=== PATIENT | male | born 1950 | race Caucasian/White ===

== ENCOUNTER 2017-08-30 19:49 | Inpatient (IN) ==
--- NOTE | 2017-08-30 20:09 | Emergency Department Note ---
Disposition Clinical Impression: CARLOS (acute kidney injury) Chest pain Qualifiers: Chest pain type: unspecified Qualified Code(s): R07.9 - Chest pain, unspecified Disposition: Admitted As Inpatient Condition: Undetermined Referrals: Maria Antonia Friend CNP [Primary Care Provider] - Forms: ED Satisfaction Letter Time of Disposition: 21:57 Chest Pain HPI - General Chief Complaint: ED Chest Pain Stated Complaint: Chest Pain Time Seen by Provider: 08/30/17 20:00 Source: patient Mode of arrival: ambulatory Limitations: no limitations Vital Signs Reviewed: Yes Nursing Notes Reviewed: Yes - History of Present Illness HPI Narrative: 67-year-old male with history of coronary artery disease, hypertension, hyperlipidemia, 14 cardiac stents, CVA 2, arrives to emergency department with 2 hours of retrosternal chest pain radiating to his left chest and left upper extremity and in the left jaw. Patient states this feels like previous to when he had his previous stents. Patient has associated dyspnea on exertion as well as some mild diaphoresis and nausea. Patient denies any hemoptysis, unilateral leg swelling, recent surgeries, history DVT or PE. The patient is resting comfortably in the room at this time. Severity scale (1-10): 5 All systems ED: reviewed and negative except as stated. Constitutional: Denies: fever, chills, weakness ENT ED: Denies: dysphagia Cardiovascular: Reports: chest pain, dyspnea on exertion. Denies: orthopnea, edema, syncope Respiratory: Reports: dyspnea. Denies: cough, sputum production Gastrointestinal: Reports: nausea. Denies: abdominal pain, vomiting Genitourinary: Denies: urgency, dysuria Musculoskeletal: Denies: back pain, neck pain, arthralgia, myalgia Integumentary: Denies: rash, lesions Neurological: Denies: headache, weakness Chest Pain PMH - Past Medical History Medical history: Reports: hyperlipidemia, hypertension, myocardial infarction Surgical history: Reports: carotid endarterectomy Prior Cardiac Testing/Procedures: Stenting - Social History Smoking Status: Former smoker Alcohol use: Reports: none Drug use: Reports: none Physical Exam - General Limitations: no limitations General appearance: alert, in no apparent distress - Head Head exam: atraumatic, normocephalic, normal inspection - Eye Eye exam: Present: normal appearance, PERRL, EOMI - ENT ENT exam: normal exam, normal oropharynx, mucous membranes moist - Neck Neck exam: Present: normal inspection, full ROM, trachea midline - Chest Chest inspection: Present: normal inspection, symmetric chest wall rise - Respiratory Respiratory exam: Present: normal lung sounds bilaterally - Cardiovascular Cardiovascular exam: Present: regular rate, normal rhythm, normal heart sounds - Abdominal Exam Abdominal exam: Present: soft, Non-Tender. Absent: tenderness, distention, guarding, rebound, rigidity - Extremities Exam Extremities exam: Present: normal inspection, full ROM. Absent: tenderness, pedal edema - Neurological Exam Neurological exam: Present: alert, oriented X3 - Skin Skin exam: Present: warm, dry, intact, normal color Course Vital Signs Temperature 97.6 F 08/30/17 19:55 Pulse Rate 60 08/30/17 19:55 Respiratory Rate 16 08/30/17 19:55 Blood Pressure 197/89 08/30/17 19:55 O2 Sat by Pulse Oximetry 97 08/30/17 19:55 Temperature 97.6 F 08/30/17 19:55 Pulse Rate 56 08/30/17 21:36 Respiratory Rate 16 08/30/17 21:36 Blood Pressure 121/64 08/30/17 21:36 O2 Sat by Pulse Oximetry 94 08/30/17 21:36 Oxygen Delivery Oxygen Delivery Room Air Chest Pain - MDM Narrative Medical decision making narrative: Patient's workup in the emergency Department is concerning for acute coronary syndrome given patient's symptoms and past history of VT. We will admit the patient to the hospital for further workup and care including trending of troponins. His troponin is negative here in the emergency department. Patient made aware and agrees to plan. He was administered aspirin here in the emergency department. No further questions or concerns noted. Accepted by Dr. Sandhu [facility]. - Lab Data Lab results reviewed: Yes I reviewed the patient's lab results. Result diagrams: 08/30/17 20:19 08/30/17 20:19 Lab Results 08/30/17 08/30/17 08/30/17 Range/Units 20:19 20:19 20:19 WBC 5.8 (4.3-11.1) K/mcL RBC 4.90 (4.19-5.50) M/mcL Hgb 13.0 (12.9-16.9) g/dL Hct 40.6 (37.5-50.1) % MCV 82.9 L (83.0-100.0) fL MCH 26.5 L (28.0-33.3) pg MCHC 32.0 (31.6-35.5) g/dL RDW 15.2 H (11.5-14.5) % Plt Count 186 (140-400) K/mcL MPV 10.0 (9.4-12.4) fL Immature Gran % 0.3 (0-4) % Seg Neutrophils % 61.0 % Lymphocytes % 23.5 % Monocytes % 10.1 % Eosinophils % 4.6 % Basophils % 0.5 % Neutrophils # 3.5 (1.6-8.9) K/mcL Lymphocytes # 1.4 (0.6-4.6) K/mcL Monocytes # 0.6 (0.0-1.3) K/mcL Eosinophils # 0.3 (0.0-0.6) K/mcL Basophils # 0.0 (0.0-0.2) K/mcL PT 11.4 (9.4-12.1) Seconds INR 1.0 APTT 31.3 (26.0-36.0) Seconds Sodium 135 L (136-145) mEq/L Potassium 4.6 (3.5-5.1) mEq/L Chloride 104 (98-107) mEq/L Carbon Dioxide 25 (23-29) mEq/L BUN 29 H (8-23) mg/dL Creatinine 1.60 H (0.70-1.30) mg/dL Est GFR ( Amer) 53 L (> 60) Est GFR (Non-Af Amer) 43 L (> 60) BUN/Creatinine Ratio 18 (6-26) Glucose 231 H (70-105) mg/dL Calculated Osmolality 293 (280-300) Calcium 9.7 (8.6-10.3) mg/dL Troponin I < 0.03 (< 0.04) ng/mL - Radiology Data Radiology results reviewed: Yes I reviewed the patient's radiology results. Chest X-Ray 08/30/17 20:00 IMPRESSION: Mild bibasilar atelectasis. D/ / Lydia Ram MD / Lydia Ram MD Interpreting Provider: Lydia Ram MD - EKG Data EKG attestation: Yes I reviewed and interpreted this EKG. EKG results narrative: Heart rate 54 beats for minute. Normal sinus bradycardia. No ST elevation noted but possible mild ST depression in V4, V5. Nonspecific ST changes noted from EKG from 03/13/2012.
[2017-08-30 20:44] LABS: Basophils % 0.5 %; Eosinophils # 0.3 K/mcL (0.0-0.6); Eosinophils % 4.6 %; Hematocrit 40.6 % (37.5-50.1); Immature Granulocytes % 0.3 % (0-4); Lymphocytes # 1.4 K/mcL (0.6-4.6); Lymphocytes % 23.5 %; Mean Corpuscular Hemoglobin 26.5 pg (28.0-33.3); Mean Corpuscular Volume 82.9 fL (83.0-100.0); Monocytes # 0.6 K/mcL (0.0-1.3); Monocytes % 10.1 %; Neutrophils # 3.5 K/mcL (1.6-8.9); Platelet Count 186 K/mcL (140-400); Red Cell Distribution Width 15.2 % (11.5-14.5)
[2017-08-30 20:50] LABS: Prothrombin Time 11.4 Seconds (9.4-12.1)
[2017-08-30 20:53] LABS: Activated Partial Thrombo Time 31.3 Seconds (26.0-36.0)
[2017-08-30 21:05] LABS: BUN/Creatinine Ratio 18 (6-26); Blood Urea Nitrogen 29 mg/dL (8-23); Calcium 9.7 mg/dL (8.6-10.3); Carbon Dioxide 25 mEq/L (23-29); Chloride 104 mEq/L (98-107); Glucose 231 mg/dL (70-105); Osmolality,Calculated 293 (280-300); Potassium 4.6 mEq/L (3.5-5.1); Sodium 135 mEq/L (136-145); eGFR For African Americans 53 (> 60); eGFR For Non-African Americans 43 (> 60)
[2017-08-30 21:06] LABS: Troponin I < 0.03 ng/mL (< 0.04)
--- NOTE | 2017-08-30 21:51 | Emergency Department Note ---
Disposition Clinical Impression: CARLOS (acute kidney injury) Chest pain Qualifiers: Chest pain type: unspecified Qualified Code(s): R07.9 - Chest pain, unspecified Disposition: Admitted As Inpatient Condition: Undetermined Referrals: Maria Antonia Friend CNP [Primary Care Provider] - Forms: ED Satisfaction Letter General Adult HPI - General Chief complaint: ED Chest Pain Stated complaint: Chest Pain Time Seen by Provider: 08/30/17 20:00 Source: patient Mode of arrival: ambulatory Limitations: no limitations Nursing Notes Reviewed: Yes Vital Signs Reviewed: Yes - History of Present Illness Pain Scale: 5 Constitutional: Denies: fever, chills, weakness ENT ED: Denies: dysphagia Cardiovascular: Reports: chest pain, dyspnea on exertion. Denies: orthopnea, edema, syncope Respiratory: Reports: dyspnea. Denies: cough, sputum production Gastrointestinal: Reports: nausea. Denies: abdominal pain, vomiting Genitourinary: Denies: urgency, dysuria Musculoskeletal: Denies: back pain, neck pain, arthralgia, myalgia Integumentary: Denies: rash, lesions Neurological: Denies: headache, weakness Past Medical History - Past Medical History Medical history: Reports: hyperlipidemia, hypertension, myocardial infarction Surgical history: Reports: carotid endarterectomy - Social History Smoking Status: Former smoker Alcohol use: Reports: none Drug use: Reports: none Physical Exam - General Limitations: no limitations General appearance: alert, in no apparent distress Course Vital Signs Temperature 97.6 F 08/30/17 19:55 Pulse Rate 60 08/30/17 19:55 Respiratory Rate 16 08/30/17 19:55 Blood Pressure 197/89 08/30/17 19:55 O2 Sat by Pulse Oximetry 97 08/30/17 19:55 Temperature 97.6 F 08/30/17 19:55 Pulse Rate 56 08/30/17 21:36 Respiratory Rate 16 08/30/17 21:36 Blood Pressure 121/64 08/30/17 21:36 O2 Sat by Pulse Oximetry 94 08/30/17 21:36 Oxygen Delivery Oxygen Delivery Room Air Medical Decision Making - Lab Data Result diagrams: 08/30/17 20:19 08/30/17 20:19 Lab Results 08/30/17 08/30/17 08/30/17 Range/Units 20:19 20:19 20:19 WBC 5.8 (4.3-11.1) K/mcL RBC 4.90 (4.19-5.50) M/mcL Hgb 13.0 (12.9-16.9) g/dL Hct 40.6 (37.5-50.1) % MCV 82.9 L (83.0-100.0) fL MCH 26.5 L (28.0-33.3) pg MCHC 32.0 (31.6-35.5) g/dL RDW 15.2 H (11.5-14.5) % Plt Count 186 (140-400) K/mcL MPV 10.0 (9.4-12.4) fL Immature Gran % 0.3 (0-4) % Seg Neutrophils % 61.0 % Lymphocytes % 23.5 % Monocytes % 10.1 % Eosinophils % 4.6 % Basophils % 0.5 % Neutrophils # 3.5 (1.6-8.9) K/mcL Lymphocytes # 1.4 (0.6-4.6) K/mcL Monocytes # 0.6 (0.0-1.3) K/mcL Eosinophils # 0.3 (0.0-0.6) K/mcL Basophils # 0.0 (0.0-0.2) K/mcL PT 11.4 (9.4-12.1) Seconds INR 1.0 APTT 31.3 (26.0-36.0) Seconds Sodium 135 L (136-145) mEq/L Potassium 4.6 (3.5-5.1) mEq/L Chloride 104 (98-107) mEq/L Carbon Dioxide 25 (23-29) mEq/L BUN 29 H (8-23) mg/dL Creatinine 1.60 H (0.70-1.30) mg/dL Est GFR ( Amer) 53 L (> 60) Est GFR (Non-Af Amer) 43 L (> 60) BUN/Creatinine Ratio 18 (6-26) Glucose 231 H (70-105) mg/dL Calculated Osmolality 293 (280-300) Calcium 9.7 (8.6-10.3) mg/dL Troponin I < 0.03 (< 0.04) ng/mL Attestation Statement - Attestation Attestation: I, Jayy Sun MD, personally evaluated this patient and discussed their management with the resident physician. I reviewed the resident's note and agree with the documented findings, medical decision making, and plan of care. 67-year-old male with history of coronary artery disease and 14 coronary artery stents presents to the emergency department with a complaint of an episode of chest pain for about 2 hours prior to arrival. He states the pain was in his left arm and radiated up into the left chest. Also to the left jaw. He had shortness of breath and nausea with the episode. It was not associated with exertion. He did take nitroglycerin which helped the pain but did not completely relieve it. At time of my exam he is pain-free. On examination patient is a well-developed well-nourished well-appearing elderly male in no acute distress. He is alert and oriented 3. There is no cyanosis or diaphoresis. Chest is nontender to palpation. Breath sounds are clear and equal bilaterally. Heart regular rate and rhythm. Abdomen soft and nontender with normal bowel sounds. Reviewed. Troponin normal. Chest x-ray shows bibasilar atelectasis. EKG shows a sinus bradycardia with ventricular rate of 54. No ST segment elevation or depressions. The hospitalist, Dr. Sandhu, was consulted and accepted admission of the patient.
[2017-08-30] MEDS ORDERED: Aspirin 325 MG TABLET PO ONE (21:52)
[2017-08-30] MEDS ORDERED: Naloxone 0.4 MG/ML INJ IVP PRN (23:53)
[2017-08-30] MEDS ORDERED: Acetaminophen 325 MG TABLET PO PRN (23:53)
[2017-08-30] MEDS ORDERED: Nitroglycerin 0.4 MG TAB.SUBL SL PRN (23:58)
[2017-08-31] MEDS ORDERED: D5% in Water 1,000 ML IVC PRN (00:08)
[2017-08-31] MEDS ORDERED: Dextrose Gel 15 GM/37.5 ML TUBE PO PRN ×2 (00:08)
[2017-08-31] MEDS ORDERED: *HR* Dextrose 50 % in Water (Syg) 50 ML SYRINGE IVP PRN (00:08)
--- NOTE | 2017-08-31 00:17 | Internal Med History&Physical ---
Date of Encounter: 08/30/17 Time of Encounter: 23:00 Internal Medicine - H&P: HPI Chief complaint: Chest pain Admitted From: Home Plans for Post Hospital Care: Home History of present illness: Mr. Newman is a 67 year old male presented to ER for chest pain. Past medical history is significant for CAD S/P 14 stents, diabetes, COPD, bilateral carotid stenosis S/P surgery, hypertension. Patient has sudden onset chest pain since this evening, the pain located on left chest, pressure-like, 8 out of 10, radiated to left arm and left jaw. Patient has mild shortness of breath. No nausea, no diaphoresis. Patient took sublingual nitroglycerin and the pain resolved after nitroglycerin. The pain lasted totally about one hour. Patient said he has similar chest pain before and resolved after nitroglycerin use, but it is 2 years ago. When I saw patient in emergency room, patient is totally pain-free, in no acute distress. Patient admitted for chest pain to rule out ACS. Past Med Surg Social Fam HX - Past Medical History Medical history: CVA, diabetes, hyperlipidemia, hypertension, myocardial infarction Psychiatric history: no psych history - Past Surgical History Surgical History: angioplasty/stent, carotid endarterectomy - Social History Smoking Status: Former smoker Alcohol use: none Drug use: none - Family History Mother History Unknown: Yes Internal Medicine - H&P: Meds Advair 250-50 Diskus 250 puff IH DAILY 08/30/17 [History] Aspirin [Lo-Dose Aspirin EC] 81 mg PO DAILY 08/30/17 [History] Clopidogrel [Plavix] 75 mg PO DAILY 08/30/17 [History] Glimepiride [Amaryl] 4 mg PO DAILY 08/30/17 [History] Iron 65 mg PO QTUTHSA 08/30/17 [History] Isosorbide MONOnitrate 30 mg PO DAILY 08/30/17 [History] Januvia 50 mg PO DAILY 08/30/17 [History] Jardiance 10 mg PO DAILY 08/30/17 [History] Metoprolol Tartrate 75 mg PO BID 08/30/17 [History] Nitroglycerin [Nitrostat] 0.4 mg SL PRN 08/30/17 [History] Ranitidine HCl 150 mg PO BID 08/30/17 [History] Rosuvastatin [Crestor] 20 mg PO HS 08/30/17 [History] metFORMIN [Glucophage] 500 mg PO BID 08/30/17 [History] 3 Allergy/AdvReac Type Severity Reaction Status Date / Time codeine Allergy Intermediate Agitated Verified 08/30/17 23:28 morphine Allergy Intermediate Agitated Verified 08/30/17 23:28 codeine Allergy Unknown Agitated Uncoded 08/30/17 23:28 All Systems PM: A 10-system review of systems was performed and is negative for pertinent findings except as documented above in the HPI. - Constitutional Vitals: Temp Pulse Resp BP Pulse Ox 97.4 F L 59 16 180/81 99 08/30/17 23:07 08/30/17 23:07 08/30/17 23:07 08/30/17 23:07 08/30/17 23:07 General appearance: Present: A&O X 3, no acute distress, answers questions appropriately - Head Head exam: Present: atraumatic, normocephalic - Eye Eye exam: Present: PERRL, conjuntiva pink, sclera anicteric Pupils: Present: PERRL - Neck Neck exam general surgery: Present: supple, trachea midline. Absent: lymphadenopathy - Respiratory Respiratory exam: Present: CTAB. Absent: accessory muscle use, rales, rhonchi, wheezes - Cardiovascular Cardiovascular exam: Present: RRR, +S1, +S2. Absent: diastolic murmur, gallop, rubs, systolic murmur - GI/Abdominal GI/Abdominal exam: Present: normal bowel sounds, soft, no peritoneal signs. Absent: distended, tenderness - Extremities Exam Extremities exam: Present: warm, radial pulses palpable and symmetrical. Absent : calf tenderness, cyanotic, pedal edema - Neurological Exam Neurological exam: Present: CN II-XII intact, oriented X3, no focal deficits. Absent: pronater drift, facial droop, speech deficit - Skin Skin exam: Present: dry, intact Internal Med - H&P Results - Labs CBC & Chem 7: 08/30/17 20:19 08/30/17 20:19 - Assessment and plan (1) CAD (coronary artery disease) Current Visit: Yes Status: Acute Assessment and plan: We will continue home medications aspirin, Plavix, Imdur, beta livan, and statin. Qualifiers: Coronary Disease-Associated Artery/Lesion type: eek artery [place] vs. transplanted heart: eek heart Associated angina: with stable angina Qualified Code(s): I25.118 - Atherosclerotic heart disease of eek coronary artery with other forms of angina pectoris (2) Diabetes Current Visit: Yes Status: Acute Assessment and plan: Place the patient on sliding scale insulin coverage Qualifiers: Diabetes mellitus type: type 2 Diabetes mellitus half-way insulin use: without bed bug exterminator use Diabetes mellitus complication status: with unspecified complications Qualified Code(s): E11.8 - Type 2 diabetes mellitus with unspecified complications (3) COPD (chronic obstructive pulmonary disease) Current Visit: Yes Status: Acute Assessment and plan: Stable, no wheezing, continue home medications Qualifiers: COPD type: emphysema Emphysema type: unspecified Qualified Code(s): J43.9 - Emphysema, unspecified (4) Hypertension Current Visit: Yes Status: Acute Assessment and plan: Continue home medications, closely monitor BP Qualifiers: Hypertension type: essential hypertension Qualified Code(s): I10 - Essential (primary) hypertension (5) Carotid stenosis Current Visit: Yes Status: Acute Assessment and plan: S/P surgery, continue follow-up as outpatient Qualifiers: Laterality: bilateral Qualified Code(s): I65.23 - Occlusion and stenosis of bilateral carotid arteries (6) CARLOS (acute kidney injury) Current Visit: Yes Status: Acute Assessment and plan: Creatinine 1.6. No previous result available to compare. Patient has diabetes , possibly it is his baseline. Will give low rate IV fluid and follow-up renal function in a.m.. Avoid nephrotoxic medications (7) Chest pain Current Visit: Yes Status: Acute Assessment and plan: Patient has chest pain. History of CAD S/P stent. Chest pain respond to neck glycerin. Need to rule out ACS. - Place patient on continuous cardiac monitoring - Check 3 sets of troponin - Regarding stress test, patient would like to see his front edger after discharge to determine the further testing. Will hold at this point. Qualifiers: Chest pain type: unspecified Qualified Code(s): R07.9 - Chest pain, unspecified - Time Spent With Patient Total time spent is greater than 50% in coordination of care (as documented) at patient's floor/unit and/or counseling patient: 40 minutes Greater than 35 minutes
[2017-08-31 01:12] LABS: Basophils % 0.5 %; Eosinophils # 0.3 K/mcL (0.0-0.6); Eosinophils % 4.7 %; Hematocrit 37.9 % (37.5-50.1); Hemoglobin 12.2 g/dL (12.9-16.9); Immature Granulocytes % 0.5 % (0-4); Lymphocytes # 1.9 K/mcL (0.6-4.6); Lymphocytes % 29.8 %; Mean Corpuscular HGB Conc 32.2 g/dL (31.6-35.5); Mean Corpuscular Volume 80.6 fL (83.0-100.0); Mean Platelet Volume 9.6 fL (9.4-12.4); Monocytes # 0.7 K/mcL (0.0-1.3); Monocytes % 10.5 %; Neutrophils # 3.4 K/mcL (1.6-8.9); Platelet Count 172 K/mcL (140-400); Red Cell Distribution Width 15.2 % (11.5-14.5)
[2017-08-31 01:32] LABS: Calcium 9.4 mg/dL (8.6-10.3); Potassium 3.9 mEq/L (3.5-5.1)
[2017-08-31] MEDS ORDERED: *HR* Heparin 5,000 UNIT/ML VIAL IVP ONE (01:44)
[2017-08-31] MEDS ORDERED: *HR* Heparin 5,000 UNIT/ML VIAL IVP PRN ×2 (01:44)
[2017-08-31] MEDS: 0.9 % Sodium Chloride 1,000 ML IVC SCH ×2 (02:17→18:23)
--- NOTE | 2017-08-31 03:13 | Event Note ---
Date of Encounter: 08/31/17 Time of Encounter: 02:30 Patient has a positive second set troponin. Patient denies chest pain now. Consider NSTEMI as patient has chest pain earlier and history of CAD. Heparin drip ordered. However, patient refused heparin drip and refused blood draw for APTT. I together with KAROLYN Johnson, talk to patient at bedside. Patient is awake alert oriented 3. He understand that refusing heparin drip may cause his CAD/ NSTEMI get worse, may cause worsen irreversible myocardio infarct or even life theatening outcome. However, pt still refuse heparin drip and blood draw. Will cont other treatment and monitoring, will consult cardio for further management.
[2017-08-31] MEDS: Budesonide/Formoterol 80/4.5 MDI IH SCH (08:30)
[2017-08-31] MEDS: Aspirin Enteric Coated 81 MG Tablet PO SCH (10:14)
[2017-08-31] MEDS: Insulin LISPRO 300 UNITS/3 ML VIAL SQ SCH ×3 (10:15→18:24)
[2017-08-31] MEDS: Isosorbide MONOnitrate (24 HR) 30 MG TAB.ER.24H PO SCH ×2 (10:16→11:55)
--- NOTE | 2017-08-31 11:48 | Cardiology Consult Note ---
<Markel Balderas R - Last Filed: 08/31/17 11:45> Date of Encounter: 08/31/17 Time of Encounter: 11:45 Assessment and Plan (1) NSTEMI (non-ST elevated myocardial infarction) Current Visit: Yes Status: Acute Peak troponin 0.99. Presented with chest pain with radiation to left arm and jaw , similar to prior anginal equivalent. Pt initially refused heparin gtt. Now agreeable, started. No ischemic EKG findings. Continue ASA, Plavix, Statin. BB on hold due to bradycardia. Hx CAD and multiple PCI--per pt most recent ~1 year ago at [place]. Follows with Dr. Becerra in [facility]. Chest pain free currently. TTE to evaluate structure and function. Recommend [facility]. R/B/A discussed. Agrees to proceed with [facility] tomorrow. (2) CARLOS (acute kidney injury) Current Visit: Yes Status: Acute Creatinine 1.60 on admission, 1.43 today. Unclear baseline. IV fluids ordered. (3) CAD (coronary artery disease) Current Visit: Yes Status: Acute Hx CAD and PCI. Continue ASA, Plavix, Statin. No BB currently due to bradycardia. Qualifiers: Coronary Disease-Associated Artery/Lesion type: [place] artery [place] vs. transplanted heart: [place] heart Associated angina: with stable angina Qualified Code(s): I25.118 - Atherosclerotic heart disease of [place] coronary artery with other forms of angina pectoris Discussion w patient/family: The assessment and plan as outlined above was discussed with the patient and/or family members who expressed understanding and agreement. All questions were answered. Thank you for involving us in the care of your patient. Please call with any questions. I will discuss all the above with Dr. De La Cruz and make changes as necessary. History of Present Illness Consult date: 08/31/17 Requesting physician: Aron Sandhu Consult reason: NSTEMI Chief complaint: Chest pain History of present illness: Mr. Newman is a 67 year old male with PMH of CAD S/P reportedly 14 stents, diabetes, COPD, carotid stenosis s/p surgery, HTN. Per pt, last stent ~1 year ago at [place]. Typically follows with Dr. Becerra in [facility]. Patient had sudden onset chest pain yesterday evening, left sided chest pressure that radiated to left arm and left jaw. Patient has mild shortness of breath. No nausea, no diaphoresis. Patient took sublingual nitroglycerin and the pain improved after nitroglycerin. CP lasted 1-2 hours. Pain similar to prior anginal equivalent. Initial troponin negative, then 0.27, 0.99. Cardiology consulted for further recs. Currently chest pain free. Past Med Surg Social Fam HX - Past Medical History Medical history: coronary artery disease, CVA, diabetes, hyperlipidemia, hypertension, myocardial infarction Psychiatric history: no psych history - Past Surgical History Surgical History: angioplasty/stent, carotid endarterectomy - Social History Smoking Status: Former smoker Alcohol use: none Drug use: none - Family History Brother Adopted: [place]: DEVORAH Age: 70 Family Member Ethnicity: Non- Living Status: Still Living Hx Family Cardiac Disorders: Yes (HEART DISEASE) Hx Family Respiratory Disorders: No Hx Family Cancer: No Hx Family GI Disorders: No Hx Family Genitourinary Disorders: No Hx Family Endocrine Disorder: No Hx Family Musculoskeletal Disorders: No Hx Family Neuromuscular Disorders: No Hx Family Neurologic Disorders: No Hx Family HEENT Disorders: No Hx Family Autoimmune Disorders: No Hx Family Reproductive Disorders: No Hx Family Psychosocial Disorders: No Hx Family Medical Disorders: No Mother History Unknown: Yes Medications and Allergies Aspirin [Lo-Dose Aspirin EC] 81 mg PO DAILY 08/30/17 [History] Clopidogrel [Plavix] 75 mg PO DAILY 08/30/17 [History] Empagliflozin [Jardiance] 10 mg PO DAILY 08/30/17 [History] Ferrous Sulfate 325 mg PO TUTHSA 08/30/17 [History] Glimepiride [Amaryl] 4 mg PO BID 08/30/17 [History] Isosorbide MONOnitrate (24 HR) [Imdur] 30 mg PO DAILY 08/30/17 [History] Metoprolol [Lopressor] 75 mg PO BID 08/30/17 [History] Nitroglycerin [Nitrostat] 0.4 mg SL Q5MIN PRN 08/30/17 [History] Ranitidine HCl [Heartburn Relief] 150 mg PO BID 08/30/17 [History] Rosuvastatin [Crestor] 20 mg PO HS 08/30/17 [History] Sitagliptin Phosphate [Januvia] 50 mg PO DAILY 08/30/17 [History] Fluticasone/Salmeterol [Advair 250-50 Diskus] 1 - 2 puff IH BID 08/31/17 [ History] Metformin HCl [Metformin HCl ER] 500 mg PO BID 08/31/17 [History] 3 Allergy/AdvReac Type Severity Reaction Status Date / Time codeine Allergy Intermediate Agitated Verified 08/30/17 23:28 morphine Allergy Intermediate Agitated Verified 08/30/17 23:28 codeine Allergy Unknown Agitated Uncoded 08/30/17 23:28 All Systems Review: The remainder of the systems were reviewed and are negative - Cardiovascular Cardiovascular: as per HPI, chest pain at rest, chest pain with exertion, radiating jaw, neck or arm pain Physical Examination Vital Signs, Last 4 Hours Temp Pulse Resp BP Pulse Ox 08/31/17 08:32 17 97 08/31/17 07:48 97.7 F 56 17 126/70 97 Vital Signs Temp Pulse Resp BP Pulse Ox 08/31/17 08:32 17 97 08/31/17 07:48 97.7 F 56 17 126/70 97 08/31/17 04:30 125/77 08/31/17 04:29 98.0 F 55 18 123/70 98 08/30/17 23:07 97.4 F L 59 16 180/81 99 08/30/17 21:36 56 16 121/64 94 08/30/17 20:57 96 08/30/17 19:55 97.6 F 60 16 197/89 97 Intake and Output 08/30/17 08/31/17 08/31/17 23:59 07:59 15:59 Output Total 1120 / 1120 Balance -1120 / -1120 Output: Urine 1120 / 1120 Other: Weight 96.186 kg Blood Glucose* 153 General: Conversant, No Apparent Distress HEENT: Atraumatic, Normocephaly, Mucus Membranes Moist Neck: No JVD, Normal carotid pulses Cardiac: Reg Rate and Rhythm, Normal S1 and S2, No Murmur Lungs: Normal Breath Sounds, No Wheeze, Rales, Rhonchi Neuro: Alert and responsive, No focal deficits noted Abdomen: Soft, Non-Tender Skin: No rashes noted on visualized skin Musculoskeletal: No Chest Wall Tenderness Extremities: No Clubbing, No Cyanosis, No Edema, Normal Pulses Results 08/31/17 00:55 08/31/17 00:55 Lab Results 08/31/17 08/31/17 08/31/17 00:55 00:55 00:55 WBC 6.2 Hgb 12.2 L Hct 37.9 Plt Count 172 Sodium 137 Potassium 3.9 Chloride 106 Carbon Dioxide 24 BUN 27 H Creatinine 1.43 H Glucose 230 H Calcium 9.4 Troponin I 0.27 H* 08/31/17 06:31 WBC Hgb Hct Plt Count Sodium Potassium Chloride Carbon Dioxide BUN Creatinine Glucose Calcium Troponin I 0.99 H* Short CBC 08/31/17 08/30/17 Range/Units 00:55 20:19 WBC 6.2 5.8 (4.3-11.1) K/mcL Hgb 12.2 L 13.0 (12.9-16.9) g/dL Hct 37.9 40.6 (37.5-50.1) % Plt Count 172 186 (140-400) K/mcL Neutrophils # 3.4 3.5 (1.6-8.9) K/mcL BMP 08/31/17 08/30/17 Range/Units 00:55 20:19 Sodium 137 135 L (136-145) mEq/L Potassium 3.9 4.6 (3.5-5.1) mEq/L Chloride 106 104 (98-107) mEq/L Carbon Dioxide 24 25 (23-29) mEq/L BUN 27 H 29 H (8-23) mg/dL Creatinine 1.43 H 1.60 H (0.70-1.30) mg/dL Glucose 230 H 231 H (70-105) mg/dL Calcium 9.4 9.7 (8.6-10.3) mg/dL Cardiac Enzymes 08/31/17 08/31/17 08/30/17 Range/Units 06:31 00:55 20:19 Troponin I 0.99 H* 0.27 H* < 0.03 (< 0.04) ng/mL Impressions Chest X-Ray 08/30/17 20:00 IMPRESSION: Mild bibasilar atelectasis. D/ / Lydia Ram MD / Lydia Ram MD Interpreting Provider: Lydia Ram MD Active Medications Acetaminophen (Tylenol) 650 mg PO Q6HR PRN PRN Reason: Mild Pain/Fever Stop: 03/01/18 23:54 Aspirin (Aspirin Ec) 81 mg PO DAILY [facility] Stop: 03/02/18 09:01 Last Admin: 08/31/17 10:14 Dose: 81 mg Budesonide/Formoterol Fumarate (Symbicort) 2 puff IH DAILYR [facility] Stop: 03/02/18 10:01 Last Admin: 08/31/17 08:30 Dose: 2 puff Clopidogrel Bisulfate (Plavix) 75 mg PO DAILY [facility] Stop: 03/02/18 09:01 Last Admin: 08/31/17 10:14 Dose: 75 mg Dextrose/Water (Dextrose 50% (Syg)) 25 ml IVP AD PRN PRN Reason: Hypoglycemia Stop: 03/02/18 00:09 Ferrous Sulfate (Ferrous Sulfate) 325 mg PO QTUTHSA [facility] Stop: 03/04/18 09:01 Glucagon (Glucagen) 1 mg IM ONCE PRN PRN Reason: Hypoglycemia Stop: 03/02/18 00:09 Glucose (Gluctose) 15 gm PO ONCE PRN PRN Reason: Hypoglycemia Stop: 03/02/18 00:09 Glucose (Gluctose) 30 gm PO ONCE PRN PRN Reason: Hypoglycemia Stop: 03/02/18 00:09 Heparin Sodium (Porcine) (Heparin) 4,000 unit IVP Q6HR PRN PRN Reason: SEE COMMENTS Stop: 03/02/18 01:45 Heparin Sodium (Porcine) (Heparin) 2,000 unit IVP Q6H PRN PRN Reason: SEE COMMENTS Stop: 03/02/18 01:45 Sodium Chloride (0.9 % Sodium Chloride) 1,000 mls @ 80 mls/hr IVC .[id number] [facility] Stop: 03/01/18 23:46 Last Admin: 08/31/17 02:17 Dose: 80 mls/hr Dextrose (Dextrose 5%) 1,000 mls @ 100 mls/hr IVC .Q10H PRN PRN Reason: HYPOGLYCEMIA Stop: 03/02/18 00:09 Heparin Sodium/Dextrose (Heparin 25,000 Unit/500 Ml D5w) 25,000 unit in 500 mls @ 23.085 mls/hr IVC .[id number] [facility]; 12 UNIT/KG/HR PRN Reason: Protocol Stop: 03/02/18 01:46 Insulin Human Lispro (Humalog) 0 units SQ HS [facility] PRN Reason: Protocol Stop: 03/02/18 21:01 Insulin Human Lispro (Humalog) 0 units SQ TIDAC [facility] PRN Reason: Protocol Stop: 03/02/18 07:31 Last Admin: 08/31/17 10:15 Dose: Not Given Isosorbide Mononitrate (Imdur) 30 mg PO DAILY [facility] Stop: 03/02/18 09:01 Last Admin: 08/31/17 10:16 Dose: Not Given Metoprolol Tartrate (Lopressor) 75 mg PO BID [facility] Stop: 03/02/18 09:01 Last Admin: 08/31/17 10:16 Dose: Not Given Naloxone HCl (Narcan) 0.4 mg IVP Q2MIN PRN PRN Reason: SEE COMMENTS Stop: 03/01/18 23:54 Nitroglycerin (Nitroglycerin) 0.4 mg SL Q5MIN PRN PRN Reason: Chest Pain Stop: 03/01/18 23:59 Rosuvastatin Calcium (Crestor) 20 mg PO HS [facility] Stop: 03/02/18 21:01 - EKG Interpretation EKG results cardiology: personally reviewed (sinus cherise, rate 54), other (12 hr tele AVG HR 57, SR) Consult Discharge Plan - Plan Referrals: Maria Antonia Friend, CORK INSULATOR [Primary Care Provider] - <Thomas De La Cruz - Last Filed: 08/31/17 20:28> Date of Encounter: 08/31/17 - Attending Attestation I have personally performed a face to face evaluation on this patient. I have reviewed and agree with the care plan. History and Exam by me shows: CC: Chest pain HPI: Pt reports was at rest last evening when he developed mid sternal chest pain, 8/10 at most severe, associated with nausea, diaphoresis and shortness of breath consistent with his previous anginal pain. He took one sl ntg with reduction in pain to 6/10, took second which reduced pain to 3/10. Chest pain persisted for over an hour before he came to the ER, with pain relief after additional sl ntg. He is now pain free, has not had reoccurrence of chest pain. He has an extensive cardiac history with fourteen stents placed over multiple procedures of last five years. ROS: reviewed PMH: reviewed PE: pt seen and examined, agree with findings as documented IMP/PlAN. 1. NSTEMI; troponin peak at .99, chest pain has resolved on optimal medical tx, discussed options, recommendations for LHC/poss in AM, pt agrees to proceed. 2. CAD: severe triple vessel CAD, last LHC/PCI at [facility], unknown vessed, hx fourteen coronary stent placements 3. Chronic renal disease, Stage 3, will rehdrate, consider nephrology consult for optimized renal status. Assessment and Plan Discussion w patient/family: The assessment and plan as outlined above was discussed with the patient and/or family members who expressed understanding and agreement. All questions were answered. Thank you for involving us in the care of your patient. Please call with any questions. History of Present Illness History of present illness: Mr. Newman is a 67 year old male All Systems Review: The remainder of the systems were reviewed and are negative Physical Examination Vital Signs, Last 4 Hours Temp Pulse Resp BP Pulse Ox 08/31/17 18:23 98.2 F 67 17 147/71 97 Results 08/31/17 00:55 08/31/17 00:55 Lab Results 08/31/17 08/31/17 08/31/17 00:55 00:55 00:55 WBC 6.2 Hgb 12.2 L Hct 37.9 Plt Count 172 Sodium 137 Potassium 3.9 Chloride 106 Carbon Dioxide 24 BUN 27 H Creatinine 1.43 H Glucose 230 H Calcium 9.4 Troponin I 0.27 H* 08/31/17 06:31 WBC Hgb Hct Plt Count Sodium Potassium Chloride Carbon Dioxide BUN Creatinine Glucose Calcium Troponin I 0.99 H*
[2017-08-31] MEDS: Heparin 25,000 UNIT/500 ML D5W 25,000 UNIT/500 ML BAG IVC SCH (11:56)
--- NOTE | 2017-08-31 18:42 | Internal Med Progress Note ---
Date of Encounter: 08/31/17 Time of Encounter: 09:50 - Assessment and plan (1) Chest pain Current Visit: Yes Status: Acute Assessment and plan: Chest pain free. History of CAD S/P stent. Chest pain resolved with NTG. - Place patient on continuous cardiac monitoring - Troponins elevated. - Stress and echo tomorrow. Qualifiers: Chest pain type: unspecified Qualified Code(s): R07.9 - Chest pain, unspecified (2) CARLOS (acute kidney injury) Current Visit: Yes Status: Acute Assessment and plan: Creatinine 1.43, slight improvement. Patient has diabetes, possibly it is his baseline. Will give low rate IV fluid and follow-up renal function in a.m., stop fluids at midnight. Avoid nephrotoxins (3) CAD (coronary artery disease) Current Visit: Yes Status: Acute Assessment and plan: Chronic. [place] with stents x 8. We will continue home medications aspirin, Plavix, Imdur, beta livan, and statin. Qualifiers: Coronary Disease-Associated Artery/Lesion type: [place] artery [place] vs. transplanted heart: [place] heart Associated angina: with stable angina Qualified Code(s): I25.118 - Atherosclerotic heart disease of [place] coronary artery with other forms of angina pectoris (4) Diabetes Current Visit: Yes Status: Acute Assessment and plan: SSI, accuchecks achs, diabetic diet. Qualifiers: Diabetes mellitus type: type 2 Diabetes mellitus ocean transportation intermediary insulin use: without ocean transportation intermediary use Diabetes mellitus complication status: with unspecified complications Qualified Code(s): E11.8 - Type 2 diabetes mellitus with unspecified complications (5) COPD (chronic obstructive pulmonary disease) Current Visit: Yes Status: Acute Assessment and plan: Stable, no wheezing, continue home medications No acute exacerbation. Patient is at baseline O2 use. Qualifiers: COPD type: emphysema Emphysema type: unspecified Qualified Code(s): J43.9 - Emphysema, unspecified (6) Hypertension Current Visit: Yes Status: Acute Assessment and plan: Neck. Continue home medications. Qualifiers: Hypertension type: essential hypertension Qualified Code(s): I10 - Essential (primary) hypertension (7) Carotid stenosis Current Visit: Yes Status: Acute Assessment and plan: S/P surgery, continue follow-up as outpatient Qualifiers: Laterality: bilateral Qualified Code(s): I65.23 - Occlusion and stenosis of bilateral carotid arteries - Time Spent With Patient Total time spent is greater than 50% in coordination of care (as documented) at patient's floor/unit and/or counseling patient: less than 15 minutes - Subjective Interval history: Patient was seen and assessed at 9:50 AM. Pt is alert and awake, he states that he wants to go to [place] for his cath and that Dr. Becerra is his diplomatic officer. We discussed that since his troponin is elevated, he should stay for an C and let us start the Heparin gtt. He was agreeable after everything was explained. He denied chest pain, shortness of breath, nausea, diaphoresis or peripheral edema. - Constitutional Vitals: Temp Pulse Resp BP Pulse Ox 98.2 F 67 17 147/71 97 08/31/17 18:23 08/31/17 18:23 08/31/17 18:23 08/31/17 18:23 08/31/17 18:23 General appearance: Present: cooperative, A&O X 3, pleasant, no acute distress, answers questions appropriately - Head Head exam: Present: atraumatic, normal inspection, normocephalic - Eye Eye exam: Present: normal appearance, conjuntiva pink, sclera anicteric - Neck Neck exam general surgery: Present: tenderness, supple, trachea midline. Absent : lymphadenopathy - Respiratory Respiratory exam: Present: CTAB. Absent: accessory muscle use, chest wall tenderness, decreased breath sounds, rales, respiratory distress, rhonchi, wheezes - Cardiovascular Cardiovascular exam: Present: RRR, +S1, +S2. Absent: diastolic murmur, gallop, rubs, systolic murmur - GI/Abdominal GI/Abdominal exam: Present: normal bowel sounds, soft. Absent: distended, hepatomegaly, tenderness - Extremities Exam Extremities exam: Present: normal capillary refill, normal inspection, warm, radial pulses palpable and symmetrical. Absent: calf tenderness, cyanotic, pedal edema, tenderness - Neurological Exam Neurological exam: Present: alert, oriented X3, no focal deficits. Absent: facial droop, speech deficit - Skin Skin exam: Present: dry, intact, normal color, warm. Absent: rash Internal Medicine: Result - Labs CBC & Chem 7: 08/31/17 00:55 08/31/17 00:55 Labs: Short CBC 08/31/17 Range/Units 00:55 WBC 6.2 (4.3-11.1) K/mcL Hgb 12.2 L (12.9-16.9) g/dL Hct 37.9 (37.5-50.1) % Plt Count 172 (140-400) K/mcL Neutrophils # 3.4 (1.6-8.9) K/mcL BMP 08/31/17 00:55 Sodium 137 Potassium 3.9 Chloride 106 Carbon Dioxide 24 BUN 27 H Creatinine 1.43 H Glucose 230 H Calcium 9.4 Cardiac Enzymes 08/31/17 08/31/17 Range/Units 00:55 06:31 Troponin I 0.27 H* 0.99 H* (< 0.04) ng/mL - ABG Interpretation ABG results: PT/INR, D-dimer PT 11.4 Seconds (9.4-12.1) 08/30/17 20:19 Consult Discharge Plan - Plan Referrals: Maria Antonia Friend, NUCLEAR TECHNICIAN [Primary Care Provider] -
[2017-08-31] MEDS ORDERED: Insulin LISPRO 300 UNITS/3 ML VIAL SQ SCH (21:00)
[2017-09-01 01:03] LABS: Basophils % 0.6 %; Eosinophils # 0.2 K/mcL (0.0-0.6); Eosinophils % 4.1 %; Hematocrit 36.8 % (37.5-50.1); Immature Granulocytes % 0.2 % (0-4); Lymphocytes # 1.7 K/mcL (0.6-4.6); Lymphocytes % 32.1 %; Mean Corpuscular HGB Conc 32.6 g/dL (31.6-35.5); Mean Corpuscular Hemoglobin 26.6 pg (28.0-33.3); Mean Corpuscular Volume 81.6 fL (83.0-100.0); Mean Platelet Volume 9.9 fL (9.4-12.4); Monocytes # 0.6 K/mcL (0.0-1.3); Monocytes % 11.7 %; Neutrophils # 2.8 K/mcL (1.6-8.9); Platelet Count 154 K/mcL (140-400); Red Blood Count 4.51 M/mcL (4.19-5.50); Red Cell Distribution Width 15.3 % (11.5-14.5); Segmented Neutrophils % 51.3 %
[2017-09-01 01:22] LABS: Calcium 8.6 mg/dL (8.6-10.3); Potassium 4.2 mEq/L (3.5-5.1)
[2017-09-01] MEDS: 0.9 % Sodium Chloride 1,000 ML IVC SCH (04:16)
[2017-09-01 07:12] LABS: Estimated Average Glucose 189 mg/dl; Hemoglobin A1C 8.2 %
[2017-09-01] MEDS: Heparin 25,000 UNIT/500 ML D5W 25,000 UNIT/500 ML BAG IVC SCH (09:46)
[2017-09-01] MEDS: Insulin LISPRO 300 UNITS/3 ML VIAL SQ SCH ×2 (09:50→11:51)
[2017-09-01] MEDS: Isosorbide MONOnitrate (24 HR) 30 MG TAB.ER.24H PO SCH (10:00)
[2017-09-01] MEDS: Aspirin Enteric Coated 81 MG Tablet PO SCH (10:00)
--- NOTE | 2017-09-01 10:05 | Event Note ---
Date of Encounter: 09/01/17 Time of Encounter: 09:59 - Cardiology Event Note Creatinine 1.56 today. Requested records for prior labs. Creatinine was 1.59 2017 at [facility], creatinine was 1.29 09/2016. Appears pt has CKD stage 3 at baseline, currently in his baseline range. Pt aware of risk of AYAD. Agrees to proceed with [facility] . Prior records reviewed. [facility] 09/2016 received rotoblator, PTCA/KATHERYN to prox, mid and distal RCA.
[2017-09-01] MEDS: Budesonide/Formoterol 80/4.5 MDI IH SCH (11:12)
[2017-09-01] MEDS ORDERED: Verapamil 5 MG/2 ML VIAL ONE (11:35)
[2017-09-01] MEDS ORDERED: 0.9 % Sodium Chloride 1,000 ML ONE ×2 (11:35→12:01)
[2017-09-01] MEDS ORDERED: Nitroglycerin 1,000 MCG/10 ML VIAL IV ONE (11:35)
[2017-09-01] MEDS ORDERED: ISOVUE-370 200 ML INFUS..BTL IV ONE (11:35)
[2017-09-01] MEDS ORDERED: *HR* Heparin 10,000 UNIT/10 ML VIAL ONE (11:35)
[2017-09-01] MEDS ORDERED: Heparin 1,000 UNITS/500 mL 500 ML ONE (11:35)
[2017-09-01] MEDS ORDERED: *HR* FentaNYL (PF) 100 MCG/2 ML VIAL ONE (12:00)
[2017-09-01] MEDS ORDERED: *HR* Midazolam HCl 5 MG/5 ML VIAL IVP ONE (12:00)
--- NOTE | 2017-09-01 12:20 | Pre-Sedation Evaluation ---
Pre-sedation evaluation - Pre-sedation checklist Date of procedure: 09/01/17 Procedure: heart cath Recent Vitals: Last Vital Signs Temp 97.9 F 09/01/17 07:18 Pulse 63 09/01/17 07:18 Resp 15 09/01/17 11:12 BP 116/72 09/01/17 07:18 Pulse Ox 97 09/01/17 11:12 H&P (including ROS) documented in medical record: Yes Previous reaction to sedatives/anesthetics: No Dietary Status: NPO after Midnight Dentition: dentures removed ASA Classification *see protocol: CLASS II-Mild systemic disease Plan of Care: Pt appropriate candidate for procedure/moderate/conscious sedation , Risks/benefits of procedure/sedation discussed w/ patient/family Cardiac Registry (Cardio Only) - Functional Capacity Functional Capacity: >=4 METS with symptoms - Clincal Frailty Scale Clinical Frailty Scale: Managing Well
[2017-09-01] MEDS ORDERED: Isosorbide MONOnitrate (24 HR) 30 MG TAB.ER.24H PO SCH (13:00)
--- NOTE | 2017-09-01 13:01 | Invasive Diagnostic Lab Proc ---
Name: Keon Newman Date of Study: 09/01/2017 Date: 1950 Ht: 68.9in Medical Record#: [id number] Age: 67 Wt: 213.85lb Gender: Male BSA: 2.12 Order #: [id number] BMI: 31.67 Physicians Procedure Physician: Giovani Alcantar MD, [facility] Referring MD: Referring MD: Staff Name Position Time In Sites, Brit RT (R) Monitor 12:02 PM Maribel White RT (R) Scrub 12:02 PM Silvana Jang RN Snagger 12:02 PM Maria Fernanda Oliveros RN Snagger 12:02 PM Indications Indication Non-Stemi Procedures Performed Procedure L HRT ARTERY/VENTRICLE ANGIO IV Doppler BLD Flow 1st Vessel Pre-Procedure Checklist Informed consent is complete signed and on chart. H&P is on chart. ID band is on and ID verified with patient. Patient NPO for procedure The procedure was described for the patient and questions were answered. ECG is on chart. Plan of Care Patient will tolerate the procedure without complications. Adequate level of comfort will be maintained. Hemodynamics will remain stable Patient will recover from procedure without complications. Respiratory function will be maintained. Cardiac rhythm will remain stable. Patient temperature will be maintained. Patient and/or family have verbalized understanding of the procedure. Patient Education Chief Complaint/Reason for Test: Cardiac Cath Developmental Category: Geriatric (65+ years) Developmentally Appropriate for Age: Yes Learning Barriers: None Education Needs: Procedure Education Method: Verbal Information Taught: Cardiac Cath Educational Evaluation: Able to repeat information Intravenous Access Time IV Size Location DC'd Fluid/Drip Rate Units RN 20g 1 02/13" Patent On Arrival Lt Hand 0.9NaCl 25 ml/hr Silvana Jang RN Allergies morphine codeine Vital Signs Time BP (mmHg) HR (bpm) O2 Sat. RR (bpm) LOC 12:03 PM / % 5 = Fully awake and oriented or at pre-proc level 12:09 PM 132 / 81 56 100 % 15 12:14 PM 107 / 62 57 99 % 18 12:19 PM 92 / 55 54 99 % 21 12:24 PM 95 / 53 57 97 % 20 12:26 PM 88 / 50 57 97 % 25 12:28 PM 98 / 61 60 97 % 18 12:33 PM 110 / 68 60 97 % 14 12:39 PM 118 / 68 55 98 % 19 12:44 PM 93 / 64 56 95 % 15 Procedural Medications Time Medication Dose Units Method Given By 12:02 PM Oxygen 2 L/min nasal cannula Silvana Jang RN 12:09 PM Versed 2 mg Intravenous Silvana Jang RN 12:09 PM Fentanyl 50 mcg Intravenous Silvana Jang RN 12:22 PM Lidocaine 2% 0.5 ml Subcutaneous Giovani Alcantar MD, FACC 12:23 PM Heparin 2000 units Nitroglycerin 200 mcg Verapamil 2.5 mg Intraarterial Giovani Alcantar MD, FACC 12:36 PM Nitroglycerin 150 mcg Intracoronary Giovani Alcantar MD 12:38 PM 90mg Adenosine in 90 ml 0.9 NS 814 ml/hr Intravenous Silvana Jang RN 12:39 PM Heparin 2000 units Intravenous Silvana Jang RN Mlivia Score Preprocedure Postprocedure Activity 2- Moves 4 extremities sustained head lift Activity Circulation 2- SBP +/= 20 points of pre-anesthetic level Circulation Consciousness 2- Awake and alert oriented x 3 Consciousness O2 Saturation 2- Able to maintain O2 satruation of 92% on room air O2 Saturation Respiratory 2- Able to deep breathe and cough well Respiratory Total Score 10 Total Score Contrast Agent: Isovue Diagnostic Contrast: 47 ml Total Contrast: 47 ml Fluoro Dose: 3456 mGy Activated Clotting Time Time Seconds to Clot 12:39 PM 217 Procedure Log Time Note Enter By 12:00 PM CathStat 12:02 PM Pt arrived to dentures lab technician 2 at 12:01 tsites 12:02 PM Brit Salmon RT (R) Position: Monitor Time in: 12:02 tsites 12:02 PM Maribel White RT (R) Position: Scrub Time in: 12:02 tsites 12:02 PM Silvana Jang RN Position: Snagger Time in: 12:02 tsites 12:02 PM Maria Fernanda Oliveros RN Position: Snagger Time in: 12:02 tsites 12:02 PM Patient charges- Angio tray pack, Navilyst 3mm J, Pulse Oximetry and ACIST tubing and transducer tsites 12:02 PM IV Supplies used: J loop Angio Cath. tsites 12:02 PM Case Delayed No tsites 12:02 PM Physician arrived 12:02 tsites 12:02 PM Meet and greet completed tsites 12:02 PM Sign in performed according to hospital policy. tsites 12:02 PM Procedure start 12:02 tsites 12:02 PM Time: 12:02 Oxygen on at 2 L/min per nasal cannula by Silvana Jang RN tsites 12:03 PM Time: 12:03 Patient comfortable and pain free: Yes tsites 12:03 PM Time: 12:03LOC: 5 = Fully awake and oriented or at pre-proc level tsites 12:03 PM Clinical Presentation: Non-STEMI tsites 12:08 PM Vitals capture started with the following parameters, Patient=Adult, Interval=5 min, Initial Ubsatfrw=834 mmHg, Deflation Rate=5 mmHg, Cuff placed on Right Arm 12:08 PM Hair removed from procedure site in holding area using clippers. Right wrist and right groin prepped with Chloraprep by Brit Salmon), then patient was draped. Skin intact. tsites 12:09 PM HR=56 bpm, NMKW=080/81 mmhg, XkZ8=586.0 %, Resp=15 B/min 12:09 PM Time: 12: Versed 2 mg Intravenous Given by Silvana Jang RN tsites 12:09 PM Time: 12: Fentanyl 50 mcg Intravenous Given by Silvana Jang RN tsites 12:10 PM Recorded ECG: HR=58 Condition=Condition 1 12:14 PM HR=57 bpm, EJDC=011/62 mmhg, SpO2=99.0 %, Resp=18 B/min, EtCO2=20 mmHg 12:16 PM Pressure channel 1 zeroed. 12:19 PM HR=54 bpm, NIBP=92/55 mmhg, SpO2=99.0 %, Resp=21 B/min, EtCO2=27 mmHg 12:22 PM Time out performed according to hospital policy tsites 12:22 PM Time: 12: 0.5 ml Lidocaine 2% to right radial Subcutaneous Given by Giovani Alcantar MD, FACC tsites 12:23 PM Access obtained by percutaneous puncture. 6Fr 10cm Terumo Glidesheath sheath placed in right Radial artery. [id number] tsites 12:23 PM Time: 12:23 Patient given 2,000 units Heparin, 200 mcg Nitroglycerin, and 2.5 mg Verapamil Intraarterial by Giovani Alcantar MD, FACC. This is given to reduce risk of vessel spasm and thrombosis. tsites 12:24 PM HR=57 bpm, NIBP=95/53 mmhg, SpO2=97.0 %, Resp=20 B/min 12:25 PM 5Fr TIG catheter inserted over the wire [facility] tsites 12:25 PM 0.035 260cm Navilyst 3mmJ wire [id number] tsites 12:25 PM RCA angiography performed in multiple views. tsites 12:25 PM Recorded Pressure: Ao, HR=61, Condition=Condition 1 (Aorta) Ao 151/25/67 12:26 PM NIBP STAT measurement started. 12:26 PM HR=57 bpm, NIBP=88/50 mmhg, SpO2=97.0 %, Resp=25 B/min 12:28 PM HR=60 bpm, NIBP=98/61 mmhg, SpO2=97 %, Resp=18 B/min 12:30 PM wire reinserted catheter removed tsites 12:30 PM 5Fr Pigtail catheter inserted over the wire [facility] tsites 12:30 PM Catheter selectively placed in left ventricle tsites 12:31 PM Pressure channel 1 zeroed. 12:31 PM Recorded Pressure: LV, HR=59, Condition=Condition 1 (Left Ventricle) LV 81/8/12 12:31 PM edp measured tsites 12:32 PM Recorded Pressure: LV, Ao, HR=58, Condition=Condition 1 (Left Ventricle) LV 124/13/21, (Aorta) Ao 115/68/89 12:33 PM wire reinserted catheter removed tsites 12:33 PM Coronary Dominance: right tsites 12:33 PM Inflation device was opened. tsites 12:33 PM HR=60 bpm, EJLW=771/68 mmhg, SpO2=97.0 %, Resp=14 B/min 12:34 PM 6Fr RBL 3.5 Convey guide catheter was used to cannulate the PCI vessel successfully. reused? No tsites 12:35 PM Lesion found in Mid RCA. Pre Stenosis: 100 Pre ABRAN Flow: tsites 12:35 PM Lesion found in Proximal LAD. Pre Stenosis: 50 Pre ABRAN Flow: tsites 12:35 PM Lesion found in Mid LAD. Pre Stenosis: 60 Pre ABRAN Flow: tsites 12:35 PM Lesion found in Distal Circumflex. Pre Stenosis: 100 Pre ABRAN Flow: tsites 12:36 PM Lesion found in 1st Marginal. Pre Stenosis: 60 Pre ABRAN Flow: tsites 12:36 PM Lesion found in 2nd Marginal. Pre Stenosis: 70 Pre ABRAN Flow: tsites 12:37 PM Time: 12:36 Nitroglycerin 150 mcg Intracoronary Given by Giovani Alcantar MD tsites 12:38 PM [employer] FFR Wire advanced to target lesion. tsites 12:38 PM Time: 12:38 90mg Adenosine in 90 ml 0.9 NS 814 ml/hr Intravenous Given by Silvana Jang RN Vazquez pump tsites 12:38 PM Pressure channel 3 equalized to channel 1. 12:39 PM HR=55 bpm, FLCZ=205/68 mmhg, SpO2=98 %, Resp=19 B/min 12:39 PM At 12:39 the ACT was 217 seconds. tsites 12:39 PM Time: 12:39 Heparin 2000 units Intravenous Given by Silvana Jang RN tsites 12:39 PM FFR in process. 12:39 PM Recorded Pressure: Ao, LV, FFR=0.78, HR=65, Condition=Condition 1 (Aorta) Ao 110/59/87, (Left Ventricle) LV 93/56/48 12:41 PM FFR Measurement: 0.84 prox lad tsites 12:41 PM FFR Measurement: 0.78 distal lad tsites 12:42 PM Flow Wire/Catheter removed intact tsites 12:43 PM Procedure completed at 12:43 09/01/2017 tsites 12:43 PM Did you address ABRAN flow and Dominance? Yes tsites 12:44 PM HR=56 bpm, NIBP=93/64 mmhg, SpO2=95 %, Resp=15 B/min 12:44 PM Isovue 370 - 200ml,1 Bottle(s) used. tsites 12:44 PM Arterial sheath pulled, Vasc Band closure device used and was Successful S/N. tsites 12:44 PM 12 ml air in Vasc Band. tsites 12:45 PM Estimated Blood Loss: minimal tsites 12:45 PM Cardiothoracic surgeon consulted by physician tsites 12:46 PM Post ECG NSR tsites 12:46 PM Post Blood Pressure 94/64 tsites 12:46 PM 12:46 Post Pulses Rt Radial 1+ tsites 12:46 PM Information taught Cardiac Cath and Vasc Band tsites 12:47 PM Education needs Procedure, Plan of Care, and Responsibilities of Patient in Care tsites 12:47 PM Learning barriers :None tsites 12:47 PM Education Methods Verbal tsites 12:47 PM Education evaluation Able to repeat information tsites 12:47 PM Site status No bleeding/hematoma - Rt Wrist as reported by Maribel White RT (R) at 12:47 tsites 12:47 PM Delay to floor No tsites 12:47 PM Patient out of room: 12:47 tsites 12:47 PM Family placed in consult room. tsites 12:49 PM Report given to celia PARR Pt taken to 3B Room #64. 12:47 tsites 12:50 PM Sign out completed: Radiation Dose 391 mGy, 3456 cGy/cm2 Fluoro Time: 2.7 Isovue 370 - 200ml contrast 47 ml given by Giovani Alcantar MD, FACC. Complications: NoneCardiac Rehab Consult needed: NoConfirmed administered medications: No tsites Complications Complication None None Hemodynamics Pressures Site Systolic/A Wave Diastolic/V Wave Mean AO 151 25 67 LV 81 8 12 LV 124 13 21 AO 115 68 89 AO 110 59 87 LV 93 56 48 Post Procedure Information Blood Pressure: 94/64 mmHg Rhythm: NSR Post procedural instructions were given Surgery consult for CABG Closure Device Time Device Success/Fail 09/01/2017 12:50:00 PM Mechanical Compression Successful Site Checks Time Location Status Staff Sheath In? Note 12:47 PM Rt Wrist No bleeding/hematoma Maribel White RT (R) Pulses Time Site Pre-Procedure Post-Procedure Note Bilateral DP & PT 2+ Bilateral radial 3+ 12:46:00 PM Rt Radial 1+ Updated by Brit Salmon RT (R) on 09/01/2017 12:56:30 PM Brit Salmon RT electronically signed on 09/01/2017 12:56:52 PM with status of Final
--- NOTE | 2017-09-01 14:43 | Event Note ---
Date of Encounter: 09/01/17 Time of Encounter: 14:39 - Cardiology Event Note S/P [facility] today - occluded full metal jacket RCA and LCx stents (14 total). Jailed OM 70%, prox and mid LAD 60% which was FFR+, decent PDA target. Dr. Alcantar and Dr. De aL Cruz both discussed options with him. Pt wants to go with medications for now and try to hold off on CABG. Increased Imdur to 60mg daily. Will coordinate with our office to have pt evaluated next week at [place] by CT surgeon, Dr. Corona Goff to further discuss CABG. Will send records and films. Cardiology signing off. Reconsult PRN. 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 Okay to d/c home later today per pt request as long as he is chest pain free.
--- NOTE | 2017-09-01 16:17 | Cardiothoracic Consult Note ---
Date of Encounter: 09/01/17 Time of Encounter: 16:14 Assessment and Plan (1) CAD (coronary artery disease) Current Visit: Yes Status: Acute The assessment and plan as outlined above was discussed with the patient and/or family members who expressed understanding and agreement. All questions were answered. The patient has triple-vessel disease and is status post multiple stents. He is a candidate for coronary artery bypass grafting. This would include a left internal mammary artery graft to the LAD and grafts to his obtuse marginal branch #2 of the circumflex and posterior descending branch of the right coronary artery. Prior to surgery, I would check a transthoracic echocardiogram. I would also check a carotid duplex as it is been several years since this is been checked. He would need to be off Plavix for 1 week prior to surgery. The procedure, its risks, benefits alternatives were explained. He has been seen at [place] before by cardiology and cardiothoracic surgery and plans to go up there next week for their opinion. I gave them my office number and if he were to decide to have surgery at [facility], I would be happy to schedule it. He will call if he decides to have surgery here. Qualifiers: Coronary Disease-Associated Artery/Lesion type: [place] artery [place] vs. transplanted heart: [place] heart Associated angina: with stable angina Qualified Code(s): I25.118 - Atherosclerotic heart disease of [place] coronary artery with other forms of angina pectoris - History of Present Illness History of present illness: Mr. Newman is a 67 year old male The patient is a 67-year-old gentleman who developed chest pain 2 days ago. Troponin pineda to 0.99. He has a history of coronary artery disease and is status post multiple stent placement. Cardiac catheterization done today revealed a 60% LAD lesion. 100% distal circumflex lesion with a 70% obtuse marginal branch #2 lesion and 100% right coronary artery lesion. He has been on daily Plavix for the stents. Past medical history is notable for diabetes on oral agents, hypertension, hyperlipidemia and COPD. He is status post bilateral carotid endarterectomies. He has had 2 strokes with very little residual. He states that he does have some speech problems occasionally. Social history. He lives in [facility]. He is retired, but used to work multiple jobs. He used to smoke, but quit 2-3 years ago. He does chew tobacco. Does not drink alcohol. Review of systems is notable for no saphenous vein varicosities or strippings. The patient does have chronic kidney disease with a creatinine of 1.56. Past Med Surg Social Fam HX - Past Medical History Medical history: coronary artery disease, CVA, diabetes, hyperlipidemia, hypertension, myocardial infarction Psychiatric history: no psych history - Past Surgical History Surgical History: angioplasty/stent, carotid endarterectomy - Social History Smoking Status: Former smoker Alcohol use: none Drug use: none - Family History Brother Adopted: Export: DEVORAH Age: 70 Family Member Ethnicity: Non- Living Status: Still Living Hx Family Cardiac Disorders: Yes (HEART DISEASE) Hx Family Respiratory Disorders: No Hx Family Cancer: No Hx Family GI Disorders: No Hx Family Genitourinary Disorders: No Hx Family Endocrine Disorder: No Hx Family Musculoskeletal Disorders: No Hx Family Neuromuscular Disorders: No Hx Family Neurologic Disorders: No Hx Family HEENT Disorders: No Hx Family Autoimmune Disorders: No Hx Family Reproductive Disorders: No Hx Family Psychosocial Disorders: No Hx Family Medical Disorders: No Mother History Unknown: Yes Medications and Allergies Aspirin [Lo-Dose Aspirin EC] 81 mg PO DAILY 08/30/17 [History] Clopidogrel [Plavix] 75 mg PO DAILY 08/30/17 [History] Empagliflozin [Jardiance] 10 mg PO DAILY 08/30/17 [History] Ferrous Sulfate 325 mg PO TUTHSA 08/30/17 [History] Glimepiride [Amaryl] 4 mg PO BID 08/30/17 [History] Isosorbide MONOnitrate (24 HR) [Imdur] 30 mg PO DAILY 08/30/17 [History] Metoprolol [Lopressor] 75 mg PO BID 08/30/17 [History] Nitroglycerin [Nitrostat] 0.4 mg SL Q5MIN PRN 08/30/17 [History] Ranitidine HCl [Heartburn Relief] 150 mg PO BID 08/30/17 [History] Rosuvastatin [Crestor] 20 mg PO HS 08/30/17 [History] Sitagliptin Phosphate [Januvia] 50 mg PO DAILY 08/30/17 [History] Fluticasone/Salmeterol [Advair 250-50 Diskus] 1 - 2 puff IH BID 08/31/17 [ History] Metformin HCl [Metformin HCl ER] 500 mg PO BID 08/31/17 [History] 3 Allergy/AdvReac Type Severity Reaction Status Date / Time codeine Allergy Intermediate Agitated Verified 08/30/17 23:28 morphine Allergy Intermediate Agitated Verified 08/30/17 23:28 codeine Allergy Unknown Agitated Uncoded 08/30/17 23:28 All Systems Review: The remainder of the systems were reviewed and are negative Physical Examination Vital Signs, Last 4 Hours Temp Pulse Resp BP Pulse Ox 09/01/17 14:30 98 F 56 18 130/70 96 09/01/17 14:15 98 F 58 18 123/72 96 09/01/17 14:00 98 F 58 18 120/70 96 09/01/17 13:45 98 F 56 18 117/68 95 09/01/17 13:30 98.1 F 57 18 108/62 09/01/17 13:15 98.1 F 56 18 136/60 95 09/01/17 13:00 98.1 F 56 18 116/60 95 Pupils are equal, round and reactive to light and accommodation. No oral lesions. Neck is supple. Trachea in the midline. No thyromegaly or carotid bruits. He is status post bilateral carotid endarterectomies. Lungs are clear to percussion and auscultation. Heart is in a normal sinus rhythm. No murmurs , gallops or rubs. Abdomen is benign. No tenderness, rebound or guarding. Extremities without edema. Without saphenous vein varicosities or strippings. Motor and sensory intact. Results 09/01/17 00:28 09/01/17 00:28 Consult Discharge Plan - Plan Referrals: Maria Antonia Friend CNP [Primary Care Provider] -
--- NOTE | 2017-09-01 16:25 | Discharge Summary ---
Date of Encounter: 09/01/17 Time of Encounter: 11:25 - Discharge Diagnosis (1) Chest pain Priority: Primary Status: Acute Assessment and Plan: Chest pain free. Per cardiology note: History of CAD S/P stent. S/P C today - occluded full metal jacket RCA and LCx stents (14 total). Jailed OM 70%, prox and mid LAD 60% which was FFR+, decent PDA target. Dr. Alcantar and Dr. De La Cruz both discussed options with him. Pt wants to go with medications for now and try to hold off on CABG. Increased Imdur to 60mg daily. 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 Becerra. Qualifiers: Qualified Code(s): R07.9 - Chest pain, unspecified (2) CARLOS (acute kidney injury) Priority: Secondary Status: Acute Assessment and Plan: Creatinine 1.56, slight improvement, GFR 45. Patient has diabetes, possibly it is his baseline. Avoid nephrotoxins (3) CAD (coronary artery disease) Priority: Secondary Status: Acute Assessment and Plan: Chronic. FL with stents x 8. We will continue home medications aspirin, Plavix, Imdur, beta livan, and statin. Norvasc increased, beta livan increased, Ranexa also was not on home medication list. Qualifiers: Qualified Code(s): I25.118 - Atherosclerotic heart disease of [place] coronary artery with other forms of angina pectoris (4) Diabetes Priority: Secondary Status: Acute Assessment and Plan: Continue home medications, Accu-Cheks per home regimen, diabetic diet. Qualifiers: Qualified Code(s): E11.8 - Type 2 diabetes mellitus with unspecified complications (5) COPD (chronic obstructive pulmonary disease) Priority: Secondary Status: Acute Assessment and Plan: Stable, no wheezing, continue home medications No acute exacerbation. Patient is at baseline O2 use. Qualifiers: Qualified Code(s): J43.9 - Emphysema, unspecified (6) Hypertension Priority: Secondary Status: Acute Assessment and Plan: Chronic. Stable. Continue home medications. Qualifiers: Qualified Code(s): I10 - Essential (primary) hypertension (7) Carotid stenosis Priority: Secondary Status: Acute Assessment and Plan: S/P surgery, continue follow-up as outpatient Qualifiers: Qualified Code(s): I65.23 - Occlusion and stenosis of bilateral carotid arteries Hospital course: Mr. Newman is a 67 year old male with past medical history coronary artery disease, CAD, diabetes, COPD, carotid stenosis, prior non-STEMI with 8 stents. Patient was brought in for chest pain. Troponins were positive, initially refused most heparin drip stating he wanted to go home. Patient then consented to heparin drip an [facility]. See assessment and plan for [facility] results. Patient has opted for medical management, though he is to travel to [place] to see cardiothoracic surgeon for consultation for CABG. Patient is pain-free. He was evaluated by cardiology here. Patient is stable and appropriate for discharge. Discharge discussed with: patient - Time Spent with Patient Total time spent providing and/or coordinating discharge services: Less than 30 minutes - Discharge Medications Home Medications: Aspirin [Lo-Dose Aspirin EC] 81 mg PO DAILY 08/30/17 [History] Clopidogrel [Plavix] 75 mg PO DAILY 08/30/17 [History] Empagliflozin [Jardiance] 10 mg PO DAILY 08/30/17 [History] Ferrous Sulfate 325 mg PO TUTHSA 08/30/17 [History] Glimepiride [Amaryl] 4 mg PO BID 08/30/17 [History] Isosorbide MONOnitrate (24 HR) [Imdur] 30 mg PO DAILY 08/30/17 [History] Metoprolol [Lopressor] 75 mg PO BID 08/30/17 [History] Nitroglycerin [Nitrostat] 0.4 mg SL Q5MIN PRN 08/30/17 [History] Ranitidine HCl [Heartburn Relief] 150 mg PO BID 08/30/17 [History] Rosuvastatin [Crestor] 20 mg PO HS 08/30/17 [History] Sitagliptin Phosphate [Januvia] 50 mg PO DAILY 08/30/17 [History] Fluticasone/Salmeterol [Advair 250-50 Diskus] 1 - 2 puff IH BID 08/31/17 [ History] Metformin HCl [Metformin HCl ER] 500 mg PO BID 08/31/17 [History] Glucagon, Human Recombinant [Glucagen] 1 mg IM ONCE PRN vial 09/01/17 [Rx] Allergies/Adverse Reactions: 3 Allergy/AdvReac Type Severity Reaction Status Date / Time codeine Allergy Intermediate Agitated Verified 08/30/17 23:28 morphine Allergy Intermediate Agitated Verified 08/30/17 23:28 codeine Allergy Unknown Agitated Uncoded 08/30/17 23:28 Date of admission: 09/01/17 08:51 Primary care physician: Maria Antonia Friend CNP Consults: 09/01/17 14:57 Consult to Cardiac Rehabilitation-Phase1 [CONS] Routine Comment: Reason for Consult: NSTEMI Call Completed: No Discharging clinician: Sera Naranjo Anticipated date of discharge: 09/01/17 - Constitutional Vitals: Temp Pulse Resp BP Pulse Ox 98 F 56 18 130/70 96 09/01/17 14:30 09/01/17 14:30 09/01/17 14:30 09/01/17 14:30 09/01/17 14:30 General appearance: Present: cooperative, A&O X 3, pleasant, no acute distress, severe distress, answers questions appropriately - Head Head exam: Present: atraumatic, normal inspection, normocephalic - Eye Eye exam: Present: normal appearance, conjuntiva pink, sclera anicteric - Neck Neck exam general surgery: Present: supple, trachea midline. Absent: lymphadenopathy, tenderness - Respiratory Respiratory exam: Present: decreased breath sounds, CTAB. Absent: accessory muscle use, chest wall tenderness, rales, respiratory distress, rhonchi, wheezes - Cardiovascular Cardiovascular exam: Present: RRR, +S1, +S2. Absent: diastolic murmur, gallop, rubs, systolic murmur - GI/Abdominal GI/Abdominal exam: Present: normal bowel sounds, soft, no peritoneal signs. Absent: distended, hepatomegaly, tenderness - Extremities Exam Extremities exam: Present: normal capillary refill, normal inspection, warm, radial pulses palpable and symmetrical. Absent: calf tenderness, cyanotic, pedal edema, tenderness - Neurological Exam Neurological exam: Present: alert, oriented X3, no focal deficits. Absent: altered, facial droop, speech deficit - Skin Skin exam: Present: dry, intact, normal color, warm. Absent: rash - Patient Status Disposition: Home, Self-Care Condition: Good Functional capacity at discharge: independent ambulation Overall status at discharge: patient is not back to baseline - Discharge Instructions Follow Up With: Maria Antonia Friend CNP [Primary Care Provider] - Additional Instructions: Follow up with your PCP, cardiothoracic surgeon, and cardiogist as scheduled. Return to your normal diet and activities as tolerated. Take your medications as directed. Return to the ER as needed for any other problems or concerns or if your symptoms return or worsen. - Diet and Activity Activity: increase activity as tolerated Diet: low fat, low cholesterol, low salt diet
[2017-09-01 16:36] VITALS: BP 122/78
[2017-09-01] MEDS ORDERED: Adenosine 90 MG/30 ML MLS IV ONE (17:27)
--- NOTE | 2017-09-01 19:38 | Electrocardiograph Report ---
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
== END 2017-09-01 17:28 | disposition home or self-care (01) | DRG 281 ==
LOC: EMEROO 19:49 → 3BNU 19:49
PROVIDERS: ADMIT Internal Medicine; ATTEND Internal Medicine

== ENCOUNTER 2017-12-27 10:52 | Inpatient (IN) ==
--- NOTE | 2017-12-27 11:09 | Emergency Department Note ---
Disposition Clinical Impression: Chest pain, HCAP (healthcare-associated pneumonia) Disposition: Admitted As Inpatient Condition: Good General Adult HPI - General Chief complaint: ED Shortness of Breath/Dyspnea Stated complaint: ROSI Time Seen by Provider: 12/27/17 10:56 - History of Present Illness Pain Scale: 0 - Related Data Home Medications Medication Instructions Recorded Confirmed RX: Aspirin [Lo-Dose Aspirin EC] 81 mg PO DAILY 08/30/17 12/27/17 RX: Ferrous Sulfate 325 mg PO TUTHSA 08/30/17 12/27/17 RX: Nitroglycerin [Nitrostat] 0.4 mg SL Q5MIN PRN 08/30/17 12/27/17 RX: Ranitidine HCl [Heartburn 150 mg PO BID 08/30/17 12/27/17 Relief] RX: Rosuvastatin [Crestor] 20 mg PO HS 08/30/17 12/27/17 RX: Fluticasone/Salmeterol [Advair 2 puff IH BID 08/31/17 12/27/17 250-50 Diskus] RX: Metformin HCl [Metformin HCl 500 mg PO BID 08/31/17 12/27/17 ER] Albuterol Sulfate [Ventolin Hfa] 18 gm IH PRN PRN 12/27/17 12/27/17 Insulin Glargine,Hum.rec.anlog 40 unit SQ HS 12/27/17 12/27/17 [Basaglar Kwikpen U-100] Metoprolol [Lopressor] 25 mg PO BID 12/27/17 12/27/17 Potassium Chloride [Klor-Con 10] 10 meq PO DAILY 12/27/17 12/27/17 RX: Furosemide [Lasix] 40 mg PO DAILY 12/27/17 12/27/17 RX: Glucosamine HCl 1,000 mg PO QAM 12/27/17 12/27/17 Allergies Allergy/AdvReac Type Severity Reaction Status Date / Time codeine Allergy Intermediate Agitated Verified 12/27/17 11:07 morphine Allergy Intermediate Agitated Verified 12/27/17 11:07 Past Medical History - Past Medical History Medical history: Reports: coronary artery disease, CVA, diabetes, hyperlipidem ia, hypertension, myocardial infarction Surgical history: Reports: angioplasty/stent, carotid endarterectomy Psychiatric history: Reports: no psych history - Social History Smoking Status: Former smoker Alcohol use: Reports: none Drug use: Reports: none Course Vital Signs Temperature 97.4 F L 12/27/17 10:57 Pulse Rate 71 12/27/17 10:57 Respiratory Rate 18 12/27/17 10:57 Blood Pressure 112/81 12/27/17 10:57 O2 Sat by Pulse Oximetry 99 12/27/17 10:57 Temperature 97.4 F L 12/27/17 11:12 Pulse Rate 75 12/27/17 12:48 Respiratory Rate 20 12/27/17 13:27 Blood Pressure 103/68 12/27/17 13:27 O2 Sat by Pulse Oximetry 96 12/27/17 12:48 Oxygen Delivery Oxygen Delivery Room Air Medical Decision Making - Lab Data Result diagrams: 12/27/17 11:18 12/27/17 11:18 Lab Results 12/27/17 12/27/17 12/27/17 Range/Units 11:18 11:18 11:18 WBC 9.8 (4.3-11.1) K/mcL RBC 4.35 (4.19-5.50) M/mcL Hgb 10.7 L (12.9-16.9) g/dL Hct 34.1 L (37.5-50.1) % MCV 78.4 L (83.0-100.0) fL MCH 24.6 L (28.0-33.3) pg MCHC 31.4 L (31.6-35.5) g/dL RDW 16.7 H (11.5-14.5) % Plt Count 223 (140-400) K/mcL MPV 10.7 (9.4-12.4) fL Immature Gran % 0.8 (0-4) % Seg Neutrophils % 80.7 % Lymphocytes % 12.1 % Monocytes % 5.3 % Eosinophils % 1.0 % Basophils % 0.1 % Neutrophils # 7.9 (1.6-8.9) K/mcL Lymphocytes # 1.2 (0.6-4.6) K/mcL Monocytes # 0.5 (0.0-1.3) K/mcL Eosinophils # 0.1 (0.0-0.6) K/mcL Basophils # 0.0 (0.0-0.2) K/mcL Sodium 131 L (136-145) mEq/L Potassium 4.9 (3.5-5.1) mEq/L Chloride 97 L (98-107) mEq/L Carbon Dioxide 24 (23-29) mEq/L BUN 36 H (8-23) mg/dL Creatinine 1.78 H (0.70-1.30) mg/dL Est GFR ( Amer) 47 L (> 60) Est GFR (Non-Af Amer) 38 L (> 60) BUN/Creatinine Ratio 20 (6-26) Glucose 384 H (70-105) mg/dL Calculated Osmolality 296 (280-300) Calcium 8.7 (8.6-10.3) mg/dL Troponin I < 0.03 (< 0.04) ng/mL B-Natriuretic Peptide 740 H (Less than 100) pg/mL Attestation Statement - Attestation Attestation: I examined this patient and my medical decision-making was reviewed with the Resident Physician. I agree with the documented findings, disposition and treatment plan as described except to the extent set forth below. [id number] time provided Patient arrives with medical records from [facility] stating "I am do ne fooling around with them people." I did review the transcribed report of his CTA chest that indicates he has a resolving loculated pleural effusion but an evolving pneumonia. The patient appears in no acute respiratory distress upon arrival
--- NOTE | 2017-12-27 11:15 | Emergency Department Note ---
Disposition Clinical Impression: HCAP (healthcare-associated pneumonia) Chest pain Qualifiers: Chest pain type: unspecified Qualified Code(s): R07.9 - Chest pain, unspecified Disposition: Admitted As Inpatient Condition: Good Forms: ED Satisfaction Letter Time of Disposition: 12:41 SOB HPI - General Chief Complaint: ED Shortness of Breath/Dyspnea Stated Complaint: ROSI Time Seen by Provider: 12/27/17 10:56 Source: patient, family () Mode of arrival: ambulatory Limitations: no limitations Nursing Notes Reviewed: Yes Vital Signs Reviewed: Yes - History of Present Illness 67-year-old male history of CAD with a total of 14 stents, COPD, and former smoker presents to emergency department with difficulty in breathing. States persistent difficulty in breathing over the past 9 days. It was discovered that he had pneumonia and was admitted with IV antibiotics for 3 day stay which she then was discharge home with completion of his antibiotic treatment, 3 days ago. He was taken levafloxacin. He states since finishing his antibiotic treatment he continues to be short of breath especially with exertion and laying flat. Denies any significant leg swelling. He has been using inhalers at home and does reports some improvement. No fevers reported at home. Patient admits to taking 81 mg aspirin today. He denies history of blood clots. He does report recent Doppler ultrasound to evaluate for blood clots that was negative. He has also been also experiencing intermittent chest pain that is dull and achy. Approximately 2 months ago he had bypass [place] which they also discovered he had a pleural effusion and was discontinued on his anticoagulant Eliquis she was taken for atrial fibrillation. He reports drainage of the fluid in the pericardial sac. Yesterday he was attending his cardiac rehab when they ozzy blood work showed elevated BNP 3106 troponin less than 0.3 chest x-ray with opacity in the right lung in a EKG that appear similar to today. CT scan performed 12/18/2017 at outside facility showed decrease in size of right pleural effusion and loculated pleural fluid collection in left. There is development of pneumonia at this time. Small pericardial effusion. Pt Subjective Complaint: shortness of breath, cough - Related Data Home Medications Medication Instructions Recorded Confirmed Aspirin [Lo-Dose Aspirin EC] 81 mg PO DAILY 08/30/17 12/27/17 Ferrous Sulfate 325 mg PO TUTHSA 08/30/17 12/27/17 Nitroglycerin [Nitrostat] 0.4 mg SL Q5MIN PRN 08/30/17 12/27/17 Ranitidine HCl [Heartburn Relief] 150 mg PO BID 08/30/17 12/27/17 Rosuvastatin [Crestor] 20 mg PO HS 08/30/17 12/27/17 Fluticasone/Salmeterol [Advair 2 puff IH BID 08/31/17 12/27/17 250-50 Diskus] Metformin HCl [Metformin HCl ER] 500 mg PO BID 08/31/17 12/27/17 Furosemide [Lasix] 40 mg PO DAILY 12/27/17 12/27/17 Insulin Glargine,Hum.rec.anlog 40 unit SQ HS 12/27/17 12/27/17 [Basaglar Kwikpen U-100] Metoprolol [Lopressor] 25 mg PO BID 12/27/17 12/27/17 Potassium Chloride [Klor-Con 10] 10 meq PO DAILY 12/27/17 12/27/17 Allergies Allergy/AdvReac Type Severity Reaction Status Date / Time codeine Allergy Intermediate Agitated Verified 12/27/17 11:07 morphine Allergy Intermediate Agitated Verified 12/27/17 11:07 All systems ED: reviewed and negative except as stated. Review of Systems: As Per HPI Constitutional: Denies: fever, chills ENT ED: Reports: congestion Cardiovascular: Reports: chest pain Respiratory: Reports: cough, dyspnea. Denies: hemoptysis Gastrointestinal: Denies: abdominal pain, nausea, vomiting Genitourinary: Denies: urgency, dysuria Musculoskeletal: Denies: back pain Integumentary: Denies: rash, abrasion Neurological: Denies: headache Endocrine: Reports: fatigue Past Medical History - Past Medical History Attestation: Yes The following information was validated with the patient. Source: patient Medical history: Reports: coronary artery disease, CVA, diabetes, hyperlipidemia, hypertension, myocardial infarction Surgical history: Reports: angioplasty/stent, carotid endarterectomy Psychiatric history: Reports: no psych history - Social History Smoking Status: Former smoker Alcohol use: Reports: none Drug use: Reports: none Physical Exam - General Limitations: no limitations General appearance: alert, in no apparent distress (Appears in no respiratory distress), obese - Head Head exam: atraumatic, normocephalic, normal inspection - Eye Eye exam: Present: normal appearance, PERRL, EOMI - ENT ENT exam: normal exam, normal oropharynx, mucous membranes moist - Neck Neck exam: Present: normal inspection, full ROM, trachea midline - Chest Chest inspection: Present: normal inspection, symmetric chest wall rise, other (Midsternal scar). Absent: tenderness - Respiratory Respiratory exam: Present: normal lung sounds bilaterally, wheezes (Right middle, expiratory). Absent: respiratory distress - Expanded Respiratory Exam Location: wheezes: Right, rales: Right - Cardiovascular Cardiovascular exam: Present: regular rate, normal rhythm, normal heart sounds - Expanded Cardiovascular Exam Peripheral pulses: 2+: radial (R), radial (L) - Abdominal Exam Abdominal exam: Present: soft, Non-Tender, normal bowel sounds. Absent: tenderness, distention, guarding, rebound, rigidity - Extremities Exam Extremities exam: Present: normal inspection, full ROM, normal capillary refill. Absent: tenderness, pedal edema, calf tenderness - Neurological Exam Neurological exam: Present: alert, oriented X3 - Psychiatric Psychiatric exam: Present: normal affect, normal mood - Skin Skin exam: Present: warm, dry, intact, normal color. Absent: rash, cyanosis, diaphoresis Course Course Narrative: Patient presents with ongoing difficulty in breathing for past 9 days recently treated for pneumonia with persistent symptoms. He is afebrile here. He has we wheezes and isolated crackles in the right lung field. No significant leg swelling. He also reports some chest pain. No significant leg swelling. A point of care bedside ultrasound was attempted to evaluate for reaccumulation of pericardial effusion but unable to obtain sufficient cardiac window views. Will give him a breathing treatment here. He does not meet SIRS criteria at this time and does not appear septic. Patient will likely require admission for failed outpatient therapy for pneumonia. Given his recent hospitalization will cover with vancomycin and Zosyn. - Reevaluation(s) Reevaluation #1: X-ray reveals the right basilar infiltrate with possible pleural effusion. His BNP is elevated over 700. It appears he has chronic underlying renal insufficiency that appears at his baseline. Will treat for healthcare associated pneumonia due to his recent hospitalization and failed outpatient treatment. Patient will be admitted. He otherwise remains hemodynamically stable in no respiratory distress at this time. Time: 12:42 - Consultations Consultation #1: Spoke with on-call hospitalist yenni López to admit for HCAP failed outpatient therapy and chest pain. No further orders at this time Time: 12:42 Vital Signs Temperature 97.4 F L 12/27/17 10:57 Pulse Rate 71 12/27/17 10:57 Respiratory Rate 18 12/27/17 10:57 Blood Pressure 112/81 12/27/17 10:57 O2 Sat by Pulse Oximetry 99 12/27/17 10:57 Temperature 97.4 F L 12/27/17 11:12 Pulse Rate 71 12/27/17 11:12 Respiratory Rate 16 12/27/17 12:16 Blood Pressure 109/73 12/27/17 11:12 O2 Sat by Pulse Oximetry 99 12/27/17 12:16 Oxygen Delivery Oxygen Delivery Room Air Shortness of Breath/Dyspnea - MDM Narrative Medical decision making narrative: Patient was discussed with my attending physician who agrees with ED management and final disposition. They independently evaluated the patient. Please refer to their attestation to this encounter for additional information. This note was generated by [employer] voice recognition software and as a result grammatical or spelling errors may occur using this program. - Medical Records Medical records reviewed: Yes I reviewed the patient's medical records. - Lab Data Lab results reviewed: Yes I reviewed the patient's lab results. Result diagrams: 12/27/17 11:18 12/27/17 11:18 Lab Results 12/27/17 12/27/17 12/27/17 Range/Units 11:18 11:18 11:18 WBC 9.8 (4.3-11.1) K/mcL RBC 4.35 (4.19-5.50) M/mcL Hgb 10.7 L (12.9-16.9) g/dL Hct 34.1 L (37.5-50.1) % MCV 78.4 L (83.0-100.0) fL MCH 24.6 L (28.0-33.3) pg MCHC 31.4 L (31.6-35.5) g/dL RDW 16.7 H (11.5-14.5) % Plt Count 223 (140-400) K/mcL MPV 10.7 (9.4-12.4) fL Immature Gran % 0.8 (0-4) % Seg Neutrophils % 80.7 % Lymphocytes % 12.1 % Monocytes % 5.3 % Eosinophils % 1.0 % Basophils % 0.1 % Neutrophils # 7.9 (1.6-8.9) K/mcL Lymphocytes # 1.2 (0.6-4.6) K/mcL Monocytes # 0.5 (0.0-1.3) K/mcL Eosinophils # 0.1 (0.0-0.6) K/mcL Basophils # 0.0 (0.0-0.2) K/mcL Sodium 131 L (136-145) mEq/L Potassium 4.9 (3.5-5.1) mEq/L Chloride 97 L (98-107) mEq/L Carbon Dioxide 24 (23-29) mEq/L BUN 36 H (8-23) mg/dL Creatinine 1.78 H (0.70-1.30) mg/dL Est GFR ( Amer) 47 L (> 60) Est GFR (Non-Af Amer) 38 L (> 60) BUN/Creatinine Ratio 20 (6-26) Glucose 384 H (70-105) mg/dL Calculated Osmolality 296 (280-300) Calcium 8.7 (8.6-10.3) mg/dL Troponin I < 0.03 (< 0.04) ng/mL B-Natriuretic Peptide 740 H (Less than 100) pg/mL - Radiology Data Radiology results reviewed: Yes I reviewed the patient's radiology results. Chest X-Ray 12/27/17 11:02 IMPRESSION: Right basilar infiltrate with small right pleural effusion. D/ / 12/27/2017 12:06:42 Alex Verduzco MD / [facility] Interpreting Provider: Alex Verduzco MD - EKG Data EKG attestation: Yes I reviewed and interpreted this EKG. EKG results narrative: EKG performed 1112 normal sinus rhythm 71 beats per minute, good R wave progression, there is inverted T-wave is diffuse T-wave inversions that appeared new from his prior EKG 08/30/2017. However a recent EKG performed by his [facility] providers office which is available here was performed 12/26/2017 which also shows the diffuse T waves there similar and wave morphology. There is no ST elevation scene. No acute ischemic changes.
[2017-12-27] MEDS ORDERED: Ipratropium/Albuterol Neb 3 ML IH ONE (11:16)
[2017-12-27] MEDS ORDERED: Aspirin 325 MG TABLET PO ONE (11:19)
[2017-12-27 11:31] LABS: Basophils % 0.1 %; Eosinophils # 0.1 K/mcL (0.0-0.6); Hematocrit 34.1 % (37.5-50.1); Hemoglobin 10.7 g/dL (12.9-16.9); Immature Granulocytes % 0.8 % (0-4); Lymphocytes # 1.2 K/mcL (0.6-4.6); Lymphocytes % 12.1 %; Mean Corpuscular HGB Conc 31.4 g/dL (31.6-35.5); Mean Corpuscular Hemoglobin 24.6 pg (28.0-33.3); Mean Corpuscular Volume 78.4 fL (83.0-100.0); Mean Platelet Volume 10.7 fL (9.4-12.4); Monocytes # 0.5 K/mcL (0.0-1.3); Monocytes % 5.3 %; Neutrophils # 7.9 K/mcL (1.6-8.9); Platelet Count 223 K/mcL (140-400); Red Blood Count 4.35 M/mcL (4.19-5.50); Red Cell Distribution Width 16.7 % (11.5-14.5); Segmented Neutrophils % 80.7 %
[2017-12-27] MEDS ORDERED: Piperacillin/Tazobactam 3.375 GM in Water for inj. (sterile) 20 ML IVP ONE (11:42)
[2017-12-27 11:53] LABS: BUN/Creatinine Ratio 20 (6-26); Blood Urea Nitrogen 36 mg/dL (8-23); Calcium 8.7 mg/dL (8.6-10.3); Carbon Dioxide 24 mEq/L (23-29); Chloride 97 mEq/L (98-107); Glucose 384 mg/dL (70-105); Osmolality,Calculated 296 (280-300); Potassium 4.9 mEq/L (3.5-5.1); Sodium 131 mEq/L (136-145); Troponin I < 0.03 ng/mL (< 0.04); eGFR For Non-African Americans 38 (> 60)
[2017-12-27] MEDS ORDERED: Nitroglycerin 0.4 MG TAB.SUBL SL PRN (12:47)
[2017-12-27] MEDS ORDERED: D5% in Water 1,000 ML IVC PRN (12:48)
[2017-12-27] MEDS ORDERED: Dextrose Gel 15 GM/37.5 ML TUBE PO PRN ×2 (12:48)
[2017-12-27] MEDS ORDERED: *HR* Dextrose 50 % in Water (Syg) 50 ML SYRINGE IVP PRN (12:48)
[2017-12-27] MEDS ORDERED: Naloxone 0.4 MG/ML INJ IVP PRN (12:49)
[2017-12-27] MEDS ORDERED: Acetaminophen 325 MG TABLET PO PRN (12:49)
--- NOTE | 2017-12-27 13:54 | Internal Med History&Physical ---
Date of Encounter: 12/27/17 Time of Encounter: 13:53 Internal Medicine - H&P: HPI Chief complaint: Shortnes of breath Admitted From: Home Plans for Post Hospital Care: Home History of present illness: Mr. Newman is a 67 year old male with PMH of CKD III, CAD, COPD, Recent CABG, former smoker who presented to the ER because of SOB According to patient and family, he has been having persistent difficulty in breathing over the past 9 days. He was at [facility] in-patient where he was diagnosed with PNA and pleural effusion and discharged after 3 days stay. He reports he felt better at time of discharge, but symptoms recurred the next day. He was at his PCP's yesterday and reportedly complained of SOB, his PCP had recommended going to [place] (where he has naa CABG), but patient opted for [place]. SOB is worse with laying flat, he denies orthopnea. Denies any significant leg swelling. He has been using inhalers at home and does reports some improvement. No fevers reported at home. Patient admits to taking 81 mg aspirin today. He denies history of blood clots. He does report recent Doppler ultrasound to evaluate for blood clots that was negative. He has also been also experiencing intermittent chest pain that is dull and achy. Yesterday he was attending his cardiac rehab when they ozzy blood work showed elevated BNP 3106 troponin less than 0.3 chest x-ray with opacity in the right lung in a EKG that appear similar to today. (CT scan performed 12/18/2017 at outside facility showed decrease in size of right pleural effusion and loculated pleural fluid collection in left. There is development of pneumonia at this time. Small pericardial effusion) His BNP today is 740. Hb is at baseline, Cr is slighlty elevated above baseline, CXR showed R basilar infiltrate with small pleural effusion He will be placed on observation for Pneumonia he is full code and currently not in distress and not hypoxic Past Med Surg Social Fam HX - Past Medical History Medical history: coronary artery disease, CVA, diabetes, hyperlipidemia, hypertension, myocardial infarction Psychiatric history: no psych history - Past Surgical History Surgical History: angioplasty/stent, carotid endarterectomy Additional surgical history: CABG x4v. cardiac stents x 14. left index finger - Social History Smoking Status: Former smoker Smokeless Tobacco Status: No Alcohol use: none Drug use: none - Family History Brother Adopted: No Family Member Ethnicity: Non- Living Status: Still Living Hx Family Cardiac Disorders: Yes (HEART DISEASE) Hx Family Respiratory Disorders: No Hx Family Cancer: No Hx Family GI Disorders: No Hx Family Endocrine Disorder: No Hx Family Neuromuscular Disorders: No Hx Family Neurologic Disorders: No Hx Family HEENT Disorders: No Hx Family Autoimmune Disorders: No Internal Medicine - H&P: Meds Aspirin [Lo-Dose Aspirin EC] 81 mg PO DAILY 08/30/17 [History] Ferrous Sulfate 325 mg PO TUTHSA 08/30/17 [History] Nitroglycerin [Nitrostat] 0.4 mg SL Q5MIN PRN 08/30/17 [History] Ranitidine HCl [Heartburn Relief] 150 mg PO BID 08/30/17 [History] Rosuvastatin [Crestor] 20 mg PO HS 08/30/17 [History] Fluticasone/Salmeterol [Advair 250-50 Diskus] 2 puff IH BID 08/31/17 [History] Metformin HCl [Metformin HCl ER] 500 mg PO BID 08/31/17 [History] Albuterol Sulfate [Ventolin Hfa] 2 puff IH Q6H PRN 12/27/17 [History] Furosemide [Lasix] 40 mg PO DAILY 12/27/17 [History] Glucosamine HCl 1,000 mg PO QAM 12/27/17 [History] Insulin Glargine,Hum.rec.anlog [Basaglar Kwikpen U-100] 40 unit SQ HS 12/27/17 [History] Metoprolol [Lopressor] 25 mg PO BID 12/27/17 [History] Potassium Chloride [Klor-Con 10] 10 meq PO DAILY 12/27/17 [History] Allergy/AdvReac Type Severity Reaction Status Date / Time codeine Allergy Intermediate Agitated Verified 12/27/17 11:07 morphine Allergy Intermediate Agitated Verified 12/27/17 11:07 All Systems PM: A 10-system review of systems was performed and is negative for pertinent findings except as documented above in the HPI. - Constitutional Constitutional: as per HPI - EENT Eyes: as per HPI Ears: as per HPI Nose, mouth and throat: as per HPI - Cardiovascular Cardiovascular ROS IM: as per HPI - Respiratory Respiratory: as per HPI - Gastrointestinal Gastrointestinal: as per HPI - Musculoskeletal Musculoskeletal ROS IM: as per HPI - Integumentary Integumentary IM: as per HPI - Neurological Neurological ROS: as per HPI - Constitutional Vitals: Temp Pulse Resp BP Pulse Ox 97.4 F L 75 20 103/68 96 12/27/17 11:12 12/27/17 12:48 12/27/17 13:27 12/27/17 13:27 12/27/17 12:48 General appearance: Present: A&O X 3, no acute distress, answers questions appropriately Exam: see below - Head Head exam: Present: atraumatic, normocephalic - Eye Eye exam: Present: PERRL, conjuntiva pink, sclera anicteric Pupils: Present: PERRL - Neck Neck exam general surgery: Present: supple, trachea midline. Absent: lymphadenopathy - Respiratory Respiratory exam: Present: rhonchi (RML and RLL rhonchi. Fes scattered crackles at the left lung base). Absent: accessory muscle use, rales, wheezes - Cardiovascular Cardiovascular exam: Present: RRR, +S1, +S2. Absent: diastolic murmur, gallop, rubs, systolic murmur - GI/Abdominal GI/Abdominal exam: Present: normal bowel sounds, soft, no peritoneal signs. Absent: distended, tenderness - Extremities Exam Extremities exam: Present: warm, radial pulses palpable and symmetrical. Absent: calf tenderness, cyanotic, pedal edema - Neurological Exam Neurological exam: Present: CN II-XII intact, oriented X3, no focal deficits. Absent: pronater drift, facial droop, speech deficit - Skin Skin exam: Present: dry, intact Internal Med - H&P Results - Labs CBC & Chem 7: 12/27/17 11:18 12/27/17 11:18 Labs: Short CBC 12/27/17 Range/Units 11:18 WBC 9.8 (4.3-11.1) K/mcL Hgb 10.7 L (12.9-16.9) g/dL Hct 34.1 L (37.5-50.1) % Plt Count 223 (140-400) K/mcL Neutrophils # 7.9 (1.6-8.9) K/mcL BMP 12/27/17 11:18 Sodium 131 L Potassium 4.9 Chloride 97 L Carbon Dioxide 24 BUN 36 H Creatinine 1.78 H Glucose 384 H Calcium 8.7 Cardiac Enzymes 12/27/17 Range/Units 11:18 Troponin I < 0.03 (< 0.04) ng/mL - Impressions ITS Impressions Chest X-Ray 12/27/17 11:02 IMPRESSION: Right basilar infiltrate with small right pleural effusion. D/ / 12/27/2017 12:06:42 Alex Verduzco MD / [email or web address] Interpreting Provider: Alex Verduzco MD - Assessment and plan (1) CKD (chronic kidney disease) Current Visit: Yes Status: Chronic Assessment and plan: cr slightly elevated above baseline Continue to monitor Qualifiers: Chronic kidney disease stage: stage 3 (moderate) Qualified Code(s): N18.3 - Chronic kidney disease, stage 3 (moderate) (2) HCAP (healthcare-associated pneumonia) Current Visit: Yes Status: Acute Assessment and plan: Continue vanco and Zosyn Send sputum for culture and rsp panel Follow blood culture Not hypoxic, monitor closely (3) CAD (coronary artery disease) Current Visit: Yes Status: Chronic Assessment and plan: s/p CABG 10/2017 resume home meds, including lasix, no chest pain Qualifiers: Coronary Disease-Associated Artery/Lesion type: [place] artery [place] vs. transplanted heart: [place] heart Associated angina: without angina Qualified Code(s): I25.10 - Atherosclerotic heart disease of [place] coronary artery without angina pectoris (4) COPD (chronic obstructive pulmonary disease) Current Visit: Yes Status: Chronic Assessment and plan: Not in exacerbation, no wheezing Continue home meds Duoneb prn Qualifiers: COPD type: emphysema Emphysema type: unspecified Qualified Code(s): J43.9 - Emphysema, unspecified (5) Diabetes Current Visit: Yes Status: Chronic Assessment and plan: Continue basal, prandial , sliding scale FS ACHS ADA diet Qualifiers: Diabetes mellitus type: type 2 Diabetes mellitus half-way insulin use: without half-way use Diabetes mellitus complication status: with unspecified complications Qualified Code(s): E11.8 - Type 2 diabetes mellitus with unspecified complications (6) Hypertension Current Visit: Yes Status: Chronic Assessment and plan: continue home meds Qualifiers: Hypertension type: essential hypertension Qualified Code(s): I10 - Essential (primary) hypertension - Time Spent With Patient Total time spent is greater than 50% in coordination of care (as documented) at patient's floor/unit and/or counseling patient:
[2017-12-27] MEDS: Insulin LISPRO 300 UNITS/3 ML VIAL SQ SCH ×2 (17:33→17:34)
[2017-12-27] MEDS: Famotidine 20 MG TABLET PO SCH (20:30)
[2017-12-27] MEDS: Insulin DETEMIR 100 UNIT/ML X5UNITS SQ SCH (20:31)
[2017-12-27] MEDS ORDERED: Insulin LISPRO 300 UNITS/3 ML VIAL SQ SCH (21:00)
[2017-12-27 21:53] LABS: Adenovirus Not Detected (Not Detect); Bordetella Pertussis Not Detected (Not Detect); Chlamydophila pneumoniae Not Detected (Not Detect); Coronavirus 229E Not Detected (Not Detect); Coronavirus HKU1 Not Detected (Not Detect); Coronavirus NL63 Not Detected (Not Detect); Coronavirus OC43 Not Detected (Not Detect); Human Metapneumovirus Not Detected (Not Detect); Human Rhinovirus/Enterovirus Not Detected (Not Detect); Influenza A Subtype 2009 H1 Not Detected (Not Detect); Influenza A Untypeable Not Detected (Not Detect); Influenza B Not Detected (Not Detect); Mycoplasma pneumoniae Not Detected (Not Detect); Parainfluenza Virus 1 Not Detected (Not Detect); Parainfluenza Virus 2 Not Detected (Not Detect); Parainfluenza Virus 3 Not Detected (Not Detect); Parainfluenza Virus 4 Not Detected (Not Detect); Respiratory Syncytial Virus Not Detected (Not Detect)
[2017-12-27] MEDS: Budesonide/Formoterol 80/4.5 MDI IH SCH (23:00)
[2017-12-27] MEDS: Piperacillin/Tazobactam 3.375 GM in 0.9 % Sodium Chloride Mini Bag 100 ML IVPB SCH (23:12)
[2017-12-28 03:44] LABS: Basophils % 0.1 %; Eosinophils # 0.1 K/mcL (0.0-0.6); Eosinophils % 1.5 %; Hematocrit 31.9 % (37.5-50.1); Immature Granulocytes % 0.7 % (0-4); Lymphocytes # 1.6 K/mcL (0.6-4.6); Lymphocytes % 19.8 %; Mean Corpuscular HGB Conc 31.3 g/dL (31.6-35.5); Mean Corpuscular Hemoglobin 24.3 pg (28.0-33.3); Mean Corpuscular Volume 77.4 fL (83.0-100.0); Mean Platelet Volume 10.4 fL (9.4-12.4); Monocytes # 0.6 K/mcL (0.0-1.3); Monocytes % 7.6 %; Neutrophils # 5.8 K/mcL (1.6-8.9); Platelet Count 193 K/mcL (140-400); Red Blood Count 4.12 M/mcL (4.19-5.50); Red Cell Distribution Width 16.6 % (11.5-14.5); Segmented Neutrophils % 70.3 %
[2017-12-28 04:08] LABS: Calcium 8.5 mg/dL (8.6-10.3); Potassium 4.2 mEq/L (3.5-5.1)
[2017-12-28] MEDS: Insulin LISPRO 300 UNITS/3 ML VIAL SQ SCH ×6 (08:18→17:29)
[2017-12-28] MEDS: GLUCOSAMINE HCL 1000 MG PO SCH (08:53)
[2017-12-28] MEDS: Piperacillin/Tazobactam 3.375 GM in 0.9 % Sodium Chloride Mini Bag 100 ML IVPB SCH ×2 (08:54→17:26)
[2017-12-28] MEDS: Aspirin Enteric Coated 81 MG Tablet PO SCH (08:56)
[2017-12-28] MEDS: Furosemide 40 MG TABLET PO SCH (08:56)
[2017-12-28] MEDS: Famotidine 20 MG TABLET PO SCH ×2 (08:56→21:45)
[2017-12-28] MEDS: Budesonide/Formoterol 80/4.5 MDI IH SCH ×2 (10:30→22:14)
--- NOTE | 2017-12-28 12:50 | Internal Med Progress Note ---
Hospitalist Progress Note - Encounter Date of Encounter: 12/28/17 Time of Encounter: 12:47 - Subjective Interval History: Patient presented yesterday with shortness of breath 9 days. He was recently treated inpatient at [facility] diagnosis of pneumonia. He was discharged home 3 days later developed progressive shortness of breath. Chest x-ray showing right basilar infiltrate with small right pleural effusion. He reports that he recently spent time at [facility] following a CABG surgery in October 2017. From there he has been in the hospital at [facility] and now [place]. We are treating him for healthcare acquired pneumonia. Seen and examined at bedside today continuing to report shortness of breath, worse with exertion. However per my assessment is resting comfortably in a chair on room air. He reports that at times he has a productive cough but that he feels that it is improving overnight. - Exam Vitals: Temp Pulse Resp BP Pulse Ox 98.1 F 73 14 102/68 97 12/28/17 12:09 12/28/17 12:09 12/28/17 12:09 12/28/17 12:09 12/28/17 12:09 Exam: PHYSICAL EXAMINATION: GENERAL: The patient is an elderly male in no apparent distress, a and O 3 HEENT: Head is normocephalic and atraumatic. Extraocular muscles are intact. Pupils are equal, round, and reactive to light and accommodation. NECK: Supple. No carotid bruits. No lymphadenopathy or thyromegaly. LUNGS: Clear/diminished throughout with scattered rhonchi HEART: Regular rate and rhythm, S1, S2 without murmur. ABDOMEN: Soft, nontender, and nondistended. Positive bowel sounds. No hepatosplenomegaly was noted. EXTREMITIES: Without any cyanosis, clubbing, rash, lesions or edema. NEUROLOGIC: Cranial nerves II through XII are grossly intact. SKIN: No ulceration or induration present. - Assessment and Plan (1) HCAP (healthcare-associated pneumonia) Current Visit: Yes Status: Acute Assessment and Plan: 12/28/17--clinically, patient remains stable and does not hypoxic. He is resting comfortably on room air at this time. He continues to endorse some dys pnea with ambulation and activity. Sputum cultures pending, respiratory panel negative for viral cause. Blood cultures pending. Given recent history of multiple hospital stays and persistent pneumonia on imaging we will continue to treat for HCAP with vancomycin and Zosyn. (2) CAD (coronary artery disease) Current Visit: Yes Status: Chronic Assessment and Plan: S/P CABG 10/2017 Chest pain-free at this time No events on telemetry overnight Continue to monitor Continue cardiac medications (3) Diabetes Current Visit: Yes Status: Chronic Assessment and Plan: Continue basal, & prandial Increase sliding scale to medium coverage FSBG ACHS ADA diet (4) COPD (chronic obstructive pulmonary disease) Current Visit: Yes Status: Chronic Assessment and Plan: Not in exacerbation, no wheezing Continue home meds Continue aerosols when necessary (5) Hypertension Current Visit: Yes Status: Chronic Assessment and Plan: Per history, stable continue home meds (6) CKD (chronic kidney disease) Current Visit: Yes Status: Chronic Assessment and Plan: cr remains slightly elevated above baseline I will start gentle IV fluid 0.9% normal saline at 75 mL per hour 1 L Avoid nephrotoxins Continue to monitor DVT Prophylaxis: EPCD's when in bed - Time Spent with Patient Total time spent is greater than 50% in coordination of care (as documented) at patient's floor/unit and/or counseling patient: less than 15 minutes Plan of Care Discussed with: patient Internal Medicine: Result - Labs CBC & Chem 7: 12/28/17 03:29 12/28/17 03:29 Labs: Short CBC 12/28/17 Range/Units 03:29 WBC 8.2 (4.3-11.1) K/mcL Hgb 10.0 L (12.9-16.9) g/dL Hct 31.9 L (37.5-50.1) % Plt Count 193 (140-400) K/mcL Neutrophils # 5.8 (1.6-8.9) K/mcL BMP 12/28/17 03:29 Sodium 135 L Potassium 4.2 Chloride 101 Carbon Dioxide 23 BUN 34 H Creatinine 1.92 H Glucose 134 H Calcium 8.5 L - Impressions Impressions Chest X-Ray 12/27/17 11:02 IMPRESSION: Right basilar infiltrate with small right pleural effusion. D/ / 12/27/2017 12:06:42 Alex Verduzco MD / ashley Interpreting Provider: Alex Verduzco MD Consult Discharge Plan - Plan Referrals: Maria Antonia Friend, [facility] [Primary Care Provider] - (2) CAD (coronary artery disease) Qualifiers: Coronary Disease-Associated Artery/Lesion type: [place] artery [place] vs. transplanted heart: [place] heart Associated angina: without angina Qualified Code(s): I25.10 - Atherosclerotic heart disease of [place] coronary artery without angina pectoris (3) Diabetes Qualifiers: Diabetes mellitus type: type 2 Diabetes mellitus terminal make up operator insulin use: without terminal make up operator use Diabetes mellitus complication status: with unspecified complications Qualified Code(s): E11.8 - Type 2 diabetes mellitus with unspecified complications (4) COPD (chronic obstructive pulmonary disease) Qualifiers: COPD type: emphysema Emphysema type: unspecified Qualified Code(s): 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
[2017-12-28] MEDS ORDERED: 0.9 % Sodium Chloride 1,000 ML IVC SCH (13:00)
[2017-12-28] MEDS: Insulin DETEMIR 100 UNIT/ML X5UNITS SQ SCH (21:46)
[2017-12-29] MEDS: Piperacillin/Tazobactam 3.375 GM in 0.9 % Sodium Chloride Mini Bag 100 ML IVPB SCH ×2 (00:28→08:36)
[2017-12-29] MEDS: Insulin LISPRO 300 UNITS/3 ML VIAL SQ SCH ×8 (01:52→20:21)
[2017-12-29 05:05] LABS: Basophils % 0.2 %; Eosinophils # 0.1 K/mcL (0.0-0.6); Eosinophils % 1.2 %; Hematocrit 32.5 % (37.5-50.1); Hemoglobin 10.4 g/dL (12.9-16.9); Immature Granulocytes % 0.5 % (0-4); Lymphocytes # 1.5 K/mcL (0.6-4.6); Lymphocytes % 18.5 %; Mean Corpuscular Hemoglobin 24.6 pg (28.0-33.3); Mean Platelet Volume 10.5 fL (9.4-12.4); Monocytes # 0.6 K/mcL (0.0-1.3); Monocytes % 6.6 %; Neutrophils # 6.1 K/mcL (1.6-8.9); Platelet Count 205 K/mcL (140-400); Red Blood Count 4.22 M/mcL (4.19-5.50); Red Cell Distribution Width 16.9 % (11.5-14.5)
[2017-12-29 05:19] LABS: Calcium 8.4 mg/dL (8.6-10.3); Potassium 3.7 mEq/L (3.5-5.1)
[2017-12-29] MEDS ORDERED: Aminoglycoside Consult 1 EACH MC ONE (08:03)
[2017-12-29] MEDS: Budesonide/Formoterol 80/4.5 MDI IH SCH ×2 (08:04→22:51)
[2017-12-29] MEDS: Famotidine 20 MG TABLET PO SCH ×2 (08:35→20:22)
[2017-12-29] MEDS: Furosemide 40 MG TABLET PO SCH (08:35)
[2017-12-29] MEDS: Aspirin Enteric Coated 81 MG Tablet PO SCH (08:35)
[2017-12-29] MEDS: GLUCOSAMINE HCL 1000 MG PO SCH (11:05)
[2017-12-29] MEDS ORDERED: levoFLOXacin 750 MG TABLET PO SCH (11:13)
--- NOTE | 2017-12-29 11:25 | Internal Med Progress Note ---
Hospitalist Progress Note - Encounter Date of Encounter: 12/29/17 Time of Encounter: 11:21 - Subjective Interval History: Presented with shortness of breath. Chest x-ray reveals suspected pneumonia. Was being treated with broad-spectrum coverage. Has continued to improve since admission is currently denying any respiratory distress and resting comfortably on room air. He is mildly dyspneic with exertion however otherwise reports that he feels like he is improving. He has been afebrile greater than 24 hours and is nontoxic appearing. - Exam Vitals: Temp Pulse Resp BP Pulse Ox 97.8 F 79 16 110/74 97 12/29/17 07:50 12/29/17 07:50 12/29/17 07:50 12/29/17 07:50 12/29/17 07:50 Exam: PHYSICAL EXAMINATION: GENERAL: The patient is an elderly male in no apparent distress, a and O 3 HEENT: Head is normocephalic and atraumatic. Extraocular muscles are intact. Pupils are equal, round, and reactive to light and accommodation. NECK: Supple. No carotid bruits. No lymphadenopathy or thyromegaly. LUNGS: diminished with fine expiratory wheezing and scattered rhonchi HEART: Regular rate and rhythm, S1, S2 without murmur. ABDOMEN: Soft, nontender, and nondistended. Positive bowel sounds. No hepatosplenomegaly was noted. EXTREMITIES: Without any cyanosis, clubbing, rash, lesions or edema. NEUROLOGIC: Cranial nerves II through XII are grossly intact. SKIN: No ulceration or induration present. - Assessment and Plan (1) HCAP (healthcare-associated pneumonia) Current Visit: Yes Status: Acute Assessment and Plan: 12/29/17--clinically, patient remains stable and is continuing to improve. He is not hypoxic and does not appear toxic. He has been afebrile greater than 24 hours. At this time I will discontinue broad-spectrum coverage and start the patient on daily oral Levaquin for a total of 7 doses. He is continued to report some mild dyspnea with exertion and productive cough. Per auscultation today he is noted to have some fine expiratory wheezes throughout as well as some scattered rhonchi. As such I will start him on oral steroids 40 mg daily. He may benefit from short-term oral steroid at [place]. Final sputum cultures with no significant growth. Blood cultures pending (2) CAD (coronary artery disease) Current Visit: Yes Status: Chronic Assessment and Plan: S/P CABG 10/2017 Remains chest pain-free No events on tele Continue to monitor Continue cardiac medications (3) Diabetes Current Visit: Yes Status: Chronic Assessment and Plan: Hyperglycemia improved overnight. Continue closely monitor. Continue basal, & prandial & SSIC FSBG ACHS ADA diet (4) COPD (chronic obstructive pulmonary disease) Current Visit: Yes Status: Chronic Assessment and Plan: Exacerbated in the setting of pneumonia Expiratory wheezing throughout per auscultation today Adding oral steroids Continue home meds Continue aerosols when necessary (5) Hypertension Current Visit: Yes Status: Chronic Assessment and Plan: Per history Mildly hypotensive with SBP in the high 90s to low 100 Monitor closely continue home meds (6) CKD (chronic kidney disease) Current Visit: Yes Status: Chronic Assessment and Plan: cr remains slightly elevated above baseline; likely due to vancomycin use Vancomycin has been discontinued at this time and starting patient on Levaquin [place] to avoid nephrotoxins and monitor renal function DVT Prophylaxis: EPCD's when in bed - Time Spent with Patient Total time spent is greater than 50% in coordination of care (as documented) at patient's floor/unit and/or counseling patient: less than 15 minutes Plan of Care Discussed with: patient Internal Medicine: Result - Labs CBC & Chem 7: 12/29/17 04:21 12/29/17 04:21 Labs: Short CBC 12/29/17 Range/Units 04:21 WBC 8.3 (4.3-11.1) K/mcL Hgb 10.4 L (12.9-16.9) g/dL Hct 32.5 L (37.5-50.1) % Plt Count 205 (140-400) K/mcL Neutrophils # 6.1 (1.6-8.9) K/mcL BMP 12/29/17 04:21 Sodium 135 L Potassium 3.7 Chloride 101 Carbon Dioxide 24 BUN 34 H Creatinine 2.08 H Glucose 107 H Calcium 8.4 L Consult Discharge Plan - Plan Referrals: Maria Antonia Friend, [employer] [Primary Care Provider] - (2) CAD (coronary artery disease) Qualifiers: Coronary Disease-Associated Artery/Lesion type: [place] artery [place] vs. transplanted heart: [place] heart Associated angina: without angina Qualified Code(s): I25.10 - Atherosclerotic heart disease of [place] coronary artery without angina pectoris (3) Diabetes Qualifiers: Diabetes mellitus type: type 2 Diabetes mellitus intermediate insulin use: without superintendent marine oil terminal use Diabetes mellitus complication status: with unspecified complications Qualified Code(s): E11.8 - Type 2 diabetes mellitus with unspecified complications (4) COPD (chronic obstructive pulmonary disease) Qualifiers: COPD type: emphysema Emphysema type: unspecified Qualified Code(s): 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
[2017-12-29] MEDS: predniSONE 20 MG TABLET PO SCH (11:59)
[2017-12-29] MEDS: Insulin DETEMIR 100 UNIT/ML X5UNITS SQ SCH (20:20)
[2017-12-30 04:23] LABS: Hematocrit 34.4 % (37.5-50.1); Hemoglobin 10.5 g/dL (12.9-16.9); Immature Granulocytes % 0.4 % (0-4); Lymphocytes % 10.3 %; Mean Corpuscular HGB Conc 30.5 g/dL (31.6-35.5); Mean Corpuscular Volume 78.5 fL (83.0-100.0); Mean Platelet Volume 10.9 fL (9.4-12.4); Monocytes # 0.5 K/mcL (0.0-1.3); Monocytes % 5.7 %; Neutrophils # 7.9 K/mcL (1.6-8.9); Platelet Count 199 K/mcL (140-400); Red Blood Count 4.38 M/mcL (4.19-5.50); Red Cell Distribution Width 16.9 % (11.5-14.5); Segmented Neutrophils % 83.6 %
[2017-12-30 04:36] LABS: Calcium 8.5 mg/dL (8.6-10.3); Potassium 4.2 mEq/L (3.5-5.1)
--- NOTE | 2017-12-30 07:35 | Electrocardiograph Report ---
[address] [place], [place] [address] Test Date: 2017-12-27 Pat Name: Keon Newman Department: EXAM16 Room: 3B Gender: M Social Psychologist: : 1950 Requested By: Trey Lara Order Number: [id number] Reading MD: Jimmy Ardon Measurements Intervals [place] Rate: 71 P: 58 VT: 164 QRS: 11 QRSD: 88 T: 197 QT: 404 QTc: 439 Interpretive Statements Sinus rhythm Anterolateral ST-T changes suggest ischemia Possible inferior myocardial infarction, age undetermined Electronically Signed On 12-30-2017 7:34:43 EST by Jimmy Ardon
[2017-12-30] MEDS: Budesonide/Formoterol 80/4.5 MDI IH SCH (07:50)
[2017-12-30] MEDS: predniSONE 20 MG TABLET PO SCH (07:59)
[2017-12-30] MEDS: Furosemide 40 MG TABLET PO SCH (07:59)
[2017-12-30] MEDS: Aspirin Enteric Coated 81 MG Tablet PO SCH (07:59)
[2017-12-30] MEDS: Famotidine 20 MG TABLET PO SCH (07:59)
[2017-12-30] MEDS: Insulin LISPRO 300 UNITS/3 ML VIAL SQ SCH ×4 (08:05→12:40)
[2017-12-30] MEDS: GLUCOSAMINE HCL 1000 MG PO SCH (08:10)
--- NOTE | 2017-12-30 13:19 | Discharge Summary ---
- NOTES TO OUTPATIENT PROVIDER Notes to Outpatient Provider: Had elevated creatinine secondary to vancomycin we will continue to monitor chemistry as outpatient.we will hold Lasix for 1 day decrase we will hold metformin and place on glyburide continue with Levaquin for 10 day dose and 5 day steroid burst Patient will follow-up with nephrology as well as PCP Orders not resulted at time of discharge: Pending orders 12/27/17 11:49 Culture,Blood [BC] Stat 12/31/17 04:00 Basic Metabolic Panel AM 0400 Complete Blood Count [HEME] AM 0400 Date of Encounter: 12/30/17 Time of Encounter: 13:17 - Discharge Diagnosis (1) CAD (coronary artery disease) Priority: Secondary Status: Chronic Qualifiers: Coronary Disease-Associated Artery/Lesion type: [place] artery [place] vs. transplanted heart: [place] heart Associated angina: without angina Qualified Code(s): I25.10 - Atherosclerotic heart disease of [place] coronary artery without angina pectoris (2) Diabetes Priority: Secondary Status: Chronic Qualifiers: Diabetes mellitus type: type 2 Diabetes mellitus mcc insulin use: without mcc use Diabetes mellitus complication status: with unspecified complications Qualified Code(s): E11.8 - Type 2 diabetes mellitus with unspecified complications (3) COPD (chronic obstructive pulmonary disease) Priority: Secondary Status: Chronic Qualifiers: COPD type: emphysema Emphysema type: unspecified Qualified Code(s): J43.9 - Emphysema, unspecified (4) Hypertension Priority: Secondary Status: Chronic Qualifiers: Hypertension type: essential hypertension Qualified Code(s): I10 - Essential (primary) hypertension (5) HCAP (healthcare-associated pneumonia) Priority: Primary Status: Acute (6) CKD (chronic kidney disease) Priority: Secondary Status: Chronic Qualifiers: Chronic kidney disease stage: stage 3 (moderate) Qualified Code(s): N18.3 - Chronic kidney disease, stage 3 (moderate) Hospital course: Mr. Newman is a 67 year old male past medical history of COPD 3 CAD COPD recent CABG former smoker presented to [facility] ER due to shortness of breathx9 days. He was recently treated inpatient at [facility] with diagnosis of pneumonia he was discharged home 3 days later developed progressive shortness of breath chest x-ray showed right basilar infiltrate with a small right pleural effusion. He was admitted and treated for healthcare acquired pneumonia initiated on vancomycin and Zosyn he did have elevation in his creatinine secondary to the vancomycin which was stopped patient was placed on Levaquin renally dosed. He was also given a steroid burst. His respiratory state has improved oxygen saturations are stable on room air no wheezing noted we will continue with Levaquin for 10 day dose as well as a steroid burst as an outpatient. Creatinine is 2 at this time-have patient hold his Lasix tomorrow and then resume next day we will also hold metformin for now and place patient on glyburide. We have patient follow up with primary care provider next week and we will check his chemistry on Friday. Also will have patient follow up with nephrology as outpatient. Currently patient is hemodynamically stable at this time - Time Spent with Patient Total time spent providing and/or coordinating discharge services: - Discharge Medications Prescriptions: glyBURIDE [GlyBURIDE] 5 mg PO BIDWM #28 tablet levoFLOXacin [Levaquin] 750 mg PO Q48H #4 tablet predniSONE [PredniSONE] 40 mg PO DAILY 3 Days tablet Home Medications: Aspirin [Lo-Dose Aspirin EC] 81 mg PO DAILY 08/30/17 [History] Ferrous Sulfate 325 mg PO TUTHSA 08/30/17 [History] Nitroglycerin [Nitrostat] 0.4 mg SL Q5MIN PRN 08/30/17 [History] Ranitidine HCl [Heartburn Relief] 150 mg PO BID 08/30/17 [History] Rosuvastatin [Crestor] 20 mg PO HS 08/30/17 [History] Fluticasone/Salmeterol [Advair 250-50 Diskus] 2 puff IH BID 08/31/17 [History] Albuterol Sulfate [Ventolin Hfa] 2 puff IH Q6H PRN 12/27/17 [History] Furosemide [Lasix] 40 mg PO DAILY 12/27/17 [History] Glucosamine HCl 1,000 mg PO QAM 12/27/17 [History] Insulin Glargine,Hum.rec.anlog [Basaglar Kwikpen U-100] 40 unit SQ HS 12/27/17 [History] Potassium Chloride [Klor-Con 10] 10 meq PO DAILY 12/27/17 [History] Metoprolol [Lopressor] 25 mg PO BID #0 tablet 12/30/17 [Rx] glyBURIDE [GlyBURIDE] 5 mg PO BIDWM #28 tablet 12/30/17 [Rx] levoFLOXacin [Levaquin] 750 mg PO Q48H #4 tablet 12/30/17 [Rx] predniSONE [PredniSONE] 40 mg PO DAILY 3 Days tablet 12/30/17 [Rx] Allergies/Adverse Reactions: Allergy/AdvReac Type Severity Reaction Status Date / Time codeine Allergy Intermediate Agitated Verified 12/27/17 11:07 morphine Allergy Intermediate Agitated Verified 12/27/17 11:07 Date of admission: 12/29/17 12:17 Primary care physician: Maria Antonia Friend CNP Consults: 12/29/17 09:37 Consult to Nurse Navigator [CONS] Routine Comment: PNEUMONIA Discharging clinician: Iesha Reynolds Anticipated date of discharge: 12/30/17 - Constitutional Vitals: Temp Pulse Resp BP Pulse Ox 97.7 F 82 18 103/74 94 12/30/17 11:21 12/30/17 11:21 12/30/17 11:21 12/30/17 11:21 12/30/17 11:21 General appearance: Present: A&O X 3, no acute distress, answers questions appropriately Exam: PHYSICAL EXAMINATION: GENERAL: The patient is an elderly male in no apparent distress, a and O 3 HEENT: Head is normocephalic and atraumatic. Extraocular muscles are intact. Pupils are equal, round, and reactive to light and accommodation. NECK: Supple. No carotid bruits. No lymphadenopathy or thyromegaly. LUNGS: diminished with fine expiratory wheezing and scattered rhonchi HEART: Regular rate and rhythm, S1, S2 without murmur. ABDOMEN: Soft, nontender, and nondistended. Positive bowel sounds. No hepatosplenomegaly was noted. EXTREMITIES: Without any cyanosis, clubbing, rash, lesions or edema. NEUROLOGIC: Cranial nerves II through XII are grossly intact. SKIN: No ulceration or induration present. - Respiratory Respiratory exam: Present: CTAB. Absent: accessory muscle use, rales, rhonchi, wheezes - Patient Status Disposition: Home, Self-Care Condition: Good Functional capacity at discharge: independent ambulation Overall status at discharge: patient is back to baseline - Ambulatory Orders Ambulatory Orders: Basic Metabolic Panel [CHEM] Time Frame: 01/05/18, Facility: [facility], Location: Lab - Discharge Instructions Instructions: Chest Pain (DC), Pneumonia (DC) Follow Up With: Huy Vazquez MD [Partnered Physician] - (Your appointment has been requested. Our offices will call with a time and date.) Maria Antonia Friend CNP [Primary Care Provider] - 01/06/18 1:40 pm - Diet and Activity Activity: ambulate only with your walker Diet: advance to your usual diet
[2017-12-30 15:40] VITALS: BP 108/82
== END 2017-12-30 16:23 | disposition home or self-care (01) | DRG 195 ==
LOC: EMEROOARM 10:52 → 3BNU 10:52
PROVIDERS: ADMIT Internal Medicine; ATTEND Internal Medicine

== ENCOUNTER 2018-01-04 11:48 | Inpatient (IN) ==
[2018-01-04] MEDS ORDERED: Furosemide 40 MG/4 ML VIAL IVP ONE (12:55)
[2018-01-04] MEDS ORDERED: Ipratropium/Albuterol Neb 3 ML IH ONE (12:58)
--- NOTE | 2018-01-04 12:58 | Emergency Department Note ---
Disposition Clinical Impression: Right middle lobe pneumonia Qualifiers: Pneumonia type: due to unspecified organism Qualified Code(s): J18.1 - Lobar pneumonia, unspecified organism Disposition: Admitted As Inpatient Condition: Good Referrals: Maria Antonia Friend CNP [Primary Care Provider] - Forms: ED Satisfaction Letter Time of Disposition: 16:40 General Adult HPI - General Chief complaint: ED Shortness of Breath/Dyspnea Stated complaint: ROSI Time Seen by Provider: 01/04/18 12:41 Source: patient Mode of arrival: ambulatory Limitations: no limitations - History of Present Illness HPI Narrative: This is a 67-year-old male who comes to emergency department reporting shortness of breath that has developed in worsened significantly over the 24 hours prior to arrival. She reports a cough productive of clear sputum. He has not very conversant with his past medical history, and does not really understand his pathology. Pain Scale: 10 - Related Data Home Medications Medication Instructions Recorded Confirmed Aspirin [Lo-Dose Aspirin EC] 81 mg PO DAILY 08/30/17 12/27/17 Ferrous Sulfate 325 mg PO TUTHSA 08/30/17 12/27/17 Nitroglycerin [Nitrostat] 0.4 mg SL Q5MIN PRN 08/30/17 12/27/17 Ranitidine HCl [Heartburn Relief] 150 mg PO BID 08/30/17 12/27/17 Rosuvastatin [Crestor] 20 mg PO HS 08/30/17 12/27/17 Fluticasone/Salmeterol [Advair 2 puff IH BID 08/31/17 12/27/17 250-50 Diskus] Albuterol Sulfate [Ventolin Hfa] 2 puff IH Q6H PRN 12/27/17 12/27/17 Furosemide [Lasix] 40 mg PO DAILY 12/27/17 12/27/17 Glucosamine HCl 1,000 mg PO QAM 12/27/17 12/27/17 Insulin Glargine,Hum.rec.anlog 40 unit SQ HS 12/27/17 12/27/17 [Basaglar Kwikpen U-100] Potassium Chloride [Klor-Con 10] 10 meq PO DAILY 12/27/17 12/27/17 Previous Rx's Medication Instructions Recorded Metoprolol [Lopressor] 25 mg PO BID #0 tablet 12/30/17 glyBURIDE [GlyBURIDE] 5 mg PO BIDWM #28 tablet 12/30/17 levoFLOXacin [Levaquin] 750 mg PO Q48H #4 tablet 12/30/17 Allergies Allergy/AdvReac Type Severity Reaction Status Date / Time codeine Allergy Intermediate Agitated Verified 01/04/18 12:20 morphine Allergy Intermediate Agitated Verified 01/04/18 12:20 All systems ED: reviewed and negative except as stated. Cardiovascular: Reports: dyspnea on exertion Respiratory: Reports: cough, dyspnea Past Medical History - Past Medical History Medical history: Reports: COPD, coronary artery disease, CVA, diabetes, hyperlipidemia, hypertension, myocardial infarction, renal disease Surgical history: Reports: angioplasty/stent, carotid endarterectomy Psychiatric history: Reports: no psych history - Social History Smoking Status: Former smoker Smokeless Tobacco Status: No Alcohol use: Reports: none Drug use: Reports: none Physical Exam - General Limitations: no limitations General appearance: alert, in distress (In mild respirator distress), obese - Head Head exam: atraumatic, normocephalic, normal inspection - Eye Eye exam: Present: normal appearance, PERRL, EOMI - Chest Chest inspection: Present: normal inspection, symmetric chest wall rise - Respiratory Respiratory exam: Present: wheezes (There are bibasilar wheezes), other (There are course crackles in the apices bilaterally; long ultrasound shows B-lines diffusely throughout the chest) - Cardiovascular Cardiovascular exam: Present: regular rate, normal rhythm, normal heart sounds - Abdominal Exam Abdominal exam: Present: soft, Non-Tender. Absent: tenderness, distention, guarding, rebound, rigidity - Extremities Exam Extremities exam: Present: normal inspection, pedal edema (There is 2+ pedal edema more than jail up the left calf, and 2+ pedal edema almost jail up the right calf) - Neurological Exam Neurological exam: Present: alert, oriented X3 - Psychiatric Psychiatric exam: Present: normal affect, normal mood - Skin Skin exam: Present: warm, dry, intact, normal color Course Course Narrative: This is a 67-year-old male with what appears to be a CHF exacerbation. Vital Signs Temperature 97.4 F L 01/04/18 12:17 Pulse Rate 79 01/04/18 12:17 Respiratory Rate 24 01/04/18 12:17 Blood Pressure 92/60 01/04/18 12:17 O2 Sat by Pulse Oximetry 97 01/04/18 12:17 Temperature 97.4 F L 01/04/18 12:43 Pulse Rate 87 01/04/18 15:55 Respiratory Rate 17 01/04/18 15:55 Blood Pressure 100/76 01/04/18 15:55 O2 Sat by Pulse Oximetry 96 01/04/18 15:55 Oxygen Delivery Oxygen Delivery Room Air Medical Decision Making - MDM Narrative Medical decision making narrative: This is a 67-year-old male with cough and what appears to be a right middle lobe pneumonia. Because he is already taken levofloxacin for more than an days, I ordered meropenem for better antimicrobial coverage. I discussed his case with the on-call hospitalist, who accepted him for admission - Lab Data Lab results reviewed: Yes I reviewed the patient's lab results. Lab results narrative: CBC shows anemia at 11.0 and 35.4 BMP showed slight hyponatremia at 133, BUN elevated at 35 and creatinine elevated at 1.8 Troponin was low Result diagrams: 01/04/18 12:55 01/04/18 12:55 Lab Results 01/04/18 01/04/18 01/04/18 Range/Units 12:55 12:55 13:07 WBC 8.1 (4.3-11.1) K/mcL RBC 4.49 (4.19-5.50) M/mcL Hgb 11.0 L (12.9-16.9) g/dL Hct 35.4 L (37.5-50.1) % MCV 78.8 L (83.0-100.0) fL MCH 24.5 L (28.0-33.3) pg MCHC 31.1 L (31.6-35.5) g/dL RDW 18.2 H (11.5-14.5) % Plt Count 207 (140-400) K/mcL MPV 11.7 (9.4-12.4) fL Immature Gran % 0.4 (0-4) % Seg Neutrophils % 78.9 % Lymphocytes % 12.6 % Monocytes % 7.3 % Eosinophils % 0.6 % Basophils % 0.2 % Neutrophils # 6.4 (1.6-8.9) K/mcL Lymphocytes # 1.0 (0.6-4.6) K/mcL Monocytes # 0.6 (0.0-1.3) K/mcL Eosinophils # 0.1 (0.0-0.6) K/mcL Basophils # 0.0 (0.0-0.2) K/mcL Sodium 133 L (136-145) mEq/L Potassium 4.1 (3.5-5.1) mEq/L Chloride 100 (98-107) mEq/L Carbon Dioxide 23 (23-29) mEq/L BUN 35 H (8-23) mg/dL Creatinine 1.82 H (0.70-1.30) mg/dL Est GFR ( Amer) 45 L (> 60) Est GFR (Non-Af Amer) 37 L (> 60) BUN/Creatinine Ratio 19 (6-26) Glucose 226 H (70-105) mg/dL Calculated Osmolality 291 (280-300) Lactic Acid 2.0 (0.5-2.2) mmol/L Calcium 8.5 L (8.6-10.3) mg/dL Troponin I 0.03 (< 0.04) ng/mL 01/04/18 Range/Units 14:50 WBC (4.3-11.1) K/mcL RBC (4.19-5.50) M/mcL Hgb (12.9-16.9) g/dL Hct (37.5-50.1) % MCV (83.0-100.0) fL MCH (28.0-33.3) pg MCHC (31.6-35.5) g/dL RDW (11.5-14.5) % Plt Count (140-400) K/mcL MPV (9.4-12.4) fL Immature Gran % (0-4) % Seg Neutrophils % % Lymphocytes % % Monocytes % % Eosinophils % % Basophils % % Neutrophils # (1.6-8.9) K/mcL Lymphocytes # (0.6-4.6) K/mcL Monocytes # (0.0-1.3) K/mcL Eosinophils # (0.0-0.6) K/mcL Basophils # (0.0-0.2) K/mcL Sodium (136-145) mEq/L Potassium (3.5-5.1) mEq/L Chloride (98-107) mEq/L Carbon Dioxide (23-29) mEq/L BUN (8-23) mg/dL Creatinine (0.70-1.30) mg/dL Est GFR ( Amer) (> 60) Est GFR (Non-Af Amer) (> 60) BUN/Creatinine Ratio (6-26) Glucose (70-105) mg/dL Calculated Osmolality (280-300) Lactic Acid 2.0 (0.5-2.2) mmol/L Calcium (8.6-10.3) mg/dL Troponin I (< 0.04) ng/mL - Radiology Data Radiology results reviewed: Yes I reviewed the patient's radiology results. Chest x-ray that was read by radiology as being unremarkable CT chest showed a right middle lobe consolidation Critical Care Time Critical Care Time: No
[2018-01-04 13:28] LABS: Basophils % 0.2 %; Eosinophils # 0.1 K/mcL (0.0-0.6); Eosinophils % 0.6 %; Hematocrit 35.4 % (37.5-50.1); Immature Granulocytes % 0.4 % (0-4); Lymphocytes % 12.6 %; Mean Corpuscular HGB Conc 31.1 g/dL (31.6-35.5); Mean Corpuscular Hemoglobin 24.5 pg (28.0-33.3); Mean Corpuscular Volume 78.8 fL (83.0-100.0); Mean Platelet Volume 11.7 fL (9.4-12.4); Monocytes # 0.6 K/mcL (0.0-1.3); Monocytes % 7.3 %; Neutrophils # 6.4 K/mcL (1.6-8.9); Platelet Count 207 K/mcL (140-400); Red Blood Count 4.49 M/mcL (4.19-5.50); Red Cell Distribution Width 18.2 % (11.5-14.5); Segmented Neutrophils % 78.9 %
[2018-01-04 13:38] LABS: Calcium 8.5 mg/dL (8.6-10.3); Potassium 4.1 mEq/L (3.5-5.1)
[2018-01-04 13:40] LABS: Troponin I 0.03 ng/mL (< 0.04)
[2018-01-04] MEDS ORDERED: cefTRIAXone 1,000 MG in Water for inj. (sterile) 20 ML 10 ML IVP ONE (16:15)
[2018-01-04] MEDS ORDERED: Azithromycin 250 MG TABLET PO ONE (16:16)
[2018-01-04] MEDS ORDERED: Meropenem 1,000 MG in Water for inj. (sterile) 20 ML 10 ML IVP ONE (16:38)
[2018-01-04] MEDS ORDERED: Naloxone 0.4 MG/ML INJ IVP PRN (17:14)
[2018-01-04] MEDS ORDERED: Acetaminophen 325 MG TABLET PO PRN (17:14)
[2018-01-04] MEDS ORDERED: Nitroglycerin 0.4 MG TAB.SUBL SL PRN (17:23)
[2018-01-04] MEDS ORDERED: *HR* Dextrose 50 % in Water (Syg) 50 ML SYRINGE IVP PRN (17:24)
[2018-01-04] MEDS ORDERED: D5% in Water 1,000 ML IVC PRN (17:24)
[2018-01-04] MEDS ORDERED: Dextrose Gel 15 GM/37.5 ML TUBE PO PRN ×2 (17:24)
--- NOTE | 2018-01-04 17:34 | Internal Med History&Physical ---
Date of Encounter: 01/04/18 Time of Encounter: 16:50 Internal Medicine - H&P: HPI Chief complaint: Shortness of breath and cough Admitted From: Home Plans for Post Hospital Care: Home History of present illness: Mr. Newman is a 67 year old male presented to ER for shortness of breath and cough. Past medical history is significant for diabetes, CAD S/P stent and CABG, CKD, COPD. Patient was recently hospitalized from 12/27 to 12/30 for healthcare associated pneumonia. Patient was treated with vancomycin initially and switched to Levaquin as his renal function slightly getting worse. Patient was discharged on by mouth Levaquin. Patient said during Thanksgiving, he stay with his family and may be too tired. His shortness of breath is getting worse with worsening cough, with grayish sputum. Patient denies fever. Patient has mild nausea but no vomiting. Patient denies chest pain. Patient has no diarrhea. In the emergency room, CT chest shows right-sided middle lobe consolidation with airway thickness, consider bronchopneumonia. Patient has no fever, no leukocytosis, his SPO2 96% in room air. Patient was admitted for possible recurrent pneumonia. Past Med Surg Social Fam HX - Past Medical History Medical history: COPD, coronary artery disease, CVA, diabetes, hyperlipidemia, hypertension, myocardial infarction, renal disease Psychiatric history: no psych history - Past Surgical History Surgical History: angioplasty/stent, carotid endarterectomy Additional surgical history: CABG x4v. cardiac stents x 14. left index finger - Social History Smoking Status: Former smoker Smokeless Tobacco Status: No Alcohol use: none Drug use: none - Family History Brother Adopted: No Family Member Ethnicity: Non- Living Status: Still Living Hx Family Cardiac Disorders: Yes (HEART DISEASE) Hx Family Respiratory Disorders: No Hx Family Cancer: No Hx Family GI Disorders: No Hx Family Endocrine Disorder: No Hx Family Neuromuscular Disorders: No Hx Family Neurologic Disorders: No Hx Family HEENT Disorders: No Hx Family Autoimmune Disorders: No Internal Medicine - H&P: Meds Aspirin [Lo-Dose Aspirin EC] 81 mg PO DAILY 08/30/17 [History] Ferrous Sulfate 325 mg PO Q48H 08/30/17 [History] Nitroglycerin [Nitrostat] 0.4 mg SL Q5MIN PRN 08/30/17 [History] Ranitidine HCl [Heartburn Relief] 150 mg PO BID 08/30/17 [History] Rosuvastatin [Crestor] 20 mg PO HS 08/30/17 [History] Fluticasone/Salmeterol [Advair 250-50 Diskus] 2 puff IH BID 08/31/17 [History] Albuterol Sulfate [Ventolin Hfa] 2 puff IH Q6H PRN 12/27/17 [History] Furosemide [Lasix] 40 mg PO DAILY 12/27/17 [History] Glucosamine HCl 1,000 mg PO QAM 12/27/17 [History] Insulin Glargine,Hum.rec.anlog [Basaglar Kwikpen U-100] 40 unit SQ HS 12/27/17 [History] Potassium Chloride [Klor-Con 10] 10 meq PO DAILY 12/27/17 [History] Metoprolol [Lopressor] 25 mg PO BID #0 tablet 12/30/17 [Rx] glyBURIDE [GlyBURIDE] 5 mg PO BIDWM #28 tablet 12/30/17 [Rx] levoFLOXacin [Levaquin] 750 mg PO Q48H #4 tablet 12/30/17 [Rx] EPINEPHrine [Epipen] 0.3 mg IM ONCE PRN 01/04/18 [History] Allergy/AdvReac Type Severity Reaction Status Date / Time codeine Allergy Intermediate Agitated Verified 01/04/18 12:20 morphine Allergy Intermediate Agitated Verified 01/04/18 12:20 All Systems PM: A 10-system review of systems was performed and is negative for pertinent findings except as documented above in the HPI. - Constitutional Vitals: Temp Pulse Resp BP Pulse Ox 97.4 F L 87 17 100/76 96 01/04/18 12:43 01/04/18 15:55 01/04/18 15:55 01/04/18 15:55 01/04/18 15:55 General appearance: Present: A&O X 3, pleasant, no acute distress, answers questions appropriately Exam: Pt is AAO x 3, in NAD HEENT: NC/AT, PERRL Neck: Supple, no JVD, no LAD Lungs: Coarse breath sound with scattered rhonchi on right lung. Heart: S1S2, RRR Abd: Soft, nontender, BS present Ext: ROM wnl, mild b/l pedal edema Neuro: No focal deficit Internal Med - H&P Results - Labs CBC & Chem 7: 01/04/18 12:55 01/04/18 12:55 Labs: Short CBC 01/04/18 Range/Units 12:55 WBC 8.1 (4.3-11.1) K/mcL Hgb 11.0 L (12.9-16.9) g/dL Hct 35.4 L (37.5-50.1) % Plt Count 207 (140-400) K/mcL Neutrophils # 6.4 (1.6-8.9) K/mcL BMP 01/04/18 12:55 Sodium 133 L Potassium 4.1 Chloride 100 Carbon Dioxide 23 BUN 35 H Creatinine 1.82 H Glucose 226 H Calcium 8.5 L Cardiac Enzymes 01/04/18 Range/Units 12:55 Troponin I 0.03 (< 0.04) ng/mL - Impressions ITS Impressions Chest X-Ray 01/04/18 12:55 IMPRESSION: Mild bibasilar atelectasis versus pneumonia. D/ / Topher Max MD / Topher Max MD Interpreting Provider: Topher Max MD Chest CT 01/04/18 14:49 IMPRESSION: 1. Status post CABG procedure. 2. There is no pulmonary edema; however, bilateral pleural effusions are evident postprocedure. 3. Borderline nondiagnostic evaluation of the lung parenchyma in the lower lobe secondary to respiratory motion. There is consolidation involving the middle lobe, and suspected peripheral area but nodularity as well as small airway thickening, which could represent a superimposed bronchopneumonia. RECOMMENDATIONS: Need for repeat evaluation should be determined clinically. D/ / Bradley Sanches / Bradley Sanches Interpreting Provider: Bradley Sanches - Assessment and plan (1) DVT prophylaxis Current Visit: Yes Status: Acute Assessment and plan: Heparin subcutaneously (2) CAD (coronary artery disease) Current Visit: No Status: Chronic Assessment and plan: Patient denies chest pain. Troponin negative. Has recent CABG in Oct 2017. - Continue home medication aspirin, beta livan, statin, and NTG sublingual as needed Qualifiers: Coronary Disease-Associated Artery/Lesion type: [place] artery [place] vs. transplanted heart: [place] heart Associated angina: without angina Qualified Code(s): I25.10 - Atherosclerotic heart disease of [place] coronary artery without angina pectoris (3) Diabetes Current Visit: No Status: Chronic Assessment and plan: We will cover patient with basal and sliding scale insulin. 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 Will place patient on nebulizer as needed and scheduled. Qualifiers: COPD type: emphysema Emphysema type: unspecified Qualified Code(s): J43.9 - Emphysema, unspecified (5) HCAP (healthcare-associated pneumonia) Current Visit: No Status: Acute Assessment and plan: CT chest shows right middle lobe consolidation. Not sure it is new infection or residual infiltrate from recent HCAP. Patient has no fever, no leukocytosis, SPO2 will 96% in RA, less likely SA infection. - Check Legionella, strep Pneum antigen, respiratory viral panel, MRSA screen. - Cover patient with cefepime at this point, no Vanco because patient has recent suspect Vanco induced kidney injury. - Symptomatic treatment with cough syrup. (6) CKD (chronic kidney disease) Current Visit: No Status: Chronic Assessment and plan: Most likely due to diabetes. Creatinine is slightly elevated upon last discharge (12/30) but is at baseline now. Avoid the nephrotoxic medications and closely monitor renal function. Qualifiers: Chronic kidney disease stage: stage 3 (moderate) Qualified Code(s): N18.3 - Chronic kidney disease, stage 3 (moderate) - Time Spent With Patient Total time spent is greater than 50% in coordination of care (as documented) at patient's floor/unit and/or counseling patient: 40 min Greater than 35 minutes
[2018-01-04] MEDS ORDERED: Ipratropium/Albuterol Neb 3 ML IH PRN (17:44)
[2018-01-04] MEDS: GuaiFENesin Liq 200 MG/10 ML UDC PO SCH ×2 (18:11→23:28)
[2018-01-04] MEDS: Cefepime HCl 2,000 MG in Water for inj. (sterile) 20 ML 20 ML IVP SCH (18:11)
[2018-01-04] MEDS: *HR* Heparin 5,000 UNIT/ML VIAL SQ SCH (18:12)
[2018-01-04 19:30] LABS: Adenovirus Not Detected (Not Detect); Bordetella Pertussis Not Detected (Not Detect); Chlamydophila pneumoniae Not Detected (Not Detect); Coronavirus 229E Not Detected (Not Detect); Coronavirus HKU1 Not Detected (Not Detect); Coronavirus NL63 Not Detected (Not Detect); Coronavirus OC43 Not Detected (Not Detect); Human Metapneumovirus Not Detected (Not Detect); Human Rhinovirus/Enterovirus Not Detected (Not Detect); Influenza A Subtype 2009 H1 Not Detected (Not Detect); Influenza A Untypeable Not Detected (Not Detect); Influenza B Not Detected (Not Detect); Mycoplasma pneumoniae Not Detected (Not Detect); Parainfluenza Virus 1 Not Detected (Not Detect); Parainfluenza Virus 2 Not Detected (Not Detect); Parainfluenza Virus 3 DETECTED (Not Detect); Parainfluenza Virus 4 Not Detected (Not Detect); Respiratory Syncytial Virus Not Detected (Not Detect)
[2018-01-04] MEDS: Lactobacillus 1 EACH CAP.SPRINK PO SCH (20:31)
[2018-01-04] MEDS: Insulin LISPRO 300 UNITS/3 ML VIAL SQ SCH (20:31)
[2018-01-04] MEDS: Famotidine 20 MG TABLET PO SCH (20:31)
[2018-01-04] MEDS: Menthol 9.1 MG LOZENGE PO PRN ×2 (20:41→23:32)
[2018-01-04] MEDS ORDERED: Insulin DETEMIR 100 UNIT/ML X5UNITS SQ SCH (21:00)
[2018-01-04] MEDS ORDERED: 0.9 % Sodium Chloride 1,000 ML IVC SCH (21:45)
[2018-01-04] MEDS ORDERED: 0.9 % Sodium Chloride 1,000 ML ONE (21:48)
[2018-01-04] MEDS: 0.9 % Sodium Chloride 1,000 ML IVC SCH (21:50)
[2018-01-04] MEDS: Ipratropium/Albuterol Neb 3 ML IH SCH (22:24)
[2018-01-04] MEDS: Budesonide/Formoterol 80/4.5 MDI IH SCH (22:31)
[2018-01-05] MEDS: Ipratropium/Albuterol Neb 3 ML IH SCH ×4 (03:49→21:38)
[2018-01-05 04:44] LABS: Basophils % 0.2 %; Eosinophils % 0.6 %; Hematocrit 32.9 % (37.5-50.1); Hemoglobin 10.3 g/dL (12.9-16.9); Immature Granulocytes % 0.5 % (0-4); Lymphocytes # 0.9 K/mcL (0.6-4.6); Lymphocytes % 14.9 %; Mean Corpuscular HGB Conc 31.3 g/dL (31.6-35.5); Mean Corpuscular Hemoglobin 24.3 pg (28.0-33.3); Mean Corpuscular Volume 77.6 fL (83.0-100.0); Mean Platelet Volume 11.3 fL (9.4-12.4); Monocytes # 0.5 K/mcL (0.0-1.3); Monocytes % 8.7 %; Neutrophils # 4.6 K/mcL (1.6-8.9); Platelet Count 187 K/mcL (140-400); Red Blood Count 4.24 M/mcL (4.19-5.50); Red Cell Distribution Width 18.1 % (11.5-14.5); Segmented Neutrophils % 75.1 %
[2018-01-05 04:55] LABS: Albumin/Globulin Ratio 1.1 (1.1-2.2); Bilirubin,Total 0.4 mg/dL (0.3-1.0); Calcium 8.3 mg/dL (8.6-10.3); Globulin 2.7 g/dL (2.4-3.5); Potassium 3.6 mEq/L (3.5-5.1); Total Protein 5.7 g/dL (6.4-8.9)
[2018-01-05] MEDS: *HR* Heparin 5,000 UNIT/ML VIAL SQ SCH ×2 (06:12→17:50)
[2018-01-05] MEDS: Cefepime HCl 2,000 MG in Water for inj. (sterile) 20 ML 20 ML IVP SCH ×2 (06:12→17:49)
[2018-01-05] MEDS: GuaiFENesin Liq 200 MG/10 ML UDC PO SCH ×3 (06:13→17:51)
[2018-01-05] MEDS: Insulin LISPRO 300 UNITS/3 ML VIAL SQ SCH ×4 (07:57→21:45)
[2018-01-05] MEDS ORDERED: Albuterol 2.5 MG/3 ML NEBULIZER IH PRN (08:32)
[2018-01-05] MEDS: Furosemide 40 MG TABLET PO SCH (08:33)
[2018-01-05] MEDS: Aspirin Enteric Coated 81 MG Tablet PO SCH (08:38)
[2018-01-05] MEDS: Famotidine 20 MG TABLET PO SCH ×2 (08:38→19:58)
[2018-01-05] MEDS: Lactobacillus 1 EACH CAP.SPRINK PO SCH ×2 (08:38→19:58)
[2018-01-05] MEDS: Budesonide/Formoterol 80/4.5 MDI IH SCH ×2 (10:27→21:38)
[2018-01-05] MEDS: Menthol 9.1 MG LOZENGE PO PRN ×3 (11:36→21:52)
[2018-01-05] MEDS: 0.9 % Sodium Chloride 1,000 ML IVC SCH (11:54)
--- NOTE | 2018-01-05 13:01 | Internal Med Progress Note ---
Hospitalist Progress Note - Encounter Date of Encounter: 01/05/18 Time of Encounter: 09:00 - Subjective Interval History: Patient has less cough today. Short of breath has improved. Vitals are stable. - Exam Vitals: Temp Pulse Resp BP Pulse Ox 98.0 F 90 16 93/66 98 01/05/18 11:11 01/05/18 11:11 01/05/18 11:11 01/05/18 11:11 01/05/18 11:11 Exam: Pt is AAO x 3, in NAD HEENT: NC/AT, PERRL Neck: Supple, no JVD, no LAD Lungs: Coarse breath sound with scattered rhonchi on right lung. Heart: S1S2, RRR Abd: Soft, nontender, BS present Ext: ROM wnl, mild b/l pedal edema Neuro: No focal deficit - Assessment and Plan (1) DVT prophylaxis Current Visit: Yes Status: Acute Assessment and Plan: Heparin subcutaneously (2) CAD (coronary artery disease) Current Visit: No Status: Chronic Assessment and Plan: Patient denies chest pain. Troponin negative. Has recent CABG in Oct 2017. - Continue home medication aspirin, beta livan, statin, and NTG sublingual as needed (3) Diabetes Current Visit: No Status: Chronic Assessment and Plan: We will cover patient with basal and sliding scale insulin. Adjust insulin dose per glucose level. (4) COPD (chronic obstructive pulmonary disease) Current Visit: No Status: Chronic Assessment and Plan: Patient has no wheezing but some rhonchi at this point. Will place patient on nebulizer as needed and scheduled. (5) HCAP (healthcare-associated pneumonia) Current Visit: No Status: Acute Assessment and Plan: CT chest shows right middle lobe consolidation. Not sure it is new infection or residual infiltrate from recent HCAP as pt was just discharged from hospital for HCAP 5 days ago and still on po Levaquin. Patient has no fever, no leukocytosis, SPO2 will 96% in RA, less likely SA infection. - Check Legionella, strep Pneum antigen - respiratory viral panel shows positive for parainfluenza 3, - MRSA screen negative. - Cover patient with cefepime at this point, no Vanco as MRSA screen negative. May switch to by mouth antibiotic if symptoms improved. - Symptomatic treatment with cough syrup. - Probiotics for C. difficile prevention (6) CKD (chronic kidney disease) Current Visit: No Status: Chronic Assessment and Plan: Most likely due to diabetes. Creatinine is slightly elevated upon last discharge (12/30) but is at baseline now. Avoid the nephrotoxic medications and closely monitor renal function. DVT Prophylaxis: Heparin subcutaneously - Time Spent with Patient Total time spent is greater than 50% in coordination of care (as documented) at patient's floor/unit and/or counseling patient: 30 minutes 25 - 35 minutes Plan of Care Discussed with: patient Internal Medicine: Result - Labs CBC & Chem 7: 01/05/18 03:56 01/05/18 03:56 Labs: Short CBC 01/04/18 01/05/18 Range/Units 12:55 03:56 WBC 8.1 6.2 (4.3-11.1) K/mcL Hgb 11.0 L 10.3 L (12.9-16.9) g/dL Hct 35.4 L 32.9 L (37.5-50.1) % Plt Count 207 187 (140-400) K/mcL Neutrophils # 6.4 4.6 (1.6-8.9) K/mcL BMP 01/04/18 01/05/18 12:55 03:56 Sodium 133 L 136 Potassium 4.1 3.6 Chloride 100 105 Carbon Dioxide 23 23 BUN 35 H 34 H Creatinine 1.82 H 1.82 H Glucose 226 H 59 L Calcium 8.5 L 8.3 L Cardiac Enzymes 01/04/18 Range/Units 12:55 Troponin I 0.03 (< 0.04) ng/mL Liver Function 01/05/18 Range/Units 03:56 Total Bilirubin 0.4 (0.3-1.0) mg/dL AST 20 (13-39) Units/L ALT 19 (7-52) Units/L Alkaline Phosphatase 80 (34-104) Units/L Albumin 3.0 L (3.5-5.7) g/dL - Impressions Impressions Chest X-Ray 01/04/18 12:55 IMPRESSION: Mild bibasilar atelectasis versus pneumonia. D/ / Topher Max MD / Topher Max MD Interpreting Provider: Topher Max MD Chest CT 01/04/18 14:49 IMPRESSION: 1. Status post CABG procedure. 2. There is no pulmonary edema; however, bilateral pleural effusions are evident postprocedure. 3. Borderline nondiagnostic evaluation of the lung parenchyma in the lower lobe secondary to respiratory motion. There is consolidation involving the middle lobe, and suspected peripheral area but nodularity as well as small airway thickening, which could represent a superimposed bronchopneumonia. RECOMMENDATIONS: Need for repeat evaluation should be determined clinically. D/ / Bradley Sanches / Bradley Sanches Interpreting Provider: Bradley Sanches Consult Discharge Plan - Plan Referrals: Maria Antonia Friend CNP [Primary Care Provider] - (2) CAD (coronary artery disease) Qualifiers: Coronary Disease-Associated Artery/Lesion type: [place] artery [place] vs. transplanted heart: [place] heart Associated angina: without angina Qualified Code(s): I25.10 - Atherosclerotic heart disease of [place] coronary artery without angina pectoris (3) Diabetes Qualifiers: Diabetes mellitus type: type 2 Diabetes mellitus half-way insulin use: without half-way use Diabetes mellitus complication status: with unspecified complications Qualified Code(s): E11.8 - Type 2 diabetes mellitus with unspecified complications (4) COPD (chronic obstructive pulmonary disease) Qualifiers: COPD type: emphysema Emphysema type: unspecified Qualified Code(s): J43.9 - Emphysema, unspecified (6) CKD (chronic kidney disease) Qualifiers: Chronic kidney disease stage: stage 3 (moderate) Qualified Code(s): N18.3 - Chronic kidney disease, stage 3 (moderate)
[2018-01-05] MEDS ORDERED: *HR* Heparin 5,000 UNIT/ML VIAL IVP PRN ×2 (19:08)
[2018-01-05] MEDS ORDERED: *HR* Heparin 5,000 UNIT/ML VIAL IVP ONE (19:08)
[2018-01-05] MEDS ORDERED: Heparin 25,000 UNIT/500 ML D5W 25,000 UNIT/500 ML BAG IVC SCH (19:15)
--- NOTE | 2018-01-05 19:24 | Event Note ---
Date of Encounter: 01/05/18 Time of Encounter: 19:00 Pt has developed A Fib RVR with HR 160s. No sure if he has hx of A Fib but pt said he may had when he just finished CABG in [place]. Saw pt at bedside, pt denies CP, SOB or palpitation. BP 100/60. Denies hx of GI or intracranial bleeding. Called Cardio consult Dr Mcnulty, d/w cardio regarding management as pt's BP is at lower side. will consider: 1. Metoprolol 5mg iv q5min x 3 and see if can slow down or switch HR. 2. If not work, will try cardizem 10mg ivp once, if BP not drop significantly after cardizem ivp, will start cardizem drip. 3. If pt cannot tolerate cardizem push, will consider Digoxin 0.25mg iv q6h x 3 4. Start heparin drip. 5. Cardio team will see pt tomorrow.
[2018-01-05 19:42] LABS: Hematocrit 34.9 % (37.5-50.1); Hemoglobin 10.7 g/dL (12.9-16.9); Mean Corpuscular HGB Conc 30.7 g/dL (31.6-35.5); Mean Corpuscular Hemoglobin 24.2 pg (28.0-33.3); Mean Platelet Volume 11.1 fL (9.4-12.4); Platelet Count 171 K/mcL (140-400); Red Blood Count 4.42 M/mcL (4.19-5.50); Red Cell Distribution Width 18.5 % (11.5-14.5)
[2018-01-05] MEDS: *HR* Metoprolol 5 MG/5 ML VIAL IVP SCH ×2 (19:47→19:51)
[2018-01-05 19:51] LABS: Heparin anti-factor XA UFH 0.06 IU/mL (0.30-0.70)
[2018-01-05 19:52] LABS: INR 1.2; Prothrombin Time 13.6 Seconds (9.4-12.1)
[2018-01-05 20:02] LABS: Magnesium 2.3 mg/dL (1.6-2.6)
[2018-01-05 20:15] LABS: Thyroid Stimulating Hormone 2.048 mcIU/mL (0.340-5.600)
[2018-01-05] MEDS: Insulin DETEMIR 100 UNIT/ML X5UNITS SQ SCH (21:46)
[2018-01-06] MEDS: GuaiFENesin Liq 200 MG/10 ML UDC PO SCH ×4 (00:51→17:43)
[2018-01-06] MEDS: Menthol 9.1 MG LOZENGE PO PRN ×3 (03:38→12:09)
[2018-01-06] MEDS: Ipratropium/Albuterol Neb 3 ML IH SCH ×4 (03:53→22:24)
[2018-01-06] MEDS: Cefepime HCl 2,000 MG in Water for inj. (sterile) 20 ML 20 ML IVP SCH ×2 (05:57→17:43)
[2018-01-06 05:58] LABS: Eosinophils # 0.1 K/mcL (0.0-0.6); Eosinophils % 1.2 %; Hematocrit 33.6 % (37.5-50.1); Hemoglobin 10.2 g/dL (12.9-16.9); Immature Granulocytes % 0.7 % (0-4); Lymphocytes % 17.7 %; Mean Corpuscular HGB Conc 30.4 g/dL (31.6-35.5); Mean Corpuscular Volume 79.1 fL (83.0-100.0); Mean Platelet Volume 11.8 fL (9.4-12.4); Monocytes # 0.6 K/mcL (0.0-1.3); Monocytes % 9.7 %; Neutrophils # 4.1 K/mcL (1.6-8.9); Platelet Count 181 K/mcL (140-400); Red Blood Count 4.25 M/mcL (4.19-5.50); Red Cell Distribution Width 18.5 % (11.5-14.5); Segmented Neutrophils % 70.7 %
[2018-01-06] MEDS ORDERED: *HR* Heparin 5,000 UNIT/ML VIAL SQ SCH (06:00)
[2018-01-06 06:20] LABS: Calcium 8.5 mg/dL (8.6-10.3); Potassium 3.8 mEq/L (3.5-5.1)
--- NOTE | 2018-01-06 09:23 | Cardiology Consult Note ---
Date of Encounter: 01/06/18 Time of Encounter: 09:22 Assessment and Plan (1) PAF (paroxysmal atrial fibrillation) Current Visit: Yes Status: Acute PAF noted last night ~2 hours. Per pt, had episode s/p CABG in October. Was SR on exam. Paged by RN at 1030 that pt is back in A-Fib RVR. PAF episodes in setting of PNA and parainfluenza 3. On Lopressor 25mg BID. BP marginal. Will give dose of IV lopressor 5mg once. K, Mag, TSH WNL. Limited TTE 11/2017 EF preserved. [id number] 6 (Age, HTN, DM, CAD, CVA). High CVA risk. Recommend AC. Discussed Coumadin vs NOAC. [place] check on Eliquis 5mg BID is $0. Pt agreeable. Will start Eliquis. Follows with Dr. Becerra outpt. Will discuss and review with Dr. Alcantar. (2) CAD (coronary artery disease) Current Visit: No Status: Chronic S/P multiple PCIs and s/p 4V CABG at [place] 10/2017. Continue ASA, Statin, BB. Qualifiers: Coronary Disease-Associated Artery/Lesion type: [place] artery [place] vs. transplanted heart: [place] heart Associated angina: without angina Qualified Code(s): I25.10 - Atherosclerotic heart disease of [place] coronary artery without angina pectoris Discussion w patient/family: The assessment and plan as outlined above was discussed with the patient and/or family members who expressed understanding and agreement. All questions were answered. Thank you for involving us in the care of your patient. Please call with any questions. I will discuss all the above with Dr. Alcantar and make changes as necessary. History of Present Illness Consult date: 01/06/18 Requesting physician: Aron Sandhu Consult reason: PAF Chief complaint: dyspnea History of present illness: Mr. Newman is a 67 year old male with PMH of CAD S/P multiple PCIs and s/p CABG 10/2017 at [place], CVA, diabetes, COPD, carotid stenosis s/p surgery, HTN. Typically follows with Dr. Becerra in [facility]. He presented to ED for worsening dyspnea, productive cough. Pt was recently hospitalized from 12/27 to 12/30 for healthcare associated pneumonia. Patient denies chest pain. CT chest shows right-sided middle lobe consolidation with airway thickness, consider bronchopneumonia. Positive for parainfluenza 3. Last night pt developed A-Fib RVR for approximately 2 hours. Pt was asymptomatic. He has since converted back to SR. Pt states he also had A-Fib post op after CABG in October. Cardiology consulted for further recs. Prior CV testing: Limited TTE 11/11/17: Limited echo. LVEF 65%. Normal LV chamber size and systolic function. Mild concentric left ventricular hypertrophy. Normal right ventricular structure and function. No pericardial effusion. [facility] 08/31/17: Impressions: There is severe three vessel coronary artery disease with RCA and LCX 100% instent restenosis FFR Measurement: 0.84 prox LAD. Mid LAD 0.78. Recommendations: Optimal medical therapy of patient's disease. Aggressive risk factor modification. Suggest patient have Elective coronary artery bypass surgery. Past Med Surg Social Fam HX - Past Medical History Medical history: COPD, coronary artery disease, CVA, diabetes, hyperlipidemia, hypertension, myocardial infarction, renal disease Psychiatric history: no psych history - Past Surgical History Surgical History: angioplasty/stent, carotid endarterectomy Additional surgical history: CABG x4v. cardiac stents x 14. left index finger - Social History Smoking Status: Former smoker Smokeless Tobacco Status: Yes (chewing tobacco) Alcohol use: none Drug use: none - Family History Brother Adopted: No Family Member Ethnicity: Non- Living Status: Still Living Hx Family Cardiac Disorders: Yes (HEART DISEASE) Hx Family Respiratory Disorders: No Hx Family Cancer: No Hx Family GI Disorders: No Hx Family Endocrine Disorder: No Hx Family Neuromuscular Disorders: No Hx Family Neurologic Disorders: No Hx Family HEENT Disorders: No Hx Family Autoimmune Disorders: No Medications and Allergies Aspirin [Lo-Dose Aspirin EC] 81 mg PO DAILY 08/30/17 [History] Ferrous Sulfate 325 mg PO Q48H 08/30/17 [History] Nitroglycerin [Nitrostat] 0.4 mg SL Q5MIN PRN 08/30/17 [History] Ranitidine HCl [Heartburn Relief] 150 mg PO BID 08/30/17 [History] Rosuvastatin [Crestor] 20 mg PO HS 08/30/17 [History] Fluticasone/Salmeterol [Advair 250-50 Diskus] 2 puff IH BID 08/31/17 [History] Albuterol Sulfate [Ventolin Hfa] 2 puff IH Q6H PRN 12/27/17 [History] Furosemide [Lasix] 40 mg PO DAILY 12/27/17 [History] Glucosamine HCl 1,000 mg PO QAM 12/27/17 [History] Insulin Glargine,Hum.rec.anlog [Basaglar Kwikpen U-100] 40 unit SQ HS 12/27/17 [History] Potassium Chloride [Klor-Con 10] 10 meq PO DAILY 12/27/17 [History] Metoprolol [Lopressor] 25 mg PO BID #0 tablet 12/30/17 [Rx] glyBURIDE [GlyBURIDE] 5 mg PO BIDWM #28 tablet 12/30/17 [Rx] levoFLOXacin [Levaquin] 750 mg PO Q48H #4 tablet 12/30/17 [Rx] EPINEPHrine [Epipen] 0.3 mg IM ONCE PRN 01/04/18 [History] Allergy/AdvReac Type Severity Reaction Status Date / Time codeine Allergy Intermediate Agitated Verified 01/04/18 12:20 morphine Allergy Intermediate Agitated Verified 01/04/18 12:20 All Systems Review: The remainder of the systems were reviewed and are negative - Cardiovascular Cardiovascular: as per HPI, dyspnea at rest, dyspnea on exertion - Respiratory Respiratory: cough, dyspnea Physical Examination Vital Signs, Last 4 Hours Temp Pulse Resp BP Pulse Ox 01/06/18 07:11 97.5 F L 84 18 101/77 94 01/06/18 06:21 18 95 Vital Signs Temp Pulse Resp BP Pulse Ox 01/06/18 07:11 97.5 F L 84 18 101/77 94 01/06/18 06:21 18 95 01/06/18 04:31 97.4 F L 82 18 104/73 94 01/06/18 00:23 97 F L 88 19 98/66 94 01/05/18 21:41 18 98 01/05/18 19:46 111/74 01/05/18 19:26 98.5 F 98 16 107/75 96 01/05/18 15:59 97.3 F L 91 18 112/71 92 01/05/18 15:25 18 95 01/05/18 11:11 98.0 F 90 16 93/66 98 01/05/18 10:33 18 93 Intake and Output 01/05/18 01/06/18 01/06/18 23:59 07:59 15:59 Intake Total Balance Intake: IV Fluids Maxipime 2,000 MG In Water for inj. (sterile) 20 ML @ 300 mls/ hr IVP Q12HR JOVI Rx#:[id number] Oral 0 / 0 Other: # Voids 1 Weight 101.8 kg Blood Glucose* 327 78 Patient Weight 01/06/18 23:59 Weight 101.8 kg General: Conversant, No Apparent Distress HEENT: Atraumatic, Normocephaly, Mucus Membranes Moist Neck: No JVD, Normal carotid pulses Cardiac: Reg Rate and Rhythm, Normal S1 and S2, No Murmur Lungs: Other (rhonchi) Neuro: Alert and responsive, No focal deficits noted Abdomen: Soft, Non-Tender Skin: No rashes noted on visualized skin Musculoskeletal: No Chest Wall Tenderness Extremities: Other (mild BLE edema) Results 01/06/18 05:23 01/06/18 05:23 Lab Results 01/05/18 01/05/18 01/05/18 19:30 19:30 19:30 WBC 6.5 Hgb 10.7 L Hct 34.9 L Plt Count 171 INR 1.2 Sodium Potassium Chloride Carbon Dioxide BUN Creatinine Glucose Calcium Magnesium 2.3 TSH 2.048 01/06/18 01/06/18 05:23 05:23 WBC 5.8 Hgb 10.2 L Hct 33.6 L Plt Count 181 INR Sodium 134 L Potassium 3.8 Chloride 103 Carbon Dioxide 21 L BUN 35 H Creatinine 1.82 H Glucose 76 Calcium 8.5 L Magnesium TSH Short CBC 01/06/18 01/05/18 Range/Units 05:23 19:30 WBC 5.8 6.5 (4.3-11.1) K/mcL Hgb 10.2 L 10.7 L (12.9-16.9) g/dL Hct 33.6 L 34.9 L (37.5-50.1) % Plt Count 181 171 (140-400) K/mcL Neutrophils # 4.1 (1.6-8.9) K/mcL BMP 01/06/18 Range/Units 05:23 Sodium 134 L (136-145) mEq/L Potassium 3.8 (3.5-5.1) mEq/L Chloride 103 (98-107) mEq/L Carbon Dioxide 21 L (23-29) mEq/L BUN 35 H (8-23) mg/dL Creatinine 1.82 H (0.70-1.30) mg/dL Glucose 76 (70-105) mg/dL Calcium 8.5 L (8.6-10.3) mg/dL Active Medications Acetaminophen (Tylenol) 650 mg PO Q6HR PRN PRN Reason: Mild Pain/Fever Stop: 07/06/18 17:15 Albuterol Sulfate (Proventil Neb) 2.5 mg IH Q2H PRN; Protocol PRN Reason: Shortness Of Breath/Wheezing Stop: 07/07/18 08:33 Last Admin: 01/06/18 06:21 Dose: 2.5 mg Albuterol/Ipratropium (Duoneb) 3 ml IH [id number] JOVI Stop: 07/06/18 22:01 Last Admin: 01/06/18 03:53 Dose: Not Given Aspirin (Aspirin Ec) 81 mg PO DAILY JOVI Stop: 07/07/18 09:01 Last Admin: 01/05/18 08:38 Dose: 81 mg Budesonide/Formoterol Fumarate (Symbicort) 2 puff IH BIDRESP JOVI Stop: 07/06/18 22:01 Last Admin: 01/05/18 21:38 Dose: 2 puff Dextrose/Water (Dextrose 50% (Syg)) 25 ml IVP AD PRN PRN Reason: Hypoglycemia Stop: 07/06/18 17:25 Famotidine (Pepcid) 20 mg PO HS JOVI Stop: 07/08/18 21:01 Ferrous Sulfate (Ferrous Sulfate) 325 mg PO Q48H JOVI Stop: 07/06/18 17:31 Last Admin: 01/04/18 18:11 Dose: 325 mg Furosemide (Lasix) 40 mg PO DAILY JOVI Stop: 07/07/18 09:01 Last Admin: 01/05/18 08:33 Dose: Not Given Glucagon (Glucagen) 1 mg IM ONCE PRN PRN Reason: Hypoglycemia Stop: 07/06/18 17:25 Glucose (Gluctose) 15 gm PO ONCE PRN PRN Reason: Hypoglycemia Stop: 07/06/18 17:25 Glucose (Gluctose) 30 gm PO ONCE PRN PRN Reason: Hypoglycemia Stop: 07/06/18 17:25 Guaifenesin (Robitussin Liq) 200 mg PO Q6HR [facility] Stop: 07/06/18 18:01 Last Admin: 01/06/18 05:57 Dose: 200 mg Heparin Sodium (Porcine) (Heparin) 5,000 unit SQ Q12HCO [facility] Stop: 07/08/18 06:01 Last Admin: 01/06/18 05:58 Dose: 5,000 unit Dextrose (Dextrose 5%) 1,000 mls @ 100 mls/hr IVC .Q10H PRN PRN Reason: HYPOGLYCEMIA Stop: 07/06/18 17:25 Cefepime HCl 2,000 mg/ Sterile (Water) 20 mls @ 300 mls/hr IVP Q12HR [facility] Stop: 01/09/18 07:00 Last Admin: 01/06/18 05:57 Dose: 300 mls/hr Insulin Detemir (Levemir) 20 unit SQ HS [facility] Stop: 07/07/18 21:01 Last Admin: 01/05/18 21:46 Dose: 20 unit Insulin Human Lispro (Humalog) 0 units SQ HS [facility]; Protocol Stop: 07/06/18 21:01 Last Admin: 01/05/18 21:45 Dose: 5 unit Insulin Human Lispro (Humalog) 0 units SQ TIDAC [facility]; Protocol Stop: 07/07/18 07:31 Last Admin: 01/05/18 17:50 Dose: 2 units Lactobacillus Acidophilus/Rhamnosus (Culturelle) 1 each PO BID [facility] Stop: 07/06/18 21:01 Last Admin: 01/05/18 19:58 Dose: 1 each Menthol (Cough Drops) 9.1 mg PO Q2H PRN PRN Reason: Cough Stop: 07/06/18 20:19 Last Admin: 01/06/18 06:07 Dose: 9.1 mg Metoprolol Tartrate (Lopressor) 25 mg PO BID [facility] Stop: 07/06/18 21:01 Last Admin: 01/05/18 19:58 Dose: 25 mg Naloxone HCl (Narcan) 0.4 mg IVP Q2MIN PRN PRN Reason: SEE COMMENTS Stop: 07/06/18 17:15 Nitroglycerin (Nitroglycerin) 0.4 mg SL Q5MIN PRN PRN Reason: Chest Pain Stop: 07/06/18 17:24 Potassium Chloride (Potassium Chloride) 10 meq PO DAILY JOVI Stop: 07/07/18 09:01 Last Admin: 01/05/18 08:38 Dose: 10 meq Rosuvastatin Calcium (Crestor) 20 mg PO HS JOVI Stop: 07/06/18 21:01 Last Admin: 01/05/18 19:58 Dose: 20 mg - Imaging and Cardiology Echo: report reviewed Cardiac cath: report reviewed - EKG Interpretation EKG results cardiology: personally reviewed (A-Fib RVR), other (12 hr tele AVG HR 83, ~2 hours PAF RVR last night, now SR) Consult Discharge Plan - Plan Referrals: Maria Antonia Friend, DERIVATIVES TRADER [Primary Care Provider] -
[2018-01-06] MEDS: Lactobacillus 1 EACH CAP.SPRINK PO SCH ×2 (09:30→19:55)
[2018-01-06] MEDS: Furosemide 40 MG TABLET PO SCH (09:31)
[2018-01-06] MEDS: Insulin LISPRO 300 UNITS/3 ML VIAL SQ SCH ×4 (09:31→20:03)
[2018-01-06] MEDS: Aspirin Enteric Coated 81 MG Tablet PO SCH (09:31)
[2018-01-06] MEDS ORDERED: *HR* Metoprolol 5 MG/5 ML VIAL IVP ONE (10:43)
[2018-01-06] MEDS: Budesonide/Formoterol 80/4.5 MDI IH SCH ×2 (10:47→22:25)
--- NOTE | 2018-01-06 11:54 | Electrocardiograph Report ---
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
[2018-01-06] MEDS: Apixaban 5 MG TABLET PO SCH ×2 (12:07→19:55)
--- NOTE | 2018-01-06 12:22 | Internal Med Progress Note ---
Hospitalist Progress Note - Encounter Date of Encounter: 01/06/18 Time of Encounter: 12:19 - Subjective Interval History: I have seen and evaluated this patient at bedside. Patient continues to have productive cough, reports feeling short of breath but with some improvement when compared to when he presented to the emergency room. As per the nurse the patient had another run of A. fib with HR around 150. Patient denied chest pain, lightheadedness, nausea or vomiting. - Exam Vitals: Temp Pulse Resp BP Pulse Ox 98.7 F 86 16 107/61 96 01/06/18 11:23 01/06/18 11:23 01/06/18 11:23 01/06/18 11:23 01/06/18 11:23 Exam: Vitals: Reviewed General: Alert and oriented x4. In mild distress due to shortness of breath and cough Skin: Normal color, no rash, no lesions. HEENT: EOM, pupils equal, round and reactive. Cardiovascular: RRR, Normal S1 & S2, no rubs, murmurs or gallops. Lungs: Bilateral scattered expiratory wheezing, no crackles. Abdomen: Obese, Soft, non-tender, no rigidity. Extremities: 2+ pitting edema in the lower extremity bilaterally., no joint s welling or clubbing. Neurological: Normal cognition and motor skills. Rest of the physical exam is non contributory - Assessment and Plan (1) COPD (chronic obstructive pulmonary disease) Current Visit: No Status: Acute Assessment and Plan: COPD exacerbation. multifactorial: Pneumonia and paraninfluenza Scatter bilateral expiratory wheezing. Plan Incentive spirometry Continue albuterol nebs every 2 hours when necessary Duo-Nebs Q4RT scheduled On Symbicort Started on Acestylcistene Nebs Solu-Mdrol 40mg/IV BID (2) CAD (coronary artery disease) Current Visit: No Status: Chronic Assessment and Plan: S/P multiple PCIs and s/p 4V CABG at [place] 10/2017. Continue ASA, Statin, BB. (3) Diabetes Current Visit: No Status: Chronic Assessment and Plan: Blood sugar running in the low 70s. We will continue Levemir 20 units subcutaneous at bedtime, on the lispro low- dose sliding scale before meals. (4) HCAP (healthcare-associated pneumonia) Current Visit: No Status: Acute Assessment and Plan: Pneumonia multifactorial. Viral vs bacterial. Parainfulenza 3 positive. Sputum culture negative Continue cefepime 2gm/IV Q12HRs (5) CKD (chronic kidney disease) Current Visit: No Status: Chronic Assessment and Plan: Kidney function at baseline. Avoid nephrotoxic medication. On furosemide 40 mg by mouth daily. (6) PAF (paroxysmal atrial fibrillation) Current Visit: Yes Status: Acute Assessment and Plan: Patient has had 2 rounds of asymptomatic paroxysmal A. fib Plan Cardiology consulted Recommended: AC with Apixaban due to HIGH CHADSVASC score Continue metoprolol 25 mg by mouth twice a day. DVT Prophylaxis: Patient on an Oral anticoagulant due to A.Fib - Summary of Assessment and Plan Summary of Assessment and Plan: Patient to remain in the hospital due to persistent shortness of breath. b/l scattered expiratory wheezing started on IV steroids. - Time Spent with Patient Total time spent is greater than 50% in coordination of care (as documented) at patient's floor/unit and/or counseling patient: Greater than 35 minutes (42) Plan of Care Discussed with: patient (and the nurse.) Internal Medicine: Result - Labs CBC & Chem 7: 01/06/18 05:23 01/06/18 05:23 Labs: Short CBC 01/05/18 01/06/18 Range/Units 19:30 05:23 WBC 6.5 5.8 (4.3-11.1) K/mcL Hgb 10.7 L 10.2 L (12.9-16.9) g/dL Hct 34.9 L 33.6 L (37.5-50.1) % Plt Count 171 181 (140-400) K/mcL Neutrophils # 4.1 (1.6-8.9) K/mcL BMP 01/06/18 05:23 Sodium 134 L Potassium 3.8 Chloride 103 Carbon Dioxide 21 L BUN 35 H Creatinine 1.82 H Glucose 76 Calcium 8.5 L - ABG Interpretation ABG results: PT/INR, D-dimer PT 13.6 Seconds (9.4-12.1) H 01/05/18 19:30 Consult Discharge Plan - Plan Referrals: Maria Antonia Friend, ESTHETICS INSTRUCTOR [Primary Care Provider] - (1) COPD (chronic obstructive pulmonary disease) Qualifiers: COPD type: emphysema Emphysema type: unspecified Qualified Code(s): J43.9 - Emphysema, unspecified (2) CAD (coronary artery disease) Qualifiers: Coronary Disease-Associated Artery/Lesion type: [place] artery [place] vs. transplanted heart: [place] heart Associated angina: without angina Qualified Code(s): I25.10 - Atherosclerotic heart disease of [place] coronary artery witho ut angina pectoris (3) Diabetes Qualifiers: Diabetes mellitus type: type 2 Diabetes mellitus manager intermediate insulin use: without care home use Diabetes mellitus complication status: with unspecified complications Qualified Code(s): E11.8 - Type 2 diabetes mellitus with unspecified complications (5) CKD (chronic kidney disease) Qualifiers: Chronic kidney disease stage: stage 3 (moderate) Qualified Code(s): N18.3 - Chronic kidney disease, stage 3 (moderate)
[2018-01-06] MEDS: Acetylcysteine 10% 2 ML INHSOL IH SCH ×3 (14:56→22:25)
[2018-01-06] MEDS: MethylPREDNISolone 40 MG/ML VIAL IVP SCH (17:43)
[2018-01-06] MEDS: Famotidine 20 MG TABLET PO SCH (19:55)
[2018-01-06] MEDS: Insulin DETEMIR 100 UNIT/ML X5UNITS SQ SCH (20:02)
[2018-01-07] MEDS: GuaiFENesin Liq 200 MG/10 ML UDC PO SCH ×4 (00:56→16:55)
[2018-01-07] MEDS: Ipratropium/Albuterol Neb 3 ML IH SCH ×4 (03:54→22:48)
[2018-01-07] MEDS: Acetylcysteine 10% 2 ML INHSOL IH SCH ×4 (03:55→22:48)
[2018-01-07] MEDS: MethylPREDNISolone 40 MG/ML VIAL IVP SCH ×2 (05:04→16:55)
[2018-01-07] MEDS: Cefepime HCl 2,000 MG in Water for inj. (sterile) 20 ML 20 ML IVP SCH ×2 (05:05→16:56)
[2018-01-07 06:31] LABS: Hematocrit 34.1 % (37.5-50.1); Hemoglobin 10.5 g/dL (12.9-16.9); Immature Granulocytes % 0.4 % (0-4); Lymphocytes # 0.6 K/mcL (0.6-4.6); Lymphocytes % 12.3 %; Mean Corpuscular HGB Conc 30.8 g/dL (31.6-35.5); Mean Corpuscular Hemoglobin 24.4 pg (28.0-33.3); Mean Corpuscular Volume 79.1 fL (83.0-100.0); Mean Platelet Volume 11.8 fL (9.4-12.4); Monocytes # 0.3 K/mcL (0.0-1.3); Monocytes % 6.1 %; Neutrophils # 3.7 K/mcL (1.6-8.9); Platelet Count 170 K/mcL (140-400); Red Blood Count 4.31 M/mcL (4.19-5.50); Red Cell Distribution Width 18.4 % (11.5-14.5); Segmented Neutrophils % 81.2 %
[2018-01-07 06:47] LABS: Calcium 8.6 mg/dL (8.6-10.3); Magnesium 2.5 mg/dL (1.6-2.6); Phosphorous 4.4 mg/dL (2.7-4.5); Potassium 4.7 mEq/L (3.5-5.1)
[2018-01-07] MEDS: Aspirin Enteric Coated 81 MG Tablet PO SCH (08:12)
[2018-01-07] MEDS: Furosemide 40 MG TABLET PO SCH (08:12)
[2018-01-07] MEDS: Apixaban 5 MG TABLET PO SCH ×2 (08:12→21:18)
[2018-01-07] MEDS: Lactobacillus 1 EACH CAP.SPRINK PO SCH ×2 (08:12→21:18)
[2018-01-07] MEDS: Insulin LISPRO 300 UNITS/3 ML VIAL SQ SCH ×4 (08:13→21:21)
[2018-01-07] MEDS: Menthol 9.1 MG LOZENGE PO PRN (08:16)
--- NOTE | 2018-01-07 08:52 | Internal Med Progress Note ---
Hospitalist Progress Note - Encounter Date of Encounter: 01/07/18 Time of Encounter: 08:49 - Subjective Interval History: I have seen and evaluated this patient at bedside. Reported that he is feeling better today and has seen improvement but still reports that he is short of breath, and feels lightheaded. Denies chest pain, nausea or vomiting. - Exam Vitals: Temp Pulse Resp BP Pulse Ox 96.4 F L 114 18 124/89 96 01/07/18 04:36 01/07/18 07:41 01/07/18 07:41 01/07/18 07:41 01/07/18 07:41 Exam: Vitals: Reviewed General: Alert and oriented x4. In mild distress due to shortness of breathand lightheadedness HEENT: EOM, pupils equal, round and reactive. Cardiovascular: irregularly, irregular, Normal S1 & S2, no rubs, murmurs or gallops. Lungs: Bilateral mild scattered expiratory wheezing mor significant at the left lower base, no crackles. Abdomen: Obese, Soft, non-tender, no rigidity. Extremities: 2+ pitting edema in the lower extremity bilaterally. Neurological: Normal cognition. CN II-XII intact. Rest of the physical exam is non contributory - Assessment and Plan (1) PAF (paroxysmal atrial fibrillation) Current Visit: Yes Status: Acute Assessment and Plan: Patient continues to have paroxismal asymptomatic A. fib episodes Plan On Apixaban due to high chadsvasc score on Metoprolol 25mg/PO BID cardiology recommendations appreciated. (2) COPD (chronic obstructive pulmonary disease) Current Visit: No Status: Acute Assessment and Plan: exacerbation improving. still having expiratory wheezing. Plan Acetylcystene Nebs Q6RT scheduled On Duo-Nebs Q4RT Scheduled Albuterol Nebs PRN Solu-medrol 40mg/iv BID Incentive spirometry On IV antibiotics. symbicort (3) CAD (coronary artery disease) Current Visit: No Status: Chronic Assessment and Plan: Continue rosuvastatin and along 25 mg by mouth twice a day. (4) Diabetes Current Visit: No Status: Chronic Assessment and Plan: Blood Bennett suboptimally controlled. Change Levemir to 15 units twice a day. Carb controlled diet Lispro 5 units before meals, and lispro low-dose sliding scale. (5) HCAP (healthcare-associated pneumonia) Current Visit: No Status: Acute Assessment and Plan: Continue cefepime 2 g IV every 12 hours. On Iv antibiotics for the 4 days. (6) CKD (chronic kidney disease) Current Visit: No Status: Chronic Assessment and Plan: Kidney function at baseline. avoid nephrotoxic medications On furosemide 40mg/IV daily DVT Prophylaxis: Patient on an Oral anticoagulant due to A.fib - Summary of Assessment and Plan Summary of Assessment and Plan: Patient to remain in the hospital to continue IV steroids, Nebs and IV antibiotics. Potential discharge tomorrow. - Time Spent with Patient Total time spent is greater than 50% in coordination of care (as documented) at patient's floor/unit and/or counseling patient: Greater than 35 minutes (40) Plan of Care Discussed with: patient (and the nurse.) Internal Medicine: Result - Labs CBC & Chem 7: 01/07/18 05:41 01/07/18 05:41 Labs: Short CBC 01/07/18 Range/Units 05:41 WBC 4.6 (4.3-11.1) K/mcL Hgb 10.5 L (12.9-16.9) g/dL Hct 34.1 L (37.5-50.1) % Plt Count 170 (140-400) K/mcL Neutrophils # 3.7 (1.6-8.9) K/mcL BMP 01/07/18 05:41 Sodium 131 L Potassium 4.7 Chloride 102 Carbon Dioxide 22 L BUN 40 H Creatinine 2.01 H Glucose 315 H Calcium 8.6 - ABG Interpretation ABG results: PT/INR, D-dimer PT 13.6 Seconds (9.4-12.1) H 01/05/18 19:30 Consult Discharge Plan - Plan Referrals: Maria Antonia Friend, DECK WORKER [Primary Care Provider] - (2) COPD (chronic obstructive pulmonary disease) Qualifiers: COPD type: emphysema Emphysema type: unspecified Qualified Code(s): J43.9 - Emphysema, unspecified (3) CAD (coronary artery disease) Qualifiers: Coronary Disease-Associated Artery/Lesion type: [place] artery [place] vs. transplanted heart: [place] heart Associated angina: without angina Qualified Code(s): I25.10 - Atherosclerotic heart disease of [place] coronary artery without angina pectoris (4) Diabetes Qualifiers: Diabetes mellitus type: type 2 Diabetes mellitus halfway insulin use: without halfway use Diabetes mellitus complication status: with unspecified complications Qualified Code(s): E11.8 - Type 2 diabetes mellitus with unspecified complications (6) CKD (chronic kidney disease) Qualifiers: Chronic kidney disease stage: stage 3 (moderate) Qualified Code(s): N18.3 - Chronic kidney disease, stage 3 (moderate)
--- NOTE | 2018-01-07 09:49 | Cardiology Progress Note ---
Date of Encounter: 01/07/18 Time of Encounter: 09:47 Assessment and Plan (1) PAF (paroxysmal atrial fibrillation) Current Visit: Yes Status: Acute Multiple PAF episodes noted since admission in setting of PNA and parainfluenza 3. Per pt, had episode s/p CABG in October. Pt is asymptomatic during PAF episodes. On Lopressor 25mg BID. BP marginal, unab le to increase. K, Mag, TSH WNL. Limited TTE 11/2017 EF preserved. [id number] (Age, HTN, DM, CAD, CVA). High CVA risk. Recommend AC. Discussed Coumadin vs NOAC. [place] check on Eliquis 5mg BID is $0. Pt agreeable. Started Eliquis 5mg BID. Follows with Dr. Becerra outpt. Cardiology signing off. Reconsult PRN. Follow-up outpt with Dr. Becerra in 1-2 weeks. (2) CAD (coronary artery disease) Current Visit: No Status: Chronic S/P multiple PCIs and s/p 4V CABG at [place] 10/2017. Continue ASA, Statin, BB. Qualifiers: Coronary Disease-Associated Artery/Lesion type: [place] artery [place] vs. transplanted heart: [place] heart Associated angina: without angina Qualified Code(s): I25.10 - Atherosclerotic heart disease of [place] coronary artery without angina pectoris Discussion w patient/family: The assessment and plan as outlined above was discussed with the patient and/or family members who expressed understanding and agreement. All questions were answered. Thank you for involving us in the care of your patient. Please call with any questions. I will discuss all the above with Dr. Alcantar and make changes as necessary. Subjective Principal diagnosis: PAF, CAD Interval history: Pt denies acute complaints. Reports dyspnea has improved. Reports one episode of chest pain yesterday after an episode of coughing. No recurrence. Denies palpitations. Continues to have PAF, currently SR. Objective Vital Signs, Last 4 Hours Pulse Resp BP Pulse Ox 01/07/18 07:41 114 18 124/89 96 Vital Signs Temp Pulse Resp BP Pulse Ox 01/07/18 07:41 114 18 124/89 96 01/07/18 04:36 96.4 F L 75 18 97/63 94 01/07/18 03:55 20 98 01/06/18 22:25 16 97 01/06/18 19:56 98 11/27/18 19:44 97.8 F 83 15 115/78 98 01/06/18 15:35 97.9 F 83 15 117/73 96 01/06/18 15:32 18 98 01/06/18 14:08 97.6 F 81 18 94/69 95 01/06/18 11:23 98.7 F 86 16 107/61 96 01/06/18 10:48 18 95 Intake and Output 01/06/18 01/07/18 01/07/18 23:59 07:59 15:59 Intake Total 20 / 20 Balance 20 / 20 Intake: IV Fluids 20 / 20 Maxipime 2,000 MG In Water for 20 / 20 inj. (sterile) 20 ML @ 300 mls/ hr IVP Q12HR [facility] Rx#:[id number] Other: Weight 100.9 kg Blood Glucose* 335 266 Patient Weight 01/07/18 23:59 Weight 100.9 kg General: Conversant, No Apparent Distress HEENT: Atraumatic, Normocephaly, Mucus Membranes Moist Neck: No JVD, Normal carotid pulses Cardiac: Reg Rate and Rhythm, Normal S1 and S2, No Murmur Lungs: Other (rhonchi) Neuro: Alert and responsive, No focal deficits noted Abdomen: Soft, Non-Tender Skin: No rashes noted on visualized skin Musculoskeletal: No Chest Wall Tenderness Extremities: Other (1+ BLE edema) Results 01/07/18 05:41 01/07/18 05:41 Lab Results 01/07/18 01/07/18 05:41 05:41 WBC 4.6 Hgb 10.5 L Hct 34.1 L Plt Count 170 Sodium 131 L Potassium 4.7 Chloride 102 Carbon Dioxide 22 L BUN 40 H Creatinine 2.01 H Glucose 315 H Calcium 8.6 Magnesium 2.5 Short CBC 01/07/18 Range/Units 05:41 WBC 4.6 (4.3-11.1) K/mcL Hgb 10.5 L (12.9-16.9) g/dL Hct 34.1 L (37.5-50.1) % Plt Count 170 (140-400) K/mcL Neutrophils # 3.7 (1.6-8.9) K/mcL BMP 01/07/18 Range/Units 05:41 Sodium 131 L (136-145) mEq/L Potassium 4.7 (3.5-5.1) mEq/L Chloride 102 (98-107) mEq/L Carbon Dioxide 22 L (23-29) mEq/L BUN 40 H (8-23) mg/dL Creatinine 2.01 H (0.70-1.30) mg/dL Glucose 315 H (70-105) mg/dL Calcium 8.6 (8.6-10.3) mg/dL Active Medications Acetaminophen (Tylenol) 650 mg PO Q6HR PRN PRN Reason: Mild Pain/Fever Stop: 07/06/18 17:15 Last Admin: 01/06/18 19:55 Dose: 650 mg Acetylcysteine (Acetylcysteine 10%) 2 ml IH [id number] JOVI Stop: 07/08/18 12:31 Last Admin: 01/07/18 03:55 Dose: Not Given Albuterol Sulfate (Proventil Neb) 2.5 mg IH Q2H PRN; Protocol PRN Reason: Shortness Of Breath/Wheezing Stop: 07/07/18 08:33 Last Admin: 01/06/18 06:21 Dose: 2.5 mg Albuterol/Ipratropium (Duoneb) 3 ml IH [id number] JOVI Stop: 07/06/18 22:01 Last Admin: 01/07/18 03:54 Dose: 3 ml Apixaban (Eliquis) 5 mg PO BID JOVI Stop: 07/08/18 10:46 Last Admin: 01/07/18 08:12 Dose: 5 mg Aspirin (Aspirin Ec) 81 mg PO DAILY JOVI Stop: 07/07/18 09:01 Last Admin: 01/07/18 08:12 Dose: 81 mg Budesonide/Formoterol Fumarate (Symbicort) 2 puff IH BIDRESP JOVI Stop: 07/06/18 22:01 Last Admin: 01/06/18 22:25 Dose: 2 puff Dextrose/Water (Dextrose 50% (Syg)) 25 ml IVP AD PRN PRN Reason: Hypoglycemia Stop: 07/06/18 17:25 Famotidine (Pepcid) 20 mg PO HS JOVI Stop: 07/08/18 21:01 Last Admin: 01/06/18 19:55 Dose: 20 mg Ferrous Sulfate (Ferrous Sulfate) 325 mg PO Q48H JOVI Stop: 07/06/18 17:31 Last Admin: 01/06/18 17:43 Dose: 325 mg Furosemide (Lasix) 40 mg PO DAILY [facility] Stop: 07/07/18 09:01 Last Admin: 01/07/18 08:12 Dose: 40 mg Glucagon (Glucagen) 1 mg IM ONCE PRN PRN Reason: Hypoglycemia Stop: 07/06/18 17:25 Glucose (Gluctose) 15 gm PO ONCE PRN PRN Reason: Hypoglycemia Stop: 07/06/18 17:25 Glucose (Gluctose) 30 gm PO ONCE PRN PRN Reason: Hypoglycemia Stop: 07/06/18 17:25 Guaifenesin (Robitussin Liq) 200 mg PO Q6HR [facility] Stop: 07/06/18 18:01 Last Admin: 01/07/18 05:05 Dose: 200 mg Dextrose (Dextrose 5%) 1,000 mls @ 100 mls/hr IVC .Q10H PRN PRN Reason: HYPOGLYCEMIA Stop: 07/06/18 17:25 Cefepime HCl 2,000 mg/ Sterile (Water) 20 mls @ 300 mls/hr IVP Q12HR [facility] Stop: 01/09/18 07:00 Last Infusion: 01/07/18 05:22 Dose: Infused Insulin Detemir (Levemir) 15 unit SQ BID [facility] Stop: 07/09/18 09:01 Insulin Human Lispro (Humalog) 0 units SQ HS [facility]; Protocol Stop: 07/06/18 21:01 Last Admin: 01/06/18 20:03 Dose: 5 unit Insulin Human Lispro (Humalog) 0 units SQ TIDAC [facility]; Protocol Stop: 07/07/18 07:31 Last Admin: 01/07/18 08:13 Dose: 8 units Lactobacillus Acidophilus/Rhamnosus (Culturelle) 1 each PO BID [facility] Stop: 07/06/18 21:01 Last Admin: 01/07/18 08:12 Dose: 1 each Menthol (Cough Drops) 9.1 mg PO Q2H PRN PRN Reason: Cough Stop: 07/06/18 20:19 Last Admin: 01/07/18 08:16 Dose: 9.1 mg Methylprednisolone (Solu-Medrol) 40 mg IVP Q12HR [facility] Stop: 07/08/18 18:01 Last Admin: 01/07/18 05:04 Dose: 40 mg Metoprolol Tartrate (Lopressor) 25 mg PO BID [facility] Stop: 07/06/18 21:01 Last Admin: 01/07/18 08:12 Dose: 25 mg Naloxone HCl (Narcan) 0.4 mg IVP Q2MIN PRN PRN Reason: SEE COMMENTS Stop: 07/06/18 17:15 Nitroglycerin (Nitroglycerin) 0.4 mg SL Q5MIN PRN PRN Reason: Chest Pain Stop: 07/06/18 17:24 Potassium Chloride (Potassium Chloride) 10 meq PO DAILY JOVI Stop: 07/07/18 09:01 Last Admin: 01/07/18 08:12 Dose: 10 meq Rosuvastatin Calcium (Crestor) 20 mg PO HS [facility] Stop: 07/06/18 21:01 Last Admin: 01/06/18 19:55 Dose: 20 mg - EKG Interpretation EKG results cardiology: other (12 hr tele AVG HR 80, PAF noted, currently SR.) Consult Discharge Plan - Plan Referrals: Maria Antonia Friend, [employer] [Primary Care Provider] -
[2018-01-07] MEDS: Budesonide/Formoterol 80/4.5 MDI IH SCH ×2 (10:29→22:47)
[2018-01-07] MEDS: Insulin DETEMIR 100 UNIT/ML X5UNITS SQ SCH ×2 (12:22→21:19)
--- NOTE | 2018-01-07 15:08 | Electrocardiograph Report ---
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
[2018-01-07] MEDS: Famotidine 20 MG TABLET PO SCH (21:18)
[2018-01-08] MEDS: Ipratropium/Albuterol Neb 3 ML IH SCH ×2 (03:36→10:30)
[2018-01-08] MEDS: Acetylcysteine 10% 2 ML INHSOL IH SCH ×2 (03:36→10:30)
[2018-01-08] MEDS: GuaiFENesin Liq 200 MG/10 ML UDC PO SCH ×2 (04:48→05:31)
[2018-01-08] MEDS: Cefepime HCl 2,000 MG in Water for inj. (sterile) 20 ML 20 ML IVP SCH (05:30)
[2018-01-08] MEDS: MethylPREDNISolone 40 MG/ML VIAL IVP SCH (05:31)
[2018-01-08 06:42] VITALS: BP 107/70
[2018-01-08 08:38] LABS: Calcium 9.1 mg/dL (8.6-10.3); Magnesium 2.6 mg/dL (1.6-2.6); Potassium 4.2 mEq/L (3.5-5.1)
[2018-01-08] MEDS: Lactobacillus 1 EACH CAP.SPRINK PO SCH (08:44)
[2018-01-08] MEDS: Furosemide 40 MG TABLET PO SCH (08:44)
[2018-01-08] MEDS: Aspirin Enteric Coated 81 MG Tablet PO SCH (08:44)
[2018-01-08] MEDS: Apixaban 5 MG TABLET PO SCH (08:44)
[2018-01-08] MEDS: Insulin DETEMIR 100 UNIT/ML X5UNITS SQ SCH (08:45)
[2018-01-08] MEDS: Insulin LISPRO 300 UNITS/3 ML VIAL SQ SCH (08:45)
--- NOTE | 2018-01-08 09:05 | Electrocardiograph Report ---
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
--- NOTE | 2018-01-08 09:46 | Discharge Summary ---
- NOTES TO OUTPATIENT PROVIDER Notes to Outpatient Provider: Follow-up with your primary care physician within a week of hospital discharge. Make an appointment to follow-up with cardiology Dr. Becerra in 1-2 weeks. Orders not resulted at time of discharge: Pending orders 01/04/18 17:18 Legionella Antigen [RM] Stat S. Pneumoniae Antigen [RM] Stat Date of Encounter: 01/08/18 Time of Encounter: 09:42 - Discharge Diagnosis (1) PAF (paroxysmal atrial fibrillation) Priority: Primary Status: Acute (2) COPD (chronic obstructive pulmonary disease) Priority: Primary Status: Resolved Qualifiers: COPD type: emphysema Emphysema type: unspecified Qualified Code(s): J43.9 - Emphysema, unspecified (3) CAD (coronary artery disease) Priority: Primary Status: Chronic Qualifiers: Coronary Disease-Associated Artery/Lesion type: [place] artery [place] vs. 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 Newman is a 67 year old male past medical history diabetes, CAD S/P stent and CABG, CKD, COPD. Hospitalized from 12/27 to 12/30 for healthcare associated pneumonia. Patient presented to the emergency room on 01/04. Admitted to the hospital due to Pneumonia, and COPD exacerbation. Treated with broad spectrum antibiotics. Patient found to be Parainfluenza positive. During this admission patient developed paroxysmal A.fib for which cardiology was consulted, and started the patient on Apixaban due to High CHADSVASC score, and recommended to continue bb and follow with them as outpatient. Patient is hemodynamically stable to be discharged home. Being discharged on by mouth antibiotic for 5 more days and a Medrol Dosepak. Recommended to follow-up with his primary care physician within a week of hospital discharge. - Time Spent with Patient Total time spent providing and/or coordinating discharge services: Greater than 30 minutes (35) - Discharge Medications Prescriptions: Apixaban [Eliquis] 5 mg PO BID 30 Days #60 tablet levoFLOXacin [Levaquin] 750 mg PO Q48H 5 Days #5 tablet Home Medications: Aspirin [Lo-Dose Aspirin EC] 81 mg PO DAILY 08/30/17 [History] Ferrous Sulfate 325 mg PO Q48H 08/30/17 [History] Nitroglycerin [Nitrostat] 0.4 mg SL Q5MIN PRN 08/30/17 [History] Ranitidine HCl [Heartburn Relief] 150 mg PO BID 08/30/17 [History] Rosuvastatin [Crestor] 20 mg PO HS 08/30/17 [History] Fluticasone/Salmeterol [Advair 250-50 Diskus] 2 puff IH BID 08/31/17 [History] Albuterol Sulfate [Ventolin Hfa] 2 puff IH Q6H PRN 12/27/17 [History] Furosemide [Lasix] 40 mg PO DAILY 12/27/17 [History] Glucosamine HCl 1,000 mg PO QAM 12/27/17 [History] Insulin Glargine,Hum.rec.anlog [Basaglar Kwikpen U-100] 40 unit SQ HS 12/27/17 [History] Potassium Chloride [Klor-Con 10] 10 meq PO DAILY 12/27/17 [History] Metoprolol [Lopressor] 25 mg PO BID #0 tablet 12/30/17 [Rx] glyBURIDE [GlyBURIDE] 5 mg PO BIDWM #28 tablet 12/30/17 [Rx] EPINEPHrine [Epipen] 0.3 mg IM ONCE PRN 01/04/18 [History] Apixaban [Eliquis] 5 mg PO BID 30 Days #60 tablet 01/08/18 [Rx] levoFLOXacin [Levaquin] 750 mg PO Q48H 5 Days #5 tablet 01/08/18 [Rx] Allergies/Adverse Reactions: Allergy/AdvReac Type Severity Reaction Status Date / Time codeine Allergy Intermediate Agitated Verified 01/04/18 12:20 morphine Allergy Intermediate Agitated Verified 01/04/18 12:20 Date of admission: 01/06/18 14:09 Primary care physician: Maria Antonia Friend CNP Consults: 01/04/18 17:17 Consult to Physical Therapy [CONS] Routine Comment: Evaluate, develop and implement POC Reason for Consult: Weakness Does patient have active BEDREST order?: Yes Is patient medically & hemodynamically stable?: No 01/05/18 19:07 Consult to Cardiology [CONS] Routine Comment: Consulting Provider: Cardiology Colette Reason for Consult: A Fib RVR Call Completed: Yes - Constitutional Vitals: Temp Pulse Resp BP Pulse Ox 97.3 F L 80 16 107/70 93 01/08/18 06:41 01/08/18 06:41 01/08/18 06:41 01/08/18 06:41 01/08/18 06:41 General appearance: Present: A&O X 3, pleasant, no acute distress, answers questions appropriately Exam: Vitals: Reviewed General: Alert and oriented x4. In no acute distress. HEENT: EOM, pupils equal, round and reactive. Cardiovascular: irregularly, irregular, Normal S1 & S2, no rubs, murmurs or gallops. Lungs: Rales at the left lower base. No wheezing no crackles Bilaterally Abdomen: Obese, Soft, non-tender, no rigidity. Extremities: 2+ pitting edema in the lower extremity bilaterally. Neurological: Normal cognition. CN II-XII intact. Rest of the physical exam is non contributory - Patient Status Disposition: Home, Self-Care Condition: Good Functional capacity at discharge: independent ambulation Overall status at discharge: patient is progressing back to baseline - Discharge Instructions Follow Up With: Maria Antonia Friend CNP [Primary Care Provider] - - Diet and Activity Activity: resume usual activities as tolerated Diet: diabetic diet, low salt diet
[2018-01-08] MEDS: Budesonide/Formoterol 80/4.5 MDI IH SCH (10:31)
== END 2018-01-08 12:12 | disposition home or self-care (01) | DRG 190 ==
LOC: 2ANU 11:48 → EMEROOARM 11:48 → SUATTDRO 17:08 → 2ANU 17:53
PROVIDERS: ADMIT Hospitalist; ATTEND Internal Medicine

== ENCOUNTER 2018-01-27 12:04 | Inpatient (IN) ==
[2018-01-27 13:05] LABS: Hematocrit 41.8 % (37.5-50.1); Hemoglobin 12.9 g/dL (12.9-16.9); Mean Corpuscular HGB Conc 30.9 g/dL (31.6-35.5); Mean Corpuscular Hemoglobin 24.3 pg (28.0-33.3); Mean Corpuscular Volume 78.7 fL (83.0-100.0); Mean Platelet Volume 11.4 fL (9.4-12.4); Platelet Count 212 K/mcL (140-400); Red Blood Count 5.31 M/mcL (4.19-5.50); Red Cell Distribution Width 20.8 % (11.5-14.5)
[2018-01-27 13:33] LABS: Troponin I 0.04 ng/mL (< 0.04)
[2018-01-27 13:39] LABS: Calcium 8.8 mg/dL (8.6-10.3); Potassium 5.3 mEq/L (3.5-5.1)
[2018-01-27] MEDS ORDERED: Aspirin 81 MG TAB.CHEW PO STA (13:57)
--- NOTE | 2018-01-27 14:00 | Emergency Department Note ---
Disposition Clinical Impression: Pleural effusion Heart failure Qualifiers: Heart failure type: unspecified Heart failure chronicity: unspecified Qualified Code(s): I50.9 - Heart failure, unspecified Kidney failure Qualifiers: Renal failure chronicity: acute on chronic Acute renal failure type: unspecified Chronic kidney disease stage: unspecified stage Qualified Code(s): N17.9 - Acute kidney failure, unspecified; N18.9 - Chronic kidney disease, unspecified Coronary artery disease Qualifiers: Coronary Disease-Associated Artery/Lesion type: unspecified vessel or lesion type [place] vs. transplanted heart: [place] heart Associated angina: without angina Qualified Code(s): I25.10 - Atherosclerotic heart disease of [place] coronary artery without angina pectoris Disposition: Admitted As Inpatient Condition: Fair Referrals: Maria Antonia Friend CNP [Primary Care Provider] - General Adult HPI - General Chief complaint: ED General Medical Stated complaint: Bi-Lateral leg swelling,ROSI Time Seen by Provider: 01/27/18 12:29 Source: patient Limitations: no limitations - History of Present Illness HPI Narrative: Patient presents from his doctor's office to be admitted for multi-specialist evaluation and treatment of volume overload, pleural effusion. He had bypass surgery in October, since then has had a compensated course that included a pericardiocentesis, episode of pneumonia in November, and most recently an admission to [facility] with a pleural effusion that was drained 5 days ago. Presents today with dyspnea at rest, on exertion and when lying flat. No chest pain. Continued pain in his lower extremities worries holding a lot of fluid. Denies abdominal pain or vomiting. No fever. Does not want to go back to [facility], would prefer to be admitted here. Pain Scale: 10 - Related Data Home Medications Medication Instructions Recorded Confirmed Aspirin [Lo-Dose Aspirin EC] 81 mg PO DAILY 08/30/17 01/04/18 Ferrous Sulfate 325 mg PO Q48H 08/30/17 01/04/18 Nitroglycerin [Nitrostat] 0.4 mg SL Q5MIN PRN 08/30/17 01/04/18 Ranitidine HCl [Heartburn Relief] 150 mg PO BID 08/30/17 01/04/18 Rosuvastatin [Crestor] 20 mg PO HS 08/30/17 01/04/18 Fluticasone/Salmeterol [Advair 2 puff IH BID 08/31/17 01/04/18 250-50 Diskus] Albuterol Sulfate [Ventolin Hfa] 2 puff IH Q6H PRN 12/27/17 01/04/18 Furosemide [Lasix] 40 mg PO DAILY 12/27/17 01/04/18 Glucosamine HCl 1,000 mg PO QAM 12/27/17 01/04/18 Insulin Glargine,Hum.rec.anlog 40 unit SQ HS 12/27/17 01/04/18 [Basaglar Kwikpen U-100] Potassium Chloride [Klor-Con 10] 10 meq PO DAILY 12/27/17 01/04/18 EPINEPHrine [Epipen] 0.3 mg IM ONCE PRN 01/04/18 01/04/18 Previous Rx's Medication Instructions Recorded Metoprolol [Lopressor] 25 mg PO BID #0 tablet 12/30/17 glyBURIDE [GlyBURIDE] 5 mg PO BIDWM #28 tablet 12/30/17 Apixaban [Eliquis] 5 mg PO BID 30 Days #60 tablet 01/08/18 Allergies Allergy/AdvReac Type Severity Reaction Status Date / Time codeine Allergy Intermediate Agitated Verified 01/27/18 12:16 morphine Allergy Intermediate Agitated Verified 01/27/18 12:16 All systems ED: reviewed and negative except as stated. Past Medical History - Past Medical History Medical history: Reports: COPD, coronary artery disease, CVA, diabetes, hyperlipidemia, hypertension, myocardial infarction, renal disease Surgical history: Reports: angioplasty/stent, carotid endarterectomy Psychiatric history: Reports: no psych history - Social History Smoking Status: Former smoker Smokeless Tobacco Status: Yes (chewing tobacco) Alcohol use: Reports: none Drug use: Reports: none Physical Exam Vital signs noted please see nurse's notes. Gen.: Well-developed, well-nourished patient lying in bed who appears nontoxic. Head: Atraumatic, normocephalic. Eyes: Sclerae anicteric. ENT: Mucous membranes moist. Neck: Mild JVD is present. CEA scar noted. Heart: Heart sounds distant, regular rhythm with no appreciable S3 or S4. Lungs: Normal respiratory pattern without respiratory distress, mild rales at the left base, absent breath sounds at the right base with diminished breath sounds at the right apex. Abdomen: Soft, nontender, nondistended, no guarding or peritoneal signs. Skin: Warm and dry without rash. Neurologic: Awake, alert with normal speech and mental status. Cranial nerves grossly intact. No focal deficits or lateralizing signs. Psychiatric: Normal mood and affect. Muscular skeletal: 4+ peripheral edema with weeping of fluid through the skin. No cellulitis is evident. He does have bronzing consistent with chronic venous insufficiency, as well as a shiny character of the skin that may indicate some arterial disease. No signs of trauma or DVT. - General Limitations: no limitations General appearance: alert Course Vital Signs Pulse Rate 84 01/27/18 12:15 Respiratory Rate 18 01/27/18 12:15 O2 Sat by Pulse Oximetry 100 01/27/18 12:15 Temperature 97.5 F L 01/27/18 12:31 Pulse Rate 83 01/27/18 12:31 Respiratory Rate 15 01/27/18 12:31 Blood Pressure 100/86 01/27/18 12:31 O2 Sat by Pulse Oximetry 100 01/27/18 12:31 Oxygen Delivery Oxygen Delivery Room Air Medical Decision Making - Lab Data Result diagrams: 01/27/18 12:48 01/27/18 12:48 Lab Results 01/27/18 01/27/18 01/27/18 Range/Units 12:48 12:48 12:48 WBC 8.2 (4.3-11.1) K/mcL RBC 5.31 (4.19-5.50) M/mcL Hgb 12.9 (12.9-16.9) g/dL Hct 41.8 (37.5-50.1) % MCV 78.7 L (83.0-100.0) fL MCH 24.3 L (28.0-33.3) pg MCHC 30.9 L (31.6-35.5) g/dL RDW 20.8 H (11.5-14.5) % Plt Count 212 (140-400) K/mcL MPV 11.4 (9.4-12.4) fL Sodium 129 L (136-145) mEq/L Potassium 5.3 H (3.5-5.1) mEq/L Chloride 95 L (98-107) mEq/L Carbon Dioxide 22 L (23-29) mEq/L BUN 57 H (8-23) mg/dL Creatinine 2.92 H (0.70-1.30) mg/dL Est GFR ( Amer) 26 L (> 60) Est GFR (Non-Af Amer) 22 L (> 60) BUN/Creatinine Ratio 20 (6-26) Glucose 194 H (70-105) mg/dL Calculated Osmolality 289 (280-300) Calcium 8.8 (8.6-10.3) mg/dL Troponin I 0.04 H* (< 0.04) ng/mL B-Natriuretic Peptide 800 H (Less than 100) pg/mL
[2018-01-27] MEDS ORDERED: Nitroglycerin 0.4 MG TAB.SUBL SL PRN (14:56)
[2018-01-27] MEDS ORDERED: Naloxone 0.4 MG/ML INJ IVP PRN (14:57)
[2018-01-27] MEDS ORDERED: D5% in Water 1,000 ML IVC PRN (15:05)
[2018-01-27] MEDS ORDERED: *HR* Dextrose 50 % in Water (Syg) 50 ML SYRINGE IVP PRN (15:05)
[2018-01-27] MEDS ORDERED: Dextrose Gel 15 GM/37.5 ML TUBE PO PRN ×2 (15:05)
[2018-01-27] MEDS ORDERED: *HR* Heparin 5,000 UNIT/ML VIAL IVP ONE (15:07)
[2018-01-27] MEDS ORDERED: *HR* Heparin 5,000 UNIT/ML VIAL IVP PRN ×2 (15:07)
[2018-01-27] MEDS ORDERED: Heparin 25,000 UNIT/500 ML D5W 25,000 UNIT/500 ML BAG IVC SCH ×2 (15:15→17:08)
--- NOTE | 2018-01-27 15:32 | Internal Med History&Physical ---
Date of Encounter: 01/27/18 Time of Encounter: 15:29 Internal Medicine - H&P: HPI Chief complaint: SOB Admitted From: Home Plans for Post Hospital Care: Home History of present illness: Mr. Newman is a 67 year old male CAD S/P multiple PCIs and s/p CABG 10/2017 at [place], CVA, diabetes, COPD, carotid stenosis s/p surgery, HTN. Typically follows with Dr. Becerra in [facility]. He presented to ED for worsening dyspn ea, productive cough. As per patient his shortness of breath started on (5 days ago) after he was discharged from [facility]. His shortness of breath first was at rest and was relieved with oxygen as at home however progressively became worse to the point that he was unable to lay flat and his shortness of breath was with him up at night. His shortness of breath is also associated with a productive cough with white eat him denies blood. It also associated with bilateral lower extremity edema which have been worsening for the past 1 week. Shortness of breath is so bad that he is unable to ambulate because he cannot catch his breath. He denies fever, chills, nausea, vomiting, diarrhea, chest pain, palpitations, recent upper tooth respiratory tract infections, chest trauma, falls. As per patient he was recently admitted to [facility] with similar symptoms and thoracocentesis was performed and he was told that he has pneumonia however he was not discharged with oral diuretics or oral antibiotics. He is not taking any of his medications this morning. While in then emergency department he was found to have a large right-sided pleural effusion, elevated troponin of 0.04, elevated BNP, hyponatremia and acute renal failure and was endorsed for admission for further management of above problems. As per chart review he was also admitted to [facility] on 12/27 for HCAP and was found to have atrial fibrillation and was started on Eliquis. Past Med Surg Social Fam HX - Past Medical History Medical history: COPD, coronary artery disease, CVA, diabetes, hyperlipidemia, hypertension, myocardial infarction, renal disease Psychiatric history: no psych history - Past Surgical History Surgical History: angioplasty/stent, carotid endarterectomy Additional surgical history: CABG x4v. cardiac stents x 14. left index finger - Social History Smoking Status: Former smoker Smokeless Tobacco Status: Yes (chewing tobacco) Alcohol use: none Drug use: none - Family History Brother Adopted: No Family Member Ethnicity: Non- Living Status: Still Living Hx Family Cardiac Disorders: Yes (HEART DISEASE) Hx Family Respiratory Disorders: No Hx Family Cancer: No Hx Family GI Disorders: No Hx Family Endocrine Disorder: No Hx Family Neuromuscular Disorders: No Hx Family Neurologic Disorders: No Hx Family HEENT Disorders: No Hx Family Autoimmune Disorders: No Internal Medicine - H&P: Meds Aspirin [Lo-Dose Aspirin EC] 81 mg PO DAILY 08/30/17 [History] Ferrous Sulfate 325 mg PO Q48H 08/30/17 [History] Nitroglycerin [Nitrostat] 0.4 mg SL Q5MIN PRN 08/30/17 [History] Ranitidine HCl [Heartburn Relief] 150 mg PO BID 08/30/17 [History] Rosuvastatin [Crestor] 20 mg PO HS 08/30/17 [History] Albuterol Sulfate [Ventolin Hfa] 2 puff IH Q6H PRN 12/27/17 [History] Insulin Glargine,Hum.rec.anlog [Basaglar Kwikpen U-100] 40 unit SQ HS 12/27/17 [History] Metoprolol [Lopressor] 25 mg PO BID #0 tablet 12/30/17 [Rx] glyBURIDE [GlyBURIDE] 5 mg PO BIDWM #28 tablet 12/30/17 [Rx] EPINEPHrine [Epipen] 0.3 mg IM ONCE PRN 01/04/18 [History] Apixaban [Eliquis] 5 mg PO BID 30 Days #60 tablet 01/08/18 [Rx] Diltiazem HCl [Cardizem] 60 mg PO Q6H 01/27/18 [History] Fluticasone/Salmeterol [Advair 500-50 Diskus] 1 puff IH BID 01/27/18 [History] Allergy/AdvReac Type Severity Reaction Status Date / Time codeine Allergy Intermediate Agitated Verified 01/27/18 12:16 morphine Allergy Intermediate Agitated Verified 01/27/18 12:16 All Systems PM: A 10-system review of systems was performed and is negative for pertinent findings except as documented above in the HPI. - Constitutional Vitals: Temp Pulse Resp BP Pulse Ox 97.5 F L 83 15 105/83 97 01/27/18 12:31 01/27/18 14:59 01/27/18 14:59 01/27/18 14:59 01/27/18 14:59 Exam: General: Patient is alert, oriented, in mild distress, speaks in full sentences, obese Head: atraumatic, normocephalic, Eye: normal appearance, PERRL, no scleral icterus, no conjunctival injection, ENT: mucous membranes moist, normal external ear exam, edentulous Neck: normal inspection, trachea midline, full ROM, JVD Chest: normal inspection, symmetric chest rise Respiratory: Good respiratory effort. Decreased breath sounds in the left posterior lung [place] with occasional crackles, no wheezing, absent breath sounds in the right posterior lung [place] up to mid scapular line, previous thoracocentesis site with out evidence of bleeding Cardiovascular: Distant heart sounds secondary to body habitus Irregular s1 and s2 No clicks, rubs, gallops, or murmors. Abdomen: Bowel sounds present normoactive x-4 quadrants. Abdomen is soft, nondistended. no Epigastric tenderness. No guarding or rebound. No organomegaly noted, obese musculoskeletal: Spontaneously moving all extremities. +3 edema up to mid thighs,, bilateral DP pulses are unable to be palpated secondary to edema, bilateral feet are cold Skin: warm, dry, intact. bilateral lower extremities are warm, erythematous, skin breakdowns in bilateral anterior shins with petechiae and serous drainage Neuro: Alert and oriented x4. No focal deficit Psych: Patient's affect is normal Internal Med - H&P Results - Labs CBC & Chem 7: 01/27/18 12:48 01/27/18 12:48 Labs: Short CBC 01/27/18 Range/Units 12:48 WBC 8.2 (4.3-11.1) K/mcL Hgb 12.9 (12.9-16.9) g/dL Hct 41.8 (37.5-50.1) % Plt Count 212 (140-400) K/mcL BMP 01/27/18 12:48 Sodium 129 L Potassium 5.3 H Chloride 95 L Carbon Dioxide 22 L BUN 57 H Creatinine 2.92 H Glucose 194 H Calcium 8.8 Cardiac Enzymes 01/27/18 Range/Units 12:48 Troponin I 0.04 H* (< 0.04) ng/mL - EKG Data -: EKG Interpreted by Myself (Normal sinus rhythm , diffuse T wave inversions, [id number]) - EKG Data Prior EKG available for review: yes When compared to previous EKG: there is no significant change - Impressions ITS Impressions Chest X-Ray 01/27/18 12:30 IMPRESSION: Large right pleural effusion with compressive atelectasis D/ / Warren Early MD / Warren Early MD Interpreting Provider: Warren Early MD - Assessment and plan (1) Acute on chronic diastolic heart failure Current Visit: Yes Status: Acute Assessment and plan: Patient with shortness of breath, PND, orthopnea and bilateral lower extremity swelling Troponin 0.04 BNP 800 Started on Lasix 40 mg IV twice a day- watch electrolytes and renal function We will continue metoprolol Echocardiogram- rule out pericardial effusion and evaluate EF Strict intake and output Daily weights Fluid restrictions less than 1 L Gomez catheter Limited TTE 11/11/17: Limited echo. LVEF 65%. Normal LV chamber size and systolic function. Mild concentric left ventricular hypertrophy. Normal right ventricular structure and function. No pericardial effusion. [facility] 08/31/17: Impressions: There is severe three vessel coronary artery disease with RCA and LCX 100% instent restenosis FFR Measurement: 0.84 prox LAD. Mid LAD 0.78. (2) Acute renal failure superimposed on stage 3 chronic kidney disease Current Visit: Yes Status: Acute Assessment and plan: Baseline creatinine ranges anywhere from 1.8 to 1.9 Currently creatinine of 2.92 Retroperitoneal ultrasound stat Gomez Strict intake and output Will avoid nephrotoxic medications UA stat Qualifiers: Acute renal failure type: unspecified Qualified Code(s): N17.9 - Acute kidney failure, unspecified; N18.3 - Chronic kidney disease, stage 3 (moderate) (3) HAP (hospital-acquired pneumonia) Current Visit: Yes Status: Acute Assessment and plan: Patient with multiple hospital admissions currently with shortness of breath, right-sided pleural effusion, and chills On vancomycin, Zosyn, doxycycline- de-escalate as per cultures Sputum cultures Urine antigens Influenza MRSA swab blood cultures Procalcitonin (4) Pleural effusion Current Visit: Yes Status: Acute Assessment and plan: Patient with right-sided pleural effusion Recently had thoracocentesis performed at [facility] IR consulted for thoracocentesis/ diagnostic and therapeutic On vancomycin, Zosyn, doxycycline- de-escalate as per cultures rest the management as per above (5) Hyponatremia with excess extracellular fluid volume Current Visit: Yes Status: Acute Assessment and plan: Hypervolemic hyponatremia secondary to acute on chronic diastolic heart failure. Was started on Lasix 40 mg IV twice a day We will follow BMP Urine sodium, osmolality and lites Fluid restriction (6) Bilateral lower extremity edema Current Visit: Yes Status: Acute Assessment and plan: Bilateral lower extremity edema, erythema and tenderness most likely secondary to CHF exacerbation and venous stasis will rule out DVT DVT study of the lower extremities ABIs CPK Currently on heparin drip Wound care consult Elevate extremities (7) CAD (coronary artery disease) Current Visit: Yes Status: Chronic Assessment and plan: Continue aspirin Beta livan Calcium channel livan On heparin drip Follow troponin and EKG every 6 hours Echocardiogram Limited TTE 11/11/17: Limited echo. LVEF 65%. Normal LV chamber size and systolic function. Mild concentric left ventricular hypertrophy. Normal right ventricular structure and function. No pericardial effusion. [facility] 08/31/17: Impressions: There is severe three vessel coronary artery disease with RCA and LCX 100% instent restenosis FFR Measurement: 0.84 prox LAD. Mid LAD 0.78. Recommendations: Optimal medical therapy of patient's disease. Aggressive risk factor modification. Suggest patient have Elective coronary artery bypass surgery. Qualifiers: Coronary Disease-Associated Artery/Lesion type: unspecified vessel or lesion type [place] vs. transplanted heart: [place] heart Associated angina: without angina Qualified Code(s): I25.10 - Atherosclerotic heart disease of [place] coronary artery without angina pectoris (8) PAF (paroxysmal atrial fibrillation) Current Visit: No Status: Acute Assessment and plan: Currently rate controlled Eliquis on hold for procedure Chads vasc 6 - started on heparin drip (9) Diabetes Current Visit: No Status: Chronic Assessment and plan: Continue with home dose long-acting insulin Sliding scale and adjust as per fingersticks A1c in a.m. Qualifiers: Diabetes mellitus type: type 2 Diabetes mellitus exterminator termite insulin use: without exterminator termite use Diabetes mellitus complication status: with unspecified complications Qualified Code(s): E11.8 - Type 2 diabetes mellitus with unspecified complications (10) Hypertension Current Visit: No Status: Chronic Assessment and plan: Lasix 40 mg IV twice a day We will continue home medications if not contraindicated Qualifiers: Hypertension type: essential hypertension Qualified Code(s): I10 - Essential (primary) hypertension (11) COPD (chronic obstructive pulmonary disease) Current Visit: No Status: Resolved Assessment and plan: Currently not an exacerbation Antibiotics as above Continue home inhalers Oxygen via nasal cannula to keep sats above 92 Qualifiers: COPD type: emphysema Emphysema type: unspecified Qualified Code(s): J43.9 - Emphysema, unspecified (12) Hyperkalemia Current Visit: Yes Status: Acute Assessment and plan: Most likely secondary to acute renal failure Will give one dose of Kayexalate follow BMP in the morning (13) DVT prophylaxis Current Visit: No Status: Acute Assessment and plan: On heparin drip - Time Spent With Patient Total time spent is greater than 50% in coordination of care (as documented) at patient's floor/unit and/or counseling patient:
[2018-01-27] MEDS ORDERED: *HR* LORazepam 2 MG/ML VIAL IVP ONE (15:45)
[2018-01-27 16:12] LABS: Hematocrit 38.9 % (37.5-50.1); Hemoglobin 12.4 g/dL (12.9-16.9); Mean Corpuscular HGB Conc 31.9 g/dL (31.6-35.5); Mean Corpuscular Hemoglobin 24.7 pg (28.0-33.3); Mean Corpuscular Volume 77.5 fL (83.0-100.0); Mean Platelet Volume 10.9 fL (9.4-12.4); Platelet Count 201 K/mcL (140-400); Red Blood Count 5.02 M/mcL (4.19-5.50); Red Cell Distribution Width 20.8 % (11.5-14.5)
[2018-01-27 16:19] LABS: INR 1.9; Prothrombin Time 21.3 Seconds (9.4-12.1)
[2018-01-27] MEDS: Doxycycline 100 MG in 0.9 % Sodium Chloride Mini Bag 100 ML IVPB SCH (16:22)
[2018-01-27] MEDS: Piperacillin/Tazobactam 3.375 GM in 0.9 % Sodium Chloride Mini Bag 100 ML IVPB SCH (16:23)
[2018-01-27] MEDS: Insulin LISPRO 300 UNITS/3 ML VIAL SQ SCH ×2 (16:23→21:58)
[2018-01-27] MEDS: dilTIAZem HCl 60 MG TABLET PO SCH (16:24)
[2018-01-27 16:30] LABS: Heparin anti-factor XA UFH > 2.00 IU/mL (0.30-0.70)
[2018-01-27] MEDS ORDERED: Perflutren Lipid Microsphere 1.3 ML in 0.9 % Sodium Chloride 8.7 ML IVP ONE (18:20)
[2018-01-27 18:49] LABS: Potassium,Urine 69.7 mEq/L; Sodium, Urine < 10.0 mEq/L
[2018-01-27 18:58] LABS: Clarity,Urine Clear (Clear); Color,Urine Yellow (Yellow)
[2018-01-27 18:59] LABS: Bilirubin,Urine Negative (Negative); Blood,Urine Trace (Negative); Glucose,Urine (UA) Normal (Normal); Ketones,Urine Negative (Negative); Leukocyte Esterase,Urine Negative (Negative); Nitrite,Urine Negative (Negative); Protein,Urine 100 mg/dL (Neg-Trace); Specific Gravity,Urine 1.018 (1.010-1.025); Urobilinogen,Urine Normal (Normal)
[2018-01-27 19:09] LABS: Bacteria,Urine Few per hpf (None-Few); RBC,Urine 0-3 per hpf (0-3); Squamous Epithelial Cell,Urine Few per lpf (None-Few); WBC,Urine 0-3 per hpf (0-3)
[2018-01-27] MEDS: Famotidine 20 MG TABLET PO SCH (21:58)
[2018-01-27] MEDS: Furosemide 40 MG/4 ML VIAL IVP SCH (21:59)
[2018-01-27] MEDS: Insulin DETEMIR 100 UNIT/ML X5UNITS SQ SCH (21:59)
[2018-01-27] MEDS: Budesonide/Formoterol 160/4.5 1 PUFF INH IH SCH (22:41)
[2018-01-27] MEDS ORDERED: Levalbuterol Neb 1.25 MG/3 ML IH SCH (23:30)
[2018-01-28 01:21] LABS: Activated Partial Thrombo Time > 360.0 Seconds (26.0-36.0)
[2018-01-28] MEDS: Piperacillin/Tazobactam 3.375 GM in 0.9 % Sodium Chloride Mini Bag 100 ML IVPB SCH ×3 (01:44→16:19)
[2018-01-28] MEDS: dilTIAZem HCl 60 MG TABLET PO SCH ×3 (01:44→19:33)
[2018-01-28 01:49] LABS: Heparin anti-factor XA UFH > 2.00 IU/mL (0.30-0.70)
[2018-01-28 04:49] LABS: Basophils % 0.1 %; Eosinophils % 0.4 %; Hematocrit 37.9 % (37.5-50.1); Hemoglobin 11.8 g/dL (12.9-16.9); Immature Granulocytes % 0.4 % (0-4); Lymphocytes # 1.1 K/mcL (0.6-4.6); Lymphocytes % 13.8 %; Mean Corpuscular HGB Conc 31.1 g/dL (31.6-35.5); Mean Corpuscular Hemoglobin 24.2 pg (28.0-33.3); Mean Corpuscular Volume 77.8 fL (83.0-100.0); Mean Platelet Volume 11.6 fL (9.4-12.4); Monocytes # 0.9 K/mcL (0.0-1.3); Neutrophils # 6.1 K/mcL (1.6-8.9); Platelet Count 200 K/mcL (140-400); Red Blood Count 4.87 M/mcL (4.19-5.50); Red Cell Distribution Width 20.8 % (11.5-14.5); Segmented Neutrophils % 74.3 %
[2018-01-28 04:50] LABS: INR 1.7; Prothrombin Time 19.7 Seconds (9.4-12.1)
[2018-01-28 05:05] LABS: Albumin/Globulin Ratio 1.1 (1.1-2.2); Bilirubin,Direct 0.2 mg/dL (0.0-0.2); Bilirubin,Indirect 0.3 mg/dL (0.0-1.2); Bilirubin,Total 0.5 mg/dL (0.3-1.0); Calcium 8.4 mg/dL (8.6-10.3); Chol/HDL Ratio 2.3 (0-4.9); Globulin 2.7 g/dL (2.4-3.5); Magnesium 2.9 mg/dL (1.6-2.6); Potassium 4.2 mEq/L (3.5-5.1); Total Protein 5.7 g/dL (6.4-8.9)
[2018-01-28 05:09] LABS: Activated Partial Thrombo Time 248.4 Seconds (26.0-36.0)
[2018-01-28 05:10] LABS: Heparin anti-factor XA UFH > 2.00 IU/mL (0.30-0.70)
[2018-01-28] MEDS: Doxycycline 100 MG in 0.9 % Sodium Chloride Mini Bag 100 ML IVPB SCH (06:11)
--- NOTE | 2018-01-28 06:30 | Event Note ---
Date of Encounter: 01/27/18 Time of Encounter: 22:59 Alerted by pts. nurse KAROLYN Abdi that he was concerned about pt. and requested I come see him. Went to see pt. who was resting in bed. Pt. has serosanguineous drainage on blanket above his genitals. Slight hematuria in catheter bag. Pt. has pleural effusions and is d/t have thoracentesis in the a.m. Pt. is normally on Eliquis d/t new onset of atrial fibrillation in December and was placed on heparin gtt today. PTT and heparin Xa have both been supratherapeutic. Nurse was instructed to monitor BP every 15 minute 6 due to hypotension, order Xopenex breathing treatments every 6 hour due to atrial fibrillation, 1.0 L fluid restriction daily, strict I&O, double check to make sure wound care consult placed due to patient's venous stasis of bilateral lower extremities which were now weeping. Nurse also instructed to hold BP and opioid pain medications due to hypotension. Patient's Gomez was currently leaking so nurse instructed to reinsert new Gomez. Pt. also had several transient episodes of Afib w/HR in the 140s -150s which would then convert. Repeat PTT and Xa ordered for 03:30 which were still supratherapeutic. Discussed pt. w/Dr. Olivo who felt heparin gtt should be held until new PTT and Xa were drawn at 06:00. After Gomez change, hematuria returned. Pt. continued to be hypotensive w/Q15MIN BPs showing 110/92, 77/63, 84/72, 84/56, 74/43. Patient had received IV Lasix 40 mg 25 mg by mouth Lopressor at 2200. Tomer held. Went to see patient again at 06 100 who was resting in bed and denies any complaints at the time. We will continue to hold heparin gtt. until latest PTT and A factor are resulted. Questionable whether pts. thoracentesis will be appropriate today if PTT and Xa factor continue to be extremely elevated. Morning team to follow pt. closely.
[2018-01-28 07:09] LABS: Heparin anti-factor XA UFH > 2.00 IU/mL (0.30-0.70)
[2018-01-28] MEDS ORDERED: Levalbuterol Neb 1.25 MG/3 ML IH PRN (08:52)
[2018-01-28] MEDS ORDERED: Aminoglycoside Consult 1 EACH MC ONE (09:18)
[2018-01-28] MEDS: Aspirin Enteric Coated 81 MG Tablet PO SCH (09:33)
[2018-01-28] MEDS: Furosemide 40 MG/4 ML VIAL IVP SCH ×2 (09:33→18:06)
[2018-01-28] MEDS: Famotidine 20 MG TABLET PO SCH ×2 (09:34→20:52)
[2018-01-28] MEDS: Insulin LISPRO 300 UNITS/3 ML VIAL SQ SCH ×4 (09:36→20:51)
[2018-01-28] MEDS: Ipratropium/Albuterol Neb 3 ML IH SCH ×5 (10:24→23:31)
[2018-01-28] MEDS: Budesonide/Formoterol 160/4.5 1 PUFF INH IH SCH ×2 (10:28→20:08)
[2018-01-28 10:31] LABS: Estimated Average Glucose 246 mg/dl; Hemoglobin A1C 10.2 %
--- NOTE | 2018-01-28 11:19 | IR Procedure Note ---
Date of procedure: 01/28/18 Consent Obtained: Verbal consent Timeout: Correct patient and procedure verified, Time out performed, Skin prep completed Local anesthetic: Lidocaine 1% Indications: Right pleural effusion Procedure Performed: Right thoracentesis Was there an administrative services assistant present: No Estimated blood loss (cc): 0 Complications: None; Tolerated procedure well Post Procedure Treatment Plan: Monitor on floor Specimen: To path
--- NOTE | 2018-01-28 11:33 | Internal Med Progress Note ---
Hospitalist Progress Note - Encounter Date of Encounter: 01/28/18 Time of Encounter: 08:30 - Subjective Interval History: Patient was seen and examined at bedside. Reports that his breathing has mildly improved, reports that his lower extremity swelling has mildly improved however he still feels that his legs are more tense. Denies chest pain, shortness of breath, nausea, vomiting, diarrhea. Continues to repeat that his blood pressure usually runs low. Tolerating by mouth diet. Denies pain. - Exam Vitals: Temp Pulse Resp BP Pulse Ox 97.3 F L 76 17 81/62 98 01/28/18 07:46 01/28/18 07:46 01/28/18 10:29 01/28/18 07:46 01/28/18 10:29 Exam: General: Patient is alert, oriented, in mild distress, speaks in full sentences, obese Head: atraumatic, normocephalic, Eye: normal appearance, PERRL, no scleral icterus, no conjunctival injection, ENT: mucous membranes moist, normal external ear exam, edentulous Neck: normal inspection, trachea midline, full ROM, JVD Chest: normal inspection, symmetric chest rise Respiratory: Good respiratory effort. Decreased breath sounds in the left posterior lung [place] with occasional crackles, no wheezing, absent breath jose nds in the right posterior lung [place] up to mid scapular line, Cardiovascular: Distant heart sounds secondary to body habitus Irregular s1 and s2 No clicks, rubs, gallops, or murmors. Abdomen: Bowel sounds present normoactive x-4 quadrants. Abdomen is soft, nondistended. no Epigastric tenderness. No guarding or rebound. No organomegaly noted, obese musculoskeletal: Spontaneously moving all extremities. +3 edema up to mid thighs,, bilateral DP pulses are unable to be palpated secondary to edema, bilateral feet are cold Skin: warm, dry, intact. bilateral lower extremities are warm, erythematous, skin breakdowns in bilateral anterior shins with petechiae and serous drainage Neuro: Alert and oriented x4. No focal deficit Psych: Patient's affect is normal - Assessment and Plan (1) Acute on chronic diastolic heart failure Current Visit: Yes Status: Acute Assessment and Plan: Patient with shortness of breath, PND, orthopnea and bilateral lower extremity swelling Troponin 0.04 trended to 0.05 x 2 BNP 800 Started on Lasix 40 mg IV twice a day- watch electrolytes and renal function ( hold for SBP <90) We will continue metoprolol ( hold for SBP <90 adn HR <60) Echocardiogram- on LVEF 70-75%, hperdynamic LV. Mild concentric left ventricular hypertrophy.There is a trivial to small pericardial effusion lateral to posterolateral LV wall. Strict intake and output Daily weights Fluid restrictions less than 1 L Gomez catheter Limited TTE 11/11/17: Limited echo. LVEF 65%. Normal LV chamber size and systolic function. Mild concentric left ventricular hypertrophy. Normal right ventricular structure and function. No pericardial effusion. [facility] 08/31/17: Impressions: There is severe three vessel coronary artery disease with RCA and LCX 100% instent restenosis FFR Measurement: 0.84 prox LAD. Mid LAD 0.78. (2) Acute renal failure superimposed on stage 3 chronic kidney disease Current Visit: Yes Status: Acute Assessment and Plan: Baseline creatinine ranges anywhere from 1.8 to 1.9 creatinine 2.92 on admission trended down to 2.85 Retroperitoneal ultrasound- IMPRESSION:Right kidney is unremarkable in appearance. The left kidney is not visualized. Gomez Strict intake and output Will avoid nephrotoxic medications (3) HAP (hospital-acquired pneumonia) Current Visit: Yes Status: Acute Assessment and Plan: Patient with multiple hospital admissions currently with shortness of breath, right-sided pleural effusion, and chills On vancomycin, Zosyn, - de-escalate as per cultures Sputum cultures- pending Urine antigens- negative Influenza- negative MRSA swab- positive - started decolonization blood cultures - NGTD Procalcitonin- in process (4) Pleural effusion Current Visit: Yes Status: Acute Assessment and Plan: Patient with right-sided pleural effusion Recently had thoracocentesis performed at [facility] IR consulted for thoracocentesis/ diagnostic and therapeutic 01/28 On vancomycin, Zosyn de-escalate as per cultures rest the management as per above resume eliquis post procedure ( if no signs of bleeding) (5) Hyponatremia with excess extracellular fluid volume Current Visit: Yes Status: Acute Assessment and Plan: Hypervolemic hyponatremia secondary to acute on chronic diastolic heart failure. Was started on Lasix 40 mg IV twice a day with improvement of his sodium We will follow BMP Fluid restriction (6) Bilateral lower extremity edema Current Visit: Yes Status: Acute Assessment and Plan: Bilateral lower extremity edema, erythema and tenderness most likely secondary to CHF exacerbation and venous stasis will rule out DVT DVT study of the lower extremities- Patient appears to be negative for DVT and SVT. MIAH measurements appear to be within normal limits CPK 44 Wound care consult Elevate extremities (7) CAD (coronary artery disease) Current Visit: Yes Status: Chronic Assessment and Plan: Continue aspirin Beta livan Calcium channel livan Echocardiogram on LVEF 70-75%, hperdynamic LV. Mild concentric left ventricular hypertrophy.There is a trivial to small pericardial effusion lateral to posterolateral LV wall. troponin trended flat Limited TTE 11/11/17: Limited echo. LVEF 65%. Normal LV chamber size and systolic function. Mild concentric left ventricular hypertrophy. Normal right ventricular structure and function. No pericardial effusion. [facility] 08/31/17: Impressions: There is severe three vessel coronary artery disease with RCA and LCX 100% instent restenosis FFR Measurement: 0.84 prox LAD. Mid LAD 0.78. Recommendations: Optimal medical therapy of patient's disease. Aggressive risk factor modification. Suggest patient have Elective coronary artery bypass surgery. (8) PAF (paroxysmal atrial fibrillation) Current Visit: No Status: Acute Assessment and Plan: Currently rate controlled Eliquis on hold for procedure- resume post procedure Chads vasc 6 (9) Diabetes Current Visit: No Status: Chronic Assessment and Plan: Continue with home dose long-acting insulin Sliding scale and adjust as per fingersticks A1c in a.m. (10) Hypertension Current Visit: No Status: Chronic Assessment and Plan: Lasix 40 mg IV twice a day currently running on the lower side- will monitor (11) COPD (chronic obstructive pulmonary disease) Current Visit: No Status: Resolved Assessment and Plan: Currently not an exacerbation Antibiotics as above Continue home inhalers Oxygen via nasal cannula to keep sats above 92 (12) Hyperkalemia Current Visit: Yes Status: Resolved (13) DVT prophylaxis Current Visit: No Status: Acute Assessment and Plan: on eliquis - Time Spent with Patient Total time spent is greater than 50% in coordination of care (as documented) at patient's floor/unit and/or counseling patient: Internal Medicine: Result - Labs CBC & Chem 7: 01/28/18 03:37 01/28/18 03:37 Labs: Short CBC 01/27/18 01/27/18 01/28/18 Range/Units 12:48 15:54 03:37 WBC 8.2 7.2 8.2 (4.3-11.1) K/mcL Hgb 12.9 12.4 L 11.8 L (12.9-16.9) g/dL Hct 41.8 38.9 37.9 (37.5-50.1) % Plt Count 212 201 200 (140-400) K/mcL Neutrophils # 6.1 (1.6-8.9) K/mcL BMP 01/27/18 01/28/18 12:48 03:37 Sodium 129 L 134 L Potassium 5.3 H 4.2 Chloride 95 L 97 L Carbon Dioxide 22 L 22 L BUN 57 H 61 H Creatinine 2.92 H 2.85 H Glucose 194 H 172 H Calcium 8.8 8.4 L Cardiac Enzymes 18 18 01/28/18 Range/Units 12:48 18:07 00:19 Troponin I 0.04 H* 0.05 H* 0.05 H* (< 0.04) ng/mL Liver Function 01/28/18 Range/Units 03:37 Total Bilirubin 0.5 (0.3-1.0) mg/dL Direct Bilirubin 0.2 (0.0-0.2) mg/dL AST 48 H (13-39) Units/L ALT 48 (7-52) Units/L Alkaline Phosphatase 408 H (34-104) Units/L Albumin 3.0 L (3.5-5.7) g/dL Urine 01/27/18 Range/Units Unknown Urine Color Yellow (Yellow) Urine Clarity Clear (Clear) Urine pH 6.0 (5.0-8.0) pH Units Ur Specific Purd[place] 1.018 (1.010-1.025) Urine Protein 100 H (Neg-Trace) mg/dL Urine Glucose (UA) Normal (Normal) mg/dL - ABG Interpretation ABG results: PT/INR, D-dimer PT 19.7 Seconds (9.4-12.1) H 01/28/18 03:37 - Impressions Impressions Chest X-Ray 01/27/18 12:30 IMPRESSION: Large right pleural effusion with compressive atelectasis D/ / Warren Early MD / Warren Early MD Interpreting Provider: Warren Early MD Echocardiogram Limited Views 01/27/18 15:29 Impressions: Limited Echo. LVEF 70-75%, hperdynamic LV. Mild concentric left ventricular hypertrophy. There is a trivial to small pericardial effusion lateral to posterolateral LV wall. Left Ventricular Wall Motion: Rest Echo Findings The apex, apical inferior, mid inferior, basal inferior, apical anterior, mid anterior, basal anterior, apical septal, mid inferior septal, basal inferior septal, apical lateral, mid anterior lateral, basal anterior lateral, mid anterior septal, mid inferior lateral, basal anterior septal and basal inferior lateral ayala were hyperkinetic. Findings: Study Quality * Technically sub-optimal due to poor echocardiographic windows. ECG Findings * Normal sinus rhythm. Left Ventricle * LVEF 70-75%, hperdynamic LV. * Mild concentric left ventricular hypertrophy. * Definity echo contrast was used. Pericardium * There is a trivial to small pericardial effusion lateral to posterolateral LV wall. Retroperitoneum Ultrasound 01/27/18 19:30 IMPRESSION: Right kidney is unremarkable in appearance. The left kidney is not visualized. D/ / Memo Clifton MD / Memo Clifton MD Interpreting Provider: Memo Clifton MD Thoracentesis 01/28/18 06:54 IMPRESSION: 1. Successful ultrasound guided right thoracentesis. D/ / Kush Mittal MD / Kush Mitatl MD Interpreting Provider: Kush Mittal MD Consult Discharge Plan - Plan Referrals: Maria Antonia Friend, GROUND WATER CONTRACTOR [Primary Care Provider] - (2) Acute renal failure superimposed on stage 3 chronic kidney disease Qualifiers: Acute renal failure type: unspecified Qualified Code(s): N17.9 - Acute kidney failure, unspecified; N18.3 - Chronic kidney disease, stage 3 (moderate) (7) CAD (coronary artery disease) Qualifiers: Coronary Disease-Associated Artery/Lesion type: unspecified vessel or lesion type [place] vs. transplanted heart: [place] heart Associated angina: without angina Qualified Code(s): I25.10 - Atherosclerotic heart disease of [place] coronary artery without angina pectoris (9) Diabetes Qualifiers: Diabetes mellitus type: type 2 Diabetes mellitus terminal block assembler insulin use: without retirement use Diabetes mellitus complication status: with unspecified complications Qualified Code(s): E11.8 - Type 2 diabetes mellitus with unspecified complications (10) Hypertension Qualifiers: Hypertension type: essential hypertension Qualified Code(s): I10 - Essential (primary) hypertension (11) COPD (chronic obstructive pulmonary disease) Qualifiers: COPD type: emphysema Emphysema type: unspecified Qualified Code(s): J43.9 - Emphysema, unspecified
[2018-01-28 11:50] LABS: Appearance of Pleural Fl Clear (Clear)
[2018-01-28 11:51] LABS: RBC,Pleural Fluid < 0.002 M/mcL
[2018-01-28 12:17] LABS: Glucose,Pleural Fluid 193 mg/dL (No Ref Range); LDH,Pleural Fluid 65 Units/L (No Ref Range); Total Protein,Pleural Fluid < 3.0 g/dL (No Ref Range)
[2018-01-28 16:31] LABS: Hematocrit 38.3 % (37.5-50.1); Mean Corpuscular HGB Conc 31.3 g/dL (31.6-35.5); Mean Corpuscular Hemoglobin 24.5 pg (28.0-33.3); Mean Corpuscular Volume 78.2 fL (83.0-100.0); Mean Platelet Volume 11.6 fL (9.4-12.4); Platelet Count 210 K/mcL (140-400); Red Cell Distribution Width 21.1 % (11.5-14.5)
[2018-01-28] MEDS: Insulin DETEMIR 100 UNIT/ML X5UNITS SQ SCH (20:51)
[2018-01-28] MEDS: Apixaban 5 MG TABLET PO SCH (20:52)
[2018-01-29] MEDS: Piperacillin/Tazobactam 3.375 GM in 0.9 % Sodium Chloride Mini Bag 100 ML IVPB SCH ×3 (00:37→16:11)
[2018-01-29] MEDS: dilTIAZem HCl 60 MG TABLET PO SCH ×4 (00:38→17:44)
[2018-01-29 03:53] LABS: Hemoglobin 12.2 g/dL (12.9-16.9); Mean Corpuscular HGB Conc 31.3 g/dL (31.6-35.5); Mean Corpuscular Hemoglobin 24.2 pg (28.0-33.3); Mean Corpuscular Volume 77.4 fL (83.0-100.0); Mean Platelet Volume 10.6 fL (9.4-12.4); Platelet Count 196 K/mcL (140-400); Red Blood Count 5.04 M/mcL (4.19-5.50); Red Cell Distribution Width 21.2 % (11.5-14.5)
[2018-01-29] MEDS: Ipratropium/Albuterol Neb 3 ML IH SCH ×6 (03:58→23:28)
[2018-01-29 04:12] LABS: Calcium 8.4 mg/dL (8.6-10.3); Potassium 4.3 mEq/L (3.5-5.1)
[2018-01-29] MEDS: Budesonide/Formoterol 160/4.5 1 PUFF INH IH SCH ×2 (07:39→19:43)
[2018-01-29] MEDS: Insulin LISPRO 300 UNITS/3 ML VIAL SQ SCH ×4 (09:07→20:57)
[2018-01-29] MEDS: Aspirin Enteric Coated 81 MG Tablet PO SCH (09:09)
[2018-01-29] MEDS: Famotidine 20 MG TABLET PO SCH ×2 (09:10→20:57)
[2018-01-29] MEDS: Apixaban 5 MG TABLET PO SCH ×2 (09:10→20:56)
[2018-01-29] MEDS: Furosemide 40 MG/4 ML VIAL IVP SCH (09:23)
--- NOTE | 2018-01-29 09:49 | Nephrology Progress Note ---
Date of Encounter: 01/29/18 Time of Encounter: 09:49 Objective - Vital Signs Vital signs: Vital Signs Temp Pulse Resp BP Pulse Ox 01/29/18 09:25 98 01/29/18 07:47 97.7 F 81 17 91/65 98 01/29/18 07:41 18 98 01/29/18 04:00 97.6 F 88 14 94/76 94 01/29/18 03:58 16 98 01/29/18 00:00 90/78 95 01/28/18 23:31 18 98 01/28/18 21:01 98 01/28/18 20:08 18 97 01/28/18 20:00 97.4 F L 89 16 111/81 97 01/28/18 19:15 84 16 100/64 01/28/18 15:36 16 100 01/28/18 15:22 97.6 F 86 15 100/67 100 01/28/18 11:50 97.7 F 84 15 90/57 93 01/28/18 10:29 17 98 Intake and Output 01/28/18 01/29/18 01/29/18 23:59 07:59 15:59 Intake Total 100 / 100 580 / 580 240 / 240 Output Total 700 / 700 160 / 160 Balance 100 / 100 -120 / -120 80 / 80 Intake: IV Fluids 100 / 100 100 / 100 Zosyn 3.375 GM In 0.9 % Sodium 100 / 100 100 / 100 Chloride (Mini-Bag +) 100 ML @ 25 mls/hr IVPB Q8HR [facility] Rx#: [id number] Oral 480 / 480 240 / 240 Output: Urine 10 / 10 Catheter 700 / 700 150 / 150 Other: Meal Breakfast Percent of Meal Consumed 50% Weight 110.2 kg Blood Glucose* 178 Patient Weight 01/29/18 23:59 Weight 110.2 kg - Lab 01/29/18 03:17 01/29/18 03:17 Most recent lab results Calcium 8.4 mg/dL (8.6-10.3) L 01/29/18 03:17 Phosphorus 5.0 mg/dL (2.7-4.5) H 01/28/18 03:37 Magnesium 2.9 mg/dL (1.6-2.6) H 01/28/18 03:37 Urine Sodium < 10.0 mEq/L 01/27/18 15:46 Consult Discharge Plan - Plan Referrals: Maria Antonia Friend, ROLL OPERATOR [Primary Care Provider] -
--- NOTE | 2018-01-29 12:26 | Internal Med Progress Note ---
Hospitalist Progress Note - Encounter Date of Encounter: 01/29/18 Time of Encounter: 08:00 - Subjective Interval History: Patient was seen and examined at bedside. He is feeling better than yesterday. Reports that his lower extremity edema has gone better. Breathing has improved dramatically. Has no complaints at this time. Pain is controlled. Tolerating by mouth diet. Denies fever, chills, nausea, vomiting, diarrhea, chest pain, shortness of br eath or palpitations. - Exam Vitals: Temp Pulse Resp BP Pulse Ox 97.5 F L 109 18 85/49 96 01/29/18 11:41 01/29/18 11:41 01/29/18 11:41 01/29/18 11:41 01/29/18 11:41 Exam: General: Patient is alert, oriented, in mild distress, speaks in full sentences, obese Head: atraumatic, normocephalic, Eye: normal appearance, PERRL, no scleral icterus, no conjunctival injection, ENT: mucous membranes moist, normal external ear exam, edentulous Neck: normal inspection, trachea midline, full ROM, JVD Chest: normal inspection, symmetric chest rise Respiratory: Good respiratory effort. Decreased breath sounds in the left posterior lung [place] with occasional crackles, no wheezing, decreased breath sounds in the right posterior lung field. Thoracocentesis site is clean Cardiovascular: Distant heart sounds secondary to body habitus Irregular s1 and s2 No clicks, rubs, gallops, or murmors. Abdomen: Bowel sounds present normoactive x-4 quadrants. Abdomen is soft, nondistended. no Epigastric tenderness. No guarding or rebound. No organomegaly noted, obese musculoskeletal: Spontaneously moving all extremities. +3 edema up to mid thighs,, bilateral DP pulses are unable to be palpated secondary to edema, bilateral feet are cold Skin: warm, dry, intact. bilateral lower extremities are warm, erythematous, skin breakdowns in bilateral anterior shins with petechiae and serous drainage Neuro: Alert and oriented x4. No focal deficit Psych: Patient's affect is normal - Assessment and Plan (1) Acute on chronic diastolic heart failure Current Visit: Yes Status: Acute Assessment and Plan: Patient with shortness of breath, PND, orthopnea and bilateral lower extremity swelling Troponin 0.04 trended to 0.05 x 2 BNP 800 Started on Lasix 40 mg IV twice a day- watch electrolytes and renal function ( hold for SBP <90) - will transition him to by mouth Lasix from tomorrow Has had -10 fluid balance was counseled again on fluid restrictions. We will continue metoprolol ( hold for SBP <90 and HR <60) Echocardiogram- on LVEF 70-75%, hperdynamic LV. Mild concentric left ventricular hypertrophy.There is a trivial to small pericardial effusion lateral to posterolateral LV wall. Strict intake and output Daily weights Fluid restrictions less than 1 L Gomez catheter Limited TTE 11/11/17: Limited echo. LVEF 65%. Normal LV chamber size and systolic function. Mild concentric left ventricular hypertrophy. Normal right ventricular structure and function. No pericardial effusion. [facility] 08/31/17: Impressions: There is severe three vessel coronary artery disease with RCA and LCX 100% instent restenosis FFR Measurement: 0.84 prox LAD. Mid LAD 0.78. (2) Acute renal failure superimposed on stage 3 chronic kidney disease Current Visit: Yes Status: Acute Assessment and Plan: Baseline creatinine ranges anywhere from 1.8 to 1.9 creatinine 2.92 on admission trended down to 2.85 however trended up to 3.08 again Lasix changed to 40 mg by mouth daily Nephrology was consulted will follow recommendations Retroperitoneal ultrasound- IMPRESSION:Right kidney is unremarkable in appearance. The left kidney is not visualized. Continue with Gomez Strict intake and output Will avoid nephrotoxic medications (3) HAP (hospital-acquired pneumonia) Current Visit: Yes Status: Acute Assessment and Plan: Patient with multiple hospital admissions currently with shortness of breath, right-sided pleural effusion, and chills On vancomycin, Zosyn, - de-escalate as per cultures- will consider stopping antibiotics if he continues to remain afebrile in the a.m. Sputum cultures- pending Urine antigens- negative Influenza- negative MRSA swab- positive Started MRSA decolonization on 01/29 blood cultures - NGTD Procalcitonin- in process (4) Pleural effusion Current Visit: Yes Status: Acute Assessment and Plan: Patient with right-sided pleural effusion Recently had thoracocentesis performed at [facility] Status post IR guided thoracocentesis with 1 L of fluid removal, appears to be exudative however he was on Lasix will follow pleural fluid cultures. On vancomycin, Zosyn de-escalate as per cultures rest the management as per above (5) Hyponatremia with excess extracellular fluid volume Current Visit: Yes Status: Acute Assessment and Plan: Hypervolemic hyponatremia secondary to acute on chronic diastolic heart failure. Was started on Lasix 40 mg IV twice a day with improvement of his sodium Lasix changed to 40 mg daily We will follow BMP Fluid restriction (6) Bilateral lower extremity edema Current Visit: Yes Status: Acute Assessment and Plan: Bilateral lower extremity edema, erythema and tenderness most likely secondary to CHF exacerbation and venous stasis will rule out DVT DVT study of the lower extremities- Patient appears to be negative for DVT and SVT. MIAH measurements appear to be within normal limits CPK 44 Wound care consulted Elevate extremities (7) CAD (coronary artery disease) Current Visit: Yes Status: Chronic Assessment and Plan: Continue aspirin Beta livan Calcium channel livan Echocardiogram on LVEF 70-75%, hperdynamic LV. Mild concentric left ventricular hypertrophy.There is a trivial to small pericardial effusion lateral to posterolateral LV wall. troponin trended flat Limited TTE 11/11/17: Limited echo. LVEF 65%. Normal LV chamber size and systolic function. Mild concentric left ventricular hypertrophy. Normal right ventricular structure and function. No pericardial effusion. [facility] 08/31/17: Impressions: There is severe three vessel coronary artery disease with RCA and LCX 100% instent restenosis FFR Measurement: 0.84 prox LAD. Mid LAD 0.78. Recommendations: Optimal medical therapy of patient's disease. Aggressive risk factor modification. Suggest patient have Elective coronary artery bypass surgery. (8) PAF (paroxysmal atrial fibrillation) Current Visit: No Status: Acute Assessment and Plan: Currently rate controlled On Eliquis Chads vasc 6 (9) Diabetes Current Visit: No Status: Chronic Assessment and Plan: Continue with home dose long-acting insulin Sliding scale and adjust as per fingersticks A1c 10.2 Was counseled extensively (10) Hypertension Current Visit: No Status: Chronic Assessment and Plan: currently running on the lower side- will monitor (11) COPD (chronic obstructive pulmonary disease) Current Visit: No Status: Resolved Assessment and Plan: Currently not an exacerbation Antibiotics as above Continue home inhalers Oxygen via nasal cannula to keep sats above 92 (12) Hyperkalemia Current Visit: Yes Status: Resolved (13) DVT prophylaxis Current Visit: No Status: Acute Assessment and Plan: on eliquis - Time Spent with Patient Total time spent is greater than 50% in coordination of care (as documented) at patient's floor/unit and/or counseling patient: Internal Medicine: Result - Labs CBC & Chem 7: 01/29/18 03:17 01/29/18 03:17 Labs: Short CBC 01/28/18 01/29/18 Range/Units 16:05 03:17 WBC 8.8 8.1 (4.3-11.1) K/mcL Hgb 12.0 L 12.2 L (12.9-16.9) g/dL Hct 38.3 39.0 (37.5-50.1) % Plt Count 210 196 (140-400) K/mcL BMP 01/29/18 03:17 Sodium 133 L Potassium 4.3 Chloride 101 Carbon Dioxide 20 L BUN 61 H Creatinine 3.08 H Glucose 98 Calcium 8.4 L - ABG Interpretation ABG results: PT/INR, D-dimer PT 19.7 Seconds (9.4-12.1) H 01/28/18 03:37 Consult Discharge Plan - Plan Referrals: Maria Antonia Friend, SAMPLER TESTER [Primary Care Provider] - (2) Acute renal failure superimposed on stage 3 chronic kidney disease Qualifiers: Acute renal failure type: unspecified Qualified Code(s): N17.9 - Acute kidney failure, unspecified; N18.3 - Chronic kidney disease, stage 3 (moderate) (7) CAD (coronary artery disease) Qualifiers: Coronary Disease-Associated Artery/Lesion type: unspecified vessel or lesion type [place] vs. transplanted heart: [place] heart Associated angina: without angina Qualified Code(s): I25.10 - Atherosclerotic heart disease of [place] coronary artery without angina pectoris (9) Diabetes Qualifiers: Diabetes mellitus type: type 2 Diabetes mellitus penitentiary insulin use: without penitentiary use Diabetes mellitus complication status: with unspecified complications Qualified Code(s): E11.8 - Type 2 diabetes mellitus with unspecified complications (10) Hypertension Qualifiers: Hypertension type: essential hypertension Qualified Code(s): I10 - Essential (primary) hypertension (11) COPD (chronic obstructive pulmonary disease) Qualifiers: COPD type: emphysema Emphysema type: unspecified Qualified Code(s): J43.9 - Emphysema, unspecified
--- NOTE | 2018-01-29 17:13 | Nephrology Consult Note ---
Date of Encounter: 01/29/18 Time of Encounter: 17:11 Assessment and Plan (1) Acute renal failure superimposed on stage 3 chronic kidney disease Current Visit: Yes Status: Acute Patient with multifactorial acute kidney injury on chronic kidney disease. While the patient has lower from edema. His low blood pressure and low urine sodium suggests intravascular depletion. I would recommend holding furosemide and considering intravenous saline at least until his renal function returned to baseline. Based on the patient's low urine sodium he seems to have a prerenal state. Renal ultrasound is unremarkable. Qualifiers: Acute renal failure type: unspecified Qualified Code(s): N17.9 - Acute kidney failure, unspecified; N18.3 - Chronic kidney disease, stage 3 (moderate) (2) Hyponatremia Current Visit: Yes Status: Acute Mild hyponatremia seems to be improving. (3) Anemia Current Visit: Yes Status: Acute Hemoglobin stable. Qualifiers: Qualified Code(s): D64.9 - Anemia, unspecified (4) Metabolic acidosis Current Visit: Yes Status: Acute Monitor for now. He may need supplemental sodium bicarbonate. History of Present Illness - Reason for Consult Consult date: 01/29/18 Acute Kidney Injury, Chronic Kidney Disease - Chief Complaint CARLOS on CKD - History of Present Illness Mr. Newman is a 67-year-old man with a history of chronic kidney disease who presents secondary to leg swelling. [facility] was consult secondary to acute on chronic kidney failure. Patient had dyspnea and was found to have a pleural effusion. He states his breathing improved after thoracentesis. At the time my evaluation he denied chest pain and stated his breathing was better. Past Med Surg Social Fam HX - Past Medical History Medical history: COPD, coronary artery disease, CVA, diabetes, hyperlipidemia, hypertension, myocardial infarction, renal disease Psychiatric history: no psych history - Past Surgical History Surgical History: angioplasty/stent, carotid endarterectomy Additional surgical history: CABG x4v. cardiac stents x 14. left index finger - Social History Smoking Status: Former smoker Smokeless Tobacco Status: Yes (chewing tobacco) Alcohol use: none Drug use: none - Family History Brother Adopted: No Family Member Ethnicity: Non- Living Status: Still Living Hx Family Cardiac Disorders: Yes (HEART DISEASE) Hx Family Respiratory Disorders: No Hx Family Cancer: No Hx Family GI Disorders: No Hx Family Endocrine Disorder: No Hx Family Neuromuscular Disorders: No Hx Family Neurologic Disorders: No Hx Family HEENT Disorders: No Hx Family Autoimmune Disorders: No Medications and Allergies Aspirin [Lo-Dose Aspirin EC] 81 mg PO DAILY 08/30/17 [History] Ferrous Sulfate 325 mg PO Q48H 08/30/17 [History] Nitroglycerin [Nitrostat] 0.4 mg SL Q5MIN PRN 08/30/17 [History] Ranitidine HCl [Heartburn Relief] 150 mg PO BID 08/30/17 [History] Rosuvastatin [Crestor] 20 mg PO HS 08/30/17 [History] Albuterol Sulfate [Ventolin Hfa] 2 puff IH Q6H PRN 12/27/17 [History] Insulin Glargine,Hum.rec.anlog [Basaglar Kwikpen U-100] 40 unit SQ HS 12/27/17 [History] Metoprolol [Lopressor] 25 mg PO BID #0 tablet 12/30/17 [Rx] glyBURIDE [GlyBURIDE] 5 mg PO BIDWM #28 tablet 12/30/17 [Rx] EPINEPHrine [Epipen] 0.3 mg IM ONCE PRN 01/04/18 [History] Apixaban [Eliquis] 5 mg PO BID 30 Days #60 tablet 01/08/18 [Rx] Diltiazem HCl [Cardizem] 60 mg PO Q6H 01/27/18 [History] Fluticasone/Salmeterol [Advair 500-50 Diskus] 1 puff IH BID 01/27/18 [History] Allergy/AdvReac Type Severity Reaction Status Date / Time codeine Allergy Intermediate Agitated Verified 01/27/18 12:16 morphine Allergy Intermediate Agitated Verified 01/27/18 12:16 Review of Systems All Systems: reviewed and no additional remarkable complaints except as stated (As documented in history of present illness) Exam - Vital Signs Vital signs: Initial Vital Signs Pulse Resp Pulse Ox 84 18 100 01/27/18 12:15 01/27/18 12:15 01/27/18 12:15 Vital Signs - Last 8 Hours Temp Pulse Resp BP Pulse Ox 01/29/18 15:45 18 95 01/29/18 11:41 97.5 F L 109 18 85/49 96 01/29/18 11:14 18 98 01/29/18 09:25 98 Intake and Output 01/29/18 01/29/18 01/29/18 07:59 15:59 23:59 Intake Total 580 / 580 460 / 460 Output Total 700 / 700 230 / 230 30 / 30 Balance -120 / -120 230 / 230 -30 / -30 Intake: IV Fluids 100 / 100 100 / 100 Zosyn 3.375 GM In 0.9 % Sodium 100 / 100 100 / 100 Chloride (Mini-Bag +) 100 ML @ 25 mls/hr IVPB Q8HR [facility] Rx#: [id number] Oral 480 / 480 360 / 360 Output: Urine 30 / 30 30 / 30 Catheter 700 / 700 200 / 200 Other: Meal Lunch Percent of Meal Consumed 40% Weight 110.2 kg Blood Glucose* 190 Patient Weight 01/29/18 23:59 Weight 110.2 kg - General Appearance General appearance: well-developed, well-nourished EENT: ATNC Neck: supple Respiratory: course breath sounds Cardiology: edema, regular rate Gastrointestinal: no tenderness Integumentary: warm and dry Neurologic: alert and oriented x3 Musculoskeletal: no cyanosis Psychiatric: mood/affect appropriate Results - Lab Results 01/29/18 03:17 01/29/18 03:17 Most recent lab results Calcium 8.4 mg/dL (8.6-10.3) L 01/29/18 03:17 Phosphorus 5.0 mg/dL (2.7-4.5) H 01/28/18 03:37 Magnesium 2.9 mg/dL (1.6-2.6) H 01/28/18 03:37 Urine Sodium < 10.0 mEq/L 01/27/18 15:46 Consult Discharge Plan - Plan Referrals: Maria Antonia Friend, RN PROVIDER RELATIONS [Primary Care Provider] -
[2018-01-29] MEDS: Doxycycline 100 MG in 0.9 % Sodium Chloride Mini Bag 100 ML IVPB SCH (17:55)
--- NOTE | 2018-01-29 18:38 | Electrocardiograph Report ---
[employer] Test Date: 2018-01-27 Pat Name: Keon Newman Department: [id number] Room: 2NE26 Gender: M [place] Physical Therapist: : 1950 Requested By: Juve Bloom Order Number: [id number] Reading MD: Asya Antonio Measurements Intervals [place] Rate: 82 P: 95 MD: 160 QRS: 41 QRSD: 98 T: 241 QT: 397 QTc: 464 Interpretive Statements Sinus rhythm Nonspecific T abnormalities, diffuse leads Electronically Signed On 01-29-2018 18:36:51 EST by Asya Antonio
[2018-01-29] MEDS ORDERED: traMADol 50 MG TABLET PO PRN (19:56)
[2018-01-29] MEDS: Insulin DETEMIR 100 UNIT/ML X5UNITS SQ SCH (20:57)
[2018-01-29] MEDS ORDERED: 0.9 % Sodium Chloride 1,000 ML IVC SCH (21:15)
[2018-01-30] MEDS: dilTIAZem HCl 60 MG TABLET PO SCH ×4 (00:53→14:14)
[2018-01-30] MEDS: Piperacillin/Tazobactam 3.375 GM in 0.9 % Sodium Chloride Mini Bag 100 ML IVPB SCH ×3 (00:53→17:29)
[2018-01-30 01:37] LABS: Fluid Source for Albumin PLEURAL
[2018-01-30 04:00] LABS: Hemoglobin 12.2 g/dL (12.9-16.9); Mean Corpuscular HGB Conc 31.3 g/dL (31.6-35.5); Mean Corpuscular Hemoglobin 24.3 pg (28.0-33.3); Mean Corpuscular Volume 77.5 fL (83.0-100.0); Mean Platelet Volume 10.6 fL (9.4-12.4); Platelet Count 202 K/mcL (140-400); Red Blood Count 5.03 M/mcL (4.19-5.50); Red Cell Distribution Width 20.7 % (11.5-14.5)
[2018-01-30] MEDS: Ipratropium/Albuterol Neb 3 ML IH SCH ×6 (04:01→23:35)
[2018-01-30 04:09] LABS: Calcium 8.5 mg/dL (8.6-10.3); Potassium 3.8 mEq/L (3.5-5.1)
[2018-01-30] MEDS: Doxycycline 100 MG in 0.9 % Sodium Chloride Mini Bag 100 ML IVPB SCH (06:37)
[2018-01-30] MEDS ORDERED: Furosemide 40 MG TABLET PO SCH (09:00)
[2018-01-30] MEDS: Apixaban 5 MG TABLET PO SCH ×2 (09:01→22:48)
[2018-01-30] MEDS: Insulin LISPRO 300 UNITS/3 ML VIAL SQ SCH ×4 (09:01→22:49)
[2018-01-30] MEDS: Aspirin Enteric Coated 81 MG Tablet PO SCH (09:01)
[2018-01-30] MEDS: Famotidine 20 MG TABLET PO SCH ×2 (09:02→22:48)
[2018-01-30] MEDS: Budesonide/Formoterol 160/4.5 1 PUFF INH IH SCH ×2 (11:32→20:08)
--- NOTE | 2018-01-30 14:10 | Internal Med Progress Note ---
Hospitalist Progress Note - Encounter Date of Encounter: 01/30/18 Time of Encounter: 08:00 - Subjective Interval History: Patient was seen and examined at bedside. reports that his lower extremity edema has improved. was evaluated by the Pt/OT rteam however it was too early for him adn he would like to have therapy performed in the afternoon. he denies SOB, N/V/D, has no cough fever or chills. denies chest pain or SOB - Exam Vitals: Temp Pulse Resp BP Pulse Ox 97.4 F L 92 16 100/85 95 01/30/18 11:30 01/30/18 11:30 01/30/18 11:30 01/30/18 11:30 01/30/18 09:19 Exam: General: Patient is alert, oriented, in mild distress, speaks in full sentences, obese Head: atraumatic, normocephalic, Eye: normal appearance, PERRL, no scleral icterus, no conjunctival injection, ENT: mucous membranes moist, normal external ear exam, edentulous Neck: normal inspection, trachea midline, full ROM, JVD Chest: normal inspection, symmetric chest rise Respiratory: Good respiratory effort. Decreased breath sounds in the left posterior lung [place] with occasional crackles, no wheezing, decreased breath sounds in the right posterior lung field. Thoracocentesis site is clean Cardiovascular: Distant heart sounds secondary to body habitus Irregular s1 and s2 No clicks, rubs, gallops, or murmors. Abdomen: Bowel sounds present normoactive x-4 quadrants. Abdomen is soft, nond istended. no Epigastric tenderness. No guarding or rebound. No organomegaly noted, obese musculoskeletal: Spontaneously moving all extremities. +3 edema up to mid thighs,, bilateral DP pulses are unable to be palpated secondary to edema, bilateral feet are cold Skin: warm, dry, intact. bilateral lower extremities are warm, erythematous, skin breakdowns in bilateral anterior shins with petechiae and serous drainage Neuro: Alert and oriented x4. No focal deficit Psych: Patient's affect is normal - Assessment and Plan (1) Acute on chronic diastolic heart failure Current Visit: Yes Status: Acute Assessment and Plan: Patient with shortness of breath, PND, orthopnea and bilateral lower extremity swelling Troponin 0.04 trended to 0.05 x 2 BNP 800 We will continue metoprolol ( hold for SBP <90 and HR <60) Echocardiogram- on LVEF 70-75%, hperdynamic LV. Mild concentric left ventricular hypertrophy.There is a trivial to small pericardial effusion lateral to posterolateral LV wall. Strict intake and output Daily weights Fluid restrictions less than 1 L Gomez catheter was treated with IV lasix and switched to oral however it was held secondary to worsening renal function. Limited TTE 11/11/17: Limited echo. LVEF 65%. Normal LV chamber size and systolic function. Mild concentric left ventricular hypertrophy. Normal right ventricular structure and function. No pericardial effusion. [facility] 08/31/17: Impressions: There is severe three vessel coronary artery disease with RCA and LCX 100% instent restenosis FFR Measurement: 0.84 prox LAD. Mid LAD 0.78. (2) Acute renal failure superimposed on stage 3 chronic kidney disease Current Visit: Yes Status: Acute Assessment and Plan: Baseline creatinine ranges anywhere from 1.8 to 1.9 creatinine 2.92 on admission trended down to 2.85 however trended up to 3.08 and 2.98 today Lasix held Nephrology recommendations appreciated will continue with gentle hydration Retroperitoneal ultrasound- IMPRESSION:Right kidney is unremarkable in appearance. The left kidney is not visualized. Continue with Gomez Strict intake and output Will avoid nephrotoxic medications (3) HAP (hospital-acquired pneumonia) Current Visit: Yes Status: Acute Assessment and Plan: Patient with multiple hospital admissions currently with shortness of breath, right-sided pleural effusion, and chills vancomycin stopped as kidney functions declined currently on doxycycline and zosyn Sputum cultures- pending nursing staff aware Urine antigens- negative Influenza- negative MRSA swab- positive Started MRSA decolonization on 01/29 blood cultures - NGTD pleural fluid cx - in process Procalcitonin- 0.22 ( in setting of renal failure) consider stopping Abx of he continues to remain afebrile (4) Pleural effusion Current Visit: Yes Status: Acute Assessment and Plan: Patient with right-sided pleural effusion Recently had thoracocentesis performed at [facility] Status post IR guided thoracocentesis with 1 L of fluid removal on 01/28, appears to be exudative however he was on Lasix will follow pleural fluid cultures. On doxycyline and Zosyn de-escalate as per cultures will repeat CXR today rest the management as per above if he reacumilates the pleural effusion will need to consider pleurex catheter pulmonology consult (5) Hyponatremia with excess extracellular fluid volume Current Visit: Yes Status: Acute Assessment and Plan: Hypervolemic hyponatremia secondary to acute on chronic diastolic heart failure. treated with lasix however held due to worsening renal functions We will follow BMP Fluid restriction (6) Bilateral lower extremity edema Current Visit: Yes Status: Acute Assessment and Plan: Bilateral lower extremity edema, erythema and tenderness most likely secondary t o CHF exacerbation and venous stasis will rule out DVT DVT study of the lower extremities- Patient appears to be negative for DVT and SVT. MIAH measurements appear to be within normal limits CPK 44 Wound care consulted Elevate extremities (7) CAD (coronary artery disease) Current Visit: Yes Status: Chronic Assessment and Plan: Continue aspirin Beta livan Calcium channel livan Echocardiogram on LVEF 70-75%, hperdynamic LV. Mild concentric left ventricular hypertrophy.There is a trivial to small pericardial effusion lateral to posterolateral LV wall. troponin trended flat Limited TTE 11/11/17: Limited echo. LVEF 65%. Normal LV chamber size and systolic function. Mild concentric left ventricular hypertrophy. Normal right ventricular structure and function. No pericardial effusion. [facility] 08/31/17: Impressions: There is severe three vessel coronary artery disease with RCA and LCX 100% instent restenosis FFR Measurement: 0.84 prox LAD. Mid LAD 0.78. Recommendations: Optimal medical therapy of patient's disease. Aggressive risk factor modification. Suggest patient have Elective coronary artery bypass surgery. (8) PAF (paroxysmal atrial fibrillation) Current Visit: No Status: Acute Assessment and Plan: continue with metoprolol and cardizem with holding parameters ( hold for SBP <90 and HR <60) On Eliquis Chads vasc 6 (9) Diabetes Current Visit: No Status: Chronic Assessment and Plan: Continue with home dose long-acting insulin Sliding scale and adjust as per fingersticks A1c 10.2 Was counseled extensively (10) Hypertension Current Visit: No Status: Chronic Assessment and Plan: currently running on the lower side- will monitor (11) COPD (chronic obstructive pulmonary disease) Current Visit: No Status: Resolved Assessment and Plan: Currently not an exacerbation Antibiotics as above Continue home inhalers Oxygen via nasal cannula to keep sats above 92 (12) Hyperkalemia Current Visit: Yes Status: Resolved (13) DVT prophylaxis Current Visit: No Status: Acute Assessment and Plan: on eliquis - Time Spent with Patient Total time spent is greater than 50% in coordination of care (as documented) at patient's floor/unit and/or counseling patient: Internal Medicine: Result - Labs CBC & Chem 7: 01/30/18 03:25 01/30/18 03:25 Labs: Short CBC 01/30/18 Range/Units 03:25 WBC 7.4 (4.3-11.1) K/mcL Hgb 12.2 L (12.9-16.9) g/dL Hct 39.0 (37.5-50.1) % Plt Count 202 (140-400) K/mcL BMP 01/30/18 03:25 Sodium 130 L Potassium 3.8 Chloride 100 Carbon Dioxide 19 L BUN 56 H Creatinine 2.98 H Glucose 132 H Calcium 8.5 L - ABG Interpretation ABG results: PT/INR, D-dimer PT 19.7 Seconds (9.4-12.1) H 01/28/18 03:37 Consult Discharge Plan - Plan Referrals: Maria Antonia Friend, CADASTRAL SURVEYOR [Primary Care Provider] - (2) Acute renal failure superimposed on stage 3 chronic kidney disease Qualifiers: Acute renal failure type: unspecified Qualified Code(s): N17.9 - Acute kidney failure, unspecified; N18.3 - Chronic kidney disease, stage 3 (moderate) (7) CAD (coronary artery disease) Qualifiers: Coronary Disease-Associated Artery/Lesion type: unspecified vessel or lesion type [place] vs. transplanted heart: [place] heart Associated angina: without angina Qualified Code(s): I25.10 - Atherosclerotic heart disease of [place] coronary artery without angina pectoris (9) Diabetes Qualifiers: Diabetes mellitus type: type 2 Diabetes mellitus mcc insulin use: without mcc use Diabetes mellitus complication status: with unspecified complications Qualified Code(s): E11.8 - Type 2 diabetes mellitus with unspecified complications (10) Hypertension Qualifiers: Hypertension type: essential hypertension Qualified Code(s): I10 - Essential (primary) hypertension (11) COPD (chronic obstructive pulmonary disease) Qualifiers: COPD type: emphysema Emphysema type: unspecified Qualified Code(s): J43.9 - Emphysema, unspecified
[2018-01-30] MEDS: 0.9 % Sodium Chloride 1,000 ML IVC SCH (14:31)
[2018-01-30] MEDS ORDERED: *HR* Metoprolol 5 MG/5 ML VIAL IVP ONE (16:54)
[2018-01-30] MEDS: Doxycycline 100 MG CAPSULE PO SCH (17:22)
[2018-01-30] MEDS: Insulin DETEMIR 100 UNIT/ML X5UNITS SQ SCH (22:48)
[2018-01-31] MEDS: Piperacillin/Tazobactam 3.375 GM in 0.9 % Sodium Chloride Mini Bag 100 ML IVPB SCH ×3 (00:55→17:14)
[2018-01-31 03:54] LABS: Hematocrit 40.2 % (37.5-50.1); Hemoglobin 12.1 g/dL (12.9-16.9); Mean Corpuscular HGB Conc 30.1 g/dL (31.6-35.5); Mean Corpuscular Hemoglobin 24.2 pg (28.0-33.3); Mean Corpuscular Volume 80.6 fL (83.0-100.0); Mean Platelet Volume 11.3 fL (9.4-12.4); Platelet Count 208 K/mcL (140-400); Red Blood Count 4.99 M/mcL (4.19-5.50); Red Cell Distribution Width 21.1 % (11.5-14.5)
[2018-01-31 04:17] LABS: Calcium 8.4 mg/dL (8.6-10.3)
[2018-01-31] MEDS: Ipratropium/Albuterol Neb 3 ML IH SCH ×6 (04:31→23:08)
[2018-01-31] MEDS: Doxycycline 100 MG CAPSULE PO SCH ×2 (06:17→17:14)
[2018-01-31] MEDS: Budesonide/Formoterol 160/4.5 1 PUFF INH IH SCH ×3 (07:42→20:20)
[2018-01-31] MEDS: Aspirin Enteric Coated 81 MG Tablet PO SCH (09:07)
[2018-01-31] MEDS: Famotidine 20 MG TABLET PO SCH (09:07)
[2018-01-31] MEDS: Apixaban 5 MG TABLET PO SCH ×2 (09:07→21:19)
[2018-01-31] MEDS: 0.9 % Sodium Chloride 1,000 ML IVC SCH (09:08)
[2018-01-31] MEDS: Insulin LISPRO 300 UNITS/3 ML VIAL SQ SCH ×4 (09:10→21:11)
--- NOTE | 2018-01-31 12:54 | Nephrology Progress Note ---
Date of Encounter: 01/31/18 Time of Encounter: 12:54 - Assessment and Plan (1) Acute renal failure superimposed on stage 3 chronic kidney disease Current Visit: Yes Status: Acute Patient with multifactorial acute kidney injury on chronic kidney disease. While the patient has lower from edema. His low blood pressure and low urine sodium suggests intravascular depletion. I would recommend holding furosemide. With his metabolic acidosis and hyponatremia I will initiate 1 L of sodium bicarbonate infusion. Patient may also need albumin. Based on the patient's low urine sodium he seems to have a prerenal state. We will repeat this after the sodium bicarbonate infusion. Renal ultrasound is unremarkable. Patient's clinical case appears to be quite complicated as it is difficult to tell what his intravascular status is. While his blood pressure seems to be low, he has significant lower extremity edema. Hopefully now the patient's heart rate is better he would experience improve cardiac output and hopefully improve kidney function. Qualifiers: Acute renal failure type: unspecified Qualified Code(s): N17.9 - Acute kidney failure, unspecified; N18.3 - Chronic kidney disease, stage 3 (moderate) (2) Hyponatremia Current Visit: Yes Status: Acute (3) Anemia Current Visit: Yes Status: Acute Hemoglobin stable. Qualifiers: Qualified Code(s): D64.9 - Anemia, unspecified (4) Metabolic acidosis Current Visit: Yes Status: Acute We will treat with intravenous sodium bicarbonate.. Subjective Principal diagnosis: sandor/ckd Interval history: Patient was seen and evaluated. He has no new complaints. He denies chest pain or shortness of breath. Review of system otherwise appears to be stable. Objective - Vital Signs Vital signs: Vital Signs Temp Pulse Resp BP Pulse Ox 01/31/18 10:26 75 16 90/72 95 01/31/18 07:42 18 95 01/31/18 07:08 96.9 F L 86 16 100/79 94 01/31/18 05:29 96.4 F L 83 16 101/85 96 01/31/18 04:31 16 95 01/31/18 00:27 96.7 F L 82 18 111/75 100 01/30/18 23:35 16 97 01/30/18 21:00 94 01/30/18 20:54 97.6 F 84 18 84/56 94 01/30/18 20:08 18 95 01/30/18 16:36 86/73 12/21/18 16:25 144 18 01/30/18 15:46 20 95 Intake and Output 01/30/18 01/31/18 01/31/18 23:59 07:59 15:59 Intake Total 100 / 100 100 / 100 1360 / 1360 Output Total 225 / 225 500 / 500 Balance -125 / -125 -400 / -400 1360 / 1360 Intake: IV Fluids 100 / 100 100 / 100 1000 / 1000 0.9 % Sodium Chloride 1,000 ML 1000 / 1000 @ 50 mls/hr IVC .Q20H [facility] Rx#: [id number] Zosyn 3.375 GM In 0.9 % Sodium 100 / 100 100 / 100 Chloride (Mini-Bag +) 100 ML @ 25 mls/hr IVPB Q8HR [facility] Rx#: [id number] Oral 0 / 0 360 / 360 Output: Catheter 225 / 225 500 / 500 Other: Meal Breakfast Percent of Meal Consumed 100% Weight 111.6 kg Blood Glucose* 117 145 129 Patient Weight 01/31/18 23:59 Weight 111.6 kg - General Appearance General appearance: Present: well-developed, well-nourished, obese EENT: Present: ATNC Neck: Present: supple Cardiology: Present: edema, regular rate Neurologic: Present: alert and oriented x3 Musculoskeletal: Present: no cyanosis Psychiatric: Present: mood/affect appropriate - Lab 01/31/18 03:20 01/31/18 03:20 Most recent lab results Calcium 8.4 mg/dL (8.6-10.3) L 01/31/18 03:20 Phosphorus 5.0 mg/dL (2.7-4.5) H 01/28/18 03:37 Magnesium 2.9 mg/dL (1.6-2.6) H 01/28/18 03:37 Urine Sodium < 10.0 mEq/L 01/27/18 15:46 Consult Discharge Plan - Plan Referrals: Maria Antonia Friend GENERAL MANAGER [employer] [Primary Care Provider] -
--- NOTE | 2018-01-31 14:16 | Internal Med Progress Note ---
Hospitalist Progress Note - Encounter Date of Encounter: 01/31/18 Time of Encounter: 14:45 - Subjective Interval History: mouth burning dyspnea at baseline no chest pain, headache, dizziness, abd pain, n, v - Exam Vitals: Temp Pulse Resp BP Pulse Ox 96.9 F L 75 16 90/72 95 01/31/18 07:08 01/31/18 10:26 01/31/18 10:26 01/31/18 10:26 01/31/18 10:26 Exam: General: Patient is alert, oriented, in mild distress, speaks in full sentences, obese Head: atraumatic, normocephalic, Eye: normal appearance, no scleral icterus, no conjunctival injection ENT: mucous membranes moist, shite spots on tongue, reddish spots on posterior pharynx Chest: normal inspection, symmetric chest rise Respiratory: Good respiratory effort. Decreased breath sounds in the left posterior lung [place], no wheezing, decreased breath sounds in the right posterior lung field. Cardiovascular: Distant heart sounds secondary to body habitus Irregular s1 and s2 No clicks, rubs, gallops, or murmors. Abdomen: Abdomen is soft, nondistended. no epigastric tenderness. No guarding or rebound. Musculoskeletal: Spontaneously moving all extremities. +3 edema up to mid thighs Skin: warm, dry, intact. bilateral lower extremities are warm, erythematous, skin breakdowns in bilateral anterior shins with petechiae and serous drainage Neuro: Alert and oriented x4. No focal deficit Psych: Patient's affect is normal - Summary of Assessment and Plan Summary of Assessment and Plan: Per H&P: ""Mr. Newman is a 67 year old male CAD S/P multiple PCIs and s/p CABG 10/2017 at [place], CVA, diabetes, COPD, carotid stenosis s/p surgery, HTN. Vlad ibanez follows with Dr. Becerra in [facility]. He presented to ED for worsening dyspnea, productive cough. As per patient his shortness of breath started on (5 days ago) after he was discharged from [facility]. His shortness of breath first was at rest and was relieved with oxygen as at home however progressively became worse to the point that he was unable to lay flat and his shortness of breath was with him up at night. His shortness of breath is also associated with a productive cough with white eat him denies blood. It also associated with bilateral lower extremity edema which have been worsening for the past 1 week. Shortness of breath is so bad that he is unable to ambulate because he cannot catch his breath. He denies fever, chills, nausea, vomiting, diarrhea, chest pain, palpitations, recent upper tooth respiratory tract infections, chest trauma, falls. As per patient he was recently admitted to [facility] with similar symptoms and thoracocentesis was performed and he was told that he has pneumonia however he was not discharged with oral diuretics or oral antibiotics. While in then emergency department he was found to have a large right-sided pleural effusion, elevated troponin of 0.04, elevated BNP, hyponatremia and acute renal failure and was endorsed for admission for further management of above problems.As per chart review he was also admitted to [facility] on 12/27 for HCAP and was found to have atrial fibrillation and was started on Eliquis. "" (1) Acute on chronic diastolic heart failure continue metoprolol ( hold for SBP <90 and HR <60) Echocardiogram- on LVEF 70-75%, hperdynamic LV. Mild concentric left ventricular hypertrophy.There is a trivial to small pericardial effusion lateral to posterolateral LV wall. Strict intake and output Daily weights Fluid restrictions less than 1 L Gomez catheter was treated with IV lasix and switched to oral however it was held secondary to worsening renal function. Limited TTE 11/11/17: Limited echo. LVEF 65%. Normal LV chamber size and systolic function. Mild concentric left ventricular hypertrophy. Normal right ventricular structure and function. No pericardial effusion. [facility] 08/31/17: Impressions: There is severe three vessel coronary artery disease with RCA and LCX 100% instent restenosis FFR Measurement: 0.84 prox LAD. Mid LAD 0.78. (2) Acute renal failure superimposed on stage 3 chronic kidney disease Baseline creatinine ranges anywhere from 1.8 to 1.9 creatinine 2.9 on admission trended down to 2.8 however trended up to 3.0 Lasix held Nephrology recommendations appreciated: Bicarb gtt, hold Lasix, may need albumin for intravascular volume depletion s/p gentle hydration Retroperitoneal ultrasound-Right kidney is unremarkable in appearance. The left kidney is not visualized. Continue with Gomez Strict intake and output Will avoid nephrotoxic medications (3) HAP (hospital-acquired pneumonia) Patient with multiple hospital admissions currently with shortness of breath, right-sided pleural effusion, and chills Vancomycin stopped as kidney functions declined currently on doxycycline and zosyn Sputum cultures- pending nursing staff aware Urine antigens- negative Influenza- negative MRSA swab- positive Started MRSA decolonization on 01/29 blood cultures - NGTD pleural fluid cx - in process Procalcitonin- 0.22 ( in setting of renal failure) consider stopping Abx of he continues to remain afebrile (4) Pleural effusion Current Visit: Yes Status: Acute Assessment and Plan: Patient with right-sided pleural effusion Recently had thoracocentesis performed at [facility] Status post IR guided thoracocentesis with 1 L of fluid removal on 01/28, appears to be exudative however he was on Lasix will follow pleural fluid cultures. On doxycyline and Zosyn de-escalate as per cultures repeat CXR 01/30: moderate right pleural effusion, increased pulmonology consult in progress, visited patient, will discuss recommendations (5) Hyponatremia with excess extracellular fluid volume Hypervolemic hyponatremia secondary to acute on chronic diastolic heart failure. treated with lasix however held due to worsening renal functions We will follow BMP Fluid restriction (6) Bilateral lower extremity edema Bilateral lower extremity edema, erythema and tenderness most likely secondary to CHF exacerbation and venous stasis will rule out DVT DVT study of the lower extremities- Patient appears to be negative for DVT and SVT. MIAH measurements appear to be within normal limits CPK 44 Wound care consulted Elevate extremities (7) CAD (coronary artery disease) Continue aspirin Beta livan Calcium channel livan Echocardiogram on LVEF 70-75%, hperdynamic LV. Mild concentric left ventricular hypertrophy.There is a trivial to small pericardial effusion lateral to posterolateral LV wall. troponin trended flat Limited TTE 11/11/17: Limited echo. LVEF 65%. Normal LV chamber size and systolic function. Mild concentric left ventricular hypertrophy. Normal right ventricular structure and function. No pericardial effusion. [facility] 08/31/17: Impressions: There is severe three vessel coronary artery disease with RCA and LCX 100% instent restenosis FFR Measurement: 0.84 prox LAD. Mid LAD 0.78. Recommendations: Optimal medical therapy of patient's disease. Aggressive risk factor modification. Suggest patient have Elective coronary artery bypass surgery. (8) PAF (paroxysmal atrial fibrillation) continue with metoprolol and cardizem with holding parameters (hold for SBP <90 and HR <60) On Eliquis Chads vasc 6 (9) Diabetes Continue with home dose long-acting insulin Sliding scale and adjust as per fingersticks A1c 10.2 Was counseled by my colleague extensively (10) Hypertension currently running on the lower side- will monitor (11) COPD (chronic obstructive pulmonary disease) Current Visit: No Status: Resolved Assessment and Plan: Currently not an exacerbation Antibiotics as above Continue home inhalers Oxygen via nasal cannula to keep sats above 92 (12) Hyperkalemia resolved (13) Oral thrush Start nystatin swish and swallow (14) DVT prophylaxis on eliquis, may need to adjust dose - Time Spent with Patient Total time spent is greater than 50% in coordination of care (as documented) at patient's floor/unit and/or counseling patient: Plan of Care Discussed with: patient Internal Medicine: Result - Labs CBC & Chem 7: 01/31/18 03:20 01/31/18 03:20 Labs: Short CBC 01/31/18 Range/Units 03:20 WBC 7.3 (4.3-11.1) K/mcL Hgb 12.1 L (12.9-16.9) g/dL Hct 40.2 (37.5-50.1) % Plt Count 208 (140-400) K/mcL BMP 01/31/18 03:20 Sodium 129 L Potassium 4.0 Chloride 99 Carbon Dioxide 20 L BUN 57 H Creatinine 3.08 H Glucose 220 H Calcium 8.4 L - ABG Interpretation ABG results: PT/INR, D-dimer PT 19.7 Seconds (9.4-12.1) H 01/28/18 03:37 - Impressions Impressions Chest X-Ray 01/30/18 13:45 IMPRESSION: Moderate right pleural effusion, increased in size. D/ / Dread Hoffmann MD / Dread Hoffmann MD Interpreting Provider: Dread Hoffmann MD Consult Discharge Plan - Plan Referrals: Maria Antonia Friend, [employer]LECT[employer]ELDER [Primary Care Provider] -
[2018-01-31] MEDS: Nystatin SUSP 5 ML UD.LIQ PO SCH ×2 (17:14→21:20)
[2018-01-31] MEDS: Insulin DETEMIR 100 UNIT/ML X5UNITS SQ SCH (21:12)
[2018-02-01] MEDS: Piperacillin/Tazobactam 3.375 GM in 0.9 % Sodium Chloride Mini Bag 100 ML IVPB SCH ×3 (00:49→17:23)
[2018-02-01] MEDS: Ipratropium/Albuterol Neb 3 ML IH SCH ×6 (04:31→23:17)
[2018-02-01] MEDS: Doxycycline 100 MG CAPSULE PO SCH ×2 (06:40→17:23)
[2018-02-01] MEDS: Budesonide/Formoterol 160/4.5 1 PUFF INH IH SCH ×2 (07:38→19:56)
[2018-02-01 07:43] LABS: Hematocrit 39.1 % (37.5-50.1); Hemoglobin 12.4 g/dL (12.9-16.9); Mean Corpuscular HGB Conc 31.7 g/dL (31.6-35.5); Mean Corpuscular Hemoglobin 24.3 pg (28.0-33.3); Mean Corpuscular Volume 76.7 fL (83.0-100.0); Mean Platelet Volume 10.6 fL (9.4-12.4); Platelet Count 190 K/mcL (140-400); Red Cell Distribution Width 20.7 % (11.5-14.5)
[2018-02-01] MEDS: Insulin LISPRO 300 UNITS/3 ML VIAL SQ SCH ×4 (07:52→21:05)
[2018-02-01] MEDS: Famotidine 20 MG TABLET PO SCH (08:18)
[2018-02-01] MEDS: Apixaban 5 MG TABLET PO SCH ×2 (08:18→20:57)
[2018-02-01] MEDS: Aspirin Enteric Coated 81 MG Tablet PO SCH (08:18)
[2018-02-01] MEDS: Nystatin SUSP 5 ML UD.LIQ PO SCH ×4 (08:19→21:00)
--- NOTE | 2018-02-01 09:54 | Nephrology Progress Note ---
Date of Encounter: 02/01/18 Time of Encounter: 09:54 - Assessment and Plan (1) Acute renal failure superimposed on stage 3 chronic kidney disease Current Visit: Yes Status: Acute Patient with multifactorial acute kidney injury on chronic kidney disease. While the patient has lower leg edema. His low blood pressure and low urine sodium suggests intravascular depletion. I would recommend holding furosemide. With his metabolic acidosis and hyponatremia I will initiate 1 L of sodium bicarbonate infusion. Patient may also need albumin. Based on the patient's low urine sodium he seems to have a prerenal state. We will repeat this after the sodium bicarbonate infusion. Renal ultrasound is unremarkable. Patient's clinical case appears to be quite complicated as it is difficult to tell what his intravascular status is. While his blood pressure seems to be low, he has significant lower extremity edema. Hopefully now the patient's heart rate is better he would experience improve cardiac output and hopefully improve kidney function. 02/01/2018 - No labs were ordered for today. His HR was elevated again and his blood pressure on the low side. He would benefit from rate control and improved blood pressure. Will order daily renal function panel for the next 7 days. Baseline creatinine around 1.8. Qualifiers: Acute renal failure type: unspecified Qualified Code(s): N17.9 - Acute kidney failure, unspecified; N18.3 - Chronic kidney disease, stage 3 (moderate) (2) Hyponatremia Current Visit: Yes Status: Acute (3) Anemia Current Visit: Yes Status: Acute Hemoglobin stable. Qualifiers: Qualified Code(s): D64.9 - Anemia, unspecified (4) Metabolic acidosis Current Visit: Yes Status: Acute Subjective Principal diagnosis: sandor/ckd Interval history: Patient was seen and evaluated. He has no new complaints. He denies chest pain or shortness of breath. Review of system otherwise appears to be stable. Objective - Vital Signs Vital signs: Vital Signs Temp Pulse Resp BP Pulse Ox 02/01/18 07:48 98.0 F 83 18 78/64 98 02/01/18 04:32 18 96 01/31/18 23:08 18 95 01/31/18 20:57 98.1 F 85 17 94/78 96 01/31/18 20:13 16 95 01/31/18 16:01 97.6 F 78 16 97/76 95 01/31/18 15:42 18 95 01/31/18 10:26 75 16 90/72 95 Intake and Output 01/31/18 02/01/18 02/01/18 23:59 07:59 15:59 Intake Total 220 / 220 100 / 100 200 / 200 Output Total 550 / 550 Balance -330 / -330 100 / 100 200 / 200 Intake: IV Fluids 100 / 100 100 / 100 Zosyn 3.375 GM In 0.9 % Sodium 100 / 100 100 / 100 Chloride (Mini-Bag +) 100 ML @ 25 mls/hr IVPB Q8HR [facility] Rx#: [id number] Oral 120 / 120 200 / 200 Output: Catheter 550 / 550 Other: Meal Dinner Breakfast Percent of Meal Consumed 10% 60% Blood Glucose* 89 117 - Lab 02/01/18 07:19 01/31/18 03:20 Most recent lab results Calcium 8.4 mg/dL (8.6-10.3) L 01/31/18 03:20 Phosphorus 5.0 mg/dL (2.7-4.5) H 01/28/18 03:37 Magnesium 2.9 mg/dL (1.6-2.6) H 01/28/18 03:37 Urine Sodium < 10.0 mEq/L 01/27/18 15:46 Consult Discharge Plan - Plan Referrals: Maria Antonia Friend, PERSONAL DEVELOPMENT EDUCATOR [Primary Care Provider] -
[2018-02-01 11:08] LABS: Albumin 2.8 g/dL (3.5-5.7); Phosphorous 5.5 mg/dL (2.7-4.5)
--- NOTE | 2018-02-01 13:43 | Internal Med Progress Note ---
Hospitalist Progress Note - Encounter Date of Encounter: 02/01/18 Time of Encounter: 15:00 - Subjective Interval History: dyspnea at baseline no chest pain, headache, dizziness, abd pain, n, v couldn't sleep due to interruption last night, feeling tired - Exam Vitals: Temp Pulse Resp BP Pulse Ox 98.0 F 83 18 90/66 98 02/01/18 07:48 02/01/18 07:48 02/01/18 07:48 02/01/18 11:22 02/01/18 07:48 Exam: General: Patient is alert, oriented, in mild distress, speaks in full sentences, obese Head: atraumatic, normocephalic, Eye: normal appearance, no scleral icterus, no conjunctival injection ENT: mucous membranes moist, shite spots on tongue, reddish spots on posterior pharynx Chest: normal inspection, symmetric chest rise Respiratory: Good respiratory effort. Decreased breath sounds at bases, no wheezing, left basilar crackles. Cardiovascular: Irregular s1 and s2 No clicks, rubs, gallops, or murmors. Abdomen: Abdomen is soft, nondistended. no epigastric tenderness. No guarding or rebound. Musculoskeletal: Spontaneously moving all extremities. +3 edema up to mid thighs Skin: warm, dry, intact. bilateral lower extremities are warm, erythematous, ski n breakdowns in bilateral anterior shins with petechiae and serous drainage Neuro: Alert and oriented x4. No focal deficit Psych: Patient's affect is normal - Summary of Assessment and Plan Summary of Assessment and Plan: Per H&P: ""Mr. Newman is a 67 year old male CAD S/P multiple PCIs and s/p CABG 10/2017 at [place], CVA, diabetes, COPD, carotid stenosis s/p surgery, HTN. Typically follows with Dr. Becerra in [facility]. He presented to ED for worsening dyspnea, productive cough. As per patient his shortness of breath started on (5 days ago) after he was discharged from [facility]. His shortness of breath first was at rest and was relieved with oxygen as at home however progressively became worse to the point that he was unable to lay flat and his shortness of breath was with him up at night. His shortness of breath is also associated with a productive cough with white eat him denies blood. It also associated with bilateral lower extremity edema which have been worsening for the past 1 week. Shortness of breath is so bad that he is unable to ambulate because he cannot catch his breath. He denies fever, chills, nausea, vomiting, diarrhea, chest pain, palpitations, recent upper tooth respiratory tract infections, chest trauma, falls. As per patient he was recently admitted to [facility] with similar symptoms and thoracocentesis was performed and he was told that he has pneumonia however he was not discharged with oral diuretics or oral antibiotics. While in then emergency department he was found to have a large right-sided pleural effusion, elevated troponin of 0.04, elevated BNP, hyponatremia and acute renal failure and was endorsed for admission for further management of above problems.As per chart review he was also admitted to [facility] on 12/27 for HCAP and was found to have atrial fibrillation and was started on Eliquis. "" (1) Acute on chronic diastolic heart failure continue metoprolol (hold for SBP <90 and HR <60) Echocardiogram- on LVEF 70-75%, hperdynamic LV. Mild concentric left ventricular hypertrophy.There is a trivial to small pericardial effusion lateral to posterolateral LV wall. Strict intake and output Daily weights Fluid restrictions less than 1 L Gomez catheter was treated with IV lasix and switched to oral however it was held secondary to worsening renal function. (2) Acute renal failure superimposed on stage 3 chronic kidney disease Baseline creatinine ranges anywhere from 1.8 to 1.9 creatinine 2.9 on admission and varying between 2.8 and 3.0 Lasix held Nephrology recommendations appreciated: Bicarb gtt, hold Lasix, may need albumin for intravascular volume depletion s/p gentle hydration Retroperitoneal ultrasound-Right kidney is unremarkable in appearance. The left kidney is not visualized. Continue with Gomez Strict intake and output Will avoid nephrotoxic medications (3) HAP (hospital-acquired pneumonia) Patient with multiple hospital admissions currently with shortness of breath, right-sided pleural effusion, and chills Vancomycin stopped as kidney functions declined currently on doxycycline and zosyn Sputum cultures- pending nursing staff aware Urine antigens- negative Influenza- negative MRSA swab- positive Started MRSA decolonization on 01/29 blood cultures - NGTD pleural fluid cx - in process Procalcitonin- 0.22 (in setting of renal failure) consider stopping Abx if he continues to remain afebrile (4) Pleural effusion Patient with right-sided pleural effusion Recently had thoracocentesis performed at [facility] Status post IR guided thoracocentesis with 1 L of fluid removal on 01/28, appears to be exudative however he was on Lasix will follow pleural fluid cultures. On doxycyline and Zosyn, de-escalate as per cultures repeat CXR 01/30: moderate right pleural effusion, increased pulmonology consult in progress, will discuss recommendations will check CXR 02/02 AM (5) Hyponatremia with excess extracellular fluid volume Hypervolemic hyponatremia secondary to acute on chronic diastolic heart failure. treated with lasix however held due to worsening renal functions We will follow BMP Fluid restriction (6) Bilateral lower extremity edema Bilateral lower extremity edema, erythema and tenderness most likely secondary to CHF exacerbation and venous stasis will rule out DVT DVT study of the lower extremities- Patient appears to be negative for DVT and SVT. MIAH measurements appear to be within normal limits CPK 44 Wound care consulted Elevate extremities (7) CAD (coronary artery disease) [facility] 08/31/17: Impressions: There is severe three vessel coronary artery disease with RCA and LCX 100% instent restenosis FFR Measurement: 0.84 prox LAD. Mid LAD 0.78. Continue aspirin, and beta livan as tolerated Echocardiogram on LVEF 70-75%, hperdynamic LV. Mild concentric left ventricular hypertrophy.There is a trivial to small pericardial effusion lateral to posterolateral LV wall. troponin trended flat Limited TTE 11/11/17: Limited echo. LVEF 65%. Normal LV chamber size and systolic function. Mild concentric left ventricular hypertrophy. Normal right ventricular structure and function. No pericardial effusion. [facility] 08/31/17: Impressions: There is severe three vessel coronary artery disease with RCA and LCX 100% instent restenosis FFR Measurement: 0.84 prox LAD. Mid LAD 0.78. Recommendations: Optimal medical therapy of patient's disease. Aggressive risk factor modification. Suggest patient have Elective coronary artery bypass surgery. (8) PAF (paroxysmal atrial fibrillation) continue metoprolol with holding parameters (hold for SBP <90 and HR <60) due to ongoing hypotension, will hold cardizem for now On Eliquis Chads vasc 6 (9) Diabetes Continue with home dose long-acting insulin Sliding scale and adjust as per fingersticks A1c 10.2 Was counseled by my colleague extensively (10) Hypertension currently running on the lower side- hold diltiazem (11) COPD (chronic obstructive pulmonary disease) Currently not an exacerbation Antibiotics as above Continue home inhalers Oxygen via nasal cannula to keep sats above 92 - start incentive spirometry (12) Hyperkalemia resolved (13) Oral thrush Cont nystatin swish and swallow (14) DVT prophylaxis on eliquis, may need to adjust dose or stop if renal function worsens --Ensure interruption free sleep time every night - Time Spent with Patient Total time spent is greater than 50% in coordination of care (as documented) at patient's floor/unit and/or counseling patient: Plan of Care Discussed with: patient Internal Medicine: Result - Labs CBC & Chem 7: 02/01/18 07:19 01/31/18 03:20 Labs: Short CBC 02/01/18 Range/Units 07:19 WBC 9.8 (4.3-11.1) K/mcL Hgb 12.4 L (12.9-16.9) g/dL Hct 39.1 (37.5-50.1) % Plt Count 190 (140-400) K/mcL BMP 01/31/18 03:20 Sodium 129 L Potassium 4.0 Chloride 99 Carbon Dioxide 20 L BUN 57 H Creatinine 3.08 H Glucose 220 H Calcium 8.4 L Liver Function 01/31/18 Range/Units 03:20 Albumin 2.8 L (3.5-5.7) g/dL - ABG Interpretation ABG results: PT/INR, D-dimer PT 19.7 Seconds (9.4-12.1) H 01/28/18 03:37 Consult Discharge Plan - Plan Referrals: Maria Antonia Friend, GROUTMAN [Primary Care Provider] -
[2018-02-01] MEDS: Sennosides/Docusate Sodium TABLET PO SCH ×2 (13:56→21:00)
[2018-02-01] MEDS: Insulin DETEMIR 100 UNIT/ML X5UNITS SQ SCH (21:05)
[2018-02-02] MEDS: Piperacillin/Tazobactam 3.375 GM in 0.9 % Sodium Chloride Mini Bag 100 ML IVPB SCH ×3 (00:02→19:12)
[2018-02-02] MEDS: Ipratropium/Albuterol Neb 3 ML IH SCH ×5 (03:25→20:37)
[2018-02-02] MEDS: Doxycycline 100 MG CAPSULE PO SCH ×2 (06:14→17:19)
[2018-02-02] MEDS: Budesonide/Formoterol 160/4.5 1 PUFF INH IH SCH (07:33)
--- NOTE | 2018-02-02 07:41 | Nephrology Progress Note ---
Date of Encounter: 02/02/18 Time of Encounter: 09:05 - Assessment and Plan (1) Acute renal failure superimposed on stage 3 chronic kidney disease Current Visit: Yes Status: Acute I reviewed the handoff from my colleague Dr. Vazquez, and the pt's labs (of which none have been posted for two days counting today 02/02/18 though I see orders in place for such labs), vitals (poor hemodynamics), med list, progress notes and imaging. It's not clear if the I/Os are accurate. I will ask the floor RN to assist in reporting accurate I/Os, daily weights and to be sure that labs are collected as ordered -- this data will be needed to safely make medical decisions for his renal care. Continue to follow a renal protective strategy in the meantime. Thank you. Patient with multifactorial acute kidney injury on chronic kidney disease. While the patient has lower leg edema. His low blood pressure and low urine sodium suggests intravascular depletion. I would recommend holding furosemide. With his metabolic acidosis and hyponatremia I will initiate 1 L of sodium bicarbonate infusion. Patient may also need albumin. Based on the patient's low urine sodium he seems to have a prerenal state. We will repeat this after the sodium bicarbonate infusion. Renal ultrasound is unremarkable. Patient's clinical case appears to be quite complicated as it is difficult to tell what his intravascular status is. While his blood pressure seems to be lo w, he has significant lower extremity edema. Hopefully now the patient's heart rate is better he would experience improve cardiac output and hopefully improve kidney function. 02/01/2018 - No labs were ordered for today. His HR was elevated again and his blood pressure on the low side. He would benefit from rate control and improved blood pressure. Will order daily renal function panel for the next 7 days. Baseline creatinine around 1.8. Qualifiers: Acute renal failure type: unspecified Qualified Code(s): N17.9 - Acute kidney failure, unspecified; N18.3 - Chronic kidney disease, stage 3 (moderate) (2) Hyponatremia Current Visit: Yes Status: Acute Mild hyponatremia noted on prior labs. Pending and will have to monitor for a safe rate of correction of about 6-8mEq/24hr (3) Anemia Current Visit: Yes Status: Acute Qualifiers: Anemia type: unspecified type Qualified Code(s): D64.9 - Anemia, unspecified (4) Metabolic acidosis Current Visit: Yes Status: Acute (5) Gross hematuria Current Visit: Yes Status: Acute Since the left kidney was not visualized on renal U/S, I recommend a CT abd/pelvis without contrast (d/t his elevated Cr a few days ago). Consider urology consultation. He may need CBI at some point. Subjective Principal diagnosis: sandor/ckd Interval history: Pt was s/e. He voiced feeling upset that he remains in the hospital. He said that his leg swelling has been present for weeks -- about "two months." He said his PCP sent him to the hospital for both swelling and his renal dysfunction. He denied having appetite changes or N/V/D in the last few days, but he did affirm having visible blood in his urine. His floor RN was present. Objective - Vital Signs Vital signs: Vital Signs Temp Pulse Resp BP Pulse Ox 02/01/18 20:39 97.9 F 89 18 96/82 95 02/01/18 16:44 98.0 F 87 16 99/86 97 02/01/18 15:42 16 97 02/01/18 11:22 90/66 02/01/18 10:27 16 98 02/01/18 07:48 98.0 F 83 18 78/64 98 Intake and Output 02/01/18 02/01/18 02/02/18 15:59 23:59 07:59 Intake Total 300 / 300 220 / 220 Output Total 400 / 400 Balance 300 / 300 -180 / -180 Intake: IV Fluids 100 / 100 100 / 100 Zosyn 3.375 GM In 0.9 % Sodium 100 / 100 100 / 100 Chloride (Mini-Bag +) 100 ML @ 25 mls/hr IVPB Q8HR [facility] Rx#: [id number] Oral 200 / 200 120 / 120 Output: Catheter 400 / 400 Other: Meal Breakfast Percent of Meal Consumed 60% 0% Stool Size Copious Stool Consistency soft formed Blood Glucose* 166 166 - General Appearance General appearance: Present: well-developed, well-nourished, appears started age, chronically ill EENT: Present: ATNC, PERRL, mucous membranes moist Neck: Present: supple Respiratory: Present: clear Cardiology: Present: edema (pitting bilatera edema up to his pretibial region), normal S1, normal S2 Gastrointestinal: Present: no guarding Integumentary: Present: warm and dry Neurologic: Present: no focal deficit, no asterixis, alert and oriented x3 Musculoskeletal: Present: no erythema, no cyanosis Psychiatric: Present: mood/affect appropriate, cooperative - Lab 02/01/18 07:19 02/02/18 04:54 Most recent lab results Calcium 8.4 mg/dL (8.6-10.3) L 01/31/18 03:20 Phosphorus 5.5 mg/dL (2.7-4.5) H 01/31/18 03:20 Magnesium 2.9 mg/dL (1.6-2.6) H 01/28/18 03:37 Urine Sodium < 10.0 mEq/L 01/27/18 15:46 - Imaging Kidney/bladder ultrasound: report reviewed (no hydronephrosis see on the right but his bowel gas limited ultrasonographic views of the left kidney and ureter. ) Consult Discharge Plan - Plan Referrals: Maria Antonia Friend, [employer] [Primary Care Provider] -
[2018-02-02] MEDS: Famotidine 20 MG TABLET PO SCH (08:04)
[2018-02-02] MEDS: Aspirin Enteric Coated 81 MG Tablet PO SCH (08:05)
[2018-02-02] MEDS: Nystatin SUSP 5 ML UD.LIQ PO SCH ×4 (08:05→21:24)
[2018-02-02] MEDS: Apixaban 5 MG TABLET PO SCH (08:05)
[2018-02-02] MEDS: Sennosides/Docusate Sodium TABLET PO SCH ×2 (08:06→21:24)
--- NOTE | 2018-02-02 08:50 | Pulmonology Consult Note ---
<BirgitKaren M - Last Filed: 02/02/18 10:06> Date of Encounter: 02/02/18 Medications and Allergies Aspirin [Lo-Dose Aspirin EC] 81 mg PO DAILY 08/30/17 [History] Ferrous Sulfate 325 mg PO Q48H 08/30/17 [History] Nitroglycerin [Nitrostat] 0.4 mg SL Q5MIN PRN 08/30/17 [History] Ranitidine HCl [Heartburn Relief] 150 mg PO BID 08/30/17 [History] Rosuvastatin [Crestor] 20 mg PO HS 08/30/17 [History] Albuterol Sulfate [Ventolin Hfa] 2 puff IH Q6H PRN 12/27/17 [History] Insulin Glargine,Hum.rec.anlog [Basaglar Kwikpen U-100] 40 unit SQ HS 12/27/17 [History] Metoprolol [Lopressor] 25 mg PO BID #0 tablet 12/30/17 [Rx] glyBURIDE [GlyBURIDE] 5 mg PO BIDWM #28 tablet 12/30/17 [Rx] EPINEPHrine [Epipen] 0.3 mg IM ONCE PRN 01/04/18 [History] Apixaban [Eliquis] 5 mg PO BID 30 Days #60 tablet 01/08/18 [Rx] Diltiazem HCl [Cardizem] 60 mg PO Q6H 01/27/18 [History] Fluticasone/Salmeterol [Advair 500-50 Diskus] 1 puff IH BID 01/27/18 [History] Allergy/AdvReac Type Severity Reaction Status Date / Time codeine Allergy Intermediate Agitated Verified 01/27/18 12:16 morphine Allergy Intermediate Agitated Verified 01/27/18 12:16 All Systems: The remainder of the systems were reviewed and are negative Physical Examination Vital Signs: Vital Signs, Last 4 Hours Temp Pulse Resp BP Pulse Ox 02/02/18 09:17 97.8 F 132 16 93/72 97 02/02/18 07:34 18 95 Results - Laboratory Findings CBC and BMP: 02/01/18 07:19 02/02/18 04:54 PT/INR, D-dimer PT 19.7 Seconds (9.4-12.1) H 01/28/18 03:37 Abnormal lab findings: Abnormal lab results Hgb 12.4 g/dL (12.9-16.9) L 02/01/18 07:19 MCV 76.7 fL (83.0-100.0) L 02/01/18 07:19 MCH 24.3 pg (28.0-33.3) L 02/01/18 07:19 RDW 20.7 % (11.5-14.5) H 02/01/18 07:19 PT 19.7 Seconds (9.4-12.1) H 01/28/18 03:37 APTT 54.0 Seconds (26.0-36.0) H D 01/28/18 06:38 Heparin Anti-Xa, Unfract > 2.00 IU/mL (0.30-0.70) H* 01/28/18 06:38 Sodium 127 mEq/L (136-145) L 02/02/18 04:54 Chloride 97 mEq/L (98-107) L 02/02/18 04:54 Carbon Dioxide 16 mEq/L (23-29) L 02/02/18 04:54 BUN 62 mg/dL (8-23) H 02/02/18 04:54 Creatinine 3.04 mg/dL (0.70-1.30) H 02/02/18 04:54 Est GFR ( Amer) 25 (> 60) L 02/02/18 04:54 Est GFR (Non-Af Amer) 21 (> 60) L 02/02/18 04:54 Glucose 162 mg/dL (70-105) H 02/02/18 04:54 POC Glucose 166 mg/dL (70-99) H 02/01/18 20:35 Hemoglobin A1c 10.2 % (-5.6) H 01/28/18 03:37 Calcium 8.3 mg/dL (8.6-10.3) L 02/02/18 04:54 Phosphorus 5.5 mg/dL (2.7-4.5) H 02/02/18 04:54 Magnesium 2.9 mg/dL (1.6-2.6) H 01/28/18 03:37 AST 48 Units/L (13-39) H 01/28/18 03:37 Alkaline Phosphatase 408 Units/L (34-104) H 01/28/18 03:37 Lactate Dehydrogenase 275 Units/L (140-271) H 01/29/18 03:17 Troponin I 0.05 ng/mL (< 0.04) H* 01/28/18 00:19 B-Natriuretic Peptide 800 pg/mL (Less than 100) H 01/27/18 12:48 Serum Total Protein 5.7 g/dL (6.4-8.9) L 01/28/18 03:37 Albumin 2.8 g/dL (3.5-5.7) L 02/02/18 04:54 HDL Cholesterol 36 mg/dL (40-59) L 01/28/18 03:37 Procalcitonin 0.22 ng/mL (<=0.07) H 01/27/18 15:54 TSH 7.788 mcIU/mL (0.340-5.600) H 01/28/18 03:37 Urine Protein 100 mg/dL (Neg-Trace) H 01/27/18 Unknown Urine Blood Trace (Negative) H 01/27/18 Unknown Nasal Screen MRSA (PCR) Positive (Negative) A 01/27/18 16:15 - Microbiology Findings Microbiology Findings: Microbiology, Last 48 Hours 01/28/18 10:50 Body Fluid Culture - Final Pleural Fluid - Clinical Findings Intake & Output: Intake & Output 02/01/18 02/02/18 02/02/18 23:59 07:59 15:59 Intake Total 220 / 220 100 / 100 0 / 0 Output Total 400 / 400 250 / 250 Balance -180 / -180 100 / 100 -250 / -250 Consult Discharge Plan - Plan Referrals: Maria Antonia Friend, [employer]ILY [employer] [Primary Care Provider] - - Attending Attestation I examined this patient and my medical decision-making was reviewed with the Resident Physician. I agree with the documented findings, disposition and treatment plan as described except to the extent set forth below. Patient seen and examined. Labs, radiology, chart personally reviewed. 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 Patient has significant leg swelling and he stated that he has had thoracentesis at least 2 times for now and he stated that he does help him to breathe better after thoracentesis. I have discussed with patient about Pleurx pleural catheter, however since patient is not requiring this to be drained more frequently and thoracentesis when patient has symptoms is more reasonable and he agreed with the plan. At this time even though his chest x-ray shows some evidence of reaccumulation, patient is asymptomatic and no need for intervention. Diuresis as much as possible and nephrology is following. Thank you for consultation and please call for any questions. <Klaus Calderon - Last Filed: 02/02/18 11:15> Date of Encounter: 02/02/18 Time of Encounter: 08:35 Assessment and Plan (1) Pleural effusion Current Visit: Yes Status: Acute - recurrent pleural effusions with multiple thoracentesis - reported thoracentesis 2 since November of this year - Patient is currently asymptomatic and not requiring oxygen - Nephrology is consulted and following for CARLOS - Most recent chest x-ray did show some reaccumulation of fluid from thoracentesis on this visit At this point, we did discuss the possibility of a Pleurx catheter, however as the patient is asymptomatic and he is not having thoracentesis more frequently, we have both agreed to hold off on Pleurx catheter. Recommend continued diuresis as much as possible and medical management. (2) Acute on chronic diastolic heart failure Current Visit: Yes Status: Acute As above for pleural effusion Echocardiogram shows ejection fraction of 775% with hyperdynamic left ventricle. Mild left ventricular hypertrophy. Patient does report symptomatology of fluid accumulation, edema, orthopnea, PND. Recommend diuresis as above Recommendations for no pleurx catheter as above (3) COPD (chronic obstructive pulmonary disease) Current Visit: No Status: Chronic Does not appear to be in acute exacerbation Symptomology more likely related to pleural effusion and congestive heart failure Pleural effusion appears to be transudative Recommend diuresis Qualifiers: COPD type: emphysema Emphysema type: unspecified Qualified Code(s): J43.9 - Emphysema, unspecified History of Present Illness Consult date: 02/02/18 Requesting physician: Karla Galarza Reason for consult: pleural effusion Chief complaint: SOB History of present illness: Mr. Newman is a 67-year-old male with past medical history of CAD status post CABG and stents, CVA, diabetes, COPD, carotid stenosis, hypertension. He presents emergency department on 01/27/18 complaining of productive cough and dyspnea. Pulmonology was consulted on 01/30 for concerns of recurrent pleural effusion and evaluation for possible Pleurx catheter. Past medical history as above. Patient states that his shortness of breath has overall been present since November when his admitted to for a walking pneumonia to [place]. He states that since then his symptoms were present off and on with this most recent episode beginning on 01/22/18. He states his cough is productive with thick white phlegm. He states that his shortness of breath is exacerbated with exertion and relieved partially with rest and bronchodilators. He also admits to symptoms of orthopnea and PND intermittently. He states he does have some swelling in his lower extremities which are improved from admission. He is a former smoker 44 years but states he quit many years ago and is unable to recall the exact number. He currently denies any symptoms of fevers, chills, vomiting, diarrhea, chest pain, palpitations. He does admit to some nausea. He also states that he has had recurrent pleural effusions with thoracentesis 2 since November, once at [place]. On presentation to the emergency room, patient's vital signs were unremarkable and he was tolerating room air. Laboratory results are significant for a baseline anemia, CARLOS with BUNs/creatinine 57/2.92 and potassium 5.3. Sodium was also low at 129 and chloride was low at 95. Lactic acid was elevated at 2.8 which was trended to normal limits. A1c was also elevated at 10.2%. BNP of 800. CXR shows large right pleural effusion with compressive atelectasis. He did undergo thoracentesis on 01/28/18 with total of 1.1 liters removed and repeat chest x-ray showing no complications. Repeat chest x-ray on 01/30/18 shows moderate right-sided pleural effusion which is increased in size from previous. Today during exam, patient states that overall he is feeling better and that his shortness of breath has improved. He states that he is not requiring his oxygen right now and denies any cough. He denies any symptoms of fevers, chills, vomiting and nausea associated with constipation otherwise okay. States his lower extremity edema has improved a little bit. Past Med Surg Social Fam HX - Past Medical History Medical history: COPD, coronary artery disease, CVA, diabetes, hyperlipidemia, hypertension, myocardial infarction, renal disease Psychiatric history: no psych history - Past Surgical History Surgical History: angioplasty/stent, carotid endarterectomy Additional surgical history: CABG x4v. cardiac stents x 14. left index finger - Social History Smoking Status: Former smoker Smokeless Tobacco Status: Yes (chewing tobacco) Alcohol use: none Drug use: none - Family History Brother Adopted: No Family Member Ethnicity: Non- Living Status: Still Living Hx Family Cardiac Disorders: Yes (HEART DISEASE) Hx Family Respiratory Disorders: No Hx Family Cancer: No Hx Family GI Disorders: No Hx Family Endocrine Disorder: No Hx Family Neuromuscular Disorders: No Hx Family Neurologic Disorders: No Hx Family HEENT Disorders: No Hx Family Autoimmune Disorders: No All Systems: The remainder of the systems were reviewed and are negative Review of Systems: - Constitutional: Denies fevers, chills, weight loss, generalized fatigue - EENT: Denies vision changes/blurriness, tinnitus, auditory changes, rhinorrhea, congestion, sore throat, odynaphagia - CVS: Admits to PEARCE, orthopnea, edema, PND. Denies chest pain, palpitations - Pulm: Admits to SOB, cough. Denies hematemesis, wheezing - GI: Denies abdominal pain, anorexia, vomiting, diarrhea, constipation, melena - : Denies dysuria, increased frequency, urgency, hematuria, - Skin: Denies rashes, ulcers, color changes, - Neuro: Denies MÉNDEZ, paresthesias, focal deficits, ataxia Physical Examination Vital Signs: Vital Signs, Last 4 Hours Resp Pulse Ox 02/02/18 07:34 18 95 Gen.: Vitals noted. No acute distress. AAOx3, resting comfortably in bed. HEENT: PERRL/EOMI, oropharynx clear, Normocephalic, atraumatic, MMM Cardiac: RRR, no murmur, +S1/S2, 3+ bilateral lower extremity pitting edema, cool extremities. Pulmonary: Decreased breath sounds on right . equal chest expansion, unlabored breathing Abdomen: soft, nontender, BS noted, no guarding, no palpable HSM Skin: dry, no visible lesions. Cool MSK: ROM intact, no joint swelling noted, gait no assessed while in bed. Non tender calf or clubbing Neuro: A&Ox3, moves all extremities, no focal deficits, sensation intact Psych: Appropriate mood and behavior, AOx3 Results - Laboratory Findings CBC and BMP: 02/01/18 07:19 02/02/18 04:54 PT/INR, D-dimer PT 19.7 Seconds (9.4-12.1) H 01/28/18 03:37 Abnormal lab findings: Abnormal lab results Hgb 12.4 g/dL (12.9-16.9) L 02/01/18 07:19 MCV 76.7 fL (83.0-100.0) L 02/01/18 07:19 MCH 24.3 pg (28.0-33.3) L 02/01/18 07:19 RDW 20.7 % (11.5-14.5) H 02/01/18 07:19 PT 19.7 Seconds (9.4-12.1) H 01/28/18 03:37 APTT 54.0 Seconds (26.0-36.0) H D 01/28/18 06:38 Heparin Anti-Xa, Unfract > 2.00 IU/mL (0.30-0.70) H* 01/28/18 06:38 Sodium 129 mEq/L (136-145) L 01/31/18 03:20 Carbon Dioxide 20 mEq/L (23-29) L 01/31/18 03:20 BUN 57 mg/dL (8-23) H 01/31/18 03:20 Creatinine 3.08 mg/dL (0.70-1.30) H 01/31/18 03:20 Est GFR ( Amer) 25 (> 60) L 01/31/18 03:20 Est GFR (Non-Af Amer) 20 (> 60) L 01/31/18 03:20 Glucose 220 mg/dL (70-105) H 01/31/18 03:20 POC Glucose 166 mg/dL (70-99) H 02/01/18 20:35 Hemoglobin A1c 10.2 % (-5.6) H 01/28/18 03:37 Calcium 8.4 mg/dL (8.6-10.3) L 01/31/18 03:20 Phosphorus 5.5 mg/dL (2.7-4.5) H 01/31/18 03:20 Magnesium 2.9 mg/dL (1.6-2.6) H 01/28/18 03:37 AST 48 Units/L (13-39) H 01/28/18 03:37 Alkaline Phosphatase 408 Units/L (34-104) H 01/28/18 03:37 Lactate Dehydrogenase 275 Units/L (140-271) H 01/29/18 03:17 Troponin I 0.05 ng/mL (< 0.04) H* 01/28/18 00:19 B-Natriuretic Peptide 800 pg/mL (Less than 100) H 01/27/18 12:48 Serum Total Protein 5.7 g/dL (6.4-8.9) L 01/28/18 03:37 Albumin 2.8 g/dL (3.5-5.7) L 01/31/18 03:20 HDL Cholesterol 36 mg/dL (40-59) L 01/28/18 03:37 Procalcitonin 0.22 ng/mL (<=0.07) H 01/27/18 15:54 TSH 7.788 mcIU/mL (0.340-5.600) H 01/28/18 03:37 Urine Protein 100 mg/dL (Neg-Trace) H 01/27/18 Unknown Urine Blood Trace (Negative) H 01/27/18 Unknown Nasal Screen MRSA (PCR) Positive (Negative) A 01/27/18 16:15 - Microbiology Findings Microbiology Findings: Microbiology, Last 48 Hours 01/28/18 10:50 Body Fluid Culture - Final Pleural Fluid - Clinical Findings Intake & Output: Intake & Output 02/01/18 02/02/18 02/02/18 23:59 07:59 15:59 Intake Total 220 / 220 100 / 100 Output Total 400 / 400 250 / 250 Balance -180 / -180 100 / 100 -250 / -250
[2018-02-02] MEDS: Insulin LISPRO 300 UNITS/3 ML VIAL SQ SCH ×5 (09:17→21:45)
[2018-02-02 10:00] LABS: Albumin 2.8 g/dL (3.5-5.7); Calcium 8.3 mg/dL (8.6-10.3); Phosphorous 5.5 mg/dL (2.7-4.5); Potassium 4.3 mEq/L (3.5-5.1)
[2018-02-02 10:21] LABS: Sodium, Urine 18.8 mEq/L
[2018-02-02] MEDS ORDERED: Tolvaptan 15 MG TABLET PO ONE (10:35)
[2018-02-02 10:41] LABS: Prothrombin Time 33.9 Seconds (9.4-12.1)
[2018-02-02 10:43] LABS: Activated Partial Thrombo Time 40.7 Seconds (26.0-36.0)
--- NOTE | 2018-02-02 16:01 | Internal Med Progress Note ---
Hospitalist Progress Note - Encounter Date of Encounter: 02/02/18 Time of Encounter: 15:50 - Subjective Interval History: Patient sitting comfortably on chair. at bedside. Immature ER notice with Gomez catheter. Review the lab with trending down sodium, blood pressure low normal. Denies fever or chills vomiting headache dizziness chest pain or shortness of breath abdominal pain - Exam Vitals: Temp Pulse Resp BP Pulse Ox 98.6 F 77 16 94/77 96 02/02/18 11:52 02/02/18 11:52 02/02/18 11:52 02/02/18 11:52 02/02/18 11:52 Exam: General: Patient is alert, oriented, in no acute distress. at bedside Head: atraumatic, normocephalic, Eye: PERRLA EOMI ENT: mucous membranes moist Chest: normal inspection, symmetric chest rise Respiratory: Good respiratory effort. Decreased breath sounds at bases, no wheezing, left basilar crackles. Cardiovascular: Irregular s1 and s2 No clicks, rubs, gallops, or murmors. Abdomen: Abdomen is soft, nondistended. no epigastric tenderness. No guarding or rebound. Musculoskeletal: Spontaneously moving all extremities. +2/3 edema up to mid thighs Skin: warm, dry, intact. bilateral lower extremities are warm, erythematous, skin breakdowns in bilateral anterior shins with petechiae and serous drainage Neuro: Alert and oriented x4. No focal deficit - Assessment and Plan (1) Gross hematuria Current Visit: Yes Status: Acute Assessment and Plan: Newly diagnosed. Patient had hematuria for last 2-3 days therefore previous provider had Eliquis but does not seem like helping. A stable hemoglobin. Consulted urologists who advised to hold oral anticoagulant medicine and will consider cystoscopy soon. Call urologist soon if urine is not draining through Gomez catheter or any obstruction suspected. (2) CAD (coronary artery disease) Current Visit: Yes Status: Chronic Assessment and Plan: Stable. On hold aspirin, Eliquis due to hematuria. Calcium channel livan and beta livan on hold due to low blood pressure. Echocardiogram on LVEF 70-75%, hperdynamic LV. Mild concentric left ventricular hypertrophy.There is a trivial to small pericardial effusion lateral to posterolateral LV wall. troponin trended flat Limited TTE 11/11/17: Limited echo. LVEF 65%. Normal LV chamber size and systolic function. Mild concentric left ventricular hypertrophy. Normal right ventricular structure and function. No pericardial effusion. [facility] 08/31/17: Impressions: There is severe three vessel coronary artery disease with RCA and LCX 100% instent restenosis FFR Measurement: 0.84 prox LAD. Mid LAD 0.78. Recommendations: Optimal medical therapy of patient's disease. Aggressive risk factor modification. Suggest patient have Elective coronary artery bypass surgery. We will consult cardiology is patient has severe underlying cardiac disease but anticoagulation on hold due to hematuria and also rate control medicine on hold due to low blood pressure. Complicated case therefore need expert opinion . Will restart low-dose beta livan and titrate up based on tolerance. (3) Diabetes Current Visit: No Status: Chronic Assessment and Plan: Blood glucose is well controlled even dose of Lantus on hold. I started low dose Lantus 10 unit in the night. Continue Accu-Chek and sliding scale insulin A1c 10.2 (4) COPD (chronic obstructive pulmonary disease) Current Visit: No Status: Chronic Assessment and Plan: Currently not an exacerbation Continue home inhalers Oxygen via nasal cannula to keep sats above 92 (5) Hypertension Current Visit: No Status: Chronic Assessment and Plan: No normal blood pressure therefore beta livan and calcium channel livan on hold. Close monitoring. (6) PAF (paroxysmal atrial fibrillation) Current Visit: No Status: Acute Assessment and Plan: metoprolol and cardizem has been on hold as low blood pressure. Patient is still has intermittent heart rate Maximum 150s . Consulted cardiology for further medical management. on hold aspirin and Eliquis due to above reason Chads vasc 6 (7) Acute on chronic diastolic heart failure Current Visit: Yes Status: Acute Assessment and Plan: Patient with shortness of breath, PND, orthopnea and bilateral lower extremity swelling Troponin 0.04 trended to 0.05 x 2 BNP 800 Echocardiogram- on LVEF 70-75%, hperdynamic LV. Mild concentric left ventricular hypertrophy.There is a trivial to small pericardial effusion lateral to posterolateral LV wall. Strict intake and output Daily weights Fluid restrictions less than 1 L Gomez catheter with a strict I&O's was treated with IV lasix and switched to oral however it was held secondary to worsening renal function. Limited TTE 11/11/17: Limited echo. LVEF 65%. Normal LV chamber size and systolic function. Mild concentric left ventricular hypertrophy. Normal right ventricular structure and function. No pericardial effusion. [facility] 08/31/17: Impressions: There is severe three vessel coronary artery disease with RCA and LCX 100% instent restenosis FFR Measurement: 0.84 prox LAD. Mid LAD 0.78. (8) Acute renal failure superimposed on stage 3 chronic kidney disease Current Visit: Yes Status: Acute Assessment and Plan: Baseline creatinine ranges anywhere from 1.8 to 1.9 creatinine 2.92 on admission trended down to 2.85 however trended up to 3.08 and 2.98 today Lasix held Nephrology recommendations appreciated will continue with gentle hydration Retroperitoneal ultrasound- IMPRESSION:Right kidney is unremarkable in appearance. The left kidney is not visualized. Continue with Gomez Strict intake and output Will avoid nephrotoxic medications (9) Bilateral lower extremity edema Current Visit: Yes Status: Acute Assessment and Plan: Bilateral lower extremity edema, erythema and tenderness most likely secondary to CHF exacerbation and venous stasis . DVT study of the lower extremities- Patient appears to be negative for DVT and SVT. MIAH measurements appear to be within normal limits CPK 44 Wound care consulted Elevate extremities (10) Pleural effusion Current Visit: Yes Status: Acute Assessment and Plan: Patient with right-sided pleural effusion Recently had thoracocentesis performed at [facility] Status post IR guided thoracocentesis with 1 L of fluid removal on 01/28, appears to be exudative however he was on Lasix will follow pleural fluid cultures. On doxycyline and Zosyn de-escalate as per cultures-culture with no growth yet therefore Zosyn stopped and will continue doxycycline. Review of the pulmonologists note-discussed about the possibility of a Pleurx catheter but as patient is asymptomatic and he is not having thoracentesis more frequently than patient and pulmonologists agreed to hold off on Pleurx catheter right now and recommended to continue diuresis and maximizing medical m anagement. (11) HAP (hospital-acquired pneumonia) Current Visit: Yes Status: Acute Assessment and Plan: Patient with multiple hospital admissions currently with shortness of breath, right-sided pleural effusion, and chills vancomycin stopped as kidney functions declined currently on doxycycline and zosyn -stopped Zosyn after reviewing culture report and patient has been afebrile with normal white count. Sputum cultures- pending nursing staff aware Urine has generalized and a Streptococcus pneumoniae and legionella and a Streptococcus pneumoniae antigens- negative Influenza- negative MRSA swab- positive Started MRSA decolonization on 01/29 blood cultures - NGTD pleural fluid cx - with no gross Procalcitonin- 0.22 ( in setting of renal failure) (12) Hyponatremia with excess extracellular fluid volume Current Visit: Yes Status: Acute Assessment and Plan: Hypervolemic hyponatremia secondary to acute on chronic diastolic heart failure. Stable creatinine level but trending down sodium level. Reviewed nephrology note and he recommended freewater diuresis with tolvaptan 15 milligrams 1. Continue to monitor BMP, a strict I&O's. Holding furosemide and a started 1 L of sodium bicarbonate infusion due to metabolic acidosis. Patient may need albumin. Renal ultrasound unremarkable. (13) Hyperkalemia Current Visit: Yes Status: Resolved Assessment and Plan: Normal potassium level. On admission high potassium level therefore 1 dose of Kayexalate was given. Exercise Science Instructor on board. (14) DVT prophylaxis Current Visit: No Status: Acute Assessment and Plan: Hold anticoagulation medicine due to hematuria. SCDs - Time Spent with Patient Total time spent is greater than 50% in coordination of care (as documented) at patient's floor/unit and/or counseling patient: Greater than 35 minutes Plan of Care Discussed with: patient (Discuss plan of care with patient and family nursing is stopped. 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 transplanted heart: redding heart Associated angina: without angina Qualified Code(s): I25.10 - Atherosclerotic heart disease of redding coronary artery without angina pectoris (3) Diabetes Qualifiers: Diabetes mellitus type: type 2 Diabetes mellitus shelter insulin use: without long term care administrator use Diabetes mellitus complication status: with unspecified complications Qualified Code(s): E11.8 - Type 2 diabetes mellitus with unspecified complications (4) COPD (chronic obstructive pulmonary disease) Qualifiers: COPD type: emphysema Emphysema type: unspecified Qualified Code(s): J43.9 - Emphysema, unspecified (5) Hypertension Qualifiers: Hypertension type: essential hypertension Qualified Code(s): I10 - Essential (primary) hypertension (8) Acute renal failure superimposed on stage 3 chronic kidney disease Qualifiers: Acute renal failure type: unspecified Qualified Code(s): N17.9 - Acute kidney failure, unspecified; N18.3 - Chronic kidney disease, stage 3 (moderate)
[2018-02-02] MEDS: Finasteride 5 MG TABLET PO SCH (17:19)
[2018-02-02] MEDS ORDERED: Saline Nasal Spray 44 ML BOTTLE NS PRN (20:38)
[2018-02-02] MEDS ORDERED: Insulin DETEMIR 100 UNIT/ML X5UNITS SQ SCH (21:00)
[2018-02-02] MEDS: Acetaminophen 325 MG TABLET PO PRN (23:13)
[2018-02-03] MEDS: Ipratropium/Albuterol Neb 3 ML IH SCH ×7 (00:02→23:28)
[2018-02-03] MEDS: Doxycycline 100 MG CAPSULE PO SCH ×2 (06:34→18:25)
[2018-02-03 06:47] LABS: Basophils % 0.2 %; Eosinophils % 0.4 %; Hematocrit 40.7 % (37.5-50.1); Hemoglobin 12.6 g/dL (12.9-16.9); Immature Granulocytes % 0.7 % (0-4); Lymphocytes # 1.6 K/mcL (0.6-4.6); Lymphocytes % 16.9 %; Mean Corpuscular Hemoglobin 24.2 pg (28.0-33.3); Mean Corpuscular Volume 78.3 fL (83.0-100.0); Monocytes % 10.6 %; Neutrophils # 6.6 K/mcL (1.6-8.9); Nucleated Red Blood Cells 0.4 /100 WBC (0); Platelet Count 212 K/mcL (140-400); Red Cell Distribution Width 20.6 % (11.5-14.5); Segmented Neutrophils % 71.2 %
[2018-02-03 07:04] LABS: Calcium 8.9 mg/dL (8.6-10.3); Phosphorous 5.5 mg/dL (2.7-4.5); Potassium 4.3 mEq/L (3.5-5.1)
--- NOTE | 2018-02-03 08:40 | Urology - Consult Note ---
Date of Encounter: 02/03/18 Time of Encounter: 08:40 - Assessment and Plan (1) Gross hematuria Current Visit: Yes Status: Acute Assessment and plan: I personally reviewed the CT scan. The left renal atrophy is likely chronic and not contributing to the gross hematuria. No surgical intervention required for the atrophy. Right kidney appears normal without hydronephrosis. There is no urolithiasis. He does have mild bladder wall thickening with a collapsed bladder around the Gomez catheter. There is no evidence of clots within the bladder. There is no obvious evidence of tumor. Prostate does not appear overly enlarged. Based on the appearance of the urine in the Gomez tubing it appears the hematuria is resolving. I recommend holding all anticoagulation if possible. His PT did remain elevated yesterday. I suspect with holding anticoagulation and continuing catheter drainage the hematuria will completely resolve. I recommend continuing the Gomez catheter until the urine has completely cleared. At this point it should be okay to remove the Gomez catheter and restart anticoagulation. Continue finasteride as it can help decrease risk of hematuria. If anticoagulation is necessary from a medical standpoint I recommend starting at the lowest dose possible and watching the urine closely. At this point I am unsure the true etiology of the hematuria. Although his prostate is not enlarged this is the most likely source. Need to also consider malignancy. I discussed outpatient cystoscopy with the patient. He seemed resistant at this time but I will make a follow-up appointment to kaela. I will continue to follow the patient while he is admitted at the hospital. Urology CN:HPI Consult date: 02/03/18 Reason for consult Urology: Gross Hematuria History of present illness: Consult for gross hematuria. Patient has been on anticoagulation and a Gomez catheter placed during admission. Has had worsening hematuria for the last 2-3 days. Patient was aware of the hematuria. Catheter has had no issues with drainage. Patient reports distant history of gross hematuria that was managed with a "pill "it resolved. He describes no previous evaluation by urology for cystoscopy. CT/CT abd pelvis wo no iv no oral IMPRESSION: 1. Partially decompressed urinary bladder with possible circumferential wall thickening as can be seen with cystitis. Recommend correlation with urinalysis. No obstructive uropathy. 2. Severe left renal atrophy. Past Med Surg Social Fam HX - Past Medical History Medical history: COPD, coronary artery disease, CVA, diabetes, hyperlipidemia, hypertension, myocardial infarction, renal disease Psychiatric history: no psych history - Past Surgical History Surgical History: angioplasty/stent, carotid endarterectomy Additional surgical history: CABG x4v. cardiac stents x 14. left index finger - Social History Smoking Status: Former smoker Smokeless Tobacco Status: Yes (chewing tobacco) Alcohol use: none Drug use: none - Family History Brother Adopted: No Family Member Ethnicity: Non- Living Status: Still Living Hx Family Cardiac Disorders: Yes (HEART DISEASE) Hx Family Respiratory Disorders: No Hx Family Cancer: No Hx Family GI Disorders: No Hx Family Endocrine Disorder: No Hx Family Neuromuscular Disorders: No Hx Family Neurologic Disorders: No Hx Family HEENT Disorders: No Hx Family Autoimmune Disorders: No Medications and Allergies RX: Aspirin [Lo-Dose Aspirin EC] 81 mg PO DAILY 08/30/17 [History] RX: Ferrous Sulfate 325 mg PO Q48H 08/30/17 [History] RX: Nitroglycerin [Nitrostat] 0.4 mg SL Q5MIN PRN 08/30/17 [History] RX: Ranitidine HCl [Heartburn Relief] 150 mg PO BID 08/30/17 [History] RX: Rosuvastatin [Crestor] 20 mg PO HS 08/30/17 [History] RX: Albuterol Sulfate [Ventolin Hfa] 2 puff IH Q6H PRN 12/27/17 [History] RX: Insulin Glargine,Hum.rec.anlog [Basaglar Kwikpen U-100] 40 unit SQ HS 12/27/17 [History] RX: Metoprolol [Lopressor] 25 mg PO BID #0 tablet 12/30/17 [Rx] RX: glyBURIDE [GlyBURIDE] 5 mg PO BIDWM #28 tablet 12/30/17 [Rx] RX: EPINEPHrine [Epipen] 0.3 mg IM ONCE PRN 01/04/18 [History] RX: Apixaban [Eliquis] 5 mg PO BID 30 Days #60 tablet 01/08/18 [Rx] Diltiazem HCl [Cardizem] 60 mg PO Q6H 01/27/18 [History] RX: Fluticasone/Salmeterol [Advair 500-50 Diskus] 1 puff IH BID 12/18/18 [History] Allergy/AdvReac Type Severity Reaction Status Date / Time codeine Allergy Intermediate Agitated Verified 01/27/18 12:16 morphine Allergy Intermediate Agitated Verified 01/27/18 12:16 Review of Systems - Constitutional no chills, no fever(s) - EENT Nose, mouth and throat: no dizziness, no headache(s) - Cardiovascular edema, leg edema, no chest pain - Respiratory no cough - Gastrointestinal no abdominal pain - Genitourinary hematuria - Musculoskeletal back pain - Integumentary no erythema - Neurological no as per HPI - Psychiatric no anxiety - Hematologic/Lymphatic easy bleeding - Allergic/Immunologic no throat swelling Exam Initial Vital Signs Pulse Resp Pulse Ox 84 18 100 01/27/18 12:15 01/27/18 12:15 01/27/18 12:15 - General physical appearance Present: no distress - Eyes Present: PERRL, conjunctiva is clear - ENT Present: normal nares - Neck Present: no masses, trachea midline, no lymphadenopathy - Respiratory Present: normal respiratory effort - Cardiovascular Cardiovascular exam IM: RRR - Abdomen Abdomen: Present: soft. Absent: tender, suprapubic tenderness - Genitourinary normal penis with no external lesions (Gomez catheter in place draining mostly clear urine in the tubing - transparent and not pink or red in color Minimal amount of debris. No obvious clots. The Gomez bag has more maroon/reddish urine) - Integumentary Present: erythema (Legs) - Neurologic Present: normal coordination. Absent: disoriented, confused - Additional Findings Legs with pitting seeping edema. Urology Results - Labs 02/03/18 06:34 02/03/18 06:34 Abnormal lab results Hgb 12.6 g/dL (12.9-16.9) L 02/03/18 06:34 MCV 78.3 fL (83.0-100.0) L 02/03/18 06:34 MCH 24.2 pg (28.0-33.3) L 02/03/18 06:34 MCHC 31.0 g/dL (31.6-35.5) L 02/03/18 06:34 RDW 20.6 % (11.5-14.5) H 02/03/18 06:34 Nucleated RBCs/100 WBC 0.4 /100 WBC (0) H 02/03/18 06:34 PT 33.9 Seconds (9.4-12.1) H D 02/02/18 10:12 APTT 40.7 Seconds (26.0-36.0) H 02/02/18 10:12 Heparin Anti-Xa, Unfract > 2.00 IU/mL (0.30-0.70) H* 01/28/18 06:38 Sodium 128 mEq/L (136-145) L 02/03/18 06:34 Chloride 96 mEq/L (98-107) L 02/03/18 06:34 Carbon Dioxide 22 mEq/L (23-29) L 02/03/18 06:34 BUN 71 mg/dL (8-23) H 02/03/18 06:34 Creatinine 3.33 mg/dL (0.70-1.30) H 02/03/18 06:34 Est GFR ( Amer) 23 (> 60) L 02/03/18 06:34 Est GFR (Non-Af Amer) 19 (> 60) L 02/03/18 06:34 Glucose 157 mg/dL (70-105) H 02/03/18 06:34 POC Glucose 122 mg/dL (70-99) H 02/02/18 17:03 Hemoglobin A1c 10.2 % (-5.6) H 01/28/18 03:37 Phosphorus 5.5 mg/dL (2.7-4.5) H 02/03/18 06:34 Magnesium 2.9 mg/dL (1.6-2.6) H 01/28/18 03:37 AST 48 Units/L (13-39) H 01/28/18 03:37 Alkaline Phosphatase 408 Units/L (34-104) H 01/28/18 03:37 Lactate Dehydrogenase 275 Units/L (140-271) H 01/29/18 03:17 Troponin I 0.05 ng/mL (< 0.04) H* 01/28/18 00:19 B-Natriuretic Peptide 800 pg/mL (Less than 100) H 01/27/18 12:48 Serum Total Protein 5.7 g/dL (6.4-8.9) L 01/28/18 03:37 Albumin 3.0 g/dL (3.5-5.7) L 02/03/18 06:34 HDL Cholesterol 36 mg/dL (40-59) L 01/28/18 03:37 Procalcitonin 0.22 ng/mL (<=0.07) H 01/27/18 15:54 TSH 7.788 mcIU/mL (0.340-5.600) H 01/28/18 03:37 Urine Protein 100 mg/dL (Neg-Trace) H 01/27/18 Unknown Urine Blood Trace (Negative) H 01/27/18 Unknown Nasal Screen MRSA (PCR) Positive (Negative) A 01/27/18 16:15 Diabetes panel 02/02/18 02/03/18 Range/Units 04:54 06:34 Sodium 127 L 128 L (136-145) mEq/L Potassium 4.3 4.3 (3.5-5.1) mEq/L Chloride 97 L 96 L (98-107) mEq/L Carbon Dioxide 16 L 22 L (23-29) mEq/L BUN 62 H 71 H (8-23) mg/dL Creatinine 3.04 H 3.33 H (0.70-1.30) mg/dL Glucose 162 H 157 H (70-105) mg/dL Calcium 8.3 L 8.9 (8.6-10.3) mg/dL Albumin 2.8 L 3.0 L (3.5-5.7) g/dL Calcium panel 02/02/18 02/03/18 Range/Units 04:54 06:34 Calcium 8.3 L 8.9 (8.6-10.3) mg/dL Phosphorus 5.5 H 5.5 H (2.7-4.5) mg/dL Albumin 2.8 L 3.0 L (3.5-5.7) g/dL Pituitary panel 02/02/18 02/03/18 Range/Units 04:54 06:34 Sodium 127 L 128 L (136-145) mEq/L Potassium 4.3 4.3 (3.5-5.1) mEq/L Chloride 97 L 96 L (98-107) mEq/L Carbon Dioxide 16 L 22 L (23-29) mEq/L BUN 62 H 71 H (8-23) mg/dL Creatinine 3.04 H 3.33 H (0.70-1.30) mg/dL Glucose 162 H 157 H (70-105) mg/dL Calcium 8.3 L 8.9 (8.6-10.3) mg/dL Adrenal panel 02/02/18 02/03/18 Range/Units 04:54 06:34 Sodium 127 L 128 L (136-145) mEq/L Potassium 4.3 4.3 (3.5-5.1) mEq/L Chloride 97 L 96 L (98-107) mEq/L Carbon Dioxide 16 L 22 L (23-29) mEq/L BUN 62 H 71 H (8-23) mg/dL Creatinine 3.04 H 3.33 H (0.70-1.30) mg/dL Glucose 162 H 157 H (70-105) mg/dL Calcium 8.3 L 8.9 (8.6-10.3) mg/dL Albumin 2.8 L 3.0 L (3.5-5.7) g/dL All other labs normal. Consult Discharge Plan - Plan Referrals: Maria Antonia Friend, PHARMACEUTICAL SALESPERSON [Primary Care Provider] -
[2018-02-03] MEDS: Nystatin SUSP 5 ML UD.LIQ PO SCH ×4 (09:06→22:28)
[2018-02-03] MEDS: Insulin LISPRO 300 UNITS/3 ML VIAL SQ SCH ×4 (09:06→22:28)
[2018-02-03] MEDS: Finasteride 5 MG TABLET PO SCH (09:07)
[2018-02-03] MEDS: Sennosides/Docusate Sodium TABLET PO SCH ×2 (09:07→22:28)
[2018-02-03] MEDS: Famotidine 20 MG TABLET PO SCH (09:07)
[2018-02-03] MEDS ORDERED: Furosemide 40 MG/4 ML VIAL IVP ONE (10:17)
--- NOTE | 2018-02-03 11:39 | Cardiology Consult Note ---
<Jonathan Ragland - Last Filed: 02/03/18 11:35> Date of Encounter: 02/03/18 Time of Encounter: 09:15 Assessment and Plan (1) CAD (coronary artery disease) Current Visit: Yes Status: Chronic H/o 4V CABG 10/2017 at [place]. He denies chest pain. Continue medical management with aspirin, statin, and beta livan. Would not recommend holding aspirin. Qualifiers: Coronary Disease-Associated Artery/Lesion type: unspecified vessel or lesion type [place] vs. transplanted heart: [place] heart Associated angina: without angina Qualified Code(s): I25.10 - Atherosclerotic heart disease of [place] coronary artery without angina pectoris (2) PAF (paroxysmal atrial fibrillation) Current Visit: No Status: Acute Per records patient has a history of atrial fibrillation with intermittent afib with RVR during this stay. He is currently normal sinus rhythm. Currently on metoprolol. Patient's blood pressure consistently in the 90s. Continue metoprolol as tolerated. If patient develops atrial fibrillation with RVR will need to consider using amiodarone due to hypotension. Avoid using Lanoxin secondary to renal disease. In regards to long-term anticoagulation will need to assess readiness of restarting eliquis prior to discharge. Anticoagulation held due to concern for hematuria. Would recommend restarting at discharge if able. Hgb stable. (3) Acute on chronic diastolic heart failure Current Visit: Yes Status: Acute Patient with acute on chronic HFpEF. TTE completed during stay shows EF 75%, hperdynamic LV. Mild concentric left ventricular hypertrophy. There is a trivial to small pericardial effusion lateral to posterolateral LV wall. Patient with significant fluid overload on exam. S/p thoracentesis during stay. Reports symptoms improved after. Continues to have SOB, orthopnea, and pitting BLE. Nephrology following for CARLOS and hyponatremia. Appreciate recs. Discussed w ith Dr. Sarmiento, recommends IV lasix x1 for fluid status. Close monitoring of kidney function. Strict I&O and daily weights. Discussion w patient/family: The assessment and plan as outlined above was discussed with the patient and/or family members who expressed understanding and agreement. All questions were answered. Thank you for involving us in the care of your patient. Please call with any questions. History of Present Illness Consult date: 02/03/18 Requesting physician: Margarita Yi Consult reason: CAD, afib, recurrent pleural effusions Chief complaint: Shortness of breath, orthopnea, bilateral lower extremity edema History of present illness: Mr. Newman is a 67 year old male with past medical history of CAD status post CABG 10/2017 at [facility], paroxysmal atrial fibrillation, hypertension, and diabetes type 2 who presents with recurrent shortness of breath. He complains of increasing shortness of breath, orthopnea, or lower extremity edema. Symptoms have occurred intermittently since his CABG. He reports being diagnosed with pneumonia after his surgery. Complains of frequent hospital admissions. He has required thoracentesis 2 since his surgery. In December he developed new onset atrial fibrillation with RVR and was started on liquids. Since that time he is developing concern for GI bleed and anticoagulation is now on hold. During this admission he is diagnosed with acute on chronic diastolic heart failure, hospital acquired pneumonia, acute on chronic kidney disease, and hyponatremia. Cardiology is consulted for CHF and atrial fibrillation. On my exam today patient reports frustration with recurrent hospital stays. He denies chest pain. He complains of orthopnea, shortness of breath, and edema. Per review of charts patient did receive IV Lasix 40 mg once on admission and has not received recurrent doses due to worsening kidney disease. Past Med Surg Social Fam HX - Past Medical History Medical history: COPD, coronary artery disease, CVA, diabetes, hyperlipidemia, hypertension, myocardial infarction, renal disease Psychiatric history: no psych history - Past Surgical History Surgical History: angioplasty/stent, carotid endarterectomy Additional surgical history: CABG x4v. cardiac stents x 14. left index finger - Social History Smoking Status: Former smoker Smokeless Tobacco Status: Yes (chewing tobacco) Alcohol use: none Drug use: none - Family History Brother Adopted: No Family Member Ethnicity: Non- Living Status: Still Living Hx Family Cardiac Disorders: Yes (HEART DISEASE) Hx Family Respiratory Disorders: No Hx Family Cancer: No Hx Family GI Disorders: No Hx Family Endocrine Disorder: No Hx Family Neuromuscular Disorders: No Hx Family Neurologic Disorders: No Hx Family HEENT Disorders: No Hx Family Autoimmune Disorders: No Medications and Allergies Aspirin [Lo-Dose Aspirin EC] 81 mg PO DAILY 08/30/17 [History] Ferrous Sulfate 325 mg PO Q48H 08/30/17 [History] Nitroglycerin [Nitrostat] 0.4 mg SL Q5MIN PRN 08/30/17 [History] Ranitidine HCl [Heartburn Relief] 150 mg PO BID 08/30/17 [History] Rosuvastatin [Crestor] 20 mg PO HS 08/30/17 [History] Albuterol Sulfate [Ventolin Hfa] 2 puff IH Q6H PRN 12/27/17 [History] Insulin Glargine,Hum.rec.anlog [Basaglar Kwikpen U-100] 40 unit SQ HS 12/27/17 [History] Metoprolol [Lopressor] 25 mg PO BID #0 tablet 12/30/17 [Rx] glyBURIDE [GlyBURIDE] 5 mg PO BIDWM #28 tablet 12/30/17 [Rx] EPINEPHrine [Epipen] 0.3 mg IM ONCE PRN 01/04/18 [History] Apixaban [Eliquis] 5 mg PO BID 30 Days #60 tablet 01/08/18 [Rx] Diltiazem HCl [Cardizem] 60 mg PO Q6H 01/27/18 [History] Fluticasone/Salmeterol [Advair 500-50 Diskus] 1 puff IH BID 01/27/18 [History] Allergy/AdvReac Type Severity Reaction Status Date / Time codeine Allergy Intermediate Agitated Verified 01/27/18 12:16 morphine Allergy Intermediate Agitated Verified 01/27/18 12:16 All Systems Review: The remainder of the systems were reviewed and are negative Physical Examination Vital Signs, Last 4 Hours Temp Pulse Resp BP Pulse Ox 02/03/18 08:16 97.9 F 85 18 90/73 97 General: Conversant, Other (Ill appearing, agitated) HEENT: Atraumatic, Normocephaly, Mucus Membranes Moist Neck: No JVD, Normal carotid pulses Cardiac: Reg Rate and Rhythm, Normal S1 and S2, No Murmur, Other Lungs: Normal Breath Sounds, No Wheeze, Rales, Rhonchi Neuro: Alert and responsive, No focal deficits noted Abdomen: Soft, Non-Tender Skin: No rashes noted on visualized skin Musculoskeletal: No Chest Wall Tenderness Extremities: Other (2-3+ pitting edema with weeping in BLE. ) Results 02/03/18 06:34 02/03/18 06:34 Lab Results 02/03/18 02/03/18 06:34 06:34 WBC 9.2 Hgb 12.6 L Hct 40.7 Plt Count 212 Sodium 128 L Potassium 4.3 Chloride 96 L Carbon Dioxide 22 L BUN 71 H Creatinine 3.33 H Glucose 157 H Calcium 8.9 - Imaging and Cardiology Echo: report reviewed - EKG Interpretation EKG results cardiology: personally reviewed Consult Discharge Plan - Plan Referrals: Maria Antonia Friend, NATURAL GAS ENGINEER [Primary Care Provider] - <Jordon Sarmiento - Last Filed: 02/03/18 14:07> Date of Encounter: 02/03/18 - Attending Attestation I have personally performed a face to face evaluation on this patient. I have reviewed and agree with the documented findings and care plan as documented by the NATURAL GAS ENGINEER. History and Exam by me shows: 67 year-old gentleman with history of CAD status post CABG in October 2017, admitted for acute diastolic CHF exacerbation and A. fib with RVR. He is now in sinus rhythm and rate controlled. Anticoagulation is on hold because of hematuria. Patient still appears fluid overloaded, recommend a stat dose of IV Lasix 40 mg, and reevaluate clinically and check renal indices. Please do not stop aspirin 81 mg daily so as not to cause bypass grafts closure. Continue statin and beta livan. Thanks, Jordon Sarmiento MD Assessment and Plan Discussion w patient/family: The assessment and plan as outlined above was discussed with the patient and/or family members who expressed understanding and agreement. All questions were answered. Thank you for involving us in the care of your patient. Please call with any questions. History of Present Illness History of present illness: Mr. Newman is a 67 year old male All Systems Review: The remainder of the systems were reviewed and are negative Physical Examination Vital Signs, Last 4 Hours Temp Pulse Resp BP Pulse Ox 02/03/18 12:02 97.9 F 81 18 100/92 97 Results 02/03/18 06:34 02/03/18 06:34 Lab Results 02/03/18 02/03/18 06:34 06:34 WBC 9.2 Hgb 12.6 L Hct 40.7 Plt Count 212 Sodium 128 L Potassium 4.3 Chloride 96 L Carbon Dioxide 22 L BUN 71 H Creatinine 3.33 H Glucose 157 H Calcium 8.9
--- NOTE | 2018-02-03 13:14 | Internal Med Progress Note ---
Hospitalist Progress Note - Encounter Date of Encounter: 02/03/18 Time of Encounter: 13:09 - Subjective Interval History: Patient lying on bed comfortably. No family member at bedside. Gomez in place with pinkish urine better hematuria. Reviewed residential sales consultant notes. Review the lab with trending up creatinine. Denies fever or chills vomiting headache dizziness chest pain or shortness of breath abdominal pain - Exam Vitals: Temp Pulse Resp BP Pulse Ox 97.9 F 81 18 100/92 97 02/03/18 12:02 02/03/18 12:02 02/03/18 12:02 02/03/18 12:02 02/03/18 12:02 Exam: General: Patient is alert, oriented, in no acute distress. at bedside Head: atraumatic, normocephalic, Eye: PERRLA EOMI ENT: mucous membranes moist Chest: normal inspection, symmetric chest rise Respiratory: Good respiratory effort. Decreased breath sounds at bases, no wheezing, left basilar crackles. Cardiovascular: Irregular s1 and s2 No clicks, rubs, gallops, or murmors. Abdomen: Abdomen is soft, nondistended. no epigastric tenderness. No guarding or rebound. Musculoskeletal: Spontaneously moving all extremities. +2/3 edema up to mid thighs Skin: warm, dry, intact. bilateral lower extremities are warm, erythematous, skin breakdowns in bilateral anterior shins with petechiae and serous drainage Neuro: Alert and oriented x4. No focal deficit - Assessment and Plan (1) Gross hematuria Current Visit: Yes Status: Acute Assessment and Plan: Newly diagnosed. Now better after holding all anticoagulation including aspirin Eliquis. On board urologist in plan for outpatient cystoscopy if patient continued to improve. I discussed with technical project lead in detail and he really recommended for baby aspirin as patient has recent cardiac bypass graft. Informed urologist and he agreed. Stable hemoglobin. (2) CAD (coronary artery disease) Current Visit: Yes Status: Chronic Assessment and Plan: Stable. Started aspirin but continue to hold, Eliquis due to hematuria and will restart once cleared by urologist. Calcium channel blockerr on hold due to low blood pressure. Started low dose beta livan with hold parameter. Digoxin is not appropriate as patient has arianna al insufficiency. May consider amiodarone if A. fib with RVR in the condition of hypotension. Echocardiogram on LVEF 70-75%, hperdynamic LV. Mild concentric left ventricular hypertrophy.There is a trivial to small pericardial effusion lateral to posterolateral LV wall. troponin trended flat Limited TTE 11/11/17: Limited echo. LVEF 65%. Normal LV chamber size and systolic function. Mild concentric left ventricular hypertrophy. Normal right ventricular structure and function. No pericardial effusion. [facility] 08/31/17: Impressions: There is severe three vessel coronary artery disease with RCA and LCX 100% instent restenosis FFR Measurement: 0.84 prox LAD. Mid LAD 0.78. Recommendations: Optimal medical therapy of patient's disease. Aggressive risk factor modification. Suggest patient have Elective coronary artery bypass surgery. Radio Director on board. (3) Diabetes Current Visit: No Status: Chronic Assessment and Plan: Blood glucose is well controlled . Started Lantus 12 unit in the night. Continue Accu-Chek and sliding scale insulin A1c 10.2 (4) COPD (chronic obstructive pulmonary disease) Current Visit: No Status: Chronic Assessment and Plan: Currently not an exacerbation Continue home inhalers Oxygen via nasal cannula to keep sats above 92 (5) Hypertension Current Visit: No Status: Chronic Assessment and Plan: low normal blood pressure therefore calcium channel livan on hold. A started low dose beta livan. Close monitoring. (6) PAF (paroxysmal atrial fibrillation) Current Visit: No Status: Acute Assessment and Plan: Is started low dose metoprolol . cardizem has been on hold as low blood pressure. Not a good candidate for digoxin. May consider amiodarone as mentioned above. Hold Eliquis. Restarted aspirin. Complicated patient with high risk for a stroke-educated patient and Chads vasc 6 (7) Acute on chronic diastolic heart failure Current Visit: Yes Status: Acute Assessment and Plan: Difficult patient for diuresis in the context of volume overload and worsening creatinine. Radio Director recommended 1 dose of Lasix 40 mg today. Dumpster Operator also on board to guide for diuresis. Continue a strict I&O's. Patient with shortness of breath, PND, orthopnea and bilateral lower extremity swelling Troponin 0.04 trended to 0.05 x 2 BNP 800 Echocardiogram- on LVEF 70-75%, hperdynamic LV. Mild concentric left ventricular hypertrophy.There is a trivial to small pericardial effusion lateral to posterolateral LV wall. Strict intake and output Daily weights Fluid restrictions less than 1 L Gomez catheter with a strict I&O's was treated with IV lasix and switched to oral however it was held secondary to worsening renal function. Limited TTE 11/11/17: Limited echo. LVEF 65%. Normal LV chamber size and systolic function. Mild concentric left ventricular hypertrophy. Normal right ventricular structure and function. No pericardial effusion. [facility] 08/31/17: Impressions: There is severe three vessel coronary artery disease with RCA and LCX 100% instent restenosis FFR Measurement: 0.84 prox LAD. Mid LAD 0.78. (8) Acute renal failure superimposed on stage 3 chronic kidney disease Current Visit: Yes Status: Acute Assessment and Plan: Baseline creatinine ranges anywhere from 1.8 to 1.9 creatinine 2.92 on admission trended down to 2.85 however now trending up again. Dumpster Operator on board and follow his recommendation for IV fluid versus diuresis management. Complicated patient. Retroperitoneal ultrasound- IMPRESSION:Right kidney is unremarkable in appearance. The left kidney is not visualized. Continue with Gomez Strict intake and output Will avoid nephrotoxic medications (9) Bilateral lower extremity edema Current Visit: Yes Status: Acute Assessment and Plan: Bilateral lower extremity edema, erythema and tenderness most likely secondary to CHF exacerbation and venous stasis . DVT study of the lower extremities- Patient appears to be negative for DVT and SVT. MIAH measurements appear to be within normal limits CPK 44 Wound care consulted Elevate extremities (10) Pleural effusion Current Visit: Yes Status: Acute Assessment and Plan: Patient with right-sided pleural effusion Recently had thoracocentesis performed at [facility] Status post IR guided thoracocentesis with 1 L of fluid removal on 01/28, appears to be exudative however he was on Lasix will follow pleural fluid c ultures. On doxycyline and Zosyn de-escalate as per cultures-culture with no growth yet therefore Zosyn stopped on 02/02/2018 and will continue doxycycline(history of MRSA). Review of the pulmonologists note-discussed about the possibility of a Pleurx catheter but as patient is asymptomatic and he is not having thoracentesis more frequently than patient and pulmonologists agreed to hold off on Pleurx catheter right now and recommended to continue diuresis and maximizing medical management. (11) HAP (hospital-acquired pneumonia) Current Visit: Yes Status: Acute Assessment and Plan: Patient with multiple hospital admissions currently with shortness of breath, right-sided pleural effusion, and chills vancomycin stopped as kidney functions declined Was on doxycycline and zosyn -stopped Zosyn after reviewing culture report and patient has been afebrile with normal white count. Sputum cultures- pending nursing staff aware Urine has generalized and a Streptococcus pneumoniae and legionella and a Streptococcus pneumoniae antigens- negative Influenza- negative MRSA swab- positive Started MRSA decolonization on 01/29 blood cultures - NGTD pleural fluid cx - with no gross Procalcitonin- 0.22 ( in setting of renal failure) (12) Hyponatremia with excess extracellular fluid volume Current Visit: Yes Status: Acute Assessment and Plan: Hypervolemic hyponatremia secondary to acute on chronic diastolic heart failure. Stable creatinine level but trending down sodium level. Reviewed nephrology note and he recommended freewater diuresis with tolvaptan 15 milligrams 1. Continue to monitor BMP, a strict I&O's. Holding furosemide and a started 1 L of sodium bicarbonate infusion due to metabolic acidosis. Patient may need albumin. Renal ultrasound unremarkable. Worsening creatinine level that could be because of talvaptan. Will discuss with manufacturing director for further management (13) Hyperkalemia Current Visit: Yes Status: Resolved Assessment and Plan: Normal potassium level. On admission high potassium level therefore 1 dose of Kayexalate was given. Dumpster Operator on board. (14) DVT prophylaxis Current Visit: No Status: Acute Assessment and Plan: SCDs - Time Spent with Patient Total time spent is greater than 50% in coordination of care (as documented) at patient's floor/unit and/or counseling patient: Greater than 35 minutes (Spent almost 40 minute inpatient care and communication with patient and family nursing staff and consultants.) Internal Medicine: Result - Labs CBC & Chem 7: 02/03/18 06:34 02/03/18 06:34 Labs: Short CBC 02/03/18 Range/Units 06:34 WBC 9.2 (4.3-11.1) K/mcL Hgb 12.6 L (12.9-16.9) g/dL Hct 40.7 (37.5-50.1) % Plt Count 212 (140-400) K/mcL Neutrophils # 6.6 (1.6-8.9) K/mcL BMP 02/03/18 06:34 Sodium 128 L Potassium 4.3 Chloride 96 L Carbon Dioxide 22 L BUN 71 H Creatinine 3.33 H Glucose 157 H Calcium 8.9 Liver Function 02/03/18 Range/Units 06:34 Albumin 3.0 L (3.5-5.7) g/dL - ABG Interpretation ABG results: PT/INR, D-dimer PT 33.9 Seconds (9.4-12.1) H D 02/02/18 10:12 - Impressions Impressions Abdomen/Pelvis CT 02/02/18 10:32 IMPRESSION: 1. Partially decompressed urinary bladder with possible circumferential wall thickening as can be seen with cystitis. Recommend correlation with urinalysis. No obstructive uropathy. 2. Severe left renal atrophy. 3. Anasarca with diffuse body wall edema, small volume of ascites, large right and small left pleural effusions of may be partially loculated. 4. Small possibly partially loculated pericardial effusion grossly unchanged from 01/04/2018. 5. Large right basilar consolidation compatible with atelectasis versus pneumonia. D/ / Jimmy Johnson MD / Jimmy Johnson MD Interpreting Provider: Jimmy Johnson MD Consult Discharge Plan - Plan Referrals: Maria Antonia Friend, METER TESTER PRIMARY [Primary Care Provider] - ___ (2) CAD (coronary artery disease) Qualifiers: Coronary Disease-Associated Artery/Lesion type: unspecified vessel or lesion type [place] vs. transplanted heart: [place] heart Associated angina: without angina Qualified Code(s): I25.10 - Atherosclerotic heart disease of [place] coronary artery without angina pectoris (3) Diabetes Qualifiers: Diabetes mellitus type: type 2 Diabetes mellitus terminal gauger insulin use: without terminal gauger use Diabetes mellitus complication status: with unspecified complications Qualified Code(s): E11.8 - Type 2 diabetes mellitus with unspecified complications (4) COPD (chronic obstructive pulmonary disease) Qualifiers: COPD type: emphysema Emphysema type: unspecified Qualified Code(s): J43.9 - Emphysema, unspecified (5) Hypertension Qualifiers: Hypertension type: essential hypertension Qualified Code(s): I10 - Essential (primary) hypertension (8) Acute renal failure superimposed on stage 3 chronic kidney disease Qualifiers: Acute renal failure type: unspecified Qualified Code(s): N17.9 - Acute kidney failure, unspecified; N18.3 - Chronic kidney disease, stage 3 (moderate)
--- NOTE | 2018-02-03 17:40 | Nephrology Progress Note ---
Date of Encounter: 02/03/18 Time of Encounter: 16:50 - Assessment and Plan (1) Acute renal failure superimposed on stage 3 chronic kidney disease Current Visit: Yes Status: Acute SCr trending worse slightly but his PNa improved somewhat with Tolvaptan. His hemodynamics are borderline, and during my rounds his floor RN was present and had to hold his lasix d/t systolic BPs in the 90s. I recommend another one time dose of Tolvaptan 15mg po, and will also recommend a one time dose of Midodrine 7.5mg po. I reviewed the potential SE profiles with the pt. His LE edema is more suggestive of Lymphedema and should be addressed with wraps as an outpatient, and by using wraps, this can help lessen the need for diuretics and therefore be easier on his renal function. He remains complex and high risk and has required a high level of E/M and MDM. Continue to follow a renal protective strategy. Will follow with you. Thank you. Qualifiers: Acute renal failure type: unspecified Qualified Code(s): N17.9 - Acute kidney failure, unspecified; N18.3 - Chronic kidney disease, stage 3 (moderate) (2) Hyponatremia Current Visit: Yes Status: Acute Mild hyponatremia noted on prior labs. Will have to monitor for a safe rate of correction of about 6-8mEq/24hr. Tolvaptan is again recommended. (3) Anemia Current Visit: Yes Status: Acute Qualifiers: Anemia type: unspecified type Qualified Code(s): D64.9 - Anemia, unspecified (4) Gross hematuria Current Visit: Yes Status: Resolved Appreciate Urology. Subjective Principal diagnosis: sandor/ckd Interval history: Pt was s/e. He denied having appetite changes or N/V/D, and he said that his urine now has less blood visible in the lorenzo bag. He reported feeling very swollen. His children and grandchildren came to visit him for Desiree in his hospital room on [address]. Objective - Vital Signs Vital signs: Vital Signs Temp Pulse Resp BP Pulse Ox 02/03/18 16:56 97.9 F 87 16 113/86 97 02/03/18 12:02 97.9 F 81 18 100/92 97 02/03/18 08:16 97.9 F 85 18 90/73 97 02/03/18 04:41 18 96 02/03/18 00:02 18 96 02/02/18 21:53 98.1 F 91 18 98/80 98 02/02/18 21:23 98 02/02/18 20:37 18 96 Intake and Output 02/03/18 02/03/18 02/03/18 07:59 15:59 23:59 Intake Total 200 / 200 Balance 200 / 200 Intake: Oral 200 / 200 Other: Blood Glucose* 167 169 - General Appearance Exam: General appearance: Present: well-developed, well-nourished, appears started age, chronically ill EENT: Present: ATNC, PERRL, mucous membranes moist Neck: Present: supple Respiratory: Present: clear Cardiology: Present: edema (2+ pitting edema bilaterally up to his pretibial region), normal S1, normal S2 Gastrointestinal: Present: no guarding Integumentary: Present: warm and dry Neurologic: Present: no focal deficit, no asterixis, alert and oriented x3 Musculoskeletal: Present: no erythema, no cyanosis Psychiatric: Present: mood/affect appropriate, cooperative - Lab 02/05/18 05:02 02/05/18 05:02 Most recent lab results Calcium 8.9 mg/dL (8.6-10.3) 02/03/18 06:34 Phosphorus 5.5 mg/dL (2.7-4.5) H 02/03/18 06:34 Magnesium 2.9 mg/dL (1.6-2.6) H 01/28/18 03:37 Urine Creatinine 112 mg/dL 02/02/18 08:45 Urine Sodium 18.8 mEq/L 02/02/18 08:45 Consult Discharge Plan - Plan Referrals: Maria Antonia Friend, SAFETY CONSULTANT [Primary Care Provider] -
[2018-02-03] MEDS ORDERED: Tolvaptan 15 MG TABLET PO ONE (17:41)
[2018-02-03] MEDS: Acetaminophen 325 MG TABLET PO PRN (18:24)
[2018-02-03] MEDS: Insulin DETEMIR 100 UNIT/ML X5UNITS SQ SCH (22:35)
--- NOTE | 2018-02-04 03:56 | Event Note ---
Date of Encounter: 02/04/18 Time of Encounter: 03:24 Notified by nurse of patient with increased heart rate and symptomatic with increased shortness of breath, suspected to be afib with rvr as patient has been going in and out of afib. By time EKG obtained patient had converted back to sinus rhythm and was no longer experiencing increased shortness of breath or any other new symptoms. Nurse will continue to monitor closely and notify of any new changes.
[2018-02-04] MEDS: Ipratropium/Albuterol Neb 3 ML IH SCH ×6 (05:00→23:31)
[2018-02-04 06:04] LABS: Basophils % 0.1 %; Eosinophils # 0.1 K/mcL (0.0-0.6); Eosinophils % 0.6 %; Hematocrit 39.1 % (37.5-50.1); Hemoglobin 12.3 g/dL (12.9-16.9); Immature Granulocytes % 0.6 % (0-4); Lymphocytes # 1.4 K/mcL (0.6-4.6); Lymphocytes % 15.1 %; Mean Corpuscular HGB Conc 31.5 g/dL (31.6-35.5); Mean Corpuscular Hemoglobin 24.4 pg (28.0-33.3); Mean Corpuscular Volume 77.6 fL (83.0-100.0); Mean Platelet Volume 10.3 fL (9.4-12.4); Monocytes # 0.9 K/mcL (0.0-1.3); Monocytes % 9.7 %; Nucleated Red Blood Cells 0.4 /100 WBC (0); Platelet Count 214 K/mcL (140-400); Red Blood Count 5.04 M/mcL (4.19-5.50); Red Cell Distribution Width 20.7 % (11.5-14.5); Segmented Neutrophils % 73.9 %
[2018-02-04 06:14] LABS: Bilirubin,Direct 0.1 mg/dL (0.0-0.2); Bilirubin,Indirect 0.4 mg/dL (0.0-1.2); Bilirubin,Total 0.5 mg/dL (0.3-1.0); Globulin 2.9 g/dL (2.4-3.5); Phosphorous 5.9 mg/dL (2.7-4.5); Potassium 4.2 mEq/L (3.5-5.1); Total Protein 5.9 g/dL (6.4-8.9)
[2018-02-04] MEDS: Doxycycline 100 MG CAPSULE PO SCH ×2 (06:56→20:23)
[2018-02-04] MEDS: Insulin LISPRO 300 UNITS/3 ML VIAL SQ SCH ×4 (08:45→22:27)
[2018-02-04] MEDS: Finasteride 5 MG TABLET PO SCH (10:11)
[2018-02-04] MEDS: Famotidine 20 MG TABLET PO SCH (10:12)
[2018-02-04] MEDS: Aspirin Enteric Coated 81 MG Tablet PO SCH (10:12)
[2018-02-04] MEDS: Sennosides/Docusate Sodium TABLET PO SCH ×2 (10:13→20:23)
[2018-02-04] MEDS: Nystatin SUSP 5 ML UD.LIQ PO SCH ×4 (10:13→20:23)
--- NOTE | 2018-02-04 10:38 | Nephrology Progress Note ---
Date of Encounter: 02/04/18 Time of Encounter: 10:00 - Assessment and Plan (1) Acute renal failure superimposed on stage 3 chronic kidney disease Current Visit: Yes Status: Acute Hypervolemic hyponatremia with onoing CRALOS and poor hemodynamics with hypoten ras. He is running into few options, but I did mention Ultrafiltration daily to target his volume status. This too may lower his BPs and could precipitate arhythmias. I also reviewed with him the indications vs risks vs benefits (potentially needing HD hereafter) and alternative such as hospice. He voiced that he would like to contact his and then let us know. Afib: Discussed in detail with both the floor RN and the Cardiology team. This may limit how well he tolerated UF and/or HD. Meanwhile, I recommend to continue to follow a renal protective strategy: strict I/Os, daily weights, avoidance of Nephrotoxins as able. Will follow with you. Thank you. Qualifiers: Acute renal failure type: unspecified Qualified Code(s): N17.9 - Acute kidney failure, unspecified; N18.3 - Chronic kidney disease, stage 3 (moderate) (2) Hyponatremia Current Visit: Yes Status: Acute Ongoig hypervolemic hyponatremia but unchanged. As his volume status remains quite poor. His poor hemodynamics have been limiting his options. (3) Anemia Current Visit: Yes Status: Acute Goal Hgb is 10-11 and will monitor. May need IV iron and/or GUSTAVO at some point. Qualifiers: Anemia type: unspecified type Qualified Code(s): D64.9 - Anemia, unspecified (4) Gross hematuria Current Visit: Yes Status: Resolved (5) Hypotension Current Visit: Yes Status: Acute Limitations as above. Qualifiers: Qualified Code(s): I95.9 - Hypotension, unspecified (6) Bilateral lower extremity edema Current Visit: Yes Status: Acute His peripheral edema is now in the severe, anasarca range. 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 I reviewed the R/B/I and SE profiles in detail re: hypotension, exacerbation of AFIb, infection, possibly permanently needing HD, and etc). (7) Heart failure Current Visit: Yes Status: Acute As per Cardiology. Qualifiers: Heart failure type: unspecified Heart failure chronicity: unspecified Qualified Code(s): I50.9 - Heart failure, unspecified Subjective Principal diagnosis: carlos/ckd Interval history: Pt was s/e. He voiced feeling upset that he is not making progress in terms of his edema. His floor RN was present and so was the Cardiology LIDDER. The pt and I discussed fluid removal options including UF and/or HD, and he requested to first discuss this his family. He later voiced consent to proceed. Objective - Vital Signs Vital signs: Vital Signs Temp Pulse Resp BP Pulse Ox 02/04/18 07:40 16 94 02/04/18 07:23 84 18 100/72 02/04/18 04:15 97.3 F L 84 16 87/70 94 02/04/18 00:49 97.3 F L 84 18 100/88 94 02/03/18 22:48 94 02/03/18 20:19 16 91 02/03/18 19:58 97.4 F L 87 18 102/65 95 02/03/18 16:56 97.9 F 87 16 113/86 97 02/03/18 12:02 97.9 F 81 18 100/92 97 Intake and Output 02/03/18 02/04/18 02/04/18 23:59 07:59 15:59 Intake Total 0 / 0 580 / 580 Output Total 350 / 350 500 / 500 Balance -350 / -350 80 / 80 Intake: Oral 0 / 0 580 / 580 Output: Catheter 350 / 350 500 / 500 Other: Weight 112.8 kg Blood Glucose* 160 191 Patient Weight 02/04/18 23:59 Weight 112.8 kg - General Appearance Exam: General appearance: Present: well-developed, well-nourished, appears started age, chronically ill EENT: Present: ATNC, PERRL, mucous membranes moist Neck: Present: supple Respiratory: Present: clear Cardiology: Present: edema (2+ pitting edema bilaterally up to his pretibial region), normal S1, normal S2 Gastrointestinal: Present: no guarding Integumentary: Present: weeping with erythema Neurologic: Present: no focal deficit, no asterixis, alert and oriented x3 Musculoskeletal: Present: no erythema, no cyanosis Psychiatric: Present: mood/affect appropriate, cooperative - Lab 02/05/18 05:02 12/27/18 05:02 Most recent lab results Calcium 9.0 mg/dL (8.6-10.3) 02/04/18 05:13 Phosphorus 5.9 mg/dL (2.7-4.5) H 02/04/18 05:13 Magnesium 2.9 mg/dL (1.6-2.6) H 01/28/18 03:37 Urine Creatinine 112 mg/dL 02/02/18 08:45 Urine Sodium 18.8 mEq/L 02/02/18 08:45 Consult Discharge Plan - Plan Referrals: Maria Antonia Friend, LIDDER [Primary Care Provider] -
[2018-02-04] MEDS ORDERED: 0.9 % Sodium Chloride 250 ML IVC PRN (11:07)
[2018-02-04] MEDS ORDERED: 0.9 % Sodium Chloride 1,000 ML PRIME SCH (11:15)
--- NOTE | 2018-02-04 11:24 | Cardiology Progress Note ---
Date of Encounter: 02/04/18 Time of Encounter: 11:24 Assessment and Plan (1) PAF (paroxysmal atrial fibrillation) Current Visit: No Status: Acute Known hx of PAF with PAF RVR during this stay. Currently normal sinus rhythm. On Lopressor 12.5mg BID. BP hypotensive. Continue as tolerated. Episode of PAF overnight ~9613-9411. I discussed and reviewed with Dr. Mcnulty regarding amiodarone for rhythm control. Plans to start ultrafiltration and nephrology has concerns for arrhythmias during that time. Dr. Mcnulty does not feel amiodarone is warranted at this time. Continue to follow. In regards to long-term AC, previously on eliquis, stopped on admission due to hematuria. Hgb stable. Discussed with Dr. Zamora. Given plans for UF/line placement, recommend holding AC for now. Continue ASA. Would recommend considering resuming Eliquis prior to d/c, reduced dose of 2.5mg BID. (2) Acute on chronic diastolic heart failure Current Visit: Yes Status: Acute Patient with acute on chronic HFpEF. TTE completed during stay shows EF 75%, hyperdynamic LV. Mild cLVH There is a trivial to small pericardial effusion lateral to posterolateral LV wall. Patient with significant fluid overload on exam. S/p thoracentesis during stay. Reports symptoms improved after. Continues to have SOB, orthopnea, and pitting BLE. Nephrology following for CARLOS and hyponatremia. BP unable to tolerate diuresis. Discussed with nephrology this AM. Plan is for ultrafiltration to optimize fluid status. (3) CAD (coronary artery disease) Current Visit: Yes Status: Chronic H/o 4V CABG 10/2017 at [place]. He denies chest pain. Continue medical management with aspirin, statin, and beta livan. Would not recommend holding aspirin. Qualifiers: Coronary Disease-Associated Artery/Lesion type: unspecified vessel or lesion type [place] vs. transplanted heart: [place] heart Associated angina: without angina Qualified Code(s): I25.10 - Atherosclerotic heart disease of [place] coronary artery without angina pectoris Discussion w patient/family: The assessment and plan as outlined above was discussed with the patient and/or family members who expressed understanding and agreement. All questions were an swered. Thank you for involving us in the care of your patient. Please call with any questions. I will discuss all the above with Dr. Mcnulty and make changes as necessary. Subjective Principal diagnosis: carlos/ckd Interval history: Episode of PAF RVR overnight between ~3216-3949. Reports significant dyspnea during that time and mild chest pressure, pain resolved once he returned to . Reports dyspnea and LE edema continues. Objective Vital Signs, Last 4 Hours Temp Pulse Resp BP Pulse Ox 02/04/18 11:05 94.3 F L 83 17 100/72 98 02/04/18 07:40 16 94 Vital Signs Temp Pulse Resp BP Pulse Ox 02/04/18 11:05 94.3 F L 83 17 100/72 98 02/04/18 07:40 16 94 02/04/18 07:23 84 18 100/72 02/04/18 04:15 97.3 F L 84 16 87/70 94 02/04/18 00:49 97.3 F L 84 18 100/88 94 02/03/18 22:48 94 02/03/18 20:19 16 91 02/03/18 19:58 97.4 F L 87 18 102/65 95 02/03/18 16:56 97.9 F 87 16 113/86 97 02/03/18 12:02 97.9 F 81 18 100/92 97 Intake and Output 02/03/18 02/04/18 02/04/18 23:59 07:59 15:59 Intake Total 0 / 0 580 / 580 Output Total 350 / 350 500 / 500 Balance -350 / -350 80 / 80 Intake: Oral 0 / 0 580 / 580 Output: Catheter 350 / 350 500 / 500 Other: Weight 112.8 kg Blood Glucose* 160 191 Patient Weight 02/04/18 23:59 Weight 112.8 kg General: Conversant, No Apparent Distress HEENT: Atraumatic, Normocephaly, Mucus Membranes Moist Neck: Normal carotid pulses Cardiac: Reg Rate and Rhythm, Normal S1 and S2, No Murmur Lungs: Other (diminished) Neuro: Alert and responsive, No focal deficits noted Abdomen: Soft, Non-Tender Skin: No rashes noted on visualized skin Musculoskeletal: No Chest Wall Tenderness Extremities: Other (3+ BLE edema) Results 02/04/18 05:13 02/04/18 05:13 Lab Results 02/04/18 02/04/18 05:13 05:13 WBC 9.5 Hgb 12.3 L Hct 39.1 Plt Count 214 Sodium 127 L Potassium 4.2 Chloride 98 Carbon Dioxide 18 L BUN 76 H Creatinine 3.32 H Glucose 178 H Calcium 9.0 Total Bilirubin 0.5 AST 33 ALT 29 Alkaline Phosphatase 406 H Short CBC 02/04/18 Range/Units 05:13 WBC 9.5 (4.3-11.1) K/mcL Hgb 12.3 L (12.9-16.9) g/dL Hct 39.1 (37.5-50.1) % Plt Count 214 (140-400) K/mcL Neutrophils # 7.0 (1.6-8.9) K/mcL BMP 02/04/18 Range/Units 05:13 Sodium 127 L (136-145) mEq/L Potassium 4.2 (3.5-5.1) mEq/L Chloride 98 (98-107) mEq/L Carbon Dioxide 18 L (23-29) mEq/L BUN 76 H (8-23) mg/dL Creatinine 3.32 H (0.70-1.30) mg/dL Glucose 178 H (70-105) mg/dL Calcium 9.0 (8.6-10.3) mg/dL Liver Function 02/04/18 Range/Units 05:13 Total Bilirubin 0.5 (0.3-1.0) mg/dL Direct Bilirubin 0.1 (0.0-0.2) mg/dL AST 33 (13-39) Units/L ALT 29 (7-52) Units/L Alkaline Phosphatase 406 H (34-104) Units/L Albumin 3.0 L (3.5-5.7) g/dL - Imaging and Cardiology Echo: report reviewed - EKG Interpretation EKG results cardiology: other (12 hr tele AVG HR 87, episode of PAF ~0315 and 0330) Consult Discharge Plan - Plan Referrals: Maria Antonia Friend, BOOT LACE CUTTER MACHINE [Primary Care Provider] -
[2018-02-04 12:08] LABS: Hepatitis B Surface Antibody < 3.10 mIU/mL
[2018-02-04] MEDS ORDERED: Heparin 1,000 UNITS/500 mL 500 ML ONE (12:16)
[2018-02-04 12:18] LABS: Hepatitis B Surface Antigen Nonreactive (Nonreactive)
[2018-02-04] MEDS ORDERED: *HR* Heparin 5,000 UNIT/ML VIAL ONE (13:46)
--- NOTE | 2018-02-04 13:52 | IR Procedure Note ---
Date of procedure: 02/04/18 Consent Obtained: Written consent Timeout: Correct patient and procedure verified, Time out performed, Skin prep completed Local anesthetic: Lidocaine 1% Indications: ARF Procedure Performed: Temp dialysis catheter placement Was there an dairy and food laboratory assistant present: No Results/Findings: RIj 15.5F 20 cm temp dialysis catheter placement Estimated blood loss (cc): 0 Complications: None; Tolerated procedure well Post Procedure Treatment Plan: Monitor on floor Specimen: None
--- NOTE | 2018-02-04 14:41 | Internal Med Progress Note ---
Hospitalist Progress Note - Encounter Date of Encounter: 02/04/18 Time of Encounter: 14:31 - Subjective Interval History: Patient lying on bed comfortably. No family member at bedside. Gomez in place with clear urine better hematuria. Reviewed senior sales consultant notes. Review the lab with no improvement in creatinine and sodium level. Had a lot of A. fib with RVR in the night and it converted to sinus rhythm after brief episode. Today low blood pressure. Denies fever or chills vomiting headache dizziness chest pain or shortness of breath abdominal pain - Exam Vitals: Temp Pulse Resp BP Pulse Ox 94.3 F L 83 17 100/72 98 02/04/18 11:05 02/04/18 11:05 02/04/18 11:05 02/04/18 11:05 02/04/18 11:05 Exam: General: Patient is alert, oriented, in no acute distress. Head: atraumatic, normocephalic, Eye: PERRLA EOMI ENT: mucous membranes moist Chest: normal inspection, symmetric chest rise Respiratory: Good respiratory effort. Decreased breath sounds at bases, no w heezing, left basilar crackles. Cardiovascular: Irregular s1 and s2 No clicks, rubs, gallops, or murmors. Abdomen: Abdomen is soft, nondistended. no epigastric tenderness. No guarding or rebound. Musculoskeletal: Spontaneously moving all extremities. +2/3 edema up to mid thighs Skin: warm, dry, intact. bilateral lower extremities are warm, erythematous, skin breakdowns in bilateral anterior shins with petechiae and serous drainage Neuro: Alert and oriented x4. No focal deficit - Assessment and Plan (1) Gross hematuria Current Visit: Yes Status: Acute Assessment and Plan: Improving with clear urine on catheter but tea color in urinary bag. Newly diagnosed. Now better after holding all anticoagulation including aspirin Eliquis. On board urologist in plan for outpatient cystoscopy if patient continued to improve. I discussed with trim technician in detail and he really recommended for baby aspirin as patient has recent cardiac bypass graft. Informed urologist and he agreed. Stable hemoglobin. (2) CAD (coronary artery disease) Current Visit: Yes Status: Chronic Assessment and Plan: Stable. Started aspirin but continue to hold, Eliquis due to hematuria and will restart once cleared by urologist. Calcium channel blockerr on hold due to low blood pressure. Started low dose beta livan with hold parameter. Digoxin is not appropriate as patient has arianna al insufficiency. May consider amiodarone if A. fib with RVR in the condition of hypotension. Echocardiogram on LVEF 70-75%, hperdynamic LV. Mild concentric left ventricular hypertrophy.There is a trivial to small pericardial effusion lateral to posterolateral LV wall. troponin trended flat Limited TTE 11/11/17: Limited echo. LVEF 65%. Normal LV chamber size and systolic function. Mild concentric left ventricular hypertrophy. Normal right ventricular structure and function. No pericardial effusion. [facility] 08/31/17: Impressions: There is severe three vessel coronary artery disease with RCA and LCX 100% instent restenosis FFR Measurement: 0.84 prox LAD. Mid LAD 0.78. Recommendations: Optimal medical therapy of patient's disease. Aggressive risk factor modification. Suggest patient have Elective coronary artery bypass surgery. Oracle R12 Developer on board and he did not recommend amiodarone for PAF at this time. Continue aspirin and would recommend considering resuming Eliquis prior to discharge renally adjusted possibly 2.5 mg twice a day.. (3) Diabetes Current Visit: No Status: Chronic Assessment and Plan: Blood glucose is well controlled . Started Lantus 12 unit in the night. Continue Accu-Chek and sliding scale insulin A1c 10.2 (4) COPD (chronic obstructive pulmonary disease) Current Visit: No Status: Chronic Assessment and Plan: Currently not an exacerbation Continue home inhalers Oxygen via nasal cannula to keep sats above 92 (5) Hypertension Current Visit: No Status: Chronic Assessment and Plan: low normal blood pressure therefore calcium channel livan on hold. A started low dose beta livan. Close monitoring. (6) PAF (paroxysmal atrial fibrillation) Current Visit: No Status: Acute Assessment and Plan: Is started low dose metoprolol . cardizem has been on hold as low blood pressure. Not a good candidate for digoxin. [employer] R12 Developer's on board and would not recommend restarting amiodarone at this time. Continue aspirin and recommended resuming Eliquis really adjusted as mentioned above. Will discuss with urologist before restarting Eliquis. Complicated patient with high risk for a stroke-educated patient and Chads vasc 6 (7) Acute on chronic diastolic heart failure Current Visit: Yes Status: Acute Assessment and Plan: Difficult patient for diuresis in the context of volume overload and worsening creatinine. Oracle R12 Developer recommended 1 dose of Lasix 40 mg today. Whistle Punk also on board to guide for diuresis. Continue a strict I&O's. Patient with shortness of breath, PND, orthopnea and bilateral lower extremity swelling Troponin 0.04 trended to 0.05 x 2 BNP 800 Echocardiogram- on LVEF 70-75%, hperdynamic LV. Mild concentric left ventricular hypertrophy.There is a trivial to small pericardial effusion lateral to posterolateral LV wall. Strict intake and output Daily weights Fluid restrictions less than 1 L Gomez catheter with a strict I&O's was treated with IV lasix and switched to oral however it was held secondary to worsening renal function. Limited TTE 11/11/17: Limited echo. LVEF 65%. Normal LV chamber size and systolic function. Mild concentric left ventricular hypertrophy. Normal right ventricular structure and function. No pericardial effusion. [facility] 08/31/17: Impressions: There is severe three vessel coronary artery disease with RCA and LCX 100% instent restenosis FFR Measurement: 0.84 prox LAD. Mid LAD 0.78. (8) Acute renal failure superimposed on stage 3 chronic kidney disease Current Visit: Yes Status: Acute Assessment and Plan: Baseline creatinine ranges anywhere from 1.8 to 1.9 creatinine 2.92 on admission trended down to 2.85 however now trending up again. Whistle Punk on board and advice for ultrafiltration after discussing risk and benefits with patient. Complicated patient. Retroperitoneal ultrasound- IMPRESSION:Right kidney is unremarkable in appea [facility]. The left kidney is not visualized. Continue with Gomez Strict intake and output Will avoid nephrotoxic medications (9) Bilateral lower extremity edema Current Visit: Yes Status: Acute Assessment and Plan: Bilateral lower extremity edema, erythema and tenderness most likely secondary to CHF exacerbation and venous stasis . DVT study of the lower extremities- Patient appears to be negative for DVT and SVT. MIAH measurements appear to be within normal limits CPK 44 Wound care Elevate extremities (10) Pleural effusion Current Visit: Yes Status: Acute Assessment and Plan: Patient with right-sided pleural effusion Recently had thoracocentesis performed at [facility] Status post IR guided thoracocentesis with 1 L of fluid removal on 01/28, appears to be exudative however he was on Lasix will follow pleural fluid cultures. On doxycyline and Zosyn de-escalate as per cultures-culture with no growth yet therefore Zosyn stopped on 02/02/2018 and will continue doxycycline(history of MRSA). Review of the pulmonologists note-discussed about the possibility of a Pleurx catheter but as patient is asymptomatic and he is not having thoracentesis more frequently than patient and pulmonologists agreed to hold off on Pleurx catheter right now and recommended to continue diuresis and maximizing medical management. (11) HAP (hospital-acquired pneumonia) Current Visit: Yes Status: Acute Assessment and Plan: Patient with multiple hospital admissions currently with shortness of breath, right-sided pleural effusion, and chills vancomycin stopped as kidney functions declined Was on doxycycline and zosyn -stopped Zosyn after reviewing culture report and patient has been afebrile with normal white count. Sputum cultures- pending nursing staff aware Urine has generalized and a Streptococcus pneumoniae and legionella and a Streptococcus pneumoniae antigens- negative Influenza- negative MRSA swab- positive Started MRSA decolonization on 01/29 blood cultures - NGTD pleural fluid cx - with no gross Procalcitonin- 0.22 ( in setting of renal failure) (12) Hyponatremia with excess extracellular fluid volume Current Visit: Yes Status: Acute Assessment and Plan: Hypervolemic hyponatremia secondary to acute on chronic diastolic heart failure. Stable creatinine level but trending down sodium level. Reviewed nephrology note and he recommended freewater diuresis with tolvaptan 15 milligrams 1. Continue to monitor BMP, a strict I&O's. Holding furosemide and a started 1 L of sodium bicarbonate infusion due to metabolic acidosis. Patient may need albumin. Renal ultrasound unremarkable. 2 dose of talvaptan given but no improvement in sodium level. Ultrafiltration is planned today. (13) Hyperkalemia Current Visit: Yes Status: Resolved Assessment and Plan: Normal potassium level. On admission high potassium level therefore 1 dose of Kayexalate was given. Whistle Punk on board. (14) DVT prophylaxis Current Visit: No Status: Acute Assessment and Plan: SCDs (15) Goals of care, counseling/discussion Current Visit: Yes Status: Acute Assessment and Plan: Complicated patient with multiple contradictory situation. Patient has A. fib with intermittent RVR but not able to give rate control medicine such as beta livan or calcium channel livan due to low blood pressure and not candidate for digoxin due to renal disease. Also not recommended amiodarone for pa roxysmal atrial fibrillation as per cardiology. Eliquis on hold due to hematuria though patient has high risk for a stroke. Ineffective diuresis. Plan for ultrafiltration today after discussing risk and benefit. I also discuss about power of litigation attorney-patient does not have one but want to start the process therefore social media developer contacted. I also discussed about CODE STATUS with patient and family while updating his complicated medical conditions. They did not decided but is started convers ation. I offered palliative care consultation for quality communication but patient wanted to hold off on that for now. - Time Spent with Patient Total time spent is greater than 50% in coordination of care (as documented) at patient's floor/unit and/or counseling patient: Greater than 35 minutes (He spent almost 45 minute in patient care and communication with family members and other consultants.) Plan of Care Discussed with: social work Internal Medicine: Result - Labs CBC & Chem 7: 02/04/18 05:13 02/04/18 05:13 Labs: Short CBC 02/04/18 Range/Units 05:13 WBC 9.5 (4.3-11.1) K/mcL Hgb 12.3 L (12.9-16.9) g/dL Hct 39.1 (37.5-50.1) % Plt Count 214 (140-400) K/mcL Neutrophils # 7.0 (1.6-8.9) K/mcL BMP 02/04/18 05:13 Sodium 127 L Potassium 4.2 Chloride 98 Carbon Dioxide 18 L BUN 76 H Creatinine 3.32 H Glucose 178 H Calcium 9.0 Liver Function 02/04/18 Range/Units 05:13 Total Bilirubin 0.5 (0.3-1.0) mg/dL Direct Bilirubin 0.1 (0.0-0.2) mg/dL AST 33 (13-39) Units/L ALT 29 (7-52) Units/L Alkaline Phosphatase 406 H (34-104) Units/L Albumin 3.0 L (3.5-5.7) g/dL - ABG Interpretation ABG results: PT/INR, D-dimer PT 33.9 Seconds (9.4-12.1) H D 02/02/18 10:12 - Impressions Impressions Guidance Ultrasound 02/04/18 00:00 IMPRESSION: 1. Right internal jugular vein temporary dialysis catheter placement. 2. Moderate right pleural effusion. D/ / Kush Mittal MD / Kush Mittal MD Interpreting Provider: Kush Mittal MD Insertion Non-Tunneled Catheter 02/04/18 00:00 IMPRESSION: 1. Right internal jugular vein temporary dialysis catheter placement. 2. Moderate right pleural effusion. D/ / Kush Mittal MD / Kush Mittal MD Interpreting Provider: Kush Mittal MD Consult Discharge Plan - Plan Referrals: Maria Antonia Friend CNP [Primary Care Provider] - (2) CAD (coronary artery disease) Qualifiers: Coronary Disease-Associated Artery/Lesion type: unspecified vessel or lesion type [place] vs. 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
--- NOTE | 2018-02-04 16:08 | Electrocardiograph Report ---
[address] [address] Test Date: 2018-02-04 Pat Name: Keon Newman Department: 111 Room: 2NE26 Gender: M Pulley Man: [id number] : 1950 Requested By: Tanner Boss Order Number: [id number] Reading MD: Lani Lester Measurements Intervals [place] Rate: 84 P: 51 AL: 159 QRS: 22 QRSD: 96 T: 240 QT: 392 QTc: 433 Interpretive Statements SINUS RHYTHM MODERATE T-WAVE ABNORMALITY, CONSIDER LATERAL ISCHEMIA MODERATE T-WAVE ABNORMALITY, CONSIDER INFERIOR ISCHEMIA Electronically Signed On 02-04-2018 16:06:09 EST by Lani Lester
[2018-02-04] MEDS ORDERED: 0.9 % Sodium Chloride 1,000 ML ONE (16:27)
--- NOTE | 2018-02-04 17:38 | Urology Progress Note ---
Date of Encounter: 02/04/18 Time of Encounter: 17:36 - Assessment and Plan (1) Gross hematuria Current Visit: Yes Status: Resolved Assessment and plan: Continue Gomez catheter management for now. Consider removal of catheter when patient more stable. If possible hold aggressive anticoagulation until the catheter is removed and the patient is voiding without hematuria. Progress Note Subjective: no new complaints Objective Initial Vital Signs Pulse Resp Pulse Ox 84 18 100 01/27/18 12:15 01/27/18 12:15 01/27/18 12:15 - Additional Exam Urine has completely cleared today with no hematuria - Labs 02/04/18 05:13 02/04/18 05:13 Diabetes panel 02/04/18 Range/Units 05:13 Sodium 127 L (136-145) mEq/L Potassium 4.2 (3.5-5.1) mEq/L Chloride 98 (98-107) mEq/L Carbon Dioxide 18 L (23-29) mEq/L BUN 76 H (8-23) mg/dL Creatinine 3.32 H (0.70-1.30) mg/dL Glucose 178 H (70-105) mg/dL Calcium 9.0 (8.6-10.3) mg/dL AST 33 (13-39) Units/L ALT 29 (7-52) Units/L Alkaline Phosphatase 406 H (34-104) Units/L Albumin 3.0 L (3.5-5.7) g/dL Calcium panel 02/04/18 Range/Units 05:13 Calcium 9.0 (8.6-10.3) mg/dL Phosphorus 5.9 H (2.7-4.5) mg/dL Albumin 3.0 L (3.5-5.7) g/dL Pituitary panel 02/04/18 Range/Units 05:13 Sodium 127 L (136-145) mEq/L Potassium 4.2 (3.5-5.1) mEq/L Chloride 98 (98-107) mEq/L Carbon Dioxide 18 L (23-29) mEq/L BUN 76 H (8-23) mg/dL Creatinine 3.32 H (0.70-1.30) mg/dL Glucose 178 H (70-105) mg/dL Calcium 9.0 (8.6-10.3) mg/dL Adrenal panel 02/04/18 Range/Units 05:13 Sodium 127 L (136-145) mEq/L Potassium 4.2 (3.5-5.1) mEq/L Chloride 98 (98-107) mEq/L Carbon Dioxide 18 L (23-29) mEq/L BUN 76 H (8-23) mg/dL Creatinine 3.32 H (0.70-1.30) mg/dL Glucose 178 H (70-105) mg/dL Calcium 9.0 (8.6-10.3) mg/dL Total Bilirubin 0.5 (0.3-1.0) mg/dL AST 33 (13-39) Units/L ALT 29 (7-52) Units/L Alkaline Phosphatase 406 H (34-104) Units/L Albumin 3.0 L (3.5-5.7) g/dL Consult Discharge Plan - Plan Referrals: Maria Antonia Friend, TECHNICAL ACCOUNT MANAGER [Primary Care Provider] -
[2018-02-04] MEDS: Insulin DETEMIR 100 UNIT/ML X5UNITS SQ SCH (22:27)
[2018-02-05] MEDS: Ipratropium/Albuterol Neb 3 ML IH SCH ×3 (03:56→11:21)
[2018-02-05 05:33] LABS: Basophils % 0.1 %; Eosinophils % 0.4 %; Hematocrit 38.9 % (37.5-50.1); Hemoglobin 12.2 g/dL (12.9-16.9); Immature Granulocytes % 0.6 % (0-4); Lymphocytes # 1.4 K/mcL (0.6-4.6); Lymphocytes % 15.8 %; Mean Corpuscular HGB Conc 31.4 g/dL (31.6-35.5); Mean Corpuscular Hemoglobin 24.3 pg (28.0-33.3); Mean Corpuscular Volume 77.3 fL (83.0-100.0); Mean Platelet Volume 10.5 fL (9.4-12.4); Monocytes # 1.1 K/mcL (0.0-1.3); Monocytes % 12.6 %; Neutrophils # 6.4 K/mcL (1.6-8.9); Platelet Count 228 K/mcL (140-400); Red Blood Count 5.03 M/mcL (4.19-5.50); Red Cell Distribution Width 21.7 % (11.5-14.5); Segmented Neutrophils % 70.5 %
[2018-02-05 05:43] LABS: Albumin 3.1 g/dL (3.5-5.7); Phosphorous 6.4 mg/dL (2.7-4.5); Potassium 4.4 mEq/L (3.5-5.1)
[2018-02-05] MEDS: Doxycycline 100 MG CAPSULE PO SCH (06:44)
[2018-02-05] MEDS ORDERED: 0.9 % Sodium Chloride 250 ML IVC PRN (07:02)
[2018-02-05] MEDS ORDERED: 0.9 % Sodium Chloride 2,000 ML ONE (08:26)
[2018-02-05] MEDS: Sennosides/Docusate Sodium TABLET PO SCH ×2 (08:47→21:10)
[2018-02-05] MEDS: Finasteride 5 MG TABLET PO SCH (08:47)
[2018-02-05] MEDS: Aspirin Enteric Coated 81 MG Tablet PO SCH (08:47)
[2018-02-05] MEDS: Famotidine 20 MG TABLET PO SCH (08:47)
[2018-02-05] MEDS: Insulin LISPRO 300 UNITS/3 ML VIAL SQ SCH ×4 (09:00→21:13)
[2018-02-05] MEDS: Nystatin SUSP 5 ML UD.LIQ PO SCH ×4 (09:00→21:12)
--- NOTE | 2018-02-05 09:36 | Nephrology Progress Note ---
Date of Encounter: 02/05/18 Time of Encounter: 08:20 - Assessment and Plan (1) Acute renal failure superimposed on stage 3 chronic kidney disease Current Visit: Yes Status: Acute Continuing to worsening in terms of renal function, but he was able to succe ssfully undergo UF yesterday with fluid removal and in fact his hemodynamics improved by the end of his treatment (this may suggest a cardiorenal syndrome). However, since his azotemia continues to worsen in this complex, high risk patient, I recommend he have the full benefit of the dialysis filter (instead of just UF like yesterday), so will provide HD today with slightly faster Qb and Qd and over a longer duration of time to help facility more UF. Will plan to remain under a UF rate of 13mL/kg/hr. Discussed with the hospitalist. Continue to follow a renal protective strategy. Will follow with you. He remains a high risk pt with a high degree of E/M and MDM. Thank you. Qualifiers: Acute renal failure type: unspecified Qualified Code(s): N17.9 - Acute kidney failure, unspecified; N18.3 - Chronic kidney disease, stage 3 (moderate) (2) Hyponatremia Current Visit: Yes Status: Acute (3) Anemia Current Visit: Yes Status: Acute Qualifiers: Anemia type: unspecified type Qualified Code(s): D64.9 - Anemia, unspecified (4) Metabolic acidosis Current Visit: Yes Status: Acute (5) Gross hematuria Current Visit: Yes Status: Resolved (6) Hypotension Current Visit: Yes Status: Acute Qualifiers: Qualified Code(s): I95.9 - Hypotension, unspecified (7) Bilateral lower extremity edema Current Visit: Yes Status: Acute (8) Heart failure Current Visit: Yes Status: Acute Qualifiers: Heart failure type: unspecified Heart failure chronicity: unspecified Qualified Code(s): I50.9 - Heart failure, unspecified Subjective Principal diagnosis: sandor/ckd Interval history: Pt was s/e. He did not affirm any N/V or cramping or dizziness from his first UF treatment yesterday. His floor RN was present; no family was present. He affirmed still feeling very swollen and affirmed that he wishes to proceed with fluid removal. Objective - Vital Signs Vital signs: Vital Signs Temp Pulse Resp BP Pulse Ox 02/05/18 08:07 97.6 F 84 16 102/80 100 02/05/18 06:59 97.2 F L 16 100 02/05/18 05:44 96.3 F L 83 14 91/71 93 02/05/18 01:16 96.6 F L 14 90/7 2 02/04/18 21:06 97.4 F L 88 12 99/84 02/04/18 20:31 97 02/04/18 20:06 19 97 02/04/18 17:00 97.2 F L 18 97/71 02/04/18 16:45 102/74 02/04/18 16:30 100/70 02/04/18 16:15 96/67 02/04/18 16:00 99/69 02/04/18 15:45 93/68 02/04/18 15:30 96/68 02/04/18 15:15 91/66 02/04/18 15:00 91/64 02/04/18 14:45 93/02/04/18 14:30 98/65 02/04/18 14:15 97 F L 18 92/65 02/04/18 11:05 94.3 F L 83 17 100/72 98 Intake and Output 02/04/18 02/05/18 02/05/18 23:59 07:59 15:59 Intake Total 150 / 150 Output Total 2600 / 2600 500 / 500 Balance -2600 / -2600 -350 / -350 Intake: Oral 150 / 150 Output: Total Dialysis (HD) Output 2600 / 2600 Straight Cath 500 / 500 Other: Weight 110.8 kg Blood Glucose* 240 86 Hemodialysis Net Fluid Removed 2000 (mL) Patient Weight 02/05/18 23:59 Weight 110.8 kg - General Appearance Exam: General appearance: Present: well-developed, well-nourished, appears started age, chronically ill EENT: Present: ATNC, PERRL, mucous membranes moist Neck: Present: supple Respiratory: Present: clear Cardiology: Present: edema (2+ pitting edema bilaterally up to his pretibial region), normal S1, normal S2 Gastrointestinal: Present: no guarding Integumentary: Present: weeping with erythema Neurologic: Present: no focal deficit, no asterixis, alert and oriented x3 Musculoskeletal: Present: no erythema, no cyanosis Psychiatric: Present: mood/affect appropriate, cooperative - Lab 02/05/18 05:02 02/05/18 05:02 Most recent lab results Calcium 9.0 mg/dL (8.6-10.3) 02/05/18 05:02 Phosphorus 6.4 mg/dL (2.7-4.5) H 02/05/18 05:02 Magnesium 2.9 mg/dL (1.6-2.6) H 01/28/18 03:37 Urine Creatinine 112 mg/dL 02/02/18 08:45 Urine Sodium 18.8 mEq/L 02/02/18 08:45 Consult Discharge Plan - Plan Referrals: Maria Antonia Friend, FARM EQUIPMENT MAINTENANCE SUPERVISOR [Primary Care Provider] -
--- NOTE | 2018-02-05 09:50 | Cardiology Progress Note ---
Date of Encounter: 02/05/18 Time of Encounter: 09:48 Assessment and Plan (1) Acute on chronic diastolic heart failure Current Visit: Yes Status: Acute Patient with acute on chronic HFpEF. Also with CARLOS on CKD. TTE EF 75%, hyperdynamic LV. Mild cLVH There is a trivial to small pericardial effusion lateral to posterolateral LV wall. Patient with significant fluid overload on exam. S/p thoracentesis during stay. Continues to have SOB, orthopnea, and pitting BLE. Nephrology following for CARLOS and hyponatremia. Underwent ultrafiltration yesterday with improvement. Plan for full dialysis session today given rise in SCr. UF/dialysis for fluid removal. Recommend stricti I/Os, Na and fluid restriction, daily weights. Cardiology signing off. Reconsult PRN. Will coordinate outpt follow-up in 2-3 weeks. (2) PAF (paroxysmal atrial fibrillation) Current Visit: No Status: Acute Known hx of PAF with PAF RVR during this stay. Currently normal sinus rhythm. On Lopressor 12.5mg BID. BP hypotensive. Continue as tolerated. No PAF noted in >[address] Mcnulty regarding amiodarone for rhythm control. Does not feel amiodarone is warranted at this time. In regards to long-term AC, previously on eliquis, stopped on admission due to hematuria. Hgb stable. Urology notes reviewed. They recommend holding AC at least until lorenzo is removed. Discussed with Dr. Zamora. Given plans for UF/line placement, recommend holding AC for now. Continue ASA. Would recommend considering resuming Eliquis at d/ if able, reduced dose of 2.5mg BID. 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 He denies chest pain. Continue medical management with aspirin, statin, and beta livan. Would not recommend holding aspirin. Qualifiers: Coronary Disease-Associated Artery/Lesion type: unspecified vessel or lesion type [place] vs. transplanted heart: [place] heart Associated angina: without angina Qualified Code(s): I25.10 - Atherosclerotic heart disease of [place] coronary artery without angina pectoris Discussion w patient/family: The assessment and plan as outlined above was discussed with the patient and/or family members who expressed understanding and agreement. All questions were answered. Thank you for involving us in the care of your patient. Please call with any questions. I will discuss all the above with Dr. Mcnulty and make changes as necessary. Subjective Principal diagnosis: carlos/ckd Interval history: No arrhythmias or PAF noted overnight, maintaining SR. Underwent ultrafiltration yesterday and reports mild improvement in dyspnea and LE edema. Reviewed nephrology note, plan for full dialysis session today given worsening SCr. Objective Vital Signs, Last 4 Hours Temp Pulse Resp BP Pulse Ox 02/05/18 08:07 97.6 F 84 16 102/80 100 02/05/18 06:59 97.2 F L 16 100 Vital Signs Temp Pulse Resp BP Pulse Ox 02/05/18 08:07 97.6 F 84 16 102/80 100 02/05/18 06:59 97.2 F L 16 100 02/05/18 05:44 96.3 F L 83 14 91/71 93 02/05/18 01:16 96.6 F L 14 90/7 2 02/04/18 21:06 97.4 F L 88 12 99/84 02/04/18 20:31 97 02/04/18 20:06 19 97 02/04/18 17:00 97.2 F L 18 97/71 02/04/18 16:45 102/74 02/04/18 16:30 100/70 02/04/18 16:15 96/67 02/04/18 16:00 99/69 02/04/18 15:45 93/68 02/04/18 15:30 96/68 02/04/18 15:15 91/66 02/04/18 15:00 91/64 02/04/18 14:45 93/67 02/04/18 14:30 98/65 02/04/18 14:15 97 F L 18 92/65 02/04/18 11:05 94.3 F L 83 17 100/72 98 Intake and Output 02/04/18 02/05/18 02/05/18 23:59 07:59 15:59 Intake Total 150 / 150 Output Total 2600 / 2600 500 / 500 Balance -2600 / -2600 -350 / -350 Intake: Oral 150 / 150 Output: Total Dialysis (HD) Output 2600 / 2600 Straight Cath 500 / 500 Other: Weight 110.8 kg Blood Glucose* 240 86 Hemodialysis Net Fluid Removed 2000 (mL) Patient Weight 02/05/18 23:59 Weight 110.8 kg General: Conversant, No Apparent Distress HEENT: Atraumatic, Normocephaly, Mucus Membranes Moist Neck: Normal carotid pulses Cardiac: Reg Rate and Rhythm, Normal S1 and S2, No Murmur Lungs: Other (diminished) Neuro: Alert and responsive, No focal deficits noted Abdomen: Soft, Non-Tender Skin: No rashes noted on visualized skin Musculoskeletal: No Chest Wall Tenderness Extremities: Other (3+ BLE edema) Results 02/05/18 05:02 02/05/18 05:02 Lab Results 02/05/18 02/05/18 05:02 05:02 WBC 9.1 Hgb 12.2 L Hct 38.9 Plt Count 228 Sodium 127 L Potassium 4.4 Chloride 98 Carbon Dioxide 18 L BUN 81 H Creatinine 3.57 H Glucose 95 Calcium 9.0 Short CBC 02/05/18 Range/Units 05:02 WBC 9.1 (4.3-11.1) K/mcL Hgb 12.2 L (12.9-16.9) g/dL Hct 38.9 (37.5-50.1) % Plt Count 228 (140-400) K/mcL Neutrophils # 6.4 (1.6-8.9) K/mcL BMP 02/05/18 Range/Units 05:02 Sodium 127 L (136-145) mEq/L Potassium 4.4 (3.5-5.1) mEq/L Chloride 98 (98-107) mEq/L Carbon Dioxide 18 L (23-29) mEq/L BUN 81 H (8-23) mg/dL Creatinine 3.57 H (0.70-1.30) mg/dL Glucose 95 (70-105) mg/dL Calcium 9.0 (8.6-10.3) mg/dL Liver Function 02/05/18 Range/Units 05:02 Albumin 3.1 L (3.5-5.7) g/dL Impressions Guidance Ultrasound 02/04/18 00:00 IMPRESSION: 1. Right internal jugular vein temporary dialysis catheter placement. 2. Moderate right pleural effusion. D/ / Kush Mittal MD / Kush Mittal MD Interpreting Provider: Kush Mittal MD Insertion Non-Tunneled Catheter 02/04/18 00:00 IMPRESSION: 1. Right internal jugular vein temporary dialysis catheter placement. 2. Moderate right pleural effusion. D/ / Kush Mittal MD / Kush Mittal MD Interpreting Provider: Kush Mittal MD Active Medications Acetaminophen (Tylenol) 650 mg PO Q6HR PRN PRN Reason: Mild Pain Stop: 07/31/18 19:57 Last Admin: 02/03/18 18:24 Dose: 650 mg Albuterol/Ipratropium (Duoneb) 3 ml IH [id number] [facility] Stop: 07/30/18 08:01 Last Admin: 02/05/18 07:29 Dose: Not Given Aspirin (Aspirin Ec) 81 mg PO DAILY [facility] Stop: 07/30/18 09:01 Last Admin: 02/05/18 08:47 Dose: 81 mg Bisacodyl (Dulcolax) 10 mg PO HS PRN PRN Reason: Constipation Stop: 08/03/18 13:42 Last Admin: 02/01/18 13:56 Dose: 10 mg Dextrose/Water (Dextrose 50% (Syg)) 25 ml IVP AD PRN PRN Reason: Hypoglycemia Stop: 07/29/18 15:06 Doxycycline Hyclate (Doxycycline) 100 mg PO Q12HR [facility] Stop: 08/01/18 18:01 Last Admin: 02/05/18 06:44 Dose: 100 mg Escitalopram Oxalate (Lexapro) 10 mg PO DAILY [facility] Stop: 08/07/18 09:01 Last Admin: 02/05/18 08:47 Dose: 10 mg Famotidine (Pepcid) 10 mg PO DAILY [facility] Stop: 07/29/18 21:01 Last Admin: 02/05/18 08:47 Dose: 10 mg Ferrous Sulfate (Ferrous Sulfate) 325 mg PO Q48H [facility] Stop: 07/29/18 17:01 Last Admin: 02/04/18 20:23 Dose: 325 mg Finasteride (Proscar) 5 mg PO DAILY [facility]; Protocol Stop: 08/04/18 16:01 Last Admin: 02/05/18 08:47 Dose: 5 mg Glucagon (Glucagen) 1 mg IM ONCE PRN PRN Reason: Hypoglycemia Stop: 07/29/18 15:06 Glucose (Gluctose) 15 gm PO ONCE PRN PRN Reason: Hypoglycemia Stop: 07/29/18 15:06 Glucose (Gluctose) 30 gm PO ONCE PRN PRN Reason: Hypoglycemia Stop: 07/29/18 15:06 Dextrose (Dextrose 5%) 1,000 mls @ 100 mls/hr IVC .Q10H PRN PRN Reason: HYPOGLYCEMIA Stop: 07/29/18 15:06 Sodium Chloride (0.9 % Sodium Chloride) 1,000 mls @ 0 mls/hr PRIME .Q0M [facility] Stop: 08/06/18 11:16 Sodium Chloride (0.9 % Sodium Chloride) 250 mls @ 937.5 mls/hr IVC .Q16M PRN PRN Reason: Hypotension Stop: 08/07/18 07:03 Insulin Detemir (Levemir) 12 unit SQ HS [facility] Stop: 08/05/18 21:01 Last Admin: 02/04/18 22:27 Dose: 12 unit Insulin Human Lispro (Humalog) 0 units SQ HS [facility]; Protocol Stop: 07/29/18 21:01 Last Admin: 02/04/18 22:27 Dose: 3 units Insulin Human Lispro (Humalog) 0 units SQ TIDAC [facility]; Protocol Stop: 07/29/18 16:31 Last Admin: 02/05/18 09:00 Dose: Not Given Levalbuterol HCl (Xopenex) 1.25 mg IH P2CAHIF PRN PRN Reason: wheezing Stop: 07/30/18 12:01 Metoprolol Tartrate (Lopressor) 12.5 mg PO BID [facility] Stop: 08/04/18 21:01 Last Admin: 02/05/18 08:48 Dose: 12.5 mg Naloxone HCl (Narcan) 0.4 mg IVP Q2MIN PRN PRN Reason: SEE COMMENTS Stop: 07/29/18 14:58 Nitroglycerin (Nitroglycerin) 0.4 mg SL Q5MIN PRN PRN Reason: Chest Pain Stop: 07/29/18 14:57 Nystatin (Mycostatin Suspension) 5 ml PO QID [facility] Stop: 08/02/18 17:01 Last Admin: 02/04/18 20:23 Dose: Not Given Rosuvastatin Calcium (Crestor) 20 mg PO HS [facility] Stop: 07/29/18 21:01 Last Admin: 02/04/18 20:23 Dose: 20 mg Senna/Docusate Sodium (Senna Plus) 1 each PO BID [facility]; Protocol Stop: 08/03/18 13:46 Last Admin: 02/05/18 08:47 Dose: 1 each Sodium Chloride ([place] Nasal [place]) 2 spray NS Q2H PRN PRN Reason: Congestion Stop: 08/04/18 20:39 Last Admin: 02/02/18 21:32 Dose: 2 spray - Imaging and Cardiology Echo: report reviewed - EKG Interpretation EKG results cardiology: other (12 hr tele AVG HR 84, SR, no significant pauses or arrhythmias.) Consult Discharge Plan - Plan Referrals: Maria Antonia Friend, LAUNDRY HELPER [Primary Care Provider] -
[2018-02-05] MEDS ORDERED: Ipratropium/Albuterol Neb 3 ML IH PRN (12:10)
--- NOTE | 2018-02-05 13:17 | Internal Med Progress Note ---
Hospitalist Progress Note - Encounter Date of Encounter: 02/05/18 Time of Encounter: 13:10 - Subjective Interval History: Patient sitting comfortably on bed. Patient had run of A. fib with RVR while having hemodialysis today and only 400 mL fluid was taken out. Patient was sent back to the room. Brother at bedside. Gomez in place with clear urine better hematuria. Reviewed toy consultant notes. Reviewed the lab with no improvement in sodium level and worsening creatinine. Denies fever or chills vomiting headache dizziness chest pain or shortness of breath abdominal pain - Exam Vitals: Temp Pulse Resp BP Pulse Ox 96.9 F L 84 18 106/76 100 02/05/18 11:25 02/05/18 08:07 02/05/18 11:25 02/05/18 11:25 02/05/18 08:07 Exam: General: Patient is alert, oriented, in no acute distress. Head: atraumatic, normocephalic, Eye: PERRLA EOMI ENT: mucous membranes moist Chest: normal inspection, symmetric chest rise Respiratory: Crackles at the base but decreased breath sound. Cardiovascular: Irregular s1 and s2 No clicks, rubs, gallops, or murmors. Abdomen: Abdomen is soft, nondistended. no epigastric tenderness. No guarding or rebound. Musculoskeletal: Spontaneously moving all extremities. +2/3 edema up to mid thighs Skin: warm, dry, intact. bilateral lower extremities are warm, erythematous, skin breakdowns in bilateral anterior shins with petechiae and serous drainage Neuro: Alert and oriented x4. No focal deficit - Assessment and Plan (1) Gross hematuria Current Visit: Yes Status: Resolved Assessment and Plan: Improving with clear urine on catheter but tea color in urinary bag. Newly diagnosed. Now better after holding all anticoagulation including aspirin Eliquis. On board urologist and plan to remove catheter when clinically more stable and may consider reintroducing Eliquis if no further hematuria after removing catheter. Stable hemoglobin. (2) CAD (coronary artery disease) Current Visit: Yes Status: Chronic Assessment and Plan: Stable. Started aspirin but continue to hold, Eliquis due to hematuria and will restart once cleared by urologist. Calcium channel blockerr on hold due to low blood pressure. Started low dose beta livan with hold parameter. Digoxin is not appropriate as patient has renal insufficiency. May consider amiodarone if persistent A. fib with RVR in the condition of hypotension. Echocardiogram on LVEF 70-75%, hperdynamic LV. Mild concentric left ventricular hypertrophy.There is a trivial to small pericardial effusion lateral to posterolateral LV wall. troponin trended flat Limited TTE 11/11/17: Limited echo. LVEF 65%. Normal LV chamber size and systolic function. Mild concentric left ventricular hypertrophy. Normal right ventricular structure and function. No pericardial effusion. [facility] 08/31/17: Impressions: There is severe three vessel coronary artery disease with RCA and LCX 100% instent restenosis FFR Measurement: 0.84 prox LAD. Mid LAD 0.78. Recommendations: Optimal medical therapy of patient's disease. Aggressive risk factor modification. Suggest patient have Elective coronary artery bypass surgery. Licensed Occupational Therapy Assistant on board and he did not recommend amiodarone for PAF at this time. Continue aspirin and would recommend considering resuming Eliquis prior to discharge renally adjusted possibly 2.5 mg twice a day once that cleared by urol ogist. (3) Diabetes Current Visit: No Status: Chronic Assessment and Plan: Blood glucose is low normal therefore decrease Lantus 10 units in the night. Continue Accu-Chek and sliding scale insulin A1c 10.2 (4) COPD (chronic obstructive pulmonary disease) Current Visit: No Status: Chronic Assessment and Plan: Currently not an exacerbation Continue home inhalers Oxygen via nasal cannula to keep sats above 92 (5) Hypertension Current Visit: No Status: Chronic Assessment and Plan: low normal blood pressure therefore calcium channel livan on hold. A started low dose beta livan. Close monitoring. (6) PAF (paroxysmal atrial fibrillation) Current Visit: No Status: Acute Assessment and Plan: Is started low dose metoprolol . cardizem has been on hold as low blood pressure. Not a good candidate for digoxin. Licensed Occupational Therapy Assistant's on board and would not recommend restarting amiodarone at this time. Continue aspirin and recommended resuming Eliquis really adjusted as mentioned above. Will discuss with urologist before restarting Eliquis. Complicated patient with high risk for a stroke-educated patient and Chads vasc 6 (7) Acute on chronic diastolic heart failure Current Visit: Yes Status: Acute Assessment and Plan: Difficult patient for diuresis in the context of volume overload and worsening creatinine. Licensed Occupational Therapy Assistant recommended 1 dose of Lasix 40 mg today. Harness Cleaner also on board to guide for diuresis. Continue a strict I&O's. Patient with shortness of breath, PND, orthopnea and bilateral lower extremity swelling Troponin 0.04 trended to 0.05 x 2 BNP 800 Echocardiogram- on LVEF 70-75%, hperdynamic LV. Mild concentric left ventricular hypertrophy.There is a trivial to small pericardial effusion lateral to posterolateral LV wall. Strict intake and output Daily weights Fluid restrictions less than 1 L Gomez catheter with a strict I&O's was treated with IV lasix and switched to oral however it was held secondary to worsening renal function. Limited TTE 11/11/17: Limited echo. LVEF 65%. Normal LV chamber size and systolic function. Mild concentric left ventricular hypertrophy. Normal right ventricular structure and function. No pericardial effusion. [facility] 08/31/17: Impressions: There is severe three vessel coronary artery disease with RCA and LCX 100% instent restenosis FFR Measurement: 0.84 prox LAD. Mid LAD 0.78. (8) Acute renal failure superimposed on stage 3 chronic kidney disease Current Visit: Yes Status: Acute Assessment and Plan: Baseline creatinine ranges anywhere from 1.8 to 1.9 creatinine 2.92 on admission trended down to 2.85 however now trending up again. Harness Cleaner on board . Head ultrafiltration with almost 2 L removal of fluid on 02/04/2018. 02/05/2018- hemodialysis but patient could not tolerate as had a transient run o f A. fib with RVR and had to stop procedure in the middle with -400 mL fluid removal. Patient was back to normal sinus rhythm after stopping dialysis Complicated patient. Retroperitoneal ultrasound- IMPRESSION:Right kidney is unremarkable in appearance. The left kidney is not visualized. Continue with Gomez Strict intake and output Will avoid nephrotoxic medications (9) Bilateral lower extremity edema Current Visit: Yes Status: Acute Assessment and Plan: Bilateral lower extremity edema, erythema and tenderness most likely secondary to CHF exacerbation and venous stasis . DVT study of the lower extremities- Patient appears to be negative for DVT and SVT. MIAH measurements appear to be within normal limits CPK 44 Wound care Elevate extremities (10) Pleural effusion Current Visit: Yes Status: Acute Assessment and Plan: Patient with right-sided pleural effusion Recently had thoracocentesis performed at [facility] Status post IR guided thoracocentesis with 1 L of fluid removal on 01/28, appears to be exudative however he was on Lasix will follow pleural fluid cultures. On doxycyline and Zosyn de-escalate as per cultures-culture with no growth yet therefore Zosyn stopped on 02/02/2018 and will continue doxycycline(history of MRSA). Review of the pulmonologists note-discussed about the possibility of a Pleurx catheter but as patient is asymptomatic and he is not having thoracentesis more frequently than patient and pulmonologists agreed to hold off on Pleurx catheter right now and recommended to continue diuresis and maximizing medical management. (11) HAP (hospital-acquired pneumonia) Current Visit: Yes Status: Acute Assessment and Plan: Patient with multiple hospital admissions currently with shortness of breath, right-sided pleural effusion, and chills vancomycin stopped as kidney functions declined Was on doxycycline and zosyn -stopped Zosyn after reviewing culture report and patient has been afebrile with normal white count. Will stop doxycycline after completing total 10 days-discuss with pharmacy. Urine has generalized and a Streptococcus pneumoniae and legionella and a Streptococcus pneumoniae antigens- negative Influenza- negative MRSA swab- positive Started MRSA decolonization on 01/29 blood cultures - NGTD pleural fluid cx - with no gross Procalcitonin- 0.22 ( in setting of renal failure) (12) Hyponatremia with excess extracellular fluid volume Current Visit: Yes Status: Acute Assessment and Plan: Hypervolemic hyponatremia secondary to acute on chronic diastolic heart failure. Stable creatinine level but trending down sodium level. Reviewed nephrology note and he recommended freewater diuresis with tolvaptan 15 milligrams 1. Continue to monitor BMP, a strict I&O's. Holding furosemide and a started 1 L of sodium bicarbonate infusion due to metabolic acidosis. Patient may need albumin. Renal ultrasound unremarkable. 2 dose of talvaptan given but no improvement in sodium level. Harness Cleaner on board and follow recommendation. (13) Hyperkalemia Current Visit: Yes Status: Resolved Assessment and Plan: Normal potassium level. On admission high potassium level therefore 1 dose of Kayexalate was given. Harness Cleaner on board. (14) DVT prophylaxis Current Visit: No Status: Acute Assessment and Plan: SCDs (15) Goals of care, counseling/discussion Current Visit: Yes Status: Acute Assessment and Plan: Complicated patient with multiple contradictory situation. Patient has A. fib with intermittent RVR but not able to give rate control medicine such as beta livan or calcium channel livan due to low blood pressure and not candidate for digoxin due to renal disease. Also not recommended amiodarone for paroxysmal atrial fibrillation as per cardiology. Eliquis on hold due to hematuria though patient has high risk for a stroke. Ineffective diuresis. Tolerated ultrafiltration yesterday but did not tolerated hemodialysis today. Will discuss with gyn physician if any further attempt is plan for the hemodialysis. Cardiology signed off and does not think to his start amiodarone for paroxysmal A. fib as it is not persistent after weighing risk and benefit. I also discuss about power of academic affairs dean-patient does not have one but want to start the process -social services coordinator on board. I also discussed with patient and his brother in length about his complicated situation and limited medical help to offer as patient is not tolerating because of one or other reason as mentioned above in detail. I also offered palliative care -patient want to talk with palliative care about different option and also would like to talk with his to reconsider about CODE STATUS. I did consult palliative care team. Spent almost 40 minute in patient care and communication. - Time Spent with Patient Total time spent is greater than 50% in coordination of care (as documented) at patient's floor/unit and/or counseling patient: Greater than 35 minutes Plan of Care Discussed with: nurse Internal Medicine: Result - Labs CBC & Chem 7: 02/05/18 05:02 02/05/18 05:02 Labs: Short CBC 02/05/18 Range/Units 05:02 WBC 9.1 (4.3-11.1) K/mcL Hgb 12.2 L (12.9-16.9) g/dL Hct 38.9 (37.5-50.1) % Plt Count 228 (140-400) K/mcL Neutrophils # 6.4 (1.6-8.9) K/mcL BMP 02/05/18 05:02 Sodium 127 L Potassium 4.4 Chloride 98 Carbon Dioxide 18 L BUN 81 H Creatinine 3.57 H Glucose 95 Calcium 9.0 Liver Function 02/05/18 Range/Units 05:02 Albumin 3.1 L (3.5-5.7) g/dL - ABG Interpretation ABG results: PT/INR, D-dimer PT 33.9 Seconds (9.4-12.1) H D 02/02/18 10:12 - Impressions Impressions Guidance Ultrasound 02/04/18 00:00 IMPRESSION: 1. Right internal jugular vein temporary dialysis catheter placement. 2. Moderate right pleural effusion. D/ / Kush Mittal MD / Kush Mittal MD Interpreting Provider: Kush Mittal MD Insertion Non-Tunneled Catheter 02/04/18 00:00 IMPRESSION: 1. Right internal jugular vein temporary dialysis catheter placement. 2. Moderate right pleural effusion. D/ / Kush Mittal MD / Kush Mittal MD Interpreting Provider: Kush Mittal MD Consult Discharge Plan - Plan Referrals: Maria Antonia Friend CNP [Primary Care Provider] - (2) CAD (coronary artery disease) Qualifiers: Coronary Disease-Associated Artery/Lesion type: unspecified vessel or lesion type [place] vs. transplanted heart: [place] heart Associated angina: without angina Qualified Code(s): I25.10 - Atherosclerotic heart disease of [place] coronary artery without angina pectoris (3) Diabetes Qualifiers: Diabetes mellitus type: type 2 Diabetes mellitus prison insulin use: without medical terminologist use Diabetes mellitus complication status: with unspecified complications Qualified Code(s): E11.8 - Type 2 diabetes mellitus with unspecified complications (4) COPD (chronic obstructive pulmonary disease) Qualifiers: COPD type: emphysema Emphysema type: unspecified Qualified Code(s): J43.9 - Emphysema, unspecified (5) Hypertension Qualifiers: Hypertension type: essential hypertension Qualified Code(s): I10 - Essential (primary) hypertension (8) Acute renal failure superimposed on stage 3 chronic kidney disease Qualifiers: Acute renal failure type: unspecified Qualified Code(s): N17.9 - Acute kidney failure, unspecified; N18.3 - Chronic kidney disease, stage 3 (moderate)
--- NOTE | 2018-02-05 15:43 | Palliative - Consult Note ---
Date of Encounter: 02/05/18 Time of Encounter: 15:40 - Assessment and Plan (1) Debility Current Visit: Yes Status: Acute Assessment and plan: Reviewed PT notes - they are recommending swing/inpt rehab. Will d/w hopefully tomorrow. (2) Dyspnea Current Visit: Yes Status: Acute Assessment and plan: Patient states slightly worse today - was improved yesterday after full dialysis session. Oxygen was off, encouraged him to use. Qualifiers: Dyspnea type: unspecified Qualified Code(s): R06.00 - Dyspnea, unspecified (3) CARLOS (acute kidney injury) Current Visit: No Status: Acute Assessment and plan: Nephrology following. Temp dialysis line in place. Tolerated HD yesterday, but could not today r/t elevated heart rate. Monitor (4) CAD (coronary artery disease) Current Visit: Yes Status: Chronic Qualifiers: Coronary Disease-Associated Artery/Lesion type: unspecified vessel or lesion type [place] vs. transplanted heart: [place] heart Associated angina: without angina Qualified Code(s): I25.10 - Atherosclerotic heart disease of [place] coronary artery without angina pectoris (5) COPD (chronic obstructive pulmonary disease) Current Visit: No Status: Chronic Qualifiers: COPD type: emphysema Emphysema type: unspecified Qualified Code(s): J43.9 - Emphysema, unspecified (6) Pleural effusion Current Visit: Yes Status: Acute Assessment and plan: Thoracentesis performed within few days of admission with over 1L drained. (7) Goals of care, counseling/discussion Current Visit: Yes Status: Acute Assessment and plan: Met with patient this afternoon, however, no family was present. He lives with , has 18y/o still in high school, and 10 y/o nephew that they are raising. He cannot verbalize all of his medical conditions, however, he knows he is not doing well and is very ill. 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 He values spending time outside and with family. Briefly discussed his clinical situation and attempted goals of care discussion, however, pt desires to be here for that discussion. He has no advanced directives in place. I attempted to call her and had to leave voicemail with my contact information. Hoping to set up meeting for tomorrow. will f/u in am. Palliative-CN HPI - Data of Consult Consult date: 02/05/18 Requesting Physician: Mj Bailey MD Primary Care Provider: Maria Antonia Friend CNP - Consult Narrative History of present illness: Mr. Newman is a 67 year old male who presented with increasing shortness of breath and lower extremity edema. He has been in hospital for over 9 days, and was only home for a couple of days after discharged from [facility]. He has multiple medical conditions:, including CAD s/p CABG in 10/2017, paroxysmal atrial fibrillation, hypertension, and diabetes type 2, COPD. He has required thoracentesis 2 since his surgery, had one earlier this admission for large pleural effusion. He was also started on Eliquis last month r/t new onset atrial fibrillation. During this admission, he developed hematuria and urology consult was obtained. Bleeding is being monitored and Eliquis on hold. He has also been seen by cardiology, and nephrology as he was having continued decline in renal function. Temp dialysis line was placed earlier this week, and HD started yesterday. However, he was unable to tolerate today's session r/t afib/rvr. He also has had hypotension and cardiology was adjusting medications r/t this and afib. Palliative was consulted to assist with goals of care discussion with this patient that has multiple comorbid conditions. If he cannot tolerate dialysis, there may not be much more to offer this patient. Upon my visit, patient is alert and oriented, resting quietly. States that "dialysis didn't go well this am, and I felt terrible". Denies pain, does c/o shortness of breath with any exertion. No acute distress noted. Bilateral lower extremities edematous and weeping, with chux around each leg. No family or visitors are present. CC: Mj Bailey MD - Time Spent with Patient Time: Total time spent is greater than 50% in coordination of care (as documented) at patient's floor/unit and/or counseling patient: Time with patient: 30 minutes Past Med Surg Social Fam HX - Past Medical History Medical history: COPD, coronary artery disease, CVA, diabetes, hyperlipidemia, hypertension, myocardial infarction, renal disease Psychiatric history: no psych history - Past Surgical History Surgical History: angioplasty/stent, carotid endarterectomy Additional surgical history: CABG x4v. cardiac stents x 14. left index finger - Social History Smoking Status: Former smoker Smokeless Tobacco Status: Yes (chewing tobacco) Alcohol use: none Drug use: none - Family History Brother Adopted: No Family Member Ethnicity: Non- Living Status: Still Living Hx Family Cardiac Disorders: Yes (HEART DISEASE) Hx Family Respiratory Disorders: No Hx Family Cancer: No Hx Family GI Disorders: No Hx Family Endocrine Disorder: No Hx Family Neuromuscular Disorders: No Hx Family Neurologic Disorders: No Hx Family HEENT Disorders: No Hx Family Autoimmune Disorders: No Medications and Allergies Aspirin [Lo-Dose Aspirin EC] 81 mg PO DAILY 08/30/17 [History] Ferrous Sulfate 325 mg PO Q48H 08/30/17 [History] Nitroglycerin [Nitrostat] 0.4 mg SL Q5MIN PRN 08/30/17 [History] Ranitidine HCl [Heartburn Relief] 150 mg PO BID 08/30/17 [History] Rosuvastatin [Crestor] 20 mg PO HS 08/30/17 [History] Albuterol Sulfate [Ventolin Hfa] 2 puff IH Q6H PRN 12/27/17 [History] Insulin Glargine,Hum.rec.anlog [Basaglar Kwikpen U-100] 40 unit SQ HS 12/27/17 [History] Metoprolol [Lopressor] 25 mg PO BID #0 tablet 12/30/17 [Rx] glyBURIDE [GlyBURIDE] 5 mg PO BIDWM #28 tablet 12/30/17 [Rx] EPINEPHrine [Epipen] 0.3 mg IM ONCE PRN 01/04/18 [History] Apixaban [Eliquis] 5 mg PO BID 30 Days #60 tablet 01/08/18 [Rx] Diltiazem HCl [Cardizem] 60 mg PO Q6H 01/27/18 [History] Fluticasone/Salmeterol [Advair 500-50 Diskus] 1 puff IH BID 01/27/18 [History] Allergy/AdvReac Type Severity Reaction Status Date / Time codeine Allergy Intermediate Agitated Verified 01/27/18 12:16 morphine Allergy Intermediate Agitated Verified 01/27/18 12:16 All systems: reviewed and no additional remarkable complaints except as stated (shortness of breath, increased heart rate, poor appetite, weakness, edema lower legs) Palliative Care-Exam - Constitutional Vitals: Temp Pulse Resp BP Pulse Ox 96.9 F L 84 18 106/76 100 02/05/18 11:25 02/05/18 08:07 02/05/18 11:25 02/05/18 11:25 02/05/18 08:07 General appearance: Present: no acute distress - Head Head Exam: Present: normal inspection, normocephalic - Eye Eye exam: Present: normal appearance, PERRL - Respiratory Respiratory exam: Present: decreased breath sounds, CTAB - Cardiovascular Cardiovascular exam: Present: irregular rhythm - GI/Abdominal Exam GI/Abdominal exam: Present: distended, normal bowel sounds, soft - Catheter Type: Urethral (Gomez) - Extremities Exam Additional comments: 4+ edema to bilateral lower extremities with weeping. Feet bilateral dusky and cool to touch - Neurological Exam Neurological exam: Present: alert, oriented X3, strengths equal and symetr throughout - Skin Skin exam: Present: dry, warm Internal Medicine - CN: Reslt - Labs CBC & Chem 7: 02/05/18 05:02 02/05/18 05:02 Labs: Short CBC 02/05/18 Range/Units 05:02 WBC 9.1 (4.3-11.1) K/mcL Hgb 12.2 L (12.9-16.9) g/dL Hct 38.9 (37.5-50.1) % Plt Count 228 (140-400) K/mcL Neutrophils # 6.4 (1.6-8.9) K/mcL BMP 02/05/18 05:02 Sodium 127 L Potassium 4.4 Chloride 98 Carbon Dioxide 18 L BUN 81 H Creatinine 3.57 H Glucose 95 Calcium 9.0 Liver Function 02/05/18 Range/Units 05:02 Albumin 3.1 L (3.5-5.7) g/dL - ABG Interpretation ABG results: PT/INR, D-dimer PT 33.9 Seconds (9.4-12.1) H D 02/02/18 10:12 Consult Discharge Plan - Plan Referrals: Maria Antonia Friend JANITORIAL CLEANER [Primary Care Provider] - Palliative Quality Palliative Quality: Screen for Code Status: NA (awaiting family meeting), Screen for Goals of Care: NA, Screen for Pain: Yes, If Pain Regimen Started, Initiate Bowel Regimen: NA, Screen for Nausea/Vomitting: Yes Code Status: 01/27/18 14:57 Resuscitation Status: Active [RES] Routine Comment: Resuscitation Status: Full Code
[2018-02-05] MEDS: Insulin DETEMIR 100 UNIT/ML X5UNITS SQ SCH (21:13)
[2018-02-06] MEDS: Nystatin SUSP 5 ML UD.LIQ PO SCH ×5 (02:11→20:53)
[2018-02-06] MEDS: Acetaminophen 325 MG TABLET PO PRN (03:01)
[2018-02-06 03:29] LABS: Basophils % 0.1 %; Eosinophils % 0.2 %; Hematocrit 40.1 % (37.5-50.1); Hemoglobin 12.4 g/dL (12.9-16.9); Immature Granulocytes % 0.5 % (0-4); Lymphocytes # 1.3 K/mcL (0.6-4.6); Lymphocytes % 13.7 %; Mean Corpuscular HGB Conc 30.9 g/dL (31.6-35.5); Mean Corpuscular Hemoglobin 24.4 pg (28.0-33.3); Mean Corpuscular Volume 78.8 fL (83.0-100.0); Mean Platelet Volume 10.6 fL (9.4-12.4); Monocytes # 0.9 K/mcL (0.0-1.3); Monocytes % 9.8 %; Neutrophils # 6.9 K/mcL (1.6-8.9); Nucleated Red Blood Cells 1.1 /100 WBC (0); Platelet Count 208 K/mcL (140-400); Red Blood Count 5.09 M/mcL (4.19-5.50); Red Cell Distribution Width 21.4 % (11.5-14.5); Segmented Neutrophils % 75.7 %
[2018-02-06 03:49] LABS: Albumin 2.9 g/dL (3.5-5.7); Phosphorous 6.5 mg/dL (2.7-4.5); Potassium 4.6 mEq/L (3.5-5.1)
--- NOTE | 2018-02-06 06:40 | Nephrology Progress Note ---
Date of Encounter: 02/06/18 Time of Encounter: 08:15 - Assessment and Plan (1) Acute renal failure superimposed on stage 3 chronic kidney disease Current Visit: Yes Status: Acute I recommend more UF today with TRENCH DIGGING MACHINE OPERATOR but this treatment may again be limited by the pt's poor hemodynamics (he developed symptomatic AF while on treatment and he had to be taken off). I see that Cardiology has signed off, and if this continues, this pt may need their expertise and assistance still yet during this admission. Yesterday during TRENCH DIGGING MACHINE OPERATOR, he developed sweating episode and felt suddenly poorly, and I instructed the RN to request Cardiology's assistance for the AF, but the pt was not able to remain on treatment. I have cautiously reordered TRENCH DIGGING MACHINE OPERATOR today in hopes that hemodynamics and rhythm will be stable enough for more gentle fluid removal, which so far has helped his hypervolemic hyponatremia, but he still remains very high risk in terms of his options. Continue to follow a renal protective strategy. Will follow with you. He remains a high risk pt with a high degree of E/M and MDM. Thank you. Qualifiers: Acute renal failure type: unspecified Qualified Code(s): N17.9 - Acute kidney failure, unspecified; N18.3 - Chronic kidney disease, stage 3 (moderate) (2) Hyponatremia Current Visit: Yes Status: Acute Hypervolemic hyponatremia: rec UF to help target his volume status. See above. (3) Anemia Current Visit: Yes Status: Acute Goal Hgb is 10-11 and will monitor. May need IV iron and/or GUSTAVO at some point. Qualifiers: Anemia type: unspecified type Qualified Code(s): D64.9 - Anemia, unspecified (4) Metabolic acidosis Current Visit: Yes Status: Acute (5) Gross hematuria Current Visit: Yes Status: Resolved (6) Hypotension Current Visit: Yes Status: Acute Qualifiers: Qualified Code(s): I95.9 - Hypotension, unspecified (7) Bilateral lower extremity edema Current Visit: Yes Status: Acute (8) Heart failure Current Visit: Yes Status: Acute Qualifiers: Heart failure type: unspecified Heart failure chronicity: unspecified Qualified Code(s): I50.9 - Heart failure, unspecified (9) Hyperphosphatemia Current Visit: Yes Status: Acute Subjective Principal diagnosis: sandor/ckd Interval history: Pt was s/e. He did not affirm any N/V or cramping or dizziness from his first UF treatment yesterday. His floor RN was present; no family was present. He affirmed still feeling very swollen and affirmed that he wishes to proceed with fluid removal. Objective - Vital Signs Vital signs: Vital Signs Temp Pulse Resp BP Pulse Ox 02/06/18 02:52 84 19 102/80 90 02/05/18 23:56 97.7 F 80 17 92/69 93 02/05/18 20:44 97.7 F 82 18 94/73 92 02/05/18 16:11 97.6 F 82 16 90/71 96 02/05/18 11:25 96.9 F L 18 106/76 02/05/18 11:05 109/59 02/05/18 10:45 98/71 02/05/18 10:30 92/63 02/05/18 10:15 97/75 02/05/18 10:00 96/70 02/05/18 09:45 92/66 02/05/18 09:30 96.8 F L 16 96/69 02/05/18 08:07 97.6 F 84 16 102/80 100 02/05/18 06:59 97.2 F L 16 100 Intake and Output 02/05/18 02/05/18 02/06/18 15:59 23:59 07:59 Intake Total 840 / 840 240 / 240 Output Total 1050 / 1050 350 / 350 Balance -210 / -210 -350 / -350 240 / 240 Intake: Oral 240 / 240 240 / 240 Intake, Rinseback and Flushes 600 / 600 Output: Total Dialysis (HD) Output 1050 / 1050 Catheter 350 / 350 Other: Meal Lunch Percent of Meal Consumed 10% Weight 111 kg Blood Glucose* 104 146 Hemodialysis Net Fluid Removed 450 (mL) Patient Weight 02/06/18 23:59 Weight 111 kg - General Appearance Exam: General appearance: Present: well-developed, well-nourished, appears started age, sitting upright in his bedside chair EENT: Present: ATNC, PERRL, mucous membranes moist Neck: Present: supple Respiratory: Present: clear Cardiology: Present: edema (2+ pitting edema bilaterally up to his pretibial region), normal S1, normal S2 Gastrointestinal: Present: no guarding Integumentary: Present: weeping with erythema Neurologic: Present: no focal deficit, no asterixis, alert and oriented x3 Musculoskeletal: Present: no erythema, no cyanosis Psychiatric: Present: mood/affect appropriate, cooperative - Lab 02/06/18 03:11 02/06/18 03:11 Most recent lab results Calcium 9.0 mg/dL (8.6-10.3) 02/06/18 03:11 Phosphorus 6.5 mg/dL (2.7-4.5) H 02/06/18 03:11 Magnesium 2.9 mg/dL (1.6-2.6) H 01/28/18 03:37 Urine Creatinine 112 mg/dL 02/02/18 08:45 Urine Sodium 18.8 mEq/L 02/02/18 08:45 Consult Discharge Plan - Plan Referrals: Maria Antonia Friend, LAND SURVEYOR MANAGER [Primary Care Provider] -
[2018-02-06] MEDS ORDERED: 0.9 % Sodium Chloride 250 ML IVC PRN (06:45)
[2018-02-06] MEDS ORDERED: Albumin 25% 25gram/100mL 25 GM/100 ML IV.SOLN IVPB PRN (06:45)
[2018-02-06] MEDS: Insulin LISPRO 300 UNITS/3 ML VIAL SQ SCH ×4 (07:59→22:21)
[2018-02-06] MEDS: Sennosides/Docusate Sodium TABLET PO SCH ×2 (08:11→20:50)
[2018-02-06] MEDS: Aspirin Enteric Coated 81 MG Tablet PO SCH (08:11)
[2018-02-06] MEDS: Famotidine 20 MG TABLET PO SCH (08:11)
[2018-02-06] MEDS: Finasteride 5 MG TABLET PO SCH (08:12)
[2018-02-06] MEDS: Ondansetron 4 MG/2 ML VIAL IVP PRN (09:40)
--- NOTE | 2018-02-06 10:31 | Palliative Progress Note ---
Date of Encounter: 02/06/18 Time of Encounter: 10:20 - Assessment and plan (1) Nausea Current Visit: Yes Status: Acute Assessment and plan: Continue Ondansetron as needed. Utilized x1 last 24 hours. (2) Debility Current Visit: Yes Status: Acute Assessment and plan: PT has been consulted and working with patient. Recommended inpt swing/rehab (3) Dyspnea Current Visit: Yes Status: Acute Assessment and plan: For UF today. Hopefully patient can tolerate. Qualifiers: Dyspnea type: unspecified Qualified Code(s): R06.00 - Dyspnea, unspecified (4) Goals of care, counseling/discussion Current Visit: Yes Status: Acute Assessment and plan: Patient will be in later this afternoon for discussion. Notified Dr. Yi. (5) CARLOS (acute kidney injury) Current Visit: No Status: Acute (6) CAD (coronary artery disease) Current Visit: Yes Status: Chronic Qualifiers: Coronary Disease-Associated Artery/Lesion type: unspecified vessel or lesion type [place] vs. transplanted heart: [place] heart Associated angina: without angina Qualified Code(s): I25.10 - Atherosclerotic heart disease of [place] coronary artery without angina pectoris (7) COPD (chronic obstructive pulmonary disease) Current Visit: No Status: Chronic Qualifiers: COPD type: emphysema Emphysema type: unspecified Qualified Code(s): J43.9 - Emphysema, unspecified (8) Pleural effusion Current Visit: Yes Status: Acute - Time Spent With Patient Total time spent is greater than 50% in coordination of care (as documented) at patient's floor/unit and/or counseling patient: - Subjective Interval history: Patient resting quietly in bed. C/o some nausea this am and had some emesis this am with breakfast. Patient states that Dr. Zamora has been in and discussed gentle fluid removal today - has not went to dialysis as of yet. - Constitutional Vitals: Abnormal lab results Hgb 12.4 g/dL (12.9-16.9) L 02/06/18 03:11 MCV 78.8 fL (83.0-100.0) L 02/06/18 03:11 MCH 24.4 pg (28.0-33.3) L 02/06/18 03:11 MCHC 30.9 g/dL (31.6-35.5) L 02/06/18 03:11 RDW 21.4 % (11.5-14.5) H 02/06/18 03:11 Nucleated RBCs/100 WBC 1.1 /100 WBC (0) H 02/06/18 03:11 PT 33.9 Seconds (9.4-12.1) H D 02/02/18 10:12 APTT 40.7 Seconds (26.0-36.0) H 02/02/18 10:12 Heparin Anti-Xa, Unfract > 2.00 IU/mL (0.30-0.70) H* 01/28/18 06:38 Sodium 130 mEq/L (136-145) L 02/06/18 03:11 Chloride 97 mEq/L (98-107) L 02/06/18 03:11 Carbon Dioxide 20 mEq/L (23-29) L 02/06/18 03:11 BUN 70 mg/dL (8-23) H 02/06/18 03:11 Creatinine 3.48 mg/dL (0.70-1.30) H 02/06/18 03:11 Est GFR ( Amer) 21 (> 60) L 02/06/18 03:11 Est GFR (Non-Af Amer) 18 (> 60) L 02/06/18 03:11 Glucose 165 mg/dL (70-105) H 02/06/18 03:11 POC Glucose 105 mg/dL (70-99) H 02/05/18 16:19 Hemoglobin A1c 10.2 % (-5.6) H 01/28/18 03:37 Phosphorus 6.5 mg/dL (2.7-4.5) H 02/06/18 03:11 Magnesium 2.9 mg/dL (1.6-2.6) H 01/28/18 03:37 Alkaline Phosphatase 406 Units/L (34-104) H 02/04/18 05:13 Lactate Dehydrogenase 275 Units/L (140-271) H 01/29/18 03:17 Troponin I 0.05 ng/mL (< 0.04) H* 01/28/18 00:19 B-Natriuretic Peptide 800 pg/mL (Less than 100) H 01/27/18 12:48 Serum Total Protein 5.9 g/dL (6.4-8.9) L 02/04/18 05:13 Albumin 2.9 g/dL (3.5-5.7) L 02/06/18 03:11 Albumin/Globulin Ratio 1.0 (1.1-2.2) L 02/04/18 05:13 HDL Cholesterol 36 mg/dL (40-59) L 01/28/18 03:37 Procalcitonin 0.22 ng/mL (<=0.07) H 01/27/18 15:54 TSH 7.788 mcIU/mL (0.340-5.600) H 01/28/18 03:37 Urine Protein 100 mg/dL (Neg-Trace) H 01/27/18 Unknown Urine Blood Trace (Negative) H 01/27/18 Unknown Nasal Screen MRSA (PCR) Positive (Negative) A 01/27/18 16:15 Hep Bs Antibody < 3.10 mIU/mL (10.00-) L 02/04/18 11:16 General appearance: Present: no acute distress - Respiratory Respiratory exam: Present: decreased breath sounds Additional comments: Faint crackles noted to lower lung [place] posteriorally - Cardiovascular Cardiovascular exam: Present: irregular rhythm - GI/Abdominal GI/Abdominal exam: Present: distended, normal bowel sounds, soft - Extremities Exam Additional comments: 4+ edema to bilaterally lower extremities with weeping, feet dusky and cool to touch - Neurological Exam Neurological exam: Present: alert, oriented X3 Additional comments: Generalized weakness - Skin Skin exam: Present: dry, pallor, warm Palliative Quality Palliative Quality: Screen for Code Status: NA (awaiting family meeting), Screen for Goals of Care: NA, Screen for Pain: Yes, If Pain Regimen Started, Initiate Bowel Regimen: NA, Screen for Nausea/Vomitting: Yes Code Status: 01/27/18 14:57 Resuscitation Status: Active [RES] Routine Comment: Resuscitation Status: Full Code - Labs CBC & Chem 7: 02/06/18 03:11 02/06/18 03:11 Labs: Laboratory Results - last 24 hr 02/04/18 02/04/18 02/05/18 18:25 21:13 16:19 WBC RBC Hgb Hct MCV MCH MCHC RDW Plt Count MPV Immature Gran % Seg Neutrophils % Lymphocytes % Monocytes % Eosinophils % Basophils % Neutrophils # Lymphocytes # Monocytes # Eosinophils # Basophils # Nucleated RBCs/100 WBC Sodium Potassium Chloride Carbon Dioxide BUN Creatinine Est GFR ( Amer) Est GFR (Non-Af Amer) BUN/Creatinine Ratio Glucose POC Glucose 82 240 H 105 H Calculated Osmolality Calcium Phosphorus Albumin 02/06/18 02/06/18 03:11 03:11 WBC 9.2 RBC 5.09 Hgb 12.4 L Hct 40.1 MCV 78.8 L MCH 24.4 L MCHC 30.9 L RDW 21.4 H Plt Count 208 MPV 10.6 Immature Gran % 0.5 Seg Neutrophils % 75.7 Lymphocytes % 13.7 Monocytes % 9.8 Eosinophils % 0.2 Basophils % 0.1 Neutrophils # 6.9 Lymphocytes # 1.3 Monocytes # 0.9 Eosinophils # 0.0 Basophils # 0.0 Nucleated RBCs/100 WBC 1.1 H Sodium 130 L Potassium 4.6 Chloride 97 L Carbon Dioxide 20 L BUN 70 H Creatinine 3.48 H Est GFR ( Amer) 21 L Est GFR (Non-Af Amer) 18 L BUN/Creatinine Ratio 20 Glucose 165 H POC Glucose Calculated Osmolality 294 Calcium 9.0 Phosphorus 6.5 H Albumin 2.9 L - ABG Interpretation ABG results: PT/INR, D-dimer PT 33.9 Seconds (9.4-12.1) H D 02/02/18 10:12 Consult Discharge Plan - Plan Referrals: Maria Antonia Friend, WRIST HEMMER [Primary Care Provider] -
[2018-02-06] MEDS ORDERED: *HR* Heparin 10,000 UNIT/10 ML VIAL IV PRN (13:10)
--- NOTE | 2018-02-06 15:53 | Internal Med Progress Note ---
Hospitalist Progress Note - Encounter Date of Encounter: 02/06/18 Time of Encounter: 15:51 - Subjective Interval History: Patient sitting comfortably on bed. Feeling better and shortness of breath. He still has beeping superficial wound in lower extremity. Review the lab with slight better sodium level and trending down creatinine. Pinkish urine in Gomez catheter. Reviewed advertising consultant note. Denies fever or chills vomiting headache dizziness chest pain or shortness of breath abdominal pain - Exam Vitals: Temp Pulse Resp BP Pulse Ox 97.2 F L 73 18 97/73 97 02/06/18 14:51 02/06/18 11:15 02/06/18 14:51 02/06/18 14:51 02/06/18 11:15 Exam: General: Patient is alert, oriented, in no acute distress. Head: atraumatic, normocephalic, Eye: PERRLA EOMI ENT: mucous membranes moist Chest: normal inspection, symmetric chest rise Respiratory: Crackles at the base but decreased breath sound. Cardiovascular: Irregular s1 and s2 No clicks, rubs, gallops, or murmors. Abdomen: Abdomen is soft, nondistended. no epigastric tenderness. No guarding or rebound. Musculoskeletal: Spontaneously moving all extremities. +2/3 edema up to mid thighs Skin: warm, dry, intact. bilateral lower extremities are warm, erythematous, skin breakdowns in bilateral anterior shins with petechiae and serous drainage Neuro: Alert and oriented x4. No focal deficit - Assessment and Plan (1) Gross hematuria Current Visit: Yes Status: Resolved Assessment and Plan: Improving . Newly diagnosed. On hold Eliquis. On board urologist and plan to remove catheter when clinically more stable and may consider reintroducing Eliquis if no further hematuria after removing catheter. Plan to be void trial over this weekend Stable hemoglobin. (2) CAD (coronary artery disease) Current Visit: Yes Status: Chronic Assessment and Plan: Stable. Started aspirin but continue to hold, Eliquis due to hematuria and will restart once cleared by urologist. Calcium channel blockerr on hold due to low blood pressure. Started low dose beta livan with hold parameter. Digoxin is not appropriate as patient has renal insufficiency. May consider amiodarone if persistent A. fib with RVR in the condition of hypotension. Echocardiogram on LVEF 70-75%, hperdynamic LV. Mild concentric left ventricular hypertrophy.There is a trivial to small pericardial effusion lateral to posterolateral LV wall. troponin trended flat Limited TTE 11/11/17: Limited echo. LVEF 65%. Normal LV chamber size and systolic function. Mild concentric left ventricular hypertrophy. Normal right ventricular structure and function. No pericardial effusion. [facility] 08/31/17: Impressions: There is severe three vessel coronary artery disease with RCA and LCX 100% instent restenosis FFR Measurement: 0.84 prox LAD. Mid LAD 0.78. Recommendations: Optimal medical therapy of patient's disease. Aggressive risk factor modification. Suggest patient have Elective coronary artery bypass s urgery. Financial Institution Manager signed off. he did not recommend amiodarone for PAF at this time. Continue aspirin and would recommend considering resuming Eliquis prior to discharge renally adjusted possibly 2.5 mg twice a day once that cleared by urologist. (3) Diabetes Current Visit: No Status: Chronic Assessment and Plan: Blood glucose better controlled. Continue Lantus 10 units in the night. Continue Accu-Chek and sliding scale insulin A1c 10.2 (4) COPD (chronic obstructive pulmonary disease) Current Visit: No Status: Chronic Assessment and Plan: Currently not an exacerbation Continue home inhalers Oxygen via nasal cannula to keep sats above 92 (5) Hypertension Current Visit: No Status: Chronic Assessment and Plan: low normal blood pressure therefore calcium channel livan on hold. A started low dose beta livan. Close monitoring. (6) PAF (paroxysmal atrial fibrillation) Current Visit: No Status: Acute Assessment and Plan: Is started low dose metoprolol . cardizem has been on hold as low blood pressure. Not a good candidate for digoxin. Financial Institution Manager's on board and would not recommend restarting amiodarone at this time. Continue aspirin and recommended resuming Eliquis really adjusted as mentioned above. Will discuss with urologist before restarting Eliquis. Complicated patient with high risk for a stroke-educated patient and Chads vasc 6 (7) Acute on chronic diastolic heart failure Current Visit: Yes Status: Acute Assessment and Plan: Difficult patient for diuresis in the context of volume overload and worsening creatinine. Plan for ultrafiltration today as patient felt better symptomatically with some improvement in lab report. Although he remains high risk with complicated clinical condition. Patient with shortness of breath, PND, orthopnea and bilateral lower extremity swelling Troponin 0.04 trended to 0.05 x 2 BNP 800 Echocardiogram- on LVEF 70-75%, hperdynamic LV. Mild concentric left ventricular hypertrophy.There is a trivial to small pericardial effusion lateral to posterolateral LV wall. Strict intake and output Daily weights Fluid restrictions less than 1 L Gomez catheter with a strict I&O's was treated with IV lasix and switched to oral however it was held secondary to worsening renal function. Limited TTE 11/11/17: Limited echo. LVEF 65%. Normal LV chamber size and systolic function. Mild concentric left ventricular hypertrophy. Normal right ventricular structure and function. No pericardial effusion. [facility] 08/31/17: Impressions: There is severe three vessel coronary artery disease with RCA and LCX 100% instent restenosis FFR Measurement: 0.84 prox LAD. Mid LAD 0.78. (8) Acute renal failure superimposed on stage 3 chronic kidney disease Current Visit: Yes Status: Acute Assessment and Plan: Baseline creatinine ranges anywhere from 1.8 to 1.9 creatinine 2.92 on admission trended down to 2.85 however now trending up again. Embedded Systems Software Engineer on board . Had ultrafiltration with almost 2 L removal of fluid on 02/04/2018. 02/05/2018- hemodialysis but patient could not tolerate as had a transient run of A. fib with RVR and had to stop procedure in the middle with -400 mL fluid removal. Patient was back to normal sinus rhythm after stopping dialysis Plan for ultrafiltration today as patient felt better symptomatically with some improvement in lab report. Although he remains high risk with complicated cl inical condition. Retroperitoneal ultrasound- IMPRESSION:Right kidney is unremarkable in appearance. The left kidney is not visualized. Continue with Gomez Strict intake and output Will avoid nephrotoxic medications (9) Bilateral lower extremity edema Current Visit: Yes Status: Acute Assessment and Plan: Bilateral lower extremity edema, erythema and tenderness most likely secondary to CHF exacerbation and venous stasis . DVT study of the lower extremities- Patient appears to be negative for DVT and SVT. MIAH measurements appear to be within normal limits CPK 44 Wound care Elevate extremities (10) Pleural effusion Current Visit: Yes Status: Acute Assessment and Plan: Patient with right-sided pleural effusion Recently had thoracocentesis performed at [facility] Status post IR guided thoracocentesis with 1 L of fluid removal on 01/28, appears to be exudative however he was on Lasix will follow pleural fluid cultures. On doxycyline and Zosyn de-escalate as per cultures-culture with no growth yet therefore Zosyn stopped on 02/02/2018 and will continue doxycycline(history of MRSA). Review of the pulmonologists note-discussed about the possibility of a Pleurx catheter but as patient is asymptomatic and he is not having thoracentesis more frequently than patient and pulmonologists agreed to hold off on Pleurx catheter right now and recommended to continue diuresis and maximizing medical management. (11) HAP (hospital-acquired pneumonia) Current Visit: Yes Status: Acute Assessment and Plan: Patient with multiple hospital admissions currently with shortness of breath, right-sided pleural effusion, and chills vancomycin stopped as kidney functions declined Was on doxycycline and zosyn -stopped Zosyn after reviewing culture report and patient has been afebrile with normal white count. Will stop doxycycline after completing total 10 days-discuss with pharmacy. Urine has generalized and a Streptococcus pneumoniae and legionella and a Streptococcus pneumoniae antigens- negative Influenza- negative MRSA swab- positive Started MRSA decolonization on 01/29 blood cultures - NGTD pleural fluid cx - with no gross Procalcitonin- 0.22 ( in setting of renal failure) (12) Hyponatremia with excess extracellular fluid volume Current Visit: Yes Status: Acute Assessment and Plan: Hypervolemic hyponatremia secondary to acute on chronic diastolic heart failure. Stable creatinine level but trending down sodium level. Reviewed nephrology note and he recommended freewater diuresis with tolvaptan 15 milligrams 1. Continue to monitor BMP, a strict I&O's. Holding furosemide and a started 1 L of sodium bicarbonate infusion due to metabolic acidosis. Patient may need albumin. Renal ultrasound unremarkable. 2 dose of talvaptan given . Slight improvement in sodium level today. Embedded Systems Software Engineer on board and follow recommendation. (13) Hyperkalemia Current Visit: Yes Status: Resolved Assessment and Plan: Normal potassium level. On admission high potassium level therefore 1 dose of Kayexalate was given. Embedded Systems Software Engineer on board. (14) DVT prophylaxis Current Visit: No Status: Acute Assessment and Plan: SCDs (15) Goals of care, counseling/discussion Current Visit: Yes Status: Acute Assessment and Plan: Complicated patient with multiple contradictory situation. Patient has A. fib with intermittent RVR but not able to give rate control medicine such as beta livan or calcium channel livan due to low blood pressure and not candidate for digoxin due to renal disease. Also not recommended amiodarone for paroxysmal atrial fibrillation as per cardiology. Eliquis on hold due to hematuria though patient has high risk for a stroke. Ineffective diuresis. Patient is on hemodialysis now. Cardiology signed off and does not think to his start amiodarone for paroxysmal A. fib as it is not persistent after weighing risk and benefit. I also discuss about power of business attorney-patient does not have one but want to start the process -social insurance administrator on board. I also discussed with patient about his complicated situation . On board palliative care . Appreciate their input - Time Spent with Patient Total time spent is greater than 50% in coordination of care (as documented) at patient's floor/unit and/or counseling patient: 25 - 35 minutes Internal Medicine: Result - Labs CBC & Chem 7: 02/06/18 03:11 02/06/18 03:11 Labs: Short CBC 02/06/18 Range/Units 03:11 WBC 9.2 (4.3-11.1) K/mcL Hgb 12.4 L (12.9-16.9) g/dL Hct 40.1 (37.5-50.1) % Plt Count 208 (140-400) K/mcL Neutrophils # 6.9 (1.6-8.9) K/mcL BMP 02/06/18 03:11 Sodium 130 L Potassium 4.6 Chloride 97 L Carbon Dioxide 20 L BUN 70 H Creatinine 3.48 H Glucose 165 H Calcium 9.0 Liver Function 02/06/18 Range/Units 03:11 Albumin 2.9 L (3.5-5.7) g/dL - ABG Interpretation ABG results: PT/INR, D-dimer PT 33.9 Seconds (9.4-12.1) H D 02/02/18 10:12 Consult Discharge Plan - Plan Referrals: Maria Antonia Friend, ROUNDHOUSE FIRER/FIREMAN [Primary Care Provider] - (2) CAD (coronary artery disease) Qualifiers: Coronary Disease-Associated Artery/Lesion type: unspecified vessel or lesion type [place] vs. transplanted heart: [place] heart Associated angina: without angina Qualified Code(s): I25.10 - Atherosclerotic heart disease of [place] coronary artery without angina pectoris (3) Diabetes Qualifiers: Diabetes mellitus type: type 2 Diabetes mellitus mcc insulin use: without mcc use Diabetes mellitus complication status: with unspecified complications Qualified Code(s): E11.8 - Type 2 diabetes mellitus with unspecified complications (4) COPD (chronic obstructive pulmonary disease) Qualifiers: COPD type: emphysema Emphysema type: unspecified Qualified Code(s): J43.9 - Emphysema, unspecified (5) Hypertension Qualifiers: Hypertension type: essential hypertension Qualified Code(s): I10 - Essential (primary) hypertension (8) Acute renal failure superimposed on stage 3 chronic kidney disease Qualifiers: Acute renal failure type: unspecified Qualified Code(s): N17.9 - Acute kidney failure, unspecified; N18.3 - Chronic kidney disease, stage 3 (moderate)
[2018-02-06] MEDS: Insulin DETEMIR 100 UNIT/ML X5UNITS SQ SCH (22:19)
[2018-02-07 03:19] LABS: Basophils % 0.1 %; Eosinophils % 0.1 %; Hematocrit 39.5 % (37.5-50.1); Hemoglobin 12.3 g/dL (12.9-16.9); Immature Granulocytes % 0.5 % (0-4); Lymphocytes # 1.3 K/mcL (0.6-4.6); Lymphocytes % 13.7 %; Mean Corpuscular HGB Conc 31.1 g/dL (31.6-35.5); Mean Corpuscular Hemoglobin 24.5 pg (28.0-33.3); Mean Corpuscular Volume 78.7 fL (83.0-100.0); Mean Platelet Volume 10.3 fL (9.4-12.4); Monocytes # 0.8 K/mcL (0.0-1.3); Monocytes % 8.5 %; Neutrophils # 7.3 K/mcL (1.6-8.9); Nucleated Red Blood Cells 0.9 /100 WBC (0); Platelet Count 189 K/mcL (140-400); Red Blood Count 5.02 M/mcL (4.19-5.50); Red Cell Distribution Width 21.3 % (11.5-14.5); Segmented Neutrophils % 77.1 %
[2018-02-07 03:40] LABS: Calcium 9.1 mg/dL (8.6-10.3); Phosphorous 8.3 mg/dL (2.7-4.5); Potassium 4.8 mEq/L (3.5-5.1)
[2018-02-07] MEDS ORDERED: 0.9 % Sodium Chloride 250 ML IVC PRN (07:06)
--- NOTE | 2018-02-07 07:14 | Nephrology Progress Note ---
Date of Encounter: 02/07/18 Time of Encounter: 07:20 - Assessment and Plan (1) Acute renal failure superimposed on stage 3 chronic kidney disease Current Visit: Yes Status: Acute I recommend more RENEWALS SPECIALIST today (Friday) for both ongoing fluid removal for his severe anasarca plus clearance with full benefit of the dialysis filter. I've ordered the treatment with a colder dialysate temperature, slower Qb and Qd so as to minimize potential intradialytic hypotension and to help minimize arrhythmias. However, his very poor hemodynamics make him a complicated patient requiring a high level of complex evaluation/mgt and Med Decision Making. With his SCr worsening, he is more and more likely going to require placement of a Permacath for ongoing/outpatient dialysis. Considering his other issues and recent stopping of anticoagulation therapy because of his severe gross hematuria, please continue to hold anticoagulation Rx, so as to allow placement of a Permacath. Tentatively considering Friday for Permcath. Continue to follow a renal protective strategy by following strict I/Os, daily weights, avoidance of Nephrotoxins and Renal diet (low Phos and low K+). Hyperphosphatemia is worsening, so he will have to start a Phos binder at this time, and I've added a starter dose of Phos-Lo, which may have to be titrated over time for a goal serum Phos of 3.5 to 5.5. Thank you. Qualifiers: Acute renal failure type: unspecified Qualified Code(s): N17.9 - Acute kidney failure, unspecified; N18.3 - Chronic kidney disease, stage 3 (moderate) (2) Bilateral lower extremity edema Current Visit: Yes Status: Acute Fluid overload with ansasrca. He has had limitations with oral and IV diuretics, and ultimately required UF. However his SCr has continued to decline and so will have full HD for today. (3) Hyperphosphatemia Current Visit: Yes Status: Acute See above (4) Hyponatremia Current Visit: Yes Status: Acute Hypervolemic hyponatremia: rec UF/HD to help target his volume status. See above. (5) Anemia Current Visit: Yes Status: Acute Goal Hgb is 10-11 and will monitor. May need IV iron and/or GUSTAVO at some point. Qualifiers: Anemia type: unspecified type Qualified Code(s): D64.9 - Anemia, unspecified (6) Gross hematuria Current Visit: Yes Status: Resolved (7) Hypotension Current Visit: Yes Status: Acute Limitations as above. Qualifiers: Qualified Code(s): I95.9 - Hypotension, unspecified (8) Heart failure Current Visit: Yes Status: Acute As per primary. Qualifiers: Heart failure type: unspecified Heart failure chronicity: unspecified Qualified Code(s): I50.9 - Heart failure, unspecified Subjective Principal diagnosis: sandor/ckd Interval history: Pt was s/e. He said he awoke at about 6am and felt a little better today. He voiced still having some N/V which has been ongoing. He also said that he consents to proceed with his dialysis related treatment today. His Floor RN was present during my interview/exam. Objective - Vital Signs Vital signs: Vital Signs Temp Pulse Resp BP Pulse Ox 02/07/18 07:02 97.4 F L 74 16 85/58 02/07/18 04:04 97.6 F 73 16 87/63 95 02/06/18 22:00 97.3 F L 76 18 86/75 95 02/06/18 16:00 97.4 F L 76 16 96/57 02/06/18 14:51 97.2 F L 18 97/73 02/06/18 14:30 89/66 02/06/18 14:15 96/66 02/06/18 14:00 87/60 02/06/18 13:45 98/68 02/06/18 13:30 105/77 02/06/18 13:15 107/63 02/06/18 13:00 93/67 02/06/18 12:45 98/68 02/06/18 12:30 85/60 02/06/18 12:15 91/62 02/06/18 12:00 96.8 F L 18 87/62 02/06/18 11:15 73 16 88/60 97 02/06/18 07:57 97.6 F 81 15 89/73 96 Intake and Output 02/06/18 02/06/18 02/07/18 15:59 23:59 07:59 Intake Total 690 / 690 0 / 0 0 / 0 Output Total 3000 / 3000 125 / 125 Balance -2310 / -2310 0 / 0 -125 / -125 Intake: Oral 90 / 90 0 / 0 0 / 0 Intake, Rinseback and Flushes 600 / 600 Output: Urine 0 / 0 125 / 125 Total Dialysis (HD) Output 2600 / 2600 Catheter 400 / 400 Other: Meal Lunch Percent of Meal Consumed 0% Blood Glucose* 142 146 112 Hemodialysis Net Fluid Removed 2000 (mL) - General Appearance Exam: General appearance: Present: well-developed, well-nourished, appears started age, laying supine in his bed EENT: Present: ATNC, PERRL, mucous membranes moist Neck: Present: supple Respiratory: Present: clear Cardiology: Present: edema (1-2+ pitting edema bilaterally up to his pretibial region), normal S1, normal S2 Gastrointestinal: Present: no guarding Integumentary: Present: less weeping of the legs Neurologic: Present: no focal deficit, no asterixis, alert and oriented x3 Musculoskeletal: Present: no erythema, no cyanosis Psychiatric: Present: mood/affect appropriate, cooperative - Lab 02/07/18 02:57 02/07/18 02:57 Most recent lab results Calcium 9.1 mg/dL (8.6-10.3) 02/07/18 02:57 Phosphorus 8.3 mg/dL (2.7-4.5) H 02/07/18 02:57 Magnesium 2.9 mg/dL (1.6-2.6) H 01/28/18 03:37 Urine Creatinine 112 mg/dL 02/02/18 08:45 Urine Sodium 18.8 mEq/L 02/02/18 08:45 Consult Discharge Plan - Plan Referrals: Maria Antonia Friend TRAFFIC CONTROL SPECIALIST [Primary Care Provider] -
[2018-02-07] MEDS: Insulin LISPRO 300 UNITS/3 ML VIAL SQ SCH ×4 (08:00→22:06)
[2018-02-07] MEDS: Ondansetron 4 MG/2 ML VIAL IVP PRN ×2 (08:04→16:14)
[2018-02-07] MEDS ORDERED: 0.9 % Sodium Chloride 1,000 ML ONE (08:08)
[2018-02-07] MEDS: Calcium Acetate 667 MG CAPSULE PO SCH ×3 (08:37→16:14)
[2018-02-07] MEDS: Aspirin Enteric Coated 81 MG Tablet PO SCH ×2 (08:38→16:14)
[2018-02-07] MEDS: Sennosides/Docusate Sodium TABLET PO SCH ×2 (08:39→22:07)
[2018-02-07] MEDS: Famotidine 20 MG TABLET PO SCH ×2 (08:39→16:14)
[2018-02-07] MEDS: Nystatin SUSP 5 ML UD.LIQ PO SCH ×4 (08:39→21:56)
[2018-02-07] MEDS: Finasteride 5 MG TABLET PO SCH ×2 (08:40→16:13)
[2018-02-07] MEDS ORDERED: Albumin 25% 12.5gm/50mL 12.5 GM/50 ML IV.SOLN ONE ×2 (10:48→11:01)
--- NOTE | 2018-02-07 13:07 | Internal Med Progress Note ---
Hospitalist Progress Note - Encounter Date of Encounter: 02/07/18 Time of Encounter: 13:04 - Subjective Interval History: Patient sitting comfortably on bed. Feeling better in swelling and shortness of breath. He still has beeping superficial wound in lower extremity but better. Review the lab with worsening of creatinine level. Clear urine in Gomez catheter. Reviewed residential property consultant note. Denies fever or chills vomiting headache dizziness chest pain or shortness of breath abdominal pain - Exam Vitals: Temp Pulse Resp BP Pulse Ox 97.1 F L 74 18 97/61 95 02/07/18 09:45 02/07/18 07:02 02/07/18 09:45 02/07/18 12:45 02/07/18 04:04 Exam: General: Patient is alert, oriented, in no acute distress. Head: atraumatic, normocephalic, Eye: PERRLA EOMI ENT: mucous membranes moist Chest: normal inspection, symmetric chest rise Respiratory: Crackles at the base but decreased breath sound. Cardiovascular: Irregular s1 and s2 No clicks, rubs, gallops, or murmors. Abdomen: Abdomen is soft, nondistended. no epigastric tenderness. No guarding or rebound. Musculoskeletal: Spontaneously moving all extremities. +2/3 edema up to mid thighs Skin: warm, dry, intact. bilateral lower extremities are warm, erythematous, skin breakdowns in bilateral anterior shins with petechiae and serous drainage Neuro: Alert and oriented x4. No focal deficit - Assessment and Plan (1) Gross hematuria Current Visit: Yes Status: Resolved Assessment and Plan: Improving . Newly diagnosed. On hold Eliquis. On board urologist and plan to remove catheter when clinically more stable and may consider reintroducing Eliquis if no further hematuria after removing catheter. Charging Car Operator advice continue to hold Eliquis for now as long for PermCath on Friday. Stable hemoglobin. (2) CAD (coronary artery disease) Current Visit: Yes Status: Chronic Assessment and Plan: Stable. Started aspirin but continue to hold, Eliquis due to hematuria and will restart once cleared by urologist. Calcium channel blockerr on hold due to low blood pressure. Started low dose beta livan with hold parameter. Digoxin is not appropriate as patient has renal insufficiency. May consider amiodarone if persistent A. fib with RVR in the condition of hypotension. Echocardiogram on LVEF 70-75%, hperdynamic LV. Mild concentric left ventricular hypertrophy.There is a trivial to small pericardial effusion lateral to posterolateral LV wall. troponin trended flat Limited TTE 11/11/17: Limited echo. LVEF 65%. Normal LV chamber size and systolic function. Mild concentric left ventricular hypertrophy. Normal right ventricular structure and function. No pericardial effusion. [facility] 08/31/17: Impressions: There is severe three vessel coronary artery disease with RCA and LCX 100% instent restenosis FFR Measurement: 0.84 prox LAD. Mid LAD 0.78. Recommendations: Optimal medical therapy of patient's disease. Aggressive risk factor modification. Suggest patient have Elective coronary artery bypass surgery. Family Nurse Practitioner signed off. Cardiology did not recommend amiodarone for PAF at this time. Continue aspirin and would recommend considering resuming Eliquis prior to discharge renally adjusted possibly 2.5 mg twice a day once that cleared by urologist. (3) Diabetes Current Visit: No Status: Chronic Assessment and Plan: Blood glucose better controlled. Continue Lantus 10 units in the night. Continue Accu-Chek and sliding scale insulin A1c 10.2 (4) COPD (chronic obstructive pulmonary disease) Current Visit: No Status: Chronic Assessment and Plan: Currently not an exacerbation Continue home inhalers Oxygen via nasal cannula to keep sats above 92 (5) Hypertension Current Visit: No Status: Chronic Assessment and Plan: low normal blood pressure therefore calcium channel livan on hold. low dose beta livan. Close monitoring. (6) PAF (paroxysmal atrial fibrillation) Current Visit: No Status: Acute Assessment and Plan: Is started low dose metoprolol . cardizem has been on hold as low blood pressure. Not a good candidate for digoxin. Family Nurse Practitioner's on board and would not recommend restarting amiodarone at this time. Continue aspirin and recommended resuming Eliquis really adjusted as mentioned above. Complicated patient with high risk for a stroke-educated patient and Chads vasc 6 (7) Acute on chronic diastolic heart failure Current Visit: Yes Status: Acute Assessment and Plan: Difficult patient for diuresis in the context of volume overload and worsening creatinine. Patient with shortness of breath, PND, orthopnea and bilateral lower extremity swelling Troponin 0.04 trended to 0.05 x 2 BNP 800 Echocardiogram- on LVEF 70-75%, hperdynamic LV. Mild concentric left ventricular hypertrophy.There is a trivial to small pericardial effusion lateral to posterolateral LV wall. Strict intake and output Daily weights Fluid restrictions less than 1 L Gomez catheter with a strict I&O's was treated with IV lasix and switched to oral however it was held secondary to worsening renal function. Limited TTE 11/11/17: Limited echo. LVEF 65%. Normal LV chamber size and systolic function. Mild concentric left ventricular hypertrophy. Normal right ventricular structure and function. No pericardial effusion. [facility] 08/31/17: Impressions: There is severe three vessel coronary artery disease with RCA and LCX 100% instent restenosis FFR Measurement: 0.84 prox LAD. Mid LAD 0.78. (8) Acute renal failure superimposed on stage 3 chronic kidney disease Current Visit: Yes Status: Acute Assessment and Plan: Baseline creatinine ranges anywhere from 1.8 to 1.9 creatinine 2.92 on admission trended down to 2.85 however now trending up again. Charging Car Operator on board . Had ultrafiltration with almost 2 L removal of fluid on 02/04/2018. 02/05/2018- hemodialysis but patient could not tolerate as had a transient run o f A. fib with RVR and had to stop procedure in the middle with -400 mL fluid removal. Patient was back to normal sinus rhythm after stopping dialysis Plan for hemodialysis today and over the weekend and PermCath placement on Friday. as patient felt better symptomatically but worsening of creatinine level. Although he remains high risk with complicated clinical condition. Charging Car Operator advised to continue to hold Eliquis for now Retroperitoneal ultrasound- IMPRESSION:Right kidney is unremarkable in appearance. The left kidney is not visualized. Continue with Gomez Strict intake and output Will avoid nephrotoxic medications (9) Bilateral lower extremity edema Current Visit: Yes Status: Acute Assessment and Plan: Bilateral lower extremity edema, erythema and tenderness most likely secondary to CHF exacerbation and venous stasis . DVT study of the lower extremities- Patient appears to be negative for DVT and SVT. MIAH measurements appear to be within normal limits CPK 44 Wound care Elevate extremities Slight better today (10) Pleural effusion Current Visit: Yes Status: Acute Assessment and Plan: Patient with right-sided pleural effusion Recently had thoracocentesis performed at [facility] Status post IR guided thoracocentesis with 1 L of fluid removal on 01/28, appears to be exudative however he was on Lasix will follow pleural fluid cultures. On doxycyline and Zosyn de-escalate as per cultures-culture with no growth yet therefore Zosyn stopped on 02/02/2018 and will continue doxycycline(history of MRSA). Review of the pulmonologists note-discussed about the possibility of a Pleurx catheter but as patient is asymptomatic and he is not having thoracentesis more frequently than patient and pulmonologists agreed to hold off on Pleurx catheter right now and recommended to continue diuresis and maximizing medical management. (11) HAP (hospital-acquired pneumonia) Current Visit: Yes Status: Acute Assessment and Plan: Patient with multiple hospital admissions currently with shortness of breath, right-sided pleural effusion, and chills vancomycin stopped as kidney functions declined Was on doxycycline and zosyn -stopped Zosyn after reviewing culture report and patient has been afebrile with normal white count. Will stop doxycycline after completing total 10 days-discuss with pharmacy. Urine has generalized and a Streptococcus pneumoniae and legionella and a Streptococcus pneumoniae antigens- negative Influenza- negative MRSA swab- positive Started MRSA decolonization on 01/29 blood cultures - NGTD pleural fluid cx - with no gross Procalcitonin- 0.22 ( in setting of renal failure) (12) Hyponatremia with excess extracellular fluid volume Current Visit: Yes Status: Acute Assessment and Plan: Hypervolemic hyponatremia secondary to acute on chronic diastolic heart failure. Stable creatinine level but trending down sodium level. Reviewed nephrology note and he recommended freewater diuresis with tolvaptan 15 milligrams 1. Continue to monitor BMP, a strict I&O's. Holding furosemide and a started 1 L of sodium bicarbonate infusion due to metabolic acidosis. Patient may need albumin. Renal ultrasound unremarkable. 2 dose of talvaptan given . Charging Car Operator on board and follow recommendation. (13) Hyperkalemia Current Visit: Yes Status: Resolved Assessment and Plan: Normal potassium level. On admission high potassium level therefore 1 dose of Kayexalate was given. Charging Car Operator on board. (14) DVT prophylaxis Current Visit: No Status: Acute Assessment and Plan: SCDs (15) Goals of care, counseling/discussion Current Visit: Yes Status: Acute Assessment and Plan: Complicated patient with multiple contradictory situation. Patient has A. fib with intermittent RVR but not able to give rate control medicine such as beta livan or calcium channel livan due to low blood pressure and not candidate for digoxin due to renal disease. Also not recommended amiodarone for paroxysmal atrial fibrillation as per cardiology. Eliquis on hold due to hematuria though patient has high risk for a stroke. Ineffective diuresis. Patient is on hemodialysis now. Cardiology signed off and does not think to his start amiodarone for paroxysmal A. fib as it is not persistent after weighing risk and benefit. I also discuss about power of trademark attorney-licensed master social worker on board. I also discussed with patient about his complicated situation . On board palliative care and they are trying to get hold on for further discussion especially CODE STATUS and his wishes about end-of-life care . Appreciate their input - Time Spent with Patient Total time spent is greater than 50% in coordination of care (as documented) at patient's floor/unit and/or counseling patient: 25 - 35 minutes Internal Medicine: Result - Labs CBC & Chem 7: 02/07/18 02:57 02/07/18 02:57 Labs: Short CBC 02/07/18 Range/Units 02:57 WBC 9.5 (4.3-11.1) K/mcL Hgb 12.3 L (12.9-16.9) g/dL Hct 39.5 (37.5-50.1) % Plt Count 189 (140-400) K/mcL Neutrophils # 7.3 (1.6-8.9) K/mcL BMP 02/07/18 02:57 Sodium 129 L Potassium 4.8 Chloride 97 L Carbon Dioxide 17 L BUN 85 H Creatinine 4.34 H Glucose 142 H Calcium 9.1 Liver Function 02/07/18 Range/Units 02:57 Albumin 3.0 L (3.5-5.7) g/dL - ABG Interpretation ABG results: PT/INR, D-dimer PT 33.9 Seconds (9.4-12.1) H D 02/02/18 10:12 Consult Discharge Plan - Plan Referrals: Maria Antonia Friend, FIXED WING AIRCRAFT FLIGHT MECHANIC [Primary Care Provider] - (2) CAD (coronary artery disease) Qualifiers: Coronary Disease-Associated Artery/Lesion type: unspecified vessel or lesion type [place] vs. transplanted heart: [place] heart Associated angina: without angina Qualified Code(s): I25.10 - Atherosclerotic heart disease of [place] coronary artery without angina pectoris (3) Diabetes Qualifiers: Diabetes mellitus type: type 2 Diabetes mellitus community recreation programmer insulin use: without community recreation programmer use Diabetes mellitus complication status: with unspecified complications Qualified Code(s): E11.8 - Type 2 diabetes mellitus with unspecified complications (4) COPD (chronic obstructive pulmonary disease) Qualifiers: COPD type: emphysema Emphysema type: unspecified Qualified Code(s): J43.9 - Emphysema, unspecified (5) Hypertension Qualifiers: Hypertension type: essential hypertension Qualified Code(s): I10 - Essential (primary) hypertension (8) Acute renal failure superimposed on stage 3 chronic kidney disease Qualifiers: Acute renal failure type: unspecified Qualified Code(s): N17.9 - Acute kidney failure, unspecified; N18.3 - Chronic kidney disease, stage 3 (moderate)
[2018-02-07] MEDS: Insulin DETEMIR 100 UNIT/ML X5UNITS SQ SCH (22:07)
[2018-02-08 07:06] LABS: Basophils % 0.1 %; Eosinophils % 0.3 %; Hematocrit 38.8 % (37.5-50.1); Immature Granulocytes % 0.7 % (0-4); Lymphocytes # 1.6 K/mcL (0.6-4.6); Lymphocytes % 15.7 %; Mean Corpuscular HGB Conc 30.9 g/dL (31.6-35.5); Mean Corpuscular Hemoglobin 24.3 pg (28.0-33.3); Mean Corpuscular Volume 78.7 fL (83.0-100.0); Monocytes # 0.9 K/mcL (0.0-1.3); Monocytes % 8.8 %; Neutrophils # 7.6 K/mcL (1.6-8.9); Platelet Count 160 K/mcL (140-400); Red Blood Count 4.93 M/mcL (4.19-5.50); Red Cell Distribution Width 22.5 % (11.5-14.5); Segmented Neutrophils % 74.4 %
[2018-02-08 07:20] LABS: Calcium 9.2 mg/dL (8.6-10.3); Potassium 4.8 mEq/L (3.5-5.1)
[2018-02-08] MEDS: Insulin LISPRO 300 UNITS/3 ML VIAL SQ SCH ×4 (08:00→21:18)
--- NOTE | 2018-02-08 09:05 | Nephrology Progress Note ---
Date of Encounter: 02/08/18 Time of Encounter: 09:20 - Assessment and Plan (1) Acute renal failure superimposed on stage 3 chronic kidney disease Current Visit: Yes Status: Acute He has become dialysis dependent in terms of his CARLOS on CKD stage III for both clearance and fluid overload. I recommend upgrading the temporary HD catheter to a Permcath (NPO tonight and consult to [facility] IR placed for tomorrow), plus I ordered a consult to the [place] [employer] to start arranging an outpatient dialysis chair for thrice weekly HD. He is a complex patient and with his relatively low BPs, which are still ongoing, this will make for challenging outpatient dialysis. He will be a high risk for admission after this hospitalization if his hemodynamics remain poor while as an outpatient. After the Permacath is placed, then if he needs to resume anticoagulation, this would be reasonable (keep in mind that last week, his A/C had to be stopped due to impressive gross hematuria, and since he his A/C is on hold, this has limited some options for the Cardiology team). Plan for next HD tomorrow (Friday) after Permacath placement for both clearance and UF. Yesterday he tolerated HD by adding Albumin 25gm x1, and so he may need it tomorrow as well. I will provide a thorough sign-out to my colleague Dr. Forrester, who will be on service starting tomorrow AM. I discussed the benefits, indications, risks and alternatives with the pt for the above. Please continue to follow a renal protective strategy by following strict I/Os, daily weights, avoidance of Nephrotoxins and Renal diet (low Phos and low K+). Hyperphosphatemia: I've started Phos binder, i.e. Phos-Lo, for a goal serum Phos of 3.5 to 5.5. Thank you. Qualifiers: Acute renal failure type: unspecified Qualified Code(s): N17.9 - Acute k idney failure, unspecified; N18.3 - Chronic kidney disease, stage 3 (moderate) (2) Bilateral lower extremity edema Current Visit: Yes Status: Acute (3) Hyperphosphatemia Current Visit: Yes Status: Acute (4) Hyponatremia Current Visit: Yes Status: Acute (5) Anemia Current Visit: Yes Status: Acute Qualifiers: Anemia type: unspecified type Qualified Code(s): D64.9 - Anemia, unspecified (6) Gross hematuria Current Visit: Yes Status: Resolved (7) Hypotension Current Visit: Yes Status: Acute Qualifiers: Qualified Code(s): I95.9 - Hypotension, unspecified (8) Heart failure Current Visit: Yes Status: Acute Qualifiers: Heart failure type: unspecified Heart failure chronicity: unspecified Qualified Code(s): I50.9 - Heart failure, unspecified Subjective Principal diagnosis: carlos/ckd Interval history: Pt was s/e while sitting upright in the bedside chair. He was accompanied by his . He affirmed feeling less but still very swollen in his legs and less so in his fingers/hands. He affirmed having developed an improved appetite. He denied CP but affirmed having ongoing shortness of breath but about the same as the day before. Objective - Vital Signs Vital signs: Vital Signs Temp Pulse Resp BP Pulse Ox 02/08/18 05:55 97.6 F 86 20 83/59 96 02/08/18 04:00 97.5 F L 79 18 78/46 96 02/08/18 03:56 97.9 F 80 14 75/51 96 02/07/18 21:57 97.5 F L 81 18 82/62 97 02/07/18 15:45 79 90/66 02/07/18 12:45 97/61 02/07/18 12:36 101/63 02/07/18 12:30 94/73 02/07/18 12:20 86/61 02/07/18 12:15 85/61 02/07/18 12:11 90/52 02/07/18 12:06 81/50 02/07/18 12:00 97/48 02/07/18 11:45 90/67 02/07/18 11:30 105/58 02/07/18 11:15 97/58 02/07/18 11:00 103/67 02/07/18 10:45 81/54 02/07/18 10:30 85/59 02/07/18 10:15 88/59 02/07/18 10:00 93/44 02/07/18 09:45 97.1 F L 18 109/58 Intake and Output 02/07/18 02/08/18 02/08/18 23:59 07:59 15:59 Intake Total 0 / 0 0 / 0 Output Total 100 / 100 Balance 0 / 0 -100 / -100 Intake: Oral 0 / 0 0 / 0 Output: Catheter 100 / 100 Other: Weight 105 kg Blood Glucose* 110 103 Patient Weight 02/08/18 23:59 Weight 105 kg - General Appearance Exam: General appearance: Present: well-developed, well-nourished, appears started age, sittin upright in the bedside chair EENT: Present: ATNC, PERRL, mucous membranes moist Neck: Present: supple Respiratory: Present: clear Cardiology: Present: edema (1-2+ pitting edema bilaterally up to his pretibial region), normal S1, normal S2 Gastrointestinal: Present: no guarding Integumentary: Present: minimal weeping of the legs bilaterally Neurologic: Present: no focal deficit, no asterixis, alert and oriented x3 Musculoskeletal: Present: no erythema, no cyanosis Psychiatric: Present: mood/affect appropriate, cooperative - Lab 02/09/18 06:19 02/09/18 06:19 Most recent lab results Calcium 9.2 mg/dL (8.6-10.3) 02/08/18 06:24 Phosphorus 8.3 mg/dL (2.7-4.5) H 02/07/18 02:57 Magnesium 2.9 mg/dL (1.6-2.6) H 01/28/18 03:37 Urine Creatinine 112 mg/dL 02/02/18 08:45 Urine Sodium 18.8 mEq/L 02/02/18 08:45 Consult Discharge Plan - Plan Referrals: Maria Antonia Friend LOCAL OPERATOR [Primary Care Provider] -
[2018-02-08] MEDS: Ondansetron 4 MG/2 ML VIAL IVP PRN ×2 (09:21→21:26)
[2018-02-08] MEDS: Calcium Acetate 667 MG CAPSULE PO SCH ×3 (09:21→18:00)
[2018-02-08] MEDS: Finasteride 5 MG TABLET PO SCH (09:21)
[2018-02-08] MEDS: Sennosides/Docusate Sodium TABLET PO SCH ×2 (09:21→22:27)
[2018-02-08] MEDS: Aspirin Enteric Coated 81 MG Tablet PO SCH (09:21)
[2018-02-08] MEDS: Famotidine 20 MG TABLET PO SCH (09:22)
[2018-02-08] MEDS: Nystatin SUSP 5 ML UD.LIQ PO SCH ×4 (09:28→21:19)
--- NOTE | 2018-02-08 15:41 | Internal Med Progress Note ---
Hospitalist Progress Note - Encounter Date of Encounter: 02/08/18 Time of Encounter: 15:38 - Subjective Interval History: Patient sitting comfortably on bed. at bedside. Feeling tired and nauseated but better in swelling and shortness of breath. His beeping superficial wound in lower extremity -slight better. Review the lab with better sodium and creatinine level. Clear urine in Gomez catheter. Reviewed supervisor home energy consultant note. Denies fever or chills vomiting headache dizziness chest pain or shortness of breath abdominal pain - Exam Vitals: Temp Pulse Resp BP Pulse Ox 97.3 F L 77 16 116/91 3 02/08/18 08:00 02/08/18 08:00 02/08/18 08:00 02/08/18 08:00 02/08/18 08:00 Exam: General: Patient is alert, oriented, in no acute distress. Head: atraumatic, normocephalic, Eye: PERRLA EOMI ENT: mucous membranes moist Chest: normal inspection, symmetric chest rise Respiratory: Crackles at the base but decreased breath sound-stable. Cardiovascular: Irregular s1 and s2 No clicks, rubs, gallops, or murmors. Abdomen: Abdomen is soft, nondistended. no epigastric tenderness. No guarding or rebound. Musculoskeletal: Spontaneously moving all extremities. +2/3 edema up to mid thighs Skin: warm, dry, intact. bilateral lower extremities are warm, erythematous, sk in breakdowns in bilateral anterior shins with petechiae and serous drainage- better Neuro: Alert and oriented x4. No focal deficit - Assessment and Plan (1) Gross hematuria Current Visit: Yes Status: Resolved Assessment and Plan: Improving . Newly diagnosed. On hold Eliquis. On board urologist and plan to remove catheter when clinically more stable and may consider reintroducing Eliquis if no further hematuria after removing catheter. Opal Miner advice continue to hold Eliquis for now as long for PermCath on Friday. Plan to resume Eliquis tomorrow after PermCath placement and remove Gomez catheter and observe urine for any hematuria Stable hemoglobin. (2) CAD (coronary artery disease) Current Visit: Yes Status: Chronic Assessment and Plan: Stable. Started aspirin but continue to hold, Eliquis due to hematuria and will restart once cleared by urologist. Calcium channel blockerr on hold due to low blood pressure. Started low dose beta livan with hold parameter. Digoxin is not appropriate as patient has renal insufficiency. May consider amiodarone if persistent A. fib with RVR in the condition of hypotension. Echocardiogram on LVEF 70-75%, hperdynamic LV. Mild concentric left ventricular hypertrophy.There is a trivial to small pericardial effusion lateral to posterolateral LV wall. troponin trended flat Limited TTE 11/11/17: Limited echo. LVEF 65%. Normal LV chamber size and systolic function. Mild concentric left ventricular hypertrophy. Normal right ventricular structure and function. No pericardial effusion. [facility] 08/31/17: Impressions: There is severe three vessel coronary artery disease with RCA and LCX 100% instent restenosis FFR Measurement: 0.84 prox LAD. Mid LAD 0.78. Recommendations: Optimal medical therapy of patient's disease. Aggressive risk factor modification. Suggest patient have Elective coronary artery bypass surgery. Battery Technician signed off. Cardiology did not recommend amiodarone for PAF at this time. Continue aspirin and would recommend considering resuming Eliquis prior to discharge renally adjusted possibly 2.5 mg twice a day once that cleared by urologist. (3) Diabetes Current Visit: No Status: Chronic Assessment and Plan: Blood glucose better controlled. Continue Lantus 10 units in the night. Continue Accu-Chek and sliding scale insulin A1c 10.2 (4) COPD (chronic obstructive pulmonary disease) Current Visit: No Status: Chronic Assessment and Plan: Currently not an exacerbation Continue home inhalers Oxygen via nasal cannula to keep sats above 92 (5) Hypertension Current Visit: No Status: Chronic Assessment and Plan: low normal blood pressure therefore calcium channel livan on hold. low dose beta livan. Close monitoring. (6) PAF (paroxysmal atrial fibrillation) Current Visit: No Status: Acute Assessment and Plan: Is started low dose metoprolol . cardizem has been on hold as low blood pressure. Not a good candidate for digoxin. Battery Technician's on board . Please see above Complicated patient with high risk for a stroke-educated patient and Chads vasc 6 (7) Acute on chronic diastolic heart failure Current Visit: Yes Status: Acute Assessment and Plan: Difficult patient for diuresis in the context of volume overload and worsening creatinine. Patient with shortness of breath, PND, orthopnea and bilateral lower extremity swelling Troponin 0.04 trended to 0.05 x 2 BNP 800 Echocardiogram- on LVEF 70-75%, hperdynamic LV. Mild concentric left ventricular hypertrophy.There is a trivial to small pericardial effusion lateral to posterolateral LV wall. Strict intake and output Daily weights Fluid restrictions less than 1 L Gomez catheter with a strict I&O's Limited TTE 11/11/17: Limited echo. LVEF 65%. Normal LV chamber size and systolic function. Mild concentric left ventricular hypertrophy. Normal right ventricular structure and function. No pericardial effusion. [facility] 08/31/17: Impressions: There is severe three vessel coronary artery disease with RCA and LCX 100% instent restenosis FFR Measurement: 0.84 prox LAD. Mid LAD 0.78. (8) Acute renal failure superimposed on stage 3 chronic kidney disease Current Visit: Yes Status: Acute Assessment and Plan: Baseline creatinine ranges anywhere from 1.8 to 1.9 creatinine 2.92 on admission trended down to 2.85 however now trending up again. Opal Miner on board . Had ultrafiltration with almost 2 L removal of fluid on 02/04/2018. 02/05/2018- hemodialysis but patient could not tolerate as had a transient run of A. fib with RVR and had to stop procedure in the middle with -400 mL fluid removal. Patient was back to normal sinus rhythm after stopping dialysis 02/06/2018-head hemodialysis and patient tolerated. Plan for PermCath placement on Friday and hemodialysis afterward. Patient has become dialysis dependent in terms of his [place] eye on CK D stage III for both c learance and fluid overload. Improving slightly ,Although he remains high risk with complicated clinical condition. Retroperitoneal ultrasound- IMPRESSION:Right kidney is unremarkable in appearance. The left kidney is not visualized. Continue with Gomez Strict intake and output Will avoid nephrotoxic medications (9) Bilateral lower extremity edema Current Visit: Yes Status: Acute Assessment and Plan: Bilateral lower extremity edema, erythema and tenderness most likely secondary to CHF exacerbation and venous stasis . DVT study of the lower extremities- Patient appears to be negative for DVT and SVT. MIAH measurements appear to be within normal limits CPK 44 Wound care Elevate extremities Slight better today (10) Pleural effusion Current Visit: Yes Status: Acute Assessment and Plan: Patient with right-sided pleural effusion Recently had thoracocentesis performed at [facility] Status post IR guided thoracocentesis with 1 L of fluid removal on 01/28, appe ars to be exudative however he was on Lasix will follow pleural fluid cultures. On doxycyline and Zosyn de-escalate as per cultures-culture with no growth yet therefore Zosyn stopped on 02/02/2018 and will continue doxycycline(history of MRSA). Review of the pulmonologists note-discussed about the possibility of a Pleurx catheter but as patient is asymptomatic and he is not having thoracentesis more frequently than patient and pulmonologists agreed to hold off on Pleurx catheter right now and recommended to continue diuresis and maximizing medical management. (11) HAP (hospital-acquired pneumonia) Current Visit: Yes Status: Acute Assessment and Plan: Patient with multiple hospital admissions currently with shortness of breath, right-sided pleural effusion, and chills vancomycin stopped as kidney functions declined Was on doxycycline and zosyn -stopped Zosyn after reviewing culture report and patient has been afebrile with normal white count. Will stop doxycycline after completing total 10 days-discussed with pharmacy. Urine has generalized and a Streptococcus pneumoniae and legionella and a Streptococcus pneumoniae antigens- negative Influenza- negative MRSA swab- positive Started MRSA decolonization on 01/29 blood cultures - NGTD pleural fluid cx - with no gross Procalcitonin- 0.22 ( in setting of renal failure) (12) Hyponatremia with excess extracellular fluid volume Current Visit: Yes Status: Acute Assessment and Plan: Hypervolemic hyponatremia secondary to acute on chronic diastolic heart failure. Stable creatinine level but trending down sodium level. Reviewed nephrology note and he recommended freewater diuresis with tolvaptan 15 milligrams 1. Continue to monitor BMP, a strict I&O's. Holding furosemide and a started 1 L of sodium bicarbonate infusion due to metabolic acidosis. Patient may need albumin. Renal ultrasound unremarkable. 2 dose of talvaptan given . Opal Miner on board and follow recommendation. (13) Hyperkalemia Current Visit: Yes Status: Resolved Assessment and Plan: Normal potassium level. On admission high potassium level therefore 1 dose of Kayexalate was given. Opal Miner on board. (14) DVT prophylaxis Current Visit: No Status: Acute Assessment and Plan: SCDs (15) Goals of care, counseling/discussion Current Visit: Yes Status: Acute Assessment and Plan: Complicated patient with multiple contradictory situation. Patient has A. fib with intermittent RVR but not able to give rate control medicine such as beta livan or calcium channel livan due to low blood pressure and not candidate for digoxin due to renal disease. Also not recommended amiodarone for paroxysmal atrial fibrillation as per cardiology. Ineffective diuresis. Patient is on hemodialysis now. Cardiology signed off and does not think to his start amiodarone for paroxysmal A. fib as it is not persistent after weighing risk and benefit. I also discuss about power of reinforcing iron and rebar workers-addiction social worker on board. I also discussed with patient about his complicated situation . On board palliative care for further discussion especially CODE STATUS and his wishes about end-of-life care . Appreciate their input - Time Spent with Patient Total time spent is greater than 50% in coordination of care (as documented) at patient's floor/unit and/or counseling patient: 25 - 35 minutes Plan of Care Discussed with: family Internal Medicine: Result - Labs CBC & Chem 7: 02/08/18 06:24 02/08/18 06:24 Labs: Short CBC 02/08/18 Range/Units 06:24 WBC 10.3 (4.3-11.1) K/mcL Hgb 12.0 L (12.9-16.9) g/dL Hct 38.8 (37.5-50.1) % Plt Count 160 (140-400) K/mcL Neutrophils # 7.6 (1.6-8.9) K/mcL BMP 02/08/18 06:24 Sodium 130 L Potassium 4.8 Chloride 96 L Carbon Dioxide 19 L BUN 62 H Creatinine 3.94 H Glucose 114 H Calcium 9.2 - ABG Interpretation ABG results: PT/INR, D-dimer PT 33.9 Seconds (9.4-12.1) H D 02/02/18 10:12 Consult Discharge Plan - Plan Referrals: Maria Antonia Friend, PROCUREMENT COORDINATOR [Primary Care Provider] - (2) CAD (coronary artery disease) Qualifiers: Coronary Disease-Associated Artery/Lesion type: unspecified vessel or lesion type [place] vs. transplanted heart: [place] heart Associated angina: without angina Qualified Code(s): I25.10 - Atherosclerotic heart disease of [place] coronary artery without angina pectoris (3) Diabetes Qualifiers: Diabetes mellitus type: type 2 Diabetes mellitus terminal carman insulin use: without terminal carman use Diabetes mellitus complication status: with unspecified complications Qualified Code(s): E11.8 - Type 2 diabetes mellitus with unspecified complications (4) COPD (chronic obstructive pulmonary disease) Qualifiers: COPD type: emphysema Emphysema type: unspecified Qualified Code(s): J43.9 - Emphysema, unspecified (5) Hypertension Qualifiers: Hypertension type: essential hypertension Qualified Code(s): I10 - Essential (primary) hypertension (8) Acute renal failure superimposed on stage 3 chronic kidney disease Qualifiers: Acute renal failure type: unspecified Qualified Code(s): N17.9 - Acute kidney failure, unspecified; N18.3 - Chronic kidney disease, stage 3 (moderate)
--- NOTE | 2018-02-08 17:25 | Palliative Progress Note ---
Date of Encounter: 02/08/18 Time of Encounter: 12:00 - Assessment and plan (1) CARLOS (acute kidney injury) Current Visit: No Status: Acute Assessment and plan: Nephrology on the case, pt will need [facility] HD. (2) Goals of care, counseling/discussion Current Visit: Yes Status: Acute Assessment and plan: Follow up GOC discussion today. states she had a discussion with pt, and his wish is to continue all possible treatment, but to avoid resuscitation at end of life. Patient agrees. DNRCCA form was filled and signed by . Pt to receive [facility] HD catheter tomorrow, with plan for discharge to swing bed. GOC are clear, palliative care will sign off. (3) Dyspnea Current Visit: Yes Status: Acute Assessment and plan: Pt was on room air, O2 sat 95%. feeling comfortable. Qualifiers: Dyspnea type: unspecified Qualified Code(s): R06.00 - Dyspnea, unspecified - Time Spent With Patient Total time spent is greater than 50% in coordination of care (as documented) at patient's floor/unit and/or counseling patient: - Subjective Interval history: Pt was in bed, feeling very tired and sleepy. He wwas sitting on the chair earlier today. present at the bedside. Pt to receive manager long term care HD catheter tomorrow, with plan for discharge to swing bed. - Constitutional Vitals: Abnormal lab results Hgb 12.0 g/dL (12.9-16.9) L 02/08/18 06:24 MCV 78.7 fL (83.0-100.0) L 02/08/18 06:24 MCH 24.3 pg (28.0-33.3) L 02/08/18 06:24 MCHC 30.9 g/dL (31.6-35.5) L 02/08/18 06:24 RDW 22.5 % (11.5-14.5) H 02/08/18 06:24 Nucleated RBCs/100 WBC 1.0 /100 WBC (0) H 02/08/18 06:24 PT 33.9 Seconds (9.4-12.1) H D 02/02/18 10:12 APTT 40.7 Seconds (26.0-36.0) H 02/02/18 10:12 Heparin Anti-Xa, Unfract > 2.00 IU/mL (0.30-0.70) H* 01/28/18 06:38 Sodium 130 mEq/L (136-145) L 02/08/18 06:24 Chloride 96 mEq/L (98-107) L 02/08/18 06:24 Carbon Dioxide 19 mEq/L (23-29) L 02/08/18 06:24 BUN 62 mg/dL (8-23) H 02/08/18 06:24 Creatinine 3.94 mg/dL (0.70-1.30) H 02/08/18 06:24 Est GFR ( Amer) 19 (> 60) L 02/08/18 06:24 Est GFR (Non-Af Amer) 15 (> 60) L 02/08/18 06:24 Glucose 114 mg/dL (70-105) H 02/08/18 06:24 POC Glucose 103 mg/dL (70-99) H 02/07/18 15:46 Hemoglobin A1c 10.2 % (-5.6) H 01/28/18 03:37 Phosphorus 8.3 mg/dL (2.7-4.5) H 02/07/18 02:57 Magnesium 2.9 mg/dL (1.6-2.6) H 01/28/18 03:37 Alkaline Phosphatase 406 Units/L (34-104) H 02/04/18 05:13 Lactate Dehydrogenase 275 Units/L (140-271) H 01/29/18 03:17 Troponin I 0.05 ng/mL (< 0.04) H* 01/28/18 00:19 B-Natriuretic Peptide 800 pg/mL (Less than 100) H 01/27/18 12:48 Serum Total Protein 5.9 g/dL (6.4-8.9) L 02/04/18 05:13 Albumin 3.0 g/dL (3.5-5.7) L 02/07/18 02:57 Albumin/Globulin Ratio 1.0 (1.1-2.2) L 02/04/18 05:13 HDL Cholesterol 36 mg/dL (40-59) L 01/28/18 03:37 Procalcitonin 0.22 ng/mL (<=0.07) H 01/27/18 15:54 TSH 7.788 mcIU/mL (0.340-5.600) H 01/28/18 03:37 Urine Protein 100 mg/dL (Neg-Trace) H 01/27/18 Unknown Urine Blood Trace (Negative) H 01/27/18 Unknown Nasal Screen MRSA (PCR) Positive (Negative) A 01/27/18 16:15 Hep Bs Antibody < 3.10 mIU/mL (10.00-) L 02/04/18 11:16 Exam: General appearance: Present: no acute distress - Respiratory Respiratory exam: Present: decreased breath sounds Additional comments: Faint crackles noted to lower lung [place] posteriorally - Cardiovascular Cardiovascular exam: Present: irregular rhythm - GI/Abdominal GI/Abdominal exam: Present: distended, normal bowel sounds, soft - Extremities Exam Additional comments: 4+ edema to bilaterally lower extremities with weeping, feet dusky and cool to touch - Neurological Exam Neurological exam: Present: alert, oriented X3 Additional comments: Generalized weakness - Skin Skin exam: Present: dry, pallor, warm Palliative Quality Palliative Quality: Screen for Code Status: NA (awaiting family meeting), Screen for Goals of Care: NA, Screen for Pain: Yes, If Pain Regimen Started, Initiate Bowel Regimen: NA, Screen for Nausea/Vomitting: Yes Code Status: 01/27/18 14:57 Resuscitation Status: Active [RES] Routine Comment: Resuscitation Status: Full Code - Labs CBC & Chem 7: 02/08/18 06:24 02/08/18 06:24 Labs: Laboratory Results - last 24 hr 02/08/18 02/08/18 06:24 06:24 WBC 10.3 RBC 4.93 Hgb 12.0 L Hct 38.8 MCV 78.7 L MCH 24.3 L MCHC 30.9 L RDW 22.5 H Plt Count 160 MPV 10.0 Immature Gran % 0.7 Seg Neutrophils % 74.4 Lymphocytes % 15.7 Monocytes % 8.8 Eosinophils % 0.3 Basophils % 0.1 Neutrophils # 7.6 Lymphocytes # 1.6 Monocytes # 0.9 Eosinophils # 0.0 Basophils # 0.0 Nucleated RBCs/100 WBC 1.0 H Sodium 130 L Potassium 4.8 Chloride 96 L Carbon Dioxide 19 L BUN 62 H Creatinine 3.94 H Est GFR ( Amer) 19 L Est GFR (Non-Af Amer) 15 L BUN/Creatinine Ratio 16 Glucose 114 H Calculated Osmolality 288 Calcium 9.2 - ABG Interpretation ABG results: PT/INR, D-dimer PT 33.9 Seconds (9.4-12.1) H D 02/02/18 10:12 Consult Discharge Plan - Plan Referrals: Maria Antonia Friend, MASTER OF CEREMONIES [Primary Care Provider] -
[2018-02-08] MEDS: Insulin DETEMIR 100 UNIT/ML X5UNITS SQ SCH (21:32)
[2018-02-09] MEDS ORDERED: 0.9 % Sodium Chloride 250 ML IVC PRN (07:02)
[2018-02-09 07:09] LABS: Basophils % 0.1 %; Eosinophils % 0.4 %; Hematocrit 39.3 % (37.5-50.1); Hemoglobin 12.4 g/dL (12.9-16.9); Immature Granulocytes % 0.5 % (0-4); Lymphocytes # 1.1 K/mcL (0.6-4.6); Mean Corpuscular HGB Conc 31.6 g/dL (31.6-35.5); Mean Corpuscular Hemoglobin 24.7 pg (28.0-33.3); Mean Corpuscular Volume 78.3 fL (83.0-100.0); Mean Platelet Volume 11.1 fL (9.4-12.4); Monocytes # 0.8 K/mcL (0.0-1.3); Neutrophils # 8.1 K/mcL (1.6-8.9); Nucleated Red Blood Cells 1.2 /100 WBC (0); Platelet Count 159 K/mcL (140-400); Red Blood Count 5.02 M/mcL (4.19-5.50); Red Cell Distribution Width 22.4 % (11.5-14.5)
[2018-02-09 07:19] LABS: INR 1.5; Prothrombin Time 17.4 Seconds (9.4-12.1)
[2018-02-09 07:28] LABS: Potassium 4.9 mEq/L (3.5-5.1)
[2018-02-09] MEDS ORDERED: Heparin 1,000 UNITS/500 mL 500 ML ONE (11:24)
[2018-02-09] MEDS ORDERED: *HR* Midazolam HCl 2 MG/2 ML VIAL IVP ONE (11:55)
[2018-02-09] MEDS ORDERED: CeFAZolin Premix DUPLEX 2,000 MG/50 ML BAG IVPB ONE ×2 (11:55→12:07)
[2018-02-09] MEDS ORDERED: *HR* FentaNYL (PF) 100 MCG/2 ML VIAL IVP ONE (11:55)
--- NOTE | 2018-02-09 12:00 | Pre-Sedation Evaluation ---
Pre-sedation evaluation - Pre-sedation checklist Date of procedure: 02/09/18 Procedure: Tunneled HD catheter placement Recent Vitals: Last Vital Signs Temp 97.3 F L 02/09/18 11:29 Pulse 82 02/09/18 11:29 Resp 16 02/09/18 11:29 BP 92/65 02/09/18 11:29 Pulse Ox 95 02/09/18 11:29 H&P (including ROS) documented in medical record: Yes Previous reaction to sedatives/anesthetics: No Dietary Status: NPO after Midnight Airway Assessment: Patient can open mouth completely, TMJ function normal Dentition: dentures removed ASA Classification *see protocol: CLASS III-Severe systemic disease
[2018-02-09] MEDS ORDERED: 0.9 % Sodium Chloride 500 ML ONE (12:04)
[2018-02-09] MEDS ORDERED: *HR* Heparin 5,000 UNIT/ML VIAL ONE (12:28)
--- NOTE | 2018-02-09 12:30 | IR Procedure Note ---
Date of procedure: 02/09/18 Consent Obtained: Verbal consent, Written consent Timeout: Correct patient and procedure verified, Correct site verified, Time out performed, Skin prep completed Indications: Renal failure Procedure Performed: Tunneled HD catheter placement Was there an technician assistant present: No Site/Technique: Tunneled HD catheter placed in VIR Results/Findings: Catheter in good position Estimated blood loss (cc): 2 Complications: None; Tolerated procedure well Post Procedure Treatment Plan: May use HD catheter now Specimen: None
[2018-02-09] MEDS ORDERED: 0.9 % Sodium Chloride 1,000 ML ONE (13:06)
[2018-02-09] MEDS ORDERED: Albumin 25% 12.5gm/50mL 25.0 GM/100 ML IV.SOLN ONE (13:06)
--- NOTE | 2018-02-09 13:58 | Internal Med Progress Note ---
Hospitalist Progress Note - Encounter Date of Encounter: 02/09/18 Time of Encounter: 13:55 - Subjective Interval History: Patient sitting comfortably on bed. at bedside. Feeling tired and nauseated but better in swelling and shortness of breath. His beeping superficial wound in lower extremity -same. Review the lab with trending up creatinine level and extending down sodium level. Clear urine in Gomez catheter. Reviewed quality compliance consultant note. Patient is nothing by mouth as plan for PermCath and hemodialysis today Denies fever or chills vomiting headache dizziness chest pain or shortness of breath abdominal pain - Exam Vitals: Temp Pulse Resp BP Pulse Ox 97.3 F L 83 12 85/66 95 02/09/18 11:29 02/09/18 12:35 02/09/18 12:35 02/09/18 12:35 02/09/18 12:35 Exam: General: Patient is alert, oriented, in no acute distress. at bedside Head: atraumatic, normocephalic, Eye: PERRLA EOMI ENT: mucous membranes moist Chest: normal inspection, symmetric chest rise Respiratory: Crackles at the base but decreased breath sound-stable. Cardiovascular: Irregular s1 and s2 No clicks, rubs, gallops, or murmors. Abdomen: Abdomen is soft, nondistended. no epigastric tenderness. No guarding or rebound. Musculoskeletal: Spontaneously moving all extremities. +2/3 edema up to mid thighs Skin: warm, dry, intact. bilateral lower extremities are warm, erythematous, skin breakdowns in bilateral anterior shins with petechiae and serous drainage- better Neuro: Alert and oriented x4. No focal deficit - Assessment and Plan (1) Gross hematuria Current Visit: Yes Status: Resolved Assessment and Plan: Improving . Newly diagnosed. On hold Eliquis. On board urologist and plan to remove catheter when clinically more stable and may consider reintroducing Eliquis if no further hematuria after removing catheter. Piping Designer advice continue to hold Eliquis for now as long for PermCath today Plan to resume Eliquis today after PermCath placement and remove Gomez catheter and observe urine for any hematuria-after discussing with nephrology Stable hemoglobin. (2) CAD (coronary artery disease) Current Visit: Yes Status: Chronic Assessment and Plan: Stable. Started aspirin but continue to hold, Eliquis due to hematuria and will restart once cleared by urologist. Calcium channel blockerr on hold due to low blood pressure. Started low dose beta livan with hold parameter. Digoxin is not appropriate as patient has renal insufficiency. May consider amiodarone if persistent A. fib with RVR in the condition of hypotension. Echocardiogram on LVEF 70-75%, hperdynamic LV. Mild concentric left ventricular hypertrophy.There is a trivial to small pericardial effusion lateral to posterolateral LV wall. troponin trended flat Limited TTE 11/11/17: Limited echo. LVEF 65%. Normal LV chamber size and systolic function. Mild concentric left ventricular hypertrophy. Normal right ventricular structure and function. No pericardial effusion. [facility] 08/31/17: Impressions: There is severe three vessel coronary artery disease with RCA and LCX 100% instent restenosis FFR Measurement: 0.84 prox LAD. Mid LAD 0.78. Recommendations: Optimal medical therapy of patient's disease. Aggressive risk factor modification. Suggest patient have Elective coronary artery bypass surgery. Business Development Executive signed off. Cardiology did not recommend amiodarone for PAF at this time. Continue aspirin and would recommend considering resuming Eliquis prior to discharge renally adjusted possibly 2.5 mg twice a day once that cleared by urologist. (3) Diabetes Current Visit: No Status: Chronic Assessment and Plan: Blood glucose better controlled. Continue Lantus 10 units in the night. Continue Accu-Chek and sliding scale insulin A1c 10.2 (4) COPD (chronic obstructive pulmonary disease) Current Visit: No Status: Chronic Assessment and Plan: Currently not an exacerbation Continue home inhalers Oxygen via nasal cannula to keep sats above 92. (5) Hypertension Current Visit: No Status: Chronic Assessment and Plan: low normal blood pressure therefore calcium channel livan on hold. low dose beta livan. Close monitoring. (6) PAF (paroxysmal atrial fibrillation) Current Visit: No Status: Acute Assessment and Plan: Is started low dose metoprolol . cardizem has been on hold as low blood pressure. Not a good candidate for digoxin. Business Development Executive's on board . Please see above Complicated patient with high risk for a stroke-educated patient and Chads vasc 6 (7) Acute on chronic diastolic heart failure Current Visit: Yes Status: Acute Assessment and Plan: Difficult patient for diuresis in the context of volume overload and worsening creatinine. Patient with shortness of breath, PND, orthopnea and bilateral lower extremity swelling Troponin 0.04 trended to 0.05 x 2 BNP 800 Echocardiogram- on LVEF 70-75%, hperdynamic LV. Mild concentric left ventricular hypertrophy.There is a trivial to small pericardial effusion lateral to posterolateral LV wall. Strict intake and output Daily weights Fluid restrictions less than 1 L Gomez catheter with a strict I&O's Limited TTE 11/11/17: Limited echo. LVEF 65%. Normal LV chamber size and systolic function. Mild concentric left ventricular hypertrophy. Normal right ventricular structure and function. No pericardial effusion. [facility] 08/31/17: Impressions: There is severe three vessel coronary artery disease with RCA and LCX 100% instent restenosis FFR Measurement: 0.84 prox LAD. Mid LAD 0.78. (8) Acute renal failure superimposed on stage 3 chronic kidney disease Current Visit: Yes Status: Acute Assessment and Plan: Baseline creatinine ranges anywhere from 1.8 to 1.9 creatinine 2.92 on admission trended down to 2.85 however now trending up again. Piping Designer on board . Had ultrafiltration with almost 2 L removal of fluid on 02/04/2018. 02/05/2018- hemodialysis but patient could not tolerate as had a transient run of A. fib with RVR and had to stop procedure in the middle with -400 mL fluid removal. Patient was back to normal sinus rhythm after stopping dialysis 02/06/2018-head hemodialysis and patient tolerated. Plan for PermCath placement and hemodialysis today . Patient has become dialysis dependent in terms of his CARLOS on CK D stage III for both clearance and fluid overload. Worsening lab today.,Although he remains high risk with complicated clinical condition. Plan to discharge patient once cleared by line camera operator to get established for routine dialysis at [facility]. Retroperitoneal ultrasound- IMPRESSION:Right kidney is unremarkable in appearance. The left kidney is not visualized. Continue with Gomez Strict intake and output Will avoid nephrotoxic medications (9) Bilateral lower extremity edema Current Visit: Yes Status: Acute Assessment and Plan: Bilateral lower extremity edema, erythema and tenderness most likely secondary to CHF exacerbation and venous stasis . DVT study of the lower extremities- Patient appears to be negative for DVT and SVT. MIAH measurements appear to be within normal limits CPK 44 Wound care Elevate extremities Slight better today (10) Pleural effusion Current Visit: Yes Status: Acute Assessment and Plan: Patient with right-sided pleural effusion Recently had thoracocentesis performed at [facility] Status post IR guided thoracocentesis with 1 L of fluid removal on 01/28, appears to be exudative however he was on Lasix will follow pleural fluid cultu res. On doxycyline and Zosyn de-escalate as per cultures-culture with no growth yet therefore Zosyn stopped on 02/02/2018 and will continue doxycycline(history of MRSA). Review of the pulmonologists note-discussed about the possibility of a Pleurx catheter but as patient is asymptomatic and he is not having thoracentesis more frequently than patient and pulmonologists agreed to hold off on Pleurx catheter right now and recommended to continue diuresis and maximizing medical management. (11) HAP (hospital-acquired pneumonia) Current Visit: Yes Status: Acute Assessment and Plan: Patient with multiple hospital admissions currently with shortness of breath, right-sided pleural effusion, and chills vancomycin stopped as kidney functions declined Was on doxycycline and zosyn -stopped Zosyn after reviewing culture report and patient has been afebrile with normal white count. Will stop doxycycline after completing total 10 days-discussed with pharmacy. Urine has generalized and a Streptococcus pneumoniae and legionella and a Streptococcus pneumoniae antigens- negative Influenza- negative MRSA swab- positive Started MRSA decolonization on 01/29 blood cultures - NGTD pleural fluid cx - with no gross Procalcitonin- 0.22 ( in setting of renal failure) (12) Hyponatremia with excess extracellular fluid volume Current Visit: Yes Status: Acute Assessment and Plan: Hypervolemic hyponatremia secondary to acute on chronic diastolic heart failure. Stable creatinine level but trending down sodium level. Reviewed nephrology note and he recommended freewater diuresis with tolvaptan 15 milligrams 1. Continue to monitor BMP, a strict I&O's. Holding furosemide and a started 1 L of sodium bicarbonate infusion due to metabolic acidosis. Patient may need albumin. Renal ultrasound unremarkable. 2 dose of talvaptan given . Piping Designer on board and follow recommendation. (13) Hyperkalemia Current Visit: Yes Status: Resolved Assessment and Plan: Normal potassium level. On admission high potassium level therefore 1 dose of Kayexalate was given. Piping Designer on board. (14) DVT prophylaxis Current Visit: No Status: Acute Assessment and Plan: SCDs (15) Goals of care, counseling/discussion Current Visit: Yes Status: Acute Assessment and Plan: Complicated patient with multiple contradictory situation. Patient has A. fib with intermittent RVR but not able to give rate control medicine such as beta livan or calcium channel livan due to low blood pressure and not candidate for digoxin due to renal disease. Also not recommended amiodarone for paroxysmal atrial fibrillation as per cardiology. Ineffective diuresis. Patient is on hemodialysis now. Cardiology signed off and does not think to his start amiodarone for paroxysmal A. fib as it is not persistent after weighing risk and benefit. I also discussed with patient about his complicated situation . On board p alliative care .CODE STATUS changed to DNR CCA. Appreciate their input - Time Spent with Patient Total time spent is greater than 50% in coordination of care (as documented) at patient's floor/unit and/or counseling patient: 25 - 35 minutes Plan of Care Discussed with: family Internal Medicine: Result - Labs CBC & Chem 7: 02/09/18 06:19 02/09/18 06:19 Labs: Short CBC 02/09/18 Range/Units 06:19 WBC 10.1 (4.3-11.1) K/mcL Hgb 12.4 L (12.9-16.9) g/dL Hct 39.3 (37.5-50.1) % Plt Count 159 (140-400) K/mcL Neutrophils # 8.1 (1.6-8.9) K/mcL BMP 02/09/18 06:19 Sodium 128 L Potassium 4.9 Chloride 95 L Carbon Dioxide 18 L BUN 75 H Creatinine 4.56 H Glucose 114 H Calcium 9.0 - ABG Interpretation ABG results: PT/INR, D-dimer PT 17.4 Seconds (9.4-12.1) H 02/09/18 06:19 - Impressions Impressions Guidance Ultrasound 02/09/18 00:00 IMPRESSION: Ultrasound and fluoroscopic guided placement of a tunneled right IJ hemodialysis catheter. No immediate complications. The catheter is ready for use. D/ / Klaus Loyd MD / Klaus Loyd MD Interpreting Provider: Klaus Loyd MD Tunnelled Catheter Removal 02/09/18 00:00 IMPRESSION: Ultrasound and fluoroscopic guided placement of a tunneled right IJ hemodialysis catheter. No immediate complications. The catheter is ready for use. D/ / Klaus Loyd MD / Klaus Loyd MD Interpreting Provider: Klaus Loyd MD Consult Discharge Plan - Plan Referrals: Maria Antonia Friend TOBACCO DRUMMER [Primary Care Provider] - (2) CAD (coronary artery disease) Qualifiers: Coronary Disease-Associated Artery/Lesion type: unspecified vessel or lesion type [place] vs. transplanted heart: [place] heart Associated angina: without angina Qualified Code(s): I25.10 - Atherosclerotic heart disease of [place] coronary artery without angina pectoris (3) Diabetes Qualifiers: Diabetes mellitus type: type 2 Diabetes mellitus boiler mechanic insulin use: without boiler mechanic use Diabetes mellitus complication status: with unspecified complications Qualified Code(s): E11.8 - Type 2 diabetes mellitus with unspecified complications (4) COPD (chronic obstructive pulmonary disease) Qualifiers: COPD type: emphysema Emphysema type: unspecified Qualified Code(s): J43.9 - Emphysema, unspecified (5) Hypertension Qualifiers: Hypertension type: essential hypertension Qualified Code(s): I10 - Essential (primary) hypertension (8) Acute renal failure superimposed on stage 3 chronic kidney disease Qualifiers: Acute renal failure type: unspecified Qualified Code(s): N17.9 - Acute kidney failure, unspecified; N18.3 - Chronic kidney disease, stage 3 (moderate)
--- NOTE | 2018-02-09 15:43 | Nephrology Progress Note ---
Date of Encounter: 02/09/18 Time of Encounter: 13:00 - Assessment and Plan (1) Acute renal failure superimposed on stage 3 chronic kidney disease Current Visit: Yes Status: Acute Continue HD with UF as tolerated Qualifiers: Acute renal failure type: unspecified Qualified Code(s): N17.9 - Acute kidn ey failure, unspecified; N18.3 - Chronic kidney disease, stage 3 (moderate) (2) Heart failure Current Visit: Yes Status: Acute Qualifiers: Heart failure type: unspecified Heart failure chronicity: unspecified Qualified Code(s): I50.9 - Heart failure, unspecified (3) Bilateral lower extremity edema Current Visit: Yes Status: Acute (4) Hyponatremia Current Visit: Yes Status: Acute (5) Anemia Current Visit: Yes Status: Acute Qualifiers: Anemia type: unspecified type Qualified Code(s): D64.9 - Anemia, unspecified (6) Gross hematuria Current Visit: Yes Status: Resolved (7) Hypotension Current Visit: Yes Status: Acute Qualifiers: Qualified Code(s): I95.9 - Hypotension, unspecified (8) Hyperphosphatemia Current Visit: Yes Status: Acute Subjective Interval history: Interim evenets noted, pt seen and examined on HD, lethargic right after permcath placement due to sedatives. Denies any new complaints Objective - Vital Signs Vital signs: Vital Signs Temp Pulse Resp BP Pulse Ox 02/09/18 13:00 96.8 F L 16 82/55 02/09/18 12:35 83 12 85/66 95 02/09/18 12:26 81 20 85/56 95 02/09/18 12:23 82 20 84/50 95 02/09/18 12:08 83 12 102/73 96 02/09/18 12:07 82 17 102/73 02/09/18 11:29 97.3 F L 82 16 92/65 95 02/09/18 06:46 97.5 F L 79 16 100/70 02/09/18 04:08 97.3 F L 81 16 86/65 99 02/08/18 20:10 97.4 F L 80 19 88/68 98 02/08/18 17:40 98.9 F 79 16 91/74 97 Intake and Output 02/08/18 02/09/18 02/09/18 23:59 07:59 15:59 Intake Total 0 / 0 0 / 0 400 / 400 Output Total 0 / 0 150 / 150 Balance 0 / 0 0 / 0 250 / 250 Intake: Oral 0 / 0 0 / 0 0 / 0 Intake, Rinseback and Flushes 400 / 400 Output: Urine 0 / 0 Catheter 150 / 150 Other: Weight 104.1 kg Blood Glucose* 167 108 115 Patient Weight 02/09/18 23:59 Weight 104.1 kg - General Appearance General appearance: Present: chronically ill, fatigue EENT: Present: ATNC, mucous membranes moist Neck: Present: no JVD, supple Respiratory: Present: clear Cardiology: Present: edema (trace LE edema bilat), normal S1, normal S2 Dialysis Vascular Access: Venous Catheter (new permacth with small possible hematoma noted) Gastrointestinal: Present: no tenderness, no guarding Integumentary: Present: warm and dry Neurologic: Present: no focal deficit Musculoskeletal: Present: no deformities Psychiatric: Present: mood/affect appropriate - Lab 02/09/18 06:19 02/09/18 06:19 Most recent lab results Calcium 9.0 mg/dL (8.6-10.3) 02/09/18 06:19 Phosphorus 8.3 mg/dL (2.7-4.5) H 02/07/18 02:57 Magnesium 2.9 mg/dL (1.6-2.6) H 01/28/18 03:37 Urine Creatinine 112 mg/dL 02/02/18 08:45 Urine Sodium 18.8 mEq/L 02/02/18 08:45 Consult Discharge Plan - Plan Referrals: Maria Antonia Friend, SLIPCOVER CUTTER [Primary Care Provider] -
[2018-02-09] MEDS: Nystatin SUSP 5 ML UD.LIQ PO SCH ×4 (17:17→20:55)
[2018-02-09] MEDS: Insulin LISPRO 300 UNITS/3 ML VIAL SQ SCH ×4 (17:17→20:55)
[2018-02-09] MEDS: Famotidine 20 MG TABLET PO SCH (17:17)
[2018-02-09] MEDS: Calcium Acetate 667 MG CAPSULE PO SCH ×3 (17:17→18:51)
[2018-02-09] MEDS: Aspirin Enteric Coated 81 MG Tablet PO SCH (17:17)
[2018-02-09] MEDS: Finasteride 5 MG TABLET PO SCH (17:18)
[2018-02-09] MEDS: Sennosides/Docusate Sodium TABLET PO SCH ×2 (17:18→20:55)
[2018-02-09] MEDS: Acetaminophen 325 MG TABLET PO PRN (18:51)
[2018-02-09] MEDS: Insulin DETEMIR 100 UNIT/ML X5UNITS SQ SCH (20:55)
[2018-02-10] MEDS: Insulin LISPRO 300 UNITS/3 ML VIAL SQ SCH ×4 (08:53→20:05)
[2018-02-10] MEDS: Nystatin SUSP 5 ML UD.LIQ PO SCH ×4 (08:56→20:06)
[2018-02-10] MEDS: Sennosides/Docusate Sodium TABLET PO SCH ×2 (09:04→19:52)
[2018-02-10] MEDS: Aspirin Enteric Coated 81 MG Tablet PO SCH (09:04)
[2018-02-10] MEDS: Calcium Acetate 667 MG CAPSULE PO SCH ×3 (09:04→17:01)
[2018-02-10] MEDS: Finasteride 5 MG TABLET PO SCH (09:04)
[2018-02-10] MEDS: Famotidine 20 MG TABLET PO SCH (09:05)
--- NOTE | 2018-02-10 11:56 | Internal Med Progress Note ---
Hospitalist Progress Note - Encounter Date of Encounter: 02/10/18 Time of Encounter: 11:53 - Subjective Interval History: Patient sitting comfortably on bed. No family at bedside. Feeling better in nausea and had slight better appetite today and ate a few bites after so many days. Is still tired but better in swelling and shortness of breath. His bee ping superficial wound in lower extremity -same. No morning lab available. Slightly tea colored urine in Gomez catheter with decrease output after restarting hemodialysis. Patient had PermCath placed on 02/09/2019 and also had hemodialysis yesterday. Denies fever or chills vomiting headache dizziness chest pain or shortness of breath abdominal pain - Exam Vitals: Temp Pulse Resp BP Pulse Ox 98.0 F 81 16 93/79 96 02/10/18 07:40 02/10/18 07:40 02/10/18 07:40 02/10/18 07:40 02/10/18 07:40 Exam: General: Patient is alert, oriented, in no acute distress. Head: atraumatic, normocephalic, Eye: PERRLA EOMI ENT: mucous membranes moist Chest: normal inspection, symmetric chest rise Respiratory: Crackles at the base but decreased breath sound-stable. Cardiovascular: Irregular s1 and s2 No clicks, rubs, gallops, or murmors. Abdomen: Abdomen is soft, nondistended. no epigastric tenderness. No guarding or rebound. Musculoskeletal: Spontaneously moving all extremities. +2 edema up to mid thighs Skin: warm, dry, intact. bilateral lower extremities are warm, erythematous, skin breakdowns in bilateral anterior shins with petechiae and serous drainage- better Neuro: Alert and oriented x4. No focal deficit - Assessment and Plan (1) Acute renal failure superimposed on stage 3 chronic kidney disease Current Visit: Yes Status: Acute Assessment and Plan: Baseline creatinine ranges anywhere from 1.8 to 1.9 creatinine 2.92 on admission trended down to 2.85 however now trending up again. Wireless Watcher on board . Had ultrafiltration with almost 2 L removal of fluid on 02/04/2018. 02/05/2018- hemodialysis but patient could not tolerate as had a transient run of A. fib with RVR and had to stop procedure in the middle with -400 mL fluid removal. Patient was back to normal sinus rhythm after stopping dialysis 02/06/2018-head hemodialysis and patient tolerated. Patient has become dialysis dependent in terms of his CARLOS on CK D stage III for both clearance and fluid overload. Although he remains high risk with complicated clinical condition. Plan to discharge patient possibly tomorrow after having hemodialysis and also get cleared by doll surgeon. Patient has 2 get established for routine dialysis at [facility] on board Retroperitoneal ultrasound- IMPRESSION:Right kidney is unremarkable in appearance. The left kidney is not visualized. Continue with Gomez Strict intake and output Will avoid nephrotoxic medications (2) Gross hematuria Current Visit: Yes Status: Resolved Assessment and Plan: Improving . Newly diagnosed. On hold Eliquis. On board urologist and plan to remove catheter when clinically more stable and may consider reintroducing Eliquis if no further hematuria after removing catheter. Plan to remove Gomez catheter today after talking with doll surgeon. Is starting Eliquis today after successful void trial with no hematuria. Decreasing urine output since after hemodialysis started. (3) CAD (coronary artery disease) Current Visit: Yes Status: Chronic Assessment and Plan: Stable. Started aspirin but continue to hold, Eliquis due to hematuria and will restart once cleared by urologist. Calcium channel blockerr on hold due to low blood pressure. Started low dose beta livan with hold parameter. Digoxin is not appropriate as patient has renal insufficiency. May consider amiodarone if persistent A. fib with RVR in the condition of hypotension. Echocardiogram on LVEF 70-75%, hperdynamic LV. Mild concentric left ventricular hypertrophy.There is a trivial to small pericardial effusion lateral to posterolateral LV wall. troponin trended flat Limited TTE 11/11/17: Limited echo. LVEF 65%. Normal LV chamber size and systolic function. Mild concentric left ventricular hypertrophy. Normal right ventricular structure and function. No pericardial effusion. [facility] 08/31/17: Impressions: There is severe three vessel coronary artery disease with RCA and LCX 100% instent restenosis FFR Measurement: 0.84 prox LAD. Mid LAD 0.78. Recommendations: Optimal medical therapy of patient's disease. Aggressive risk factor modification. Suggest patient have Elective coronary artery bypass surgery. Corporate General Manager signed off. Cardiology did not recommend amiodarone for PAF at this time. Continue aspirin and would recommend considering resuming Eliquis prior to discharge renally adjusted possibly 2.5 mg twice a day as mentioned above (4) Diabetes Current Visit: No Status: Chronic Assessment and Plan: Blood glucose better controlled. Continue Lantus 10 units in the night. Continue Accu-Chek and sliding scale insulin A1c 10.2 (5) COPD (chronic obstructive pulmonary disease) Current Visit: No Status: Chronic Assessment and Plan: Currently not an exacerbation Continue home inhalers Oxygen via nasal cannula to keep sats above 92. (6) Hypertension Current Visit: No Status: Chronic Assessment and Plan: low normal blood pressure therefore calcium channel livan on hold. low dose beta livan. Close monitoring. (7) PAF (paroxysmal atrial fibrillation) Current Visit: No Status: Acute Assessment and Plan: started low dose metoprolol . cardizem has been on hold as low blood pressure. Not a good candidate for digoxin. Corporate General Manager's on board . Please see above Complicated patient with high risk for a stroke-educated patient and Chads vasc 6 (8) Acute on chronic diastolic heart failure Current Visit: Yes Status: Acute Assessment and Plan: Difficult patient for diuresis in the context of volume overload and worsening creatinine. Patient with shortness of breath, PND, orthopnea and bilateral lower extremity swelling Troponin 0.04 trended to 0.05 x 2 BNP 800 Echocardiogram- on LVEF 70-75%, hperdynamic LV. Mild concentric left ventricular hypertrophy.There is a trivial to small pericardial effusion lateral to posterolateral LV wall. Strict intake and output Daily weights Fluid restrictions less than 1 L Gomez catheter with a strict I&O's Limited TTE 11/11/17: Limited echo. LVEF 65%. Normal LV chamber size and systolic function. Mild concentric left ventricular hypertrophy. Normal right ventricular structure and function. No pericardial effusion. [facility] 08/31/17: Impressions: There is severe three vessel coronary artery disease with RCA and LCX 100% instent restenosis FFR Measurement: 0.84 prox LAD. Mid LAD 0.78. (9) Bilateral lower extremity edema Current Visit: Yes Status: Acute Assessment and Plan: Bilateral lower extremity edema, erythema and tenderness most likely secondary to CHF exacerbation and venous stasis . DVT study of the lower extremities- Patient appears to be negative for DVT and SVT. MIAH measurements appear to be within normal limits CPK 44 Wound care Elevate extremities Slight better today. (10) Pleural effusion Current Visit: Yes Status: Acute Assessment and Plan: Patient with right-sided pleural effusion. Recently had thoracocentesis performed at [facility] Status post IR guided thoracocentesis with 1 L of fluid removal on 01/28, appears to be exudative however he was on Lasix will follow pleural fluid cultures. On doxycyline and Zosyn de-escalate as per cultures-culture with no growth yet therefore Zosyn stopped on 02/02/2018 and will continue doxycycline(history of MRSA). Review of the pulmonologists note-discussed about the possibility of a Pleurx catheter but as patient is asymptomatic and he is not having thoracentesis more frequently than patient and pulmonologists agreed to hold off on Pleurx catheter right now and recommended to continue diuresis and maximizing medical management. (11) HAP (hospital-acquired pneumonia) Current Visit: Yes Status: Acute Assessment and Plan: Patient with multiple hospital admissions currently with shortness of breath, right-sided pleural effusion, and chills vancomycin stopped as kidney functions declined Was on doxycycline and zosyn -stopped Zosyn after reviewing culture report and patient has been afebrile with normal white count. Completed the course of doxycycline cycle in 10 days Urine has generalized and a Streptococcus pneumoniae and legionella and a Streptococcus pneumoniae antigens- negative Influenza- negative MRSA swab- positive Started MRSA decolonization on 01/29 blood cultures - NGTD pleural fluid cx - with no gross Procalcitonin- 0.22 ( in setting of renal failure) (12) Hyponatremia with excess extracellular fluid volume Current Visit: Yes Status: Acute Assessment and Plan: Hypervolemic hyponatremia secondary to acute on chronic diastolic heart failure. Stable creatinine level but trending down sodium level. Reviewed nephrology note and he recommended freewater diuresis with tolvaptan 15 milligrams 1. Continue to monitor BMP, a strict I&O's. Holding furosemide and a started 1 L of sodium bicarbonate infusion due to metabolic acidosis. Patient may need albumin. Renal ultrasound unremarkable. 2 dose of talvaptan given . Wireless Watcher on board and follow recommendation. Still pending lab (13) Hyperkalemia Current Visit: Yes Status: Resolved Assessment and Plan: Normal potassium level. On admission high potassium level therefore 1 dose of Kayexalate was given. Wireless Watcher on board. (14) DVT prophylaxis Current Visit: No Status: Acute Assessment and Plan: SCDs (15) Goals of care, counseling/discussion Current Visit: Yes Status: Acute Assessment and Plan: Complicated patient with multiple contradictory situation. Patient has A. fib with intermittent RVR but not able to give rate control medicine such as beta livan or calcium channel livan due to low blood pressure and not candidate for digoxin due to renal disease. Also not recommended amiodarone for paroxysmal atrial fibrillation as per cardiology. Ineffective diuresis. Patient is dialysis dependent now I also discussed with patient about his complicated situation . On board palliative care .CODE STATUS changed to DNR CCA. Appreciate their input Plan to discharge patient tomorrow after hemodialysis and getting established with hemodialysis at [place]. - Time Spent with Patient Total time spent is greater than 50% in coordination of care (as documented) at patient's floor/unit and/or counseling patient: 25 - 35 minutes Plan of Care Discussed with: patient Internal Medicine: Result - Labs CBC & Chem 7: 02/09/18 06:19 02/09/18 06:19 - ABG Interpretation ABG results: PT/INR, D-dimer PT 17.4 Seconds (9.4-12.1) H 02/09/18 06:19 - Impressions Impressions Guidance Ultrasound 02/09/18 00:00 IMPRESSION: Ultrasound and fluoroscopic guided placement of a tunneled right IJ hemodialysis catheter. No immediate complications. The catheter is ready for use. D/ / Klaus Loyd MD / Klaus Loyd MD Interpreting Provider: Klaus Loyd MD Tunnelled Catheter Removal 02/09/18 00:00 IMPRESSION: Ultrasound and fluoroscopic guided placement of a tunneled right IJ hemodialysis catheter. No immediate complications. The catheter is ready for use. D/ / Klaus Loyd MD / Klaus Loyd MD Interpreting Provider: Klaus Loyd MD Consult Discharge Plan - Plan Referrals: Maria Antonia Friend, TESTER/LIFT TRUCKER [Primary Care Provider] - (1) Acute renal failure superimposed on stage 3 chronic kidney disease Qualifiers: Acute renal failure type: unspecified Qualified Code(s): N17.9 - Acute kidney failure, unspecified; N18.3 - Chronic kidney disease, stage 3 (moderate) (3) CAD (coronary artery disease) Qualifiers: Coronary Disease-Associated Artery/Lesion type: unspecified vessel or lesion type [place] vs. transplanted heart: [place] heart Associated angina: without angina Qualified Code(s): I25.10 - Atherosclerotic heart disease of [place] coronary artery without angina pectoris (4) Diabetes Qualifiers: Diabetes mellitus type: type 2 Diabetes mellitus mcfp insulin use: w ithout terminal operations manager use Diabetes mellitus complication status: with unspecified complications Qualified Code(s): E11.8 - Type 2 diabetes mellitus with unspecified complications (5) COPD (chronic obstructive pulmonary disease) Qualifiers: COPD type: emphysema Emphysema type: unspecified Qualified Code(s): J43.9 - Emphysema, unspecified (6) Hypertension Qualifiers: Hypertension type: essential hypertension Qualified Code(s): I10 - Essential (primary) hypertension
[2018-02-10 12:30] LABS: Basophils % 0.1 %; Eosinophils % 0.3 %; Hematocrit 39.2 % (37.5-50.1); Immature Granulocytes % 0.7 % (0-4); Lymphocytes % 11.2 %; Mean Corpuscular HGB Conc 30.6 g/dL (31.6-35.5); Mean Corpuscular Hemoglobin 24.9 pg (28.0-33.3); Mean Corpuscular Volume 81.5 fL (83.0-100.0); Mean Platelet Volume 10.8 fL (9.4-12.4); Monocytes # 0.7 K/mcL (0.0-1.3); Monocytes % 8.1 %; Neutrophils # 7.3 K/mcL (1.6-8.9); Nucleated Red Blood Cells 1.3 /100 WBC (0); Platelet Count 134 K/mcL (140-400); Red Blood Count 4.81 M/mcL (4.19-5.50); Red Cell Distribution Width 22.8 % (11.5-14.5); Segmented Neutrophils % 79.6 %
[2018-02-10 12:51] LABS: Calcium 8.9 mg/dL (8.6-10.3); Potassium 4.5 mEq/L (3.5-5.1)
[2018-02-10] MEDS: Ondansetron 4 MG/2 ML VIAL IVP PRN (14:33)
--- NOTE | 2018-02-10 17:11 | Nephrology Progress Note ---
Date of Encounter: 02/10/18 Time of Encounter: 14:00 - Assessment and Plan (1) Acute renal failure superimposed on stage 3 chronic kidney disease Current Visit: Yes Status: Acute s/p HD yesterday with no signs of renal recovery today so far UF was problematic given hypotension Qualifiers: Acute renal failure type: unspecified Qualified Code(s): N17.9 - Acute kidney failure, unspecified; N18.3 - Chronic kidney disease, stage 3 (moderate) (2) Heart failure Current Visit: Yes Status: Acute Qualifiers: Heart failure type: unspecified Heart failure chronicity: unspecified Qualified Code(s): I50.9 - Heart failure, unspecified (3) Bilateral lower extremity edema Current Visit: Yes Status: Acute (4) Hyponatremia Current Visit: Yes Status: Acute (5) Anemia Current Visit: Yes Status: Acute Qualifiers: Anemia type: unspecified type Qualified Code(s): D64.9 - Anemia, unspecifie d (6) Gross hematuria Current Visit: Yes Status: Resolved (7) Hypotension Current Visit: Yes Status: Acute Qualifiers: Qualified Code(s): I95.9 - Hypotension, unspecified (8) Hyperphosphatemia Current Visit: Yes Status: Acute Subjective Principal diagnosis: sandor/ckd Interval history: Pt seen and examined today complaining of persistent nausea but no vomiting just dry heaves. BP readings low this am, none this pm so far, will have nurse check Objective - Vital Signs Vital signs: Vital Signs Temp Pulse Resp BP Pulse Ox 02/10/18 15:47 98.0 F 75 16 98/24 96 02/10/18 07:40 98.0 F 81 16 93/79 96 02/10/18 04:36 97.2 F L 84 15 76/55 91 02/09/18 21:04 95 02/09/18 18:15 96.9 F L 90 17 90/49 95 Intake and Output 02/10/18 02/10/18 02/10/18 07:59 15:59 23:59 Intake Total 0 / 0 0 / 0 Output Total 0 / 0 Balance 0 / 0 0 / 0 Intake: Oral 0 / 0 0 / 0 Output: Catheter 0 / 0 Other: Meal Lunch Percent of Meal Consumed 0% Stool Size Small Stool Consistency soft Stool Color Black # Bowel Movements 1 Blood Glucose* 132 109 - Lab 02/10/18 12:18 02/10/18 12:18 Most recent lab results Calcium 8.9 mg/dL (8.6-10.3) 02/10/18 12:18 Phosphorus 8.3 mg/dL (2.7-4.5) H 02/07/18 02:57 Magnesium 2.9 mg/dL (1.6-2.6) H 01/28/18 03:37 Urine Creatinine 112 mg/dL 02/02/18 08:45 Urine Sodium 18.8 mEq/L 02/02/18 08:45 Consult Discharge Plan - Plan Referrals: Maria Antonia Friend, PARKING RAMP ATTENDANT [Primary Care Provider] -
[2018-02-10] MEDS: Acetaminophen 325 MG TABLET PO PRN (19:52)
[2018-02-10] MEDS: Insulin DETEMIR 100 UNIT/ML X5UNITS SQ SCH (19:53)
[2018-02-11 04:35] LABS: Basophils % 0.1 %; Eosinophils % 0.2 %; Hematocrit 39.3 % (37.5-50.1); Hemoglobin 12.2 g/dL (12.9-16.9); Immature Granulocytes % 0.5 % (0-4); Lymphocytes # 1.1 K/mcL (0.6-4.6); Lymphocytes % 11.2 %; Mean Corpuscular Hemoglobin 24.9 pg (28.0-33.3); Mean Corpuscular Volume 80.2 fL (83.0-100.0); Mean Platelet Volume 10.9 fL (9.4-12.4); Monocytes # 0.7 K/mcL (0.0-1.3); Monocytes % 7.9 %; Neutrophils # 7.5 K/mcL (1.6-8.9); Nucleated Red Blood Cells 1.1 /100 WBC (0); Platelet Count 133 K/mcL (140-400); Red Cell Distribution Width 22.9 % (11.5-14.5); Segmented Neutrophils % 80.1 %
[2018-02-11 04:51] LABS: Calcium 9.1 mg/dL (8.6-10.3); Potassium 4.8 mEq/L (3.5-5.1)
[2018-02-11] MEDS: Insulin LISPRO 300 UNITS/3 ML VIAL SQ SCH ×4 (07:27→23:25)
[2018-02-11] MEDS: Nystatin SUSP 5 ML UD.LIQ PO SCH (07:29)
[2018-02-11] MEDS: Sennosides/Docusate Sodium TABLET PO SCH ×2 (07:36→21:18)
[2018-02-11] MEDS: Famotidine 20 MG TABLET PO SCH (07:36)
[2018-02-11] MEDS: Aspirin Enteric Coated 81 MG Tablet PO SCH (07:36)
[2018-02-11] MEDS: Finasteride 5 MG TABLET PO SCH (07:36)
[2018-02-11] MEDS: Calcium Acetate 667 MG CAPSULE PO SCH ×3 (07:36→17:38)
[2018-02-11] MEDS ORDERED: 0.9 % Sodium Chloride 250 ML IVC PRN (07:41)
[2018-02-11] MEDS ORDERED: *HR* Heparin 10,000 UNIT/10 ML VIAL IV PRN ×2 (07:41)
[2018-02-11] MEDS ORDERED: Albumin 25% 25gram/100mL 25 GM/100 ML IV.SOLN IVPB PRN (07:41)
[2018-02-11] MEDS ORDERED: 0.9 % Sodium Chloride 1,000 ML PRIME SCH (07:45)
[2018-02-11] MEDS ORDERED: 0.9 % Sodium Chloride 1,000 ML ONE (08:57)
[2018-02-11] MEDS ORDERED: Albumin 25% 12.5gm/50mL 25.0 GM/100 ML IV.SOLN ONE (10:01)
--- NOTE | 2018-02-11 10:14 | Electrocardiograph Report ---
[address] [address] Test Date: 2018-02-08 Pat Name: Keon Newman Department: 111 Room: 2NE26 Gender: M Director Of Manufacturing Operations: LISA : 1950 Requested By: Margarita Yi Order Number: [id number] Reading MD: Jordon Sarmiento Measurements Intervals [place] Rate: 78 P: 30 [place]: 132 QRS: 22 QRSD: 108 T: -42 QT: 400 QTc: 433 Interpretive Statements SINUS RHYTHM ST DEVIATION AND MODERATE T-WAVE ABNORMALITY, CONSIDER INFERIOR ISCHEMIA Electronically Signed On 02-11-2018 10:12:37 EST by Jordon Sarmiento
--- NOTE | 2018-02-11 10:53 | Internal Med Progress Note ---
Hospitalist Progress Note - Encounter Date of Encounter: 02/11/18 Time of Encounter: 10:47 - Subjective Interval History: Patient was seen and examined. No acute events. Patient has had an extensive hospital course. Initially admitted with shortness of breath. This proved to be multifacorial with pleural effusion, pneumonia, volume overload form CARLOS pro gressing to ESRD and CHF exacerbation. While here he became dialysis depended. Had a perma cath placed a couple of days ago. He also had afib with RVR. He recently had a CABG. Was on anticoagulation and developed hematuria for which he was evaluated by urology. They held his anticoags for now. He had a lorenzo catheter in place which has been removed. They wanted to resume his anticoags once the lorenzo is removed. We are resuming eliquis at a lower dose this monring. His afib was evaluated by cardiology and is controlled now. No digoxin due to kidney function. No amiodarone due to afib not being persistent. He finished abx for pneumonia already. this monring he is getting dialysis and felling well. Denies fever/chills. Denies headach or nausea/vomiting. - Exam Vitals: Temp Pulse Resp BP Pulse Ox 98.2 F 80 16 84/70 96 02/11/18 07:59 02/11/18 07:59 02/11/18 07:59 02/11/18 07:59 02/11/18 07:59 Exam: GEN: NAD CVS: RRR. S1, S2, No m/r/g RESP: Crackles at the bases ABD: Soft, NT, ND, +BS EXT: 2+ lower extremity edema. 2+ DP. No rashes NEURO: Nonfocal - Assessment and Plan (1) CAD (coronary artery disease) Current Visit: Yes Status: Chronic Assessment and Plan: Stable. On aspirin. On statin/BB. May need to hold BB due to low BP. (2) Diabetes Current Visit: No Status: Chronic Assessment and Plan: c/w levemir 10 units HS and SSI. c/w accuchecks. (3) COPD (chronic obstructive pulmonary disease) Current Visit: No Status: Chronic Assessment and Plan: Currently not an exacerbation Continue home inhalers Oxygen via nasal cannula to keep sats above 92. (4) Hypertension Current Visit: No Status: Chronic Assessment and Plan: Hold antihypertensives due to low BP (5) DVT prophylaxis Current Visit: No Status: Acute (6) PAF (paroxysmal atrial fibrillation) Current Visit: No Status: Acute Assessment and Plan: In sinus. Resume eliquis at a lower dose. On BB and may need to hold due to low BP. (7) Acute on chronic diastolic heart failure Current Visit: Yes Status: Acute Assessment and Plan: Patient is not urinating anymore. dialysis depended to get rid of volume. (8) Acute renal failure superimposed on stage 3 chronic kidney disease Current Visit: Yes Status: Acute Assessment and Plan: Has a perma cath now. dialysis depended. f/u outpatient for HD. (9) Pleural effusion Current Visit: Yes Status: Acute (10) HAP (hospital-acquired pneumonia) Current Visit: Yes Status: Acute Assessment and Plan: Finished abx. (11) Hyponatremia with excess extracellular fluid volume Current Visit: Yes Status: Acute Assessment and Plan: Likely hypervolemic. Na 130. Nephro following. (12) Hyperkalemia Current Visit: Yes Status: Resolved Assessment and Plan: resolved. (13) Gross hematuria Current Visit: Yes Status: Resolved Assessment and Plan: lorenzo removed. Has not urinated but that is likely due to ESRD now. Will monitor. I have resumed eliquis at 2.5 mg BID. Will monitor. Evaluated by urology while here. (14) Goals of care, counseling/discussion Current Visit: Yes Status: Acute Assessment and Plan: Seen by palliative. Made DNR. Maybe d/c tomorrow if no signs of bleeding on eliquis lower dose. - Time Spent with Patient Total time spent is greater than 50% in coordination of care (as documented) at patient's floor/unit and/or counseling patient: Internal Medicine: Result - Labs CBC & Chem 7: 02/11/18 04:04 02/11/18 04:04 Labs: Short CBC 02/10/18 02/11/18 Range/Units 12:18 04:04 WBC 9.2 9.4 (4.3-11.1) K/mcL Hgb 12.0 L 12.2 L (12.9-16.9) g/dL Hct 39.2 39.3 (37.5-50.1) % Plt Count 134 L 133 L (140-400) K/mcL Neutrophils # 7.3 7.5 (1.6-8.9) K/mcL BMP 02/10/18 02/11/18 12:18 04:04 Sodium 130 L 130 L Potassium 4.5 4.8 Chloride 94 L 95 L Carbon Dioxide 24 20 L BUN 54 H 64 H Creatinine 4.25 H 4.86 H Glucose 154 H 110 H Calcium 8.9 9.1 - ABG Interpretation ABG results: PT/INR, D-dimer PT 17.4 Seconds (9.4-12.1) H 02/09/18 06:19 Consult Discharge Plan - Plan Referrals: Maria Antonia Friend, PROGRAM INSTRUCTOR [Primary Care Provider] - (1) CAD (coronary artery disease) Qualifiers: Coronary Disease-Associated Artery/Lesion type: unspecified vessel or lesion type [place] vs. transplanted heart: [place] heart Associated angina: without angina Qualified Code(s): I25.10 - Atherosclerotic heart disease of [place] coronary artery without angina pectoris (2) Diabetes Qualifiers: Diabetes mellitus type: type 2 Diabetes mellitus assisted insulin use: without noodle maker use Diabetes mellitus complication status: with unspecified complications Qualified Code(s): E11.8 - Type 2 diabetes mellitus with unspecified complications (3) COPD (chronic obstructive pulmonary disease) Qualifiers: COPD type: emphysema Emphysema type: unspecified Qualified Code(s): J43.9 - Emphysema, unspecified (4) Hypertension Qualifiers: Hypertension type: essential hypertension Qualified Code(s): I10 - Essential (primary) hypertension (8) Acute renal failure superimposed on stage 3 chronic kidney disease Qualifiers: Acute renal failure type: unspecified Qualified Code(s): N17.9 - Acute kidney failure, unspecified; N18.3 - Chronic kidney disease, stage 3 (moderate)
[2018-02-11] MEDS: Ondansetron 4 MG/2 ML VIAL IVP PRN ×2 (11:05→18:46)
[2018-02-11] MEDS ORDERED: *HR* HYDROcodone/Acet 5/325 mg TABLET PO PRN (12:03)
--- NOTE | 2018-02-11 12:54 | Nephrology Progress Note ---
Date of Encounter: 02/11/18 Time of Encounter: 12:00 - Assessment and Plan (1) Acute renal failure superimposed on stage 3 chronic kidney disease Current Visit: Yes Status: Acute Continue HD with UF as tolerated which is very problematic given persistent low BP readings down to 70s systolic Will bolus with albumin now and plan on UF tomorrow as well Will also start midodrine and hold metoprolol No signs of renal recovery at this time Continue to avoid nephrotoxins if possible Qualifiers: Acute renal failure type: unspecified Qualified Code(s): N17.9 - Acute kidney failure, unspecified; N18.3 - Chronic kidney disease, stage 3 (moderate) (2) Heart failure Current Visit: Yes Status: Acute Will continue to attempt UF today with HD and UF alone tomorrow Continue strict I/Os Continue fluid restriction Qualifiers: Heart failure type: unspecified Heart failure chronicity: unspecified Qualified Code(s): I50.9 - Heart failure, unspecified (3) Bilateral lower extremity edema Current Visit: Yes Status: Acute As above (4) Hyponatremia Current Visit: Yes Status: Acute Volume mediated (5) Anemia Current Visit: Yes Status: Acute stable with hgb at 12.2 Qualifiers: Anemia type: unspecified type Qualified Code(s): D64.9 - Anemia, unspecified (6) Gross hematuria Current Visit: Yes Status: Resolved (7) Hypotension Current Visit: Yes Status: Acute Likely cardiac in orgin Will hold metoprolol and start midodrine Qualifiers: Qualified Code(s): I95.9 - Hypotension, unspecified (8) Hyperphosphatemia Current Visit: Yes Status: Acute Subjective Principal diagnosis: snador/ckd Interval history: Pt seen and examined on HD still feeling "sick to my stomach". He received one dose of zofran since last pm. BP readings still very low. Objective - Vital Signs Vital signs: Vital Signs Temp Pulse Resp BP Pulse Ox 02/11/18 07:59 98.2 F 80 16 84/70 96 02/11/18 07:47 114/87 02/11/18 04:44 98.0 F 79 16 86/72 95 02/10/18 20:15 94 02/10/18 19:50 97.3 F L 76 16 90/60 94 02/10/18 15:47 98.0 F 75 16 98/24 96 Intake and Output 02/10/18 02/11/18 02/11/18 23:59 07:59 15:59 Intake Total 100 / 100 150 / 150 Output Total 0 / 0 Balance 100 / 100 150 / 150 Intake: IV Fluids 150 / 150 Oral 100 / 100 Output: Urine 0 / 0 Other: Weight 113 kg Blood Glucose* 102 106 78 Patient Weight 02/11/18 23:59 Weight 113 kg - General Appearance General appearance: Present: chronically ill, fatigue EENT: Present: ATNC, mucous membranes moist Neck: Present: no JVD, supple Additional Comments: Decreased BS bases bilat Cardiology: Present: edema (UE/LE bilat), irregular rhythm, normal S1, normal S2 Dialysis Vascular Access: Venous Catheter (permcath with dried blood on dressing) Gastrointestinal: Present: no tenderness, no guarding, obese Integumentary: Present: warm and dry, chronic venous stasis Neurologic: Present: no focal deficit Musculoskeletal: Present: no deformities Psychiatric: Present: mood/affect appropriate - Lab 02/11/18 04:04 02/11/18 23:25 Most recent lab results Calcium 9.1 mg/dL (8.6-10.3) 02/11/18 04:04 Phosphorus 8.3 mg/dL (2.7-4.5) H 02/07/18 02:57 Magnesium 2.9 mg/dL (1.6-2.6) H 01/28/18 03:37 Urine Creatinine 112 mg/dL 02/02/18 08:45 Urine Sodium 18.8 mEq/L 02/02/18 08:45 Consult Discharge Plan - Plan Referrals: Maria Antonia Friend, PERSONNEL COORDINATOR [Primary Care Provider] -
[2018-02-11] MEDS: Budesonide/Formoterol 160/4.5 1 PUFF INH IH SCH (20:42)
[2018-02-11] MEDS: Apixaban 5 MG TABLET PO SCH (21:18)
[2018-02-11] MEDS: Insulin DETEMIR 100 UNIT/ML X5UNITS SQ SCH (23:25)
[2018-02-11] MEDS ORDERED: 0.9 % Sodium Chloride 500 ML IVC ONE (23:31)
[2018-02-11] MEDS ORDERED: *HR* Promethazine 25 MG/ML VIAL IVP PRN (23:55)
[2018-02-12 00:06] LABS: Calcium 9.2 mg/dL (8.6-10.3); Potassium 5.2 mEq/L (3.5-5.1)
[2018-02-12 00:20] LABS: Eosinophils % 0.3 %; Mean Corpuscular Hemoglobin 24.8 pg (28.0-33.3); Nucleated Red Blood Cells 1.2 /100 WBC (0)
[2018-02-12 00:22] LABS: Basophils % 0.2 %; Hematocrit 40.7 % (37.5-50.1); Hemoglobin 12.3 g/dL (12.9-16.9); Immature Granulocytes % 0.5 % (0-4); Immature Platelets 7.6 % (1.1-6.1); Lymphocytes # 1.4 K/mcL (0.6-4.6); Lymphocytes % 11.7 %; Mean Corpuscular HGB Conc 30.2 g/dL (31.6-35.5); Mean Corpuscular Volume 82.1 fL (83.0-100.0); Mean Platelet Volume 11.8 fL (9.4-12.4); Monocytes # 1.2 K/mcL (0.0-1.3); Neutrophils # 9.2 K/mcL (1.6-8.9); Platelet Count 106 K/mcL (140-400); Red Blood Count 4.96 M/mcL (4.19-5.50); Red Cell Distribution Width 23.7 % (11.5-14.5); Segmented Neutrophils % 77.3 %
[2018-02-12 00:38] LABS: Anisocytosis 3+ (Not Present); Macrocytosis Present (Not Present); Microcytosis Present (Not Present); Platelet Estimate Decreased (Normal)
[2018-02-12 00:39] LABS: Poikilocytosis 2+ (Not Present); Polychromasia 2+ (Not Present); Schistocytes 1+ (Not Present); Target Cells 1+ (Not Present); Tear Drop Cells 1+ (Not Present)
[2018-02-12] MEDS ORDERED: Albumin 25% 25gram/100mL 25 GM/100 ML IV.SOLN IVPB ONE ×3 (00:52→19:55)
[2018-02-12] MEDS ORDERED: Vancomycin 1,750 MG in 0.9 % Sodium Chloride 250 ML IVPB SCH (01:00)
[2018-02-12] MEDS ORDERED: 0.9 % Sodium Chloride 500 ML IVC ONE (01:29)
[2018-02-12] MEDS: Piperacillin/Tazobactam 3.375 GM in 0.9 % Sodium Chloride Mini Bag 100 ML IVPB SCH ×2 (02:05→12:57)
[2018-02-12 04:50] LABS: Hemoglobin 10.8 g/dL (12.9-16.9); Mean Corpuscular Volume 80.5 fL (83.0-100.0)
[2018-02-12 04:51] LABS: Eosinophils % 0.3 %; Hematocrit 35.5 % (37.5-50.1); Immature Granulocytes % 0.8 % (0-4); Lymphocytes # 0.9 K/mcL (0.6-4.6); Lymphocytes % 9.1 %; Mean Corpuscular HGB Conc 30.4 g/dL (31.6-35.5); Mean Corpuscular Hemoglobin 24.5 pg (28.0-33.3); Monocytes # 0.8 K/mcL (0.0-1.3); Monocytes % 7.8 %; Nucleated Red Blood Cells 1.3 /100 WBC (0); Red Blood Count 4.41 M/mcL (4.19-5.50); Red Cell Distribution Width 23.6 % (11.5-14.5)
[2018-02-12 04:52] LABS: Neutrophils # 8.4 K/mcL (1.6-8.9); Platelet Count 94 K/mcL (140-400)
[2018-02-12 05:09] LABS: Anisocytosis 3+ (Not Present); Macrocytosis Present (Not Present); Microcytosis Present (Not Present); Platelet Estimate Decreased (Normal); Poikilocytosis 1+ (Not Present); Polychromasia 1+ (Not Present)
[2018-02-12 05:12] LABS: Calcium 8.5 mg/dL (8.6-10.3); Potassium 5.4 mEq/L (3.5-5.1)
--- NOTE | 2018-02-12 06:28 | Event Note ---
Date of Encounter: 02/11/18 Time of Encounter: 21:13 Alerted by pts. nurse Zhanna RN that the pt. had been hypotensive all day w/systolic BP in the 80s. BP was now 75/55 w/HR of 74. Pt. had been partially dialyzed today but had to stop d/t CP and Afib. Pt. has hx of CHF and fluid overload and was admitted on 01/27 for worsening dyspnea and cough. Hx of CABG x4v and stents x14. Nurse also reported that pt. has had minimal urinary output for the past several days since having his Gomez catheter removed. Bladder scan showed 30 residual. Pt. currently has 3+ pitting edema in bilateral LEs w/legs weeping. Nurse instructed to obtain BPs Q15MIN so I could trend. Nurse instructed to hold all opioid and BP medications. Went to see pt. who was resting in bed. Pt. reported that he was feeling weak. Pts. temperature was now 94.2F. Pt. continued to be hypotensive. Discussed pt. w/Dr. Singleton w/thought of administering a 500 ml bolus of 0.9 NS to see if BP would improve. 1V portable CXR ordered d/t pts. SOB which showed interval enlargement of large right pleural effusion. Left basilar and right lung airspace disease are evident. C oncern for causing further fluid overload. Dr. Singleton concurred regarding bolus which was ordered. Radiant warming blanket ordered. Stat lactic acid ordered which was 3.7. Pt. meeting sepsis criteria d/t temp of 94.2, hypotension, and elevated lactic acid. Stat blood cultures ordered and orders for IVPB vancomycin w/Pharmacy pulse dosing and IVPB Zosyn 3.375 gm Q12HR d/t current renal dysfunction per Pharmacy recommendations for broad spectrum infection coverage. Pt. also found to be hypoglycemic w/BG of 85. Pt. given PO OJ and IVP dextrose. Pts. temp increased to 99.2 so Vargas hugger stopped for now. Pts. BP continued to be 80s/40s-50s after fluid bolus. Discussed moving pt. to ICU w/Dr. Singleton who recommended giving pt. 25% albumin x2 to see if BP improved. Called Devi in Bed Management to secure possible ICU bed w/understanding that pt. would be moved to ICU if BP did not improve w/albumin. Pt. given ordered albumin and BP did not improve. BP was now 70s/40s. Decision made to move pt. to ICU. Bed Management called at 03:08 to have pt. moved.
[2018-02-12] MEDS: Insulin LISPRO 300 UNITS/3 ML VIAL SQ SCH ×3 (07:28→17:11)
--- NOTE | 2018-02-12 07:32 | Internal Med Progress Note ---
Hospitalist Progress Note - Encounter Date of Encounter: 02/12/18 Time of Encounter: 07:40 - Subjective Interval History: Patient was seen and examined.last night became hypotensive and hypothermic. Labs showed lactic acidosis and mild leukocytosis. CXR ordered and showed a large right pleural effusion. He was sent to the ICU and put on vanco/zosy due t o evidence of bilateral airspace disease. This morning he remains hypotensive. He was givne IV fluids (500 cc bolus) and albumin overnight. He is no longer hypothermic. Patient has had an extensive hospital course. Initially admitted with shortness of breath. This proved to be multifacorial with pleural effusion, pneumonia, volume overload form CARLOS progressing to ESRD and CHF exacerbation. While here he became dialysis depended. Had a perma cath placed a couple of days ago. He also had afib with RVR. He recently had a CABG. Was on anticoagulation and developed hematuria for which he was evaluated by urology. They held his anticoags for now. He had a lorenzo catheter in place which has been removed. They wanted to resume his anticoags once the lorenzo is removed and I resumed eliquis 02/11/18 at a lower dose. He has not had urine output and there is no signs of hematuria. sHis afib was evaluated by cardiology and is controlled now. No digoxin due to kidney function. No amiodarone due to afib not being persistent. He finished abx for pneumonia already. this monring he is getting dialysis and felling well. Denies fever/chills. Denies headach or nausea/vomiting. - Exam Vitals: Temp Pulse Resp BP Pulse Ox 97.7 F 70 14 70/49 98 02/12/18 04:00 02/12/18 07:00 02/12/18 07:00 02/12/18 07:00 02/12/18 07:00 Exam: GEN: NAD CVS: RRR. S1, S2, No m/r/g RESP: Crackles at the bases ABD: Soft, NT, ND, +BS EXT: 2+ lower extremity edema. 2+ DP. No rashes NEURO: Nonfocal - Assessment and Plan (1) HAP (hospital-acquired pneumonia) Current Visit: Yes Status: Acute Assessment and Plan: Finished abs but now given new events last night, we will continue vanco/zosyn started. F/u on cultures. Will consult the intesivist again to follow along as patient is in the ICU. Trend lactic acid. (2) Acute renal failure superimposed on stage 3 chronic kidney disease Current Visit: Yes Status: Acute Assessment and Plan: Has a perma cath now. dialysis depended. f/u outpatient for HD. (3) Pleural effusion Current Visit: Yes Status: Acute Assessment and Plan: Has right sided pleural effusion. Had thoracentesis earlier in stay on 01/28. appears to be exudative. Cultures neg. This persists on CXR. Will see if we can get another thoracentesis. ??empyema. Recently had thoracocentesis performed at [facility] Review of the pulmonologists note-discussed about the possibility of a Pleurx catheter but as patient is asymptomatic and he is not having thoracentesis more frequently than patient and pulmonologists agreed to hold off on Pleurx catheter right now and recommended to continue diuresis and maximizing medical management. (4) PAF (paroxysmal atrial fibrillation) Current Visit: No Status: Acute Assessment and Plan: In sinus. Resumed eliquis at a lower dose on 02/11/18. Hold BB due to low BP. (5) CAD (coronary artery disease) Current Visit: Yes Status: Chronic Assessment and Plan: Stable. On aspirin. On statin/BB. Hold BB due to low BP. (6) Diabetes Current Visit: No Status: Chronic Assessment and Plan: c/w levemir 10 units HS and SSI. c/w accuchecks. (7) COPD (chronic obstructive pulmonary disease) Current Visit: No Status: Chronic Assessment and Plan: Currently not an exacerbation Continue home inhalers Oxygen via nasal cannula to keep sats above 92. (8) Hypertension Current Visit: No Status: Chronic Assessment and Plan: Hold antihypertensives due to low BP (9) Acute on chronic diastolic heart failure Current Visit: Yes Status: Acute Assessment and Plan: Patient is not urinating anymore. dialysis depended to get rid of volume. (10) Hyponatremia with excess extracellular fluid volume Current Visit: Yes Status: Acute Assessment and Plan: Likely hypervolemic. Na 130. Nephro following. (11) Hyperkalemia Current Visit: Yes Status: Resolved Assessment and Plan: per nephrology (12) Gross hematuria Current Visit: Yes Status: Resolved Assessment and Plan: lorenzo removed. Has not urinated but that is likely due to ESRD now. Will monitor. I have resumed eliquis at 2.5 mg BID on 02/11/18. Will monitor. Evaluated by urology while here. (13) Goals of care, counseling/discussion Current Visit: Yes Status: Acute Assessment and Plan: Seen by palliative. Made DNR. Patient was possibly to discharge today but given new events, he will need a few more days in the hospital (14) DVT prophylaxis Current Visit: No Status: Acute Assessment and Plan: SCDs. Eiquis resumed - Time Spent with Patient Total time spent is greater than 50% in coordination of care (as documented) at patient's floor/unit and/or counseling patient: Internal Medicine: Result - Labs CBC & Chem 7: 02/12/18 04:28 02/12/18 04:28 Labs: Short CBC 02/11/18 02/12/18 Range/Units 23:25 04:28 WBC 11.9 H 10.2 (4.3-11.1) K/mcL Hgb 12.3 L 10.8 L D (12.9-16.9) g/dL Hct 40.7 35.5 L (37.5-50.1) % Plt Count 106 L 94 L (140-400) K/mcL Neutrophils # 9.2 H 8.4 (1.6-8.9) K/mcL BMP 02/11/18 02/12/18 23:25 04:28 Sodium 130 L 134 L Potassium 5.2 H 5.4 H Chloride 93 L 97 L Carbon Dioxide 23 19 L BUN 59 H 58 H Creatinine 4.97 H 4.71 H Glucose 86 89 Calcium 9.2 8.5 L - ABG Interpretation ABG results: PT/INR, D-dimer PT 17.4 Seconds (9.4-12.1) H 02/09/18 06:19 - Impressions Impressions Chest X-Ray 02/11/18 23:18 IMPRESSION: Interval enlargement of large right pleural effusion. Left basilar and right lung airspace disease are evident. D/ / Miriam Farris Cha, MD / Miriam Farris Cha, MD Interpreting Provider: Miriam Farris Cha, MD Consult Discharge Plan - Plan Referrals: Maria Antonia Friend, CERTIFIED CORPORATE TRAVEL EXECUTIVE [Primary Care Provider] - (2) Acute renal failure superimposed on stage 3 chronic kidney disease Qualifiers: Acute renal failure type: unspecified Qualified Code(s): N17.9 - Acute kidney failure, unspecified; N18.3 - Chronic kidney disease, stage 3 (moderate) (5) CAD (coronary artery disease) Qualifiers: Coronary Disease-Associated Artery/Lesion type: unspecified vessel or lesion type [place] vs. 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
[2018-02-12] MEDS: Calcium Acetate 667 MG CAPSULE PO SCH ×3 (08:00→17:11)
[2018-02-12] MEDS: Famotidine 20 MG TABLET PO SCH (08:00)
[2018-02-12] MEDS: Finasteride 5 MG TABLET PO SCH (08:01)
[2018-02-12] MEDS: Apixaban 5 MG TABLET PO SCH (08:57)
[2018-02-12] MEDS: Sennosides/Docusate Sodium TABLET PO SCH (08:58)
[2018-02-12] MEDS: Aspirin Enteric Coated 81 MG Tablet PO SCH (08:58)
[2018-02-12] MEDS: Budesonide/Formoterol 160/4.5 1 PUFF INH IH SCH (09:39)
--- NOTE | 2018-02-12 09:42 | Pulmonology Progress Note ---
<Doug Lloyd - Last Filed: 02/12/18 20:49> Date of Encounter: 02/12/18 Time of Encounter: 09:42 Assessment and Plan (1) Septic shock Status: Acute Patient developed acute lactic acidosis and hypotension Likely respiratory source Blood Cultures pending Continue broad-spectrum antibiotics Patient required levothyroid and albumin administration. Central line placed for vasopressor administration. (2) HAP (hospital-acquired pneumonia) Status: Acute Chest x-ray revealed interval enlargement of large right pleural effusion. He was placed on empiric vancomycin and Zosyn secondary to lactic acidosis and worsening respiratory status. (3) Pleural effusion Status: Acute Chest x-ray revealed worsening right sided pleural effusion Patient was unable to have thoracentesis today secondary to elevated INR. (4) Acute renal failure superimposed on stage 3 chronic kidney disease Status: Acute Anticipate Berenice today per nephrology. Qualifiers: Acute renal failure type: unspecified Qualified Code(s): N17.9 - Acute kidney failure, unspecified; N18.3 - Chronic kidney disease, stage 3 (moderate) (5) Acute on chronic diastolic heart failure Status: Acute Echocardiogram revealed LVEF 70-75%, hyperdynamic LV, and concentric LVH. There is a very small pericardial effusion lateral to the posterior LV wall (6) COPD (chronic obstructive pulmonary disease) Status: Chronic Continue antibiotics, steroids, and bronchodilators Qualifiers: COPD type: emphysema Emphysema type: unspecified Qualified Code(s): J43.9 - Emphysema, unspecified (7) PAF (paroxysmal atrial fibrillation) Status: Acute Heparin drip was initially stopped secondary to hematuria. Patient was placed on heparin DVT prophylaxis dosing. (8) Diabetes Status: Chronic Continue Accu-Cheks and low dose SSI q4 hours Qualifiers: Diabetes mellitus type: type 2 Diabetes mellitus intermediate card tender insulin use: without snf use Diabetes mellitus complication status: with unspecified complications Qualified Code(s): E11.8 - Type 2 diabetes mellitus with unspecified complications (9) Hyperkalemia Status: Acute Calcium gluconate given. Continue with hemodialysis (10) Hyponatremia with excess extracellular fluid volume Status: Acute Secondary to hypervolemia. Continue hemodialysis. Continue monitoring (11) Hyperthyroidism Status: Acute Elevated TSH, free T4 level pending. (12) DVT prophylaxis Status: Acute Heparin DVT prophylaxis dose. Subjective Principal diagnosis: carlos/ckd Interval history: Mr. Newman is a 67-year-old male who was admitted 16 days ago with a past medical history of DM, paroxysmal A. fib, CAD, recent CABG, CHF, and extensive hospital course for multifactorial SOB with pleural effusion, pneumonia, volume overload form CARLOS progressing to ESRD and CHF exacerbation. While here, he became dialysis depended. Had a perma cath placed a couple of days ago. He was on anticoagulation and developed hematuria for which he was evaluated by urology. He has not had much urine output and there are no further signs of hematuria. His a-fib was evaluated by cardiology and is now controlled. Patient was moved to the ICU overnight secondary to hypotension with systolic BP in the 70s after partially completing dialysis. Patient required Levophed and albumin administration to maintain map > 65. Patient's lactic acid was elevated and patient was placed back on broad-spectrum antibiotics. Pulmonology was consulted for critical care management. Objective PUL Vital signs: Last Vital Signs Temp 96.8 F L 02/12/18 08:00 Pulse 68 02/12/18 09:00 Resp 14 02/12/18 09:00 BP 82/59 02/12/18 09:00 Pulse Ox 100 02/12/18 09:00 General appearance: no acute distress Eyes: nonicteric ENT: oropharynx dry Neck: supple, JVD Effort: normal Auscultation: bilateral: diminished breath sounds (Right greater than left) Percussion: bilateral: not dull Cardiovascular: regular rate and rhythm Gastrointestinal: normoactive bowel sounds, soft, non-distended Integumentary: normal, erythema Extremities: no cyanosis, no clubbing, edema (3+ equal edema) Musculoskeletal: no deformities, ROM normal normal mental status, non-focal exam mood appropriate, affect normal Results - Laboratory Findings CBC and BMP: 02/12/18 18:52 02/12/18 18:52 PT/INR, D-dimer PT 17.4 Seconds (9.4-12.1) H 02/09/18 06:19 Abnormal lab findings: Abnormal lab results Hgb 10.8 g/dL (12.9-16.9) L D 02/12/18 04:28 Hct 35.5 % (37.5-50.1) L 02/12/18 04:28 MCV 80.5 fL (83.0-100.0) L 02/12/18 04:28 MCH 24.5 pg (28.0-33.3) L 02/12/18 04:28 MCHC 30.4 g/dL (31.6-35.5) L 02/12/18 04:28 RDW 23.6 % (11.5-14.5) H 02/12/18 04:28 Plt Count 94 K/mcL (140-400) L 02/12/18 04:28 Nucleated RBCs/100 WBC 1.3 /100 WBC (0) H 02/12/18 04:28 Platelet Estimate Decreased (Normal) L 02/12/18 04:28 Immature Plt Fraction 7.0 % (1.1-6.1) H 02/12/18 04:28 Polychromasia 1+ (Not Present) A 02/12/18 04:28 Poikilocytosis 1+ (Not Present) A 02/12/18 04:28 Anisocytosis 3+ (Not Present) A 02/12/18 04:28 Microcytosis Present (Not Present) A 02/12/18 04:28 Macrocytosis Present (Not Present) A 02/12/18 04:28 Target Cells 1+ (Not Present) A 02/11/18 23:25 Tear Drop Cells 1+ (Not Present) A 02/11/18 23:25 Schistocytes 1+ (Not Present) A 02/11/18 23:25 PT 17.4 Seconds (9.4-12.1) H 02/09/18 06:19 APTT 40.7 Seconds (26.0-36.0) H 02/02/18 10:12 Heparin Anti-Xa, Unfract > 2.00 IU/mL (0.30-0.70) H* 01/28/18 06:38 Sodium 134 mEq/L (136-145) L 02/12/18 04:28 Potassium 5.4 mEq/L (3.5-5.1) H 02/12/18 04:28 Chloride 97 mEq/L (98-107) L 02/12/18 04:28 Carbon Dioxide 19 mEq/L (23-29) L 02/12/18 04:28 BUN 58 mg/dL (8-23) H 02/12/18 04:28 Creatinine 4.71 mg/dL (0.70-1.30) H 02/12/18 04:28 Est GFR ( Amer) 15 (> 60) L 02/12/18 04:28 Est GFR (Non-Af Amer) 12 (> 60) L 02/12/18 04:28 Hemoglobin A1c 10.2 % (-5.6) H 01/28/18 03:37 Lactic Acid 3.0 mmol/L (0.5-2.2) H 02/12/18 07:54 Calcium 8.5 mg/dL (8.6-10.3) L 02/12/18 04:28 Phosphorus 8.3 mg/dL (2.7-4.5) H 02/07/18 02:57 Alkaline Phosphatase 406 Units/L (34-104) H 02/04/18 05:13 Lactate Dehydrogenase 275 Units/L (140-271) H 01/29/18 03:17 Troponin I 0.05 ng/mL (< 0.04) H* 01/28/18 00:19 B-Natriuretic Peptide 800 pg/mL (Less than 100) H 01/27/18 12:48 Serum Total Protein 5.9 g/dL (6.4-8.9) L 02/04/18 05:13 Albumin 3.0 g/dL (3.5-5.7) L 02/07/18 02:57 Albumin/Globulin Ratio 1.0 (1.1-2.2) L 02/04/18 05:13 HDL Cholesterol 36 mg/dL (40-59) L 01/28/18 03:37 Procalcitonin 0.22 ng/mL (<=0.07) H 01/27/18 15:54 TSH 7.788 mcIU/mL (0.340-5.600) H 01/28/18 03:37 Urine Protein 100 mg/dL (Neg-Trace) H 01/27/18 Unknown Urine Blood Trace (Negative) H 01/27/18 Unknown Nasal Screen MRSA (PCR) Positive (Negative) A 01/27/18 16:15 Hep Bs Antibody < 3.10 mIU/mL (10.00-) L 02/04/18 11:16 - Microbiology Findings Microbiology Findings: Microbiology, Last 48 Hours 02/12/18 00:33 Blood Culture - Preliminary Peripheral Venipuncture Culture is incubating and being continuously monitored for growth. Final report to follow. 02/12/18 00:33 Blood Culture - Preliminary Peripheral Venipuncture Culture is incubating and being continuously monitored for growth. Final report to follow. - Diagnostic Findings Chest x-ray: report reviewed, image reviewed Additional studies: ITS Impressions Echocardiogram Limited Views 01/27/18 15:29 Impressions: Limited Echo. LVEF 70-75%, hperdynamic LV. Mild concentric left ventricular hypertrophy. There is a trivial to small pericardial effusion lateral to posterolateral LV wall. Left Ventricular Wall Motion: Rest Echo Findings The apex, apical inferior, mid inferior, basal inferior, apical anterior, mid anterior, basal anterior, apical septal, mid inferior septal, basal inferior septal, apical lateral, mid anterior lateral, basal anterior lateral, mid anterior septal, mid inferior lateral, basal anterior septal and basal inferior lateral ayala were hyperkinetic. Findings: Study Quality * Technically sub-optimal due to poor echocardiographic windows. ECG Findings * Normal sinus rhythm. Left Ventricle * LVEF 70-75%, hperdynamic LV. * Mild concentric left ventricular hypertrophy. * Definity echo contrast was used. Pericardium * There is a trivial to small pericardial effusion lateral to posterolateral LV wall. Retroperitoneum Ultrasound 01/27/18 19:30 IMPRESSION: Right kidney is unremarkable in appearance. The left kidney is not visualized. D/ / Memo Clifton MD / Memo Clifton MD Interpreting Provider: Memo Clifton MD Thoracentesis 01/28/18 06:54 IMPRESSION: 1. Successful ultrasound guided right thoracentesis. D/ / Kush Mittal MD / Kush Mittal MD Interpreting Provider: Kush Mittal MD Abdomen/Pelvis CT 02/02/18 10:32 IMPRESSION: 1. Partially decompressed urinary bladder with possible circumferential wall thickening as can be seen with cystitis. Recommend correlation with urinalysis. No obstructive uropathy. 2. Severe left renal atrophy. 3. Anasarca with diffuse body wall edema, small volume of ascites, large right and small left pleural effusions of may be partially loculated. 4. Small possibly partially loculated pericardial effusion grossly unchanged from 01/04/2018. 5. Large right basilar consolidation compatible with atelectasis versus pneumonia. D/ / Jimmy Johnson MD / Jimmy Johnson MD Interpreting Provider: Jimmy Johnson MD Insertion Non-Tunneled Catheter 02/04/18 00:00 IMPRESSION: 1. Right internal jugular vein temporary dialysis catheter placement. 2. Moderate right pleural effusion. D/ / Kush Mittal MD / Kush Mittal MD Interpreting Provider: Kush Mittal MD Guidance Ultrasound 02/09/18 00:00 IMPRESSION: Ultrasound and fluoroscopic guided placement of a tunneled right IJ hemodialysis catheter. No immediate complications. The catheter is ready for use. D/ / Klaus Loyd MD / Klaus Loyd MD Interpreting Provider: Klaus Loyd MD Tunnelled Catheter Removal 02/09/18 00:00 IMPRESSION: Ultrasound and fluoroscopic guided placement of a tunneled right IJ hemodialysis catheter. No immediate complications. The catheter is ready for use. D/ / Klaus Loyd MD / Klaus Loyd MD Interpreting Provider: Klaus Loyd MD Chest X-Ray 02/11/18 23:18 IMPRESSION: Interval enlargement of large right pleural effusion. Left basilar and right lung airspace disease are evident. D/ / Miriam Farris Cha, MD / Miriam Farris Cha, MD Interpreting Provider: Miriam Farris Cha, MD - Clinical Findings Intake & Output: Intake & Output 02/11/18 02/12/18 02/12/18 23:59 07:59 15:59 Intake Total 240 / 240 0 / 1920 60 / 60 Output Total 0 / 0 Balance 240 / 240 0 / 192 60 / 60 Weight 104.1 kg Consult Discharge Plan - Plan Referrals: Maria Antonia Friend CNP [Primary Care Provider] - <Franklyn Quintanilla - Last Filed: 02/13/18 00:37> Date of Encounter: 02/13/18 Objective PUL Vital signs: Last Vital Signs Temp 96.9 F L 02/12/18 16:00 Pulse 77 02/12/18 17:00 Resp 20 02/12/18 20:33 BP 81/51 02/12/18 20:33 Pulse Ox 62 02/12/18 20:46 Ventilator Settings Ventilator Settings: Ventilator Settings, Last 8 Hours Ventilator Tidal Volume 550 Setting Ventilator Tidal Volume 550 Setting Ventilator Tidal Volume 500 Setting Ventilator Tidal Volume 500 Setting Ventilator Respiratory Rate 18 Setting Ventilator Respiratory Rate 18 Setting Ventilator Respiratory Rate 20 Setting Ventilator Respiratory Rate 20 Setting Actual Respiratory Rate 20 Actual Respiratory Rate 20 Positive End Expiratory 8 Pressure Positive End Expiratory 8 Pressure Positive End Expiratory 8 Pressure Positive End Expiratory 8 Pressure Peak Inspiratory Airway 33 Pressure Peak Inspiratory Airway 31 Pressure Results - Laboratory Findings CBC and BMP: 02/12/18 18:52 02/12/18 18:52 ABG ABG pH 7.32 pH Units (7.32-7.45) 02/12/18 19:36 ABG pCO2 35 mmHg (35-45) 02/12/18 19:36 ABG pO2 89 mmHg (85-104) D 02/12/18 19:36 ABG O2 Saturation 96 % (95-98) 02/12/18 19:36 PT/INR, D-dimer PT 44.9 Seconds (9.4-12.1) H* D 02/12/18 18:52 Abnormal lab findings: Abnormal lab results RBC 4.08 M/mcL (4.19-5.50) L 02/12/18 18:52 Hgb 10.2 g/dL (12.9-16.9) L 02/12/18 18:52 Hct 34.3 % (37.5-50.1) L 02/12/18 18:52 MCH 25.0 pg (28.0-33.3) L 02/12/18 18:52 MCHC 29.7 g/dL (31.6-35.5) L 02/12/18 18:52 RDW 23.5 % (11.5-14.5) H 02/12/18 18:52 Plt Count 57 K/mcL (140-400) L 02/12/18 18:52 Nucleated RBCs/100 WBC 3.1 /100 WBC (0) H 02/12/18 18:52 Platelet Estimate Decreased (Normal) L 02/12/18 18:52 Immature Plt Fraction 9.0 % (1.1-6.1) H 02/12/18 18:52 Polychromasia 1+ (Not Present) A 02/12/18 04:28 Poikilocytosis 2+ (Not Present) A 02/12/18 18:52 Anisocytosis 2+ (Not Present) A 02/12/18 18:52 Microcytosis Present (Not Present) A 02/12/18 04:28 Macrocytosis Present (Not Present) A 02/12/18 04:28 Target Cells 1+ (Not Present) A 02/12/18 18:52 Tear Drop Cells 1+ (Not Present) A 02/11/18 23:25 Ovalocytes 1+ (Not Present) A 02/12/18 18:52 Schistocytes 1+ (Not Present) A 02/11/18 23:25 PT 44.9 Seconds (9.4-12.1) H* D 02/12/18 18:52 APTT > 360.0 Seconds (26.0-36.0) H* 02/12/18 18:52 Heparin Anti-Xa, Unfract 0.73 IU/mL (0.30-0.70) H 02/12/18 18:52 ABG HCO3 18 mEq/L (21-27) L 02/12/18 19:36 ABG Total CO2 19 mEq/L (20-26) L 02/12/18 19:36 ABG Base Excess -7 mEq/L (-2 to 3) L 02/12/18 19:36 Potassium 5.3 mEq/L (3.5-5.1) H 02/12/18 18:52 Chloride 95 mEq/L (98-107) L 02/12/18 18:52 Carbon Dioxide 19 mEq/L (23-29) L 02/12/18 18:52 BUN 66 mg/dL (8-23) H 02/12/18 18:52 Creatinine 5.12 mg/dL (0.70-1.30) H 02/12/18 18:52 Est GFR ( Amer) 14 (> 60) L 02/12/18 18:52 Est GFR (Non-Af Amer) 11 (> 60) L 02/12/18 18:52 Glucose 116 mg/dL (70-105) H 02/12/18 18:52 POC Glucose 162 mg/dL (70-99) H 02/12/18 19:52 Hemoglobin A1c 10.2 % (-5.6) H 01/28/18 03:37 Calculated Osmolality 306 (280-300) H 02/12/18 18:52 Lactic Acid > 10.0 mmol/L (0.5-2.2) H* 02/12/18 18:51 Phosphorus 9.4 mg/dL (2.7-4.5) H 02/12/18 18:52 Magnesium 2.9 mg/dL (1.6-2.6) H 02/12/18 18:52 Total Bilirubin 2.6 mg/dL (0.3-1.0) H 02/12/18 18:52 AST 896 Units/L (13-39) H 02/12/18 18:52 ALT 445 Units/L (7-52) H 02/12/18 18:52 Alkaline Phosphatase 533 Units/L (34-104) H 02/12/18 18:52 Lactate Dehydrogenase 275 Units/L (140-271) H 01/29/18 03:17 Troponin I 0.05 ng/mL (< 0.04) H* 01/28/18 00:19 B-Natriuretic Peptide 800 pg/mL (Less than 100) H 01/27/18 12:48 Serum Total Protein 5.2 g/dL (6.4-8.9) L 02/12/18 18:52 Globulin 1.4 g/dL (2.4-3.5) L 02/12/18 18:52 Albumin/Globulin Ratio 2.7 (1.1-2.2) H 02/12/18 18:52 HDL Cholesterol 36 mg/dL (40-59) L 01/28/18 03:37 Procalcitonin 0.22 ng/mL (<=0.07) H 01/27/18 15:54 TSH 7.941 mcIU/mL (0.340-5.600) H 02/12/18 07:54 Urine Protein 100 mg/dL (Neg-Trace) H 01/27/18 Unknown Urine Blood Trace (Negative) H 01/27/18 Unknown Nasal Screen MRSA (PCR) Positive (Negative) A 01/27/18 16:15 Hep Bs Antibody < 3.10 mIU/mL (10.00-) L 02/04/18 11:16 - Microbiology Findings Microbiology Findings: Microbiology, Last 48 Hours 02/12/18 00:33 Blood Culture - Preliminary Peripheral Venipuncture Culture is incubating and being continuously monitored for growth. Final report to follow. 02/12/18 00:33 Blood Culture - Preliminary Peripheral Venipuncture Culture is incubating and being continuously monitored for growth. Final report to follow. - Clinical Findings Intake & Output: Intake & Output 02/12/18 02/12/18 02/13/18 15:59 23:59 07:59 Intake Total 220 / 220 100 / 100 Output Total 0 / 0 Balance 220 / 220 100 / 100 - Attending Attestation I saw and evaluated this patient and my medical decision-making was reviewed with the Resident Physician. I agree with the documented findings, disposition and treatment plan as described except to the extent set forth below. We independently had [id number] contact with the patient I spent 70 minutes of Critical Care time with this patient. It involved decision making of high complexity to assess, manipulate, and support vital organ system failure and/or to prevent further life threatening deterioration of the patient's condition. The time involved in the performance of separately reportable procedures was not counted toward critical care time. Patient seen and examined at bedside Labs, radiology, chart personally reviewed. Management was reviewed during multidisciplinary critical care rounds. OFFENSIVE COORDINATOR: Patient initially was conscious oriented 3 after the cardiac arrest during dialysis patient was intubated and sedated was not responding initially then he started responding. Pulm: Patient developed cardiac arrest ended up getting intubated adjusted mechanical ventilation for acceptable oxygenation and ventilation. Patient has pleural effusion which needs thoracentesis. I did not do thoracentesis today because of anticoagulation . Cards: He had a sudden cardiac arrest not sure of the etiology less likely due to metabolic causes may be due to UT or or pulmonary embolism. Patient had a right-sided femoral line. 4 arterial pressure monitoring. Since there was high concern for pulmonary embolism I did tPA. FEN-GI:Nothing by mouth for now. Renal: Started on Berenice cannot tolerate dialysis went into cardiac arrest. ID: Possible septic shock to continue with broad-spectrum antibiotics Heme/Onc: Labs were reviewed Endo: Glucose Monitored Integ/MSK: Skin Care per routine ICU Nursing Protocol to prevent ulcers. Lines: All lines examined without evidence of infection : Dispo: Due to critical illness of the patient had told the family if he loses cardiac output again he should be made comfortable. The CODE STATUS was changed to DNR CCA.
[2018-02-12] MEDS: Albumin 25% 25gram/100mL 25 GM/100 ML IV.SOLN IVPB SCH ×2 (09:51→17:16)
[2018-02-12 10:19] LABS: INR 2.5; Prothrombin Time 28.5 Seconds (9.4-12.1)
[2018-02-12 10:53] LABS: Thyroid Stimulating Hormone 7.941 mcIU/mL (0.340-5.600)
[2018-02-12] MEDS: Ondansetron 4 MG/2 ML VIAL IVP PRN (12:27)
--- NOTE | 2018-02-12 14:08 | Procedure Note ---
<Doug Lloyd - Last Filed: 02/12/18 14:05> Date of procedure: 02/12/18 Pre-op diagnosis: ESRD, hypotension, limited access Post-op diagnosis: same Procedure: A time-out was completed verifying correct patient, procedure, site, positioning, and special equipment if applicable. The patient was placed in a dependent position appropriate for central line placement based on the vein to be cannulated. The patients left groin was prepped and draped in sterile fashion. 1% Lidocaine was used to anesthetize the surrounding skin area. A triple lumen 7-Kazakh Cordis catheter was introduced into the the common femoral vein using the Seldinger technique and under ultrasound guidance. The catheter was threaded smoothly over the guide wire and appropriate blood return was obtained. Each lumen of the catheter was evacuated of air and flushed with sterile saline. The catheter was then sutured in place to the skin and a sterile dressing applied. Perfusion to the extremity distal to the point of catheter insertion was checked and found to be adequate. Attending Dr. Quintanilla was present for the entire procedure. Estimated Blood Loss: 1 cc The patient tolerated the procedure well and there were no complications. Anesthesia: local Surgeon: Doug Lloyd Was there an certified physician assistant present: Yes Director Global Strategic Publisher Sales: Franklyn Quintanilla Estimated blood loss (cc): 1 Specimen: N/A Pathology: none sent Condition: critical Disposition: ICU <Franklyn Quintanilla - Last Filed: 02/12/18 20:03> Procedure: I was present during the entire procedure and assisted the critical portions of the procedure.
[2018-02-12] MEDS: Norepinephrine 4 MG in D5% in Water 250 ML IVC SCH ×2 (14:25→15:28)
[2018-02-12] MEDS ORDERED: *HR* Heparin 5,000 UNIT/ML VIAL IV PRN (14:54)
[2018-02-12] MEDS ORDERED: 0.9 % Sodium Chloride 1,000 ML PRIME SCH (15:00)
[2018-02-12] MEDS ORDERED: PrismaSATE BGK 4/2.5 5,000 ML CRRT SCH ×2 (15:00)
[2018-02-12] MEDS ORDERED: Calcium Gluconate 2,000 MG in 0.9 % Sodium Chloride 100 ML IVPB PRN (16:03)
[2018-02-12] MEDS ORDERED: Calcium Chloride 4,000 MG in 0.9 % Sodium Chloride 1,000 ML CRRT SCH (16:15)
[2018-02-12] MEDS ORDERED: *HR* Heparin 5,000 UNIT/ML VIAL SQ SCH (18:00)
[2018-02-12] MEDS ORDERED: *HR* FentaNYL (PF) 100 MCG/2 ML VIAL IVP ONE (18:03)
[2018-02-12] MEDS ORDERED: *HR* FentaNYL (PF) 100 MCG/2 ML VIAL ONE (18:15)
[2018-02-12] MEDS ORDERED: 0.9 % Sodium Chloride 500 ML ONE (18:37)
[2018-02-12 18:59] LABS: ABG Base Excess -8 mEq/L (-2 to 3); ABG HCO3 19 mEq/L (21-27); ABG Oxygen Saturation 99 % (95-98); ABG PCO2 41 mmHg (35-45); ABG PH 7.26 pH Units (7.32-7.45); ABG PO2 156 mmHg (85-104); ABG TCO2 20 mEq/L (20-26); Blood Gas PEEP 8 cm H2O; Blood Gas Respiration Rate 20; Blood Gas VT 550 cc
[2018-02-12 19:12] LABS: VBG Ionized Calcium 1.15 mmol/L (1.15-1.35)
[2018-02-12 19:27] LABS: Basophils % 0.1 %; Eosinophils % 0.1 %; Hematocrit 34.3 % (37.5-50.1); Hemoglobin 10.2 g/dL (12.9-16.9); Immature Granulocytes % 1.3 % (0-4); Lymphocytes # 2.2 K/mcL (0.6-4.6); Lymphocytes % 21.1 %; Mean Corpuscular HGB Conc 29.7 g/dL (31.6-35.5); Mean Corpuscular Volume 84.1 fL (83.0-100.0); Monocytes # 0.6 K/mcL (0.0-1.3); Monocytes % 5.5 %; Neutrophils # 7.6 K/mcL (1.6-8.9); Nucleated Red Blood Cells 3.1 /100 WBC (0); Red Blood Count 4.08 M/mcL (4.19-5.50); Red Cell Distribution Width 23.5 % (11.5-14.5); Segmented Neutrophils % 71.9 %
[2018-02-12] MEDS ORDERED: *HR* Adenosine 6 MG/2 ML VIAL IVP ONE (19:34)
[2018-02-12 19:39] LABS: ABG Base Excess -7 mEq/L (-2 to 3); ABG HCO3 18 mEq/L (21-27); ABG Oxygen Saturation 96 % (95-98); ABG PCO2 35 mmHg (35-45); ABG PH 7.32 pH Units (7.32-7.45); ABG PO2 89 mmHg (85-104); ABG TCO2 19 mEq/L (20-26); Blood Gas Modality VC; Blood Gas PEEP 8 cm H2O; Blood Gas Respiration Rate 18; Blood Gas VT 550 cc
[2018-02-12 19:44] LABS: Albumin 3.8 g/dL (3.5-5.7); Albumin/Globulin Ratio 2.7 (1.1-2.2); Bilirubin,Total 2.6 mg/dL (0.3-1.0); Calcium 9.9 mg/dL (8.6-10.3); Globulin 1.4 g/dL (2.4-3.5); Magnesium 2.9 mg/dL (1.6-2.6); Phosphorous 9.4 mg/dL (2.7-4.5); Potassium 5.3 mEq/L (3.5-5.1); Total Protein 5.2 g/dL (6.4-8.9)
[2018-02-12 19:50] LABS: Platelet Count 57 K/mcL (140-400)
[2018-02-12] MEDS ORDERED: Amiodarone Premix 360 MG/200 ML BAG IVC ONE (19:55)
--- NOTE | 2018-02-12 19:55 | Event Note ---
Date of Encounter: 02/12/18 Time of Encounter: 07:30 Spoke with patient with two prolonged episodes of loosing cardiac output high suspicion for PE and MS gave t-PA told about the risk and benefit patient is agreeable for that if he codes after that according to patient wishes we will not do CPR on him is agreeable with that code status was changed to DNRA-I
[2018-02-12] MEDS ORDERED: 0.9 % Sodium Chloride 500 ML IVC PRN (19:57)
[2018-02-12 19:58] LABS: Anisocytosis 2+ (Not Present); Ovalocytes 1+ (Not Present); Platelet Estimate Decreased (Normal); Poikilocytosis 2+ (Not Present); Target Cells 1+ (Not Present)
[2018-02-12] MEDS ORDERED: Vasopressin 40 UNIT in D5% in Water 100 ML IV SCH (20:00)
[2018-02-12] MEDS ORDERED: Dexmedetomidine HCl 400 MCG/100 ML MLS IVC SCH (20:00)
[2018-02-12] MEDS ORDERED: Amiodarone Premix 360 MG/200 ML BAG IVC SCH (20:00)
[2018-02-12] MEDS ORDERED: Artificial Tears SOLN 15 ML BOTTLE BOTH EYES PRN (20:02)
[2018-02-12 20:03] LABS: Prothrombin Time 44.9 Seconds (9.4-12.1)
[2018-02-12 20:04] LABS: Activated Partial Thrombo Time > 360.0 Seconds (26.0-36.0)
[2018-02-12] MEDS ORDERED: *HR* Heparin 5,000 UNIT/ML VIAL IVP PRN ×2 (20:08)
[2018-02-12] MEDS ORDERED: *HR* Heparin 5,000 UNIT/ML VIAL IVP ONE (20:08)
--- NOTE | 2018-02-12 20:11 | Procedure Note ---
Date of procedure: 02/12/18 Pre-op diagnosis: shock Post-op diagnosis: same Procedure: ARTERIAL LINE (A-Line) PLACEMENT Date: 02/12/2018 Time:18:30 Indication: Hemodynamic monitoring Resident: Attending: A time-out was completed verifying correct patient, procedure, site, positioning, and special equipment if applicable. 1% Lidocaine was used to anesthetize the area. A 18GArrow arterial line was introduced into the Right femoral artery. The catheter was threaded over the guide wire and the needle was removed with appropriate pulsatile blood return. The catheter was then sutured in place to the skin and a sterile dressing applied. Perfusion to the extremity distal to the point of catheter insertion was checked and found to be adequate. was present for the entire procedure. Estimated Blood Loss: minimal The patient tolerated the procedure well and there were no complications. Anesthesia: IV sedation Surgeon: Franklyn Quintanilla Was there an commercial lending assistant present: Yes Pig Handler: Doug Lloyd Estimated blood loss (cc): 0 Specimen: none Pathology: none sent Condition: critical Disposition: ICU
[2018-02-12 20:12] LABS: Heparin anti-factor XA UFH 0.73 IU/mL (0.30-0.70)
[2018-02-12] MEDS ORDERED: Norepinephrine 8 MG in D5% in Water 250 ML IVC SCH (20:15)
[2018-02-12] MEDS ORDERED: Heparin 25,000 UNIT/500 ML D5W 25,000 UNIT/500 ML BAG IVC SCH (20:15)
--- NOTE | 2018-02-12 20:22 | Procedure Note ---
<Doug Lloyd - Last Filed: 02/12/18 20:17> Date of procedure: 02/12/18 Pre-op diagnosis: Respiratory arrest Post-op diagnosis: same Procedure: A time-out was not completed due to emergent nature of the procedure. The patient was placed in a flat position during CPR. Sedation was not given due to cardiopulmonary arrest. The patient was easily ventilated using an ambu bag. The C-MAC 3 BLADE was used and inserted into the oropharynx at which time there was a Grade 1 view of the vocal cords. A 7.5-belarusian endotracheal tube was inserted and visualized going through the vocal cords. The stylette was removed. Colorimetric change was visualized on the CO2 meter. Breath sounds were heard in both lung de la rosa equally. The endotracheal tube was placed at 25 cm, measured at the lip. Attending Dr. Quintanilla was present for the entire procedure. A chest x-ray was ordered to assess for pneumothorax and verify endotrachealtube placement. Estimated Blood Loss: 0 cc The patient tolerated the procedure well and there were no complications. Impressions Chest X-Ray 02/12/18 18:40 IMPRESSION: Small left and moderate to large right pleural effusion. Right pleural effusion appears slightly decreased compared to previous exam. Endotracheal tube 2.9 cm from the eli and central venous catheter as above. Surgeon: Doug Lloyd Was there an graduate teaching assistant present: Yes Vision Mixer: Franklyn Quintanilla Estimated blood loss (cc): 0 Specimen: N/A Pathology: none sent Condition: critical Disposition: ICU <Franklyn Quintanilla - Last Filed: 02/13/18 00:30> Procedure: I assisted During the entire procedure .
[2018-02-12 20:35] VITALS: BP 81/51
[2018-02-12] MEDS ORDERED: EPINEPHrine 1 MG in D5% in Water 250 ML IVC SCH (20:45)
[2018-02-12] MEDS ORDERED: Phenylephrine 10 MG in D5% in Water 250 ML IVC SCH (20:45)
--- NOTE | 2018-02-12 20:48 | Event Note ---
Date of Encounter: 02/12/18 Time of Encounter: 18:18 Notified by RN that patient is an severe distress not tolerating Berenice. Upon arrival patient's room patient is pale with agonal breathing and patient lost peripheral pulses. Patient had PEA. Immediately Dr. Quintanilla spoke with patient's Collette on the phone and she reversed his CODE STATUS from DNRCC- DNI to full code. CODE BLUE was called and CPR was initiated. Patient was intubated, see corresponding intubation note. Patient achieved ROSC after epinephrine, calcium chloride, levothyroid, and 1 amp of bicarbonate administration. Please see corresponding nursing notes with the specific times of medication administration. Stat labs were ordered. Arterial line was placed with Dr. Quintanilla bedside. Shortly afterwards the patient went into PEA again and CODE BLUE was initiated a second time. Patient's arrived and is at bedside speaking with Dr. Quintanilla at this time. She requested changing his CODE STATUS to DNR CCA. Patient achieved ROSC a second time after epinephrine, atropine, amiodarone bolus, and vasopressin bolus. ABG was obtained from the A-line and reviewed. TPA was administered due to concerns for pulmonary embolism and patient was started on heparin drip. OG was placed and KUB ordered. Patient was started on amiodarone drip, albumin 25%, and 500 mL fluid bolus. Blood glucose was 167. Patient was unable to be placed on targeted temperature management secondary to hemodynamic instability. Patient began to respond to noxious stimuli and move his limbs. He was placed on Precedex for sedation. Attending discussed case with his at bedside discussing poor prognosis despite medical therapy. All questions were answered at bedside. 02/12/18 02/12/18 18:53 19:36 ABG pH 7.26 L 7.32 ABG pCO2 41 35 ABG pO2 156 H 89 D ABG HCO3 19 L 18 L ABG Total CO2 20 19 L ABG O2 Saturation 99 H 96 ABG Base Excess -8 L -7 L
[2018-02-12] MEDS ORDERED: Albumin 25% 25gram/100mL 25 GM/100 ML IV.SOLN ONE (20:51)
[2018-02-12] MEDS ORDERED: *HR* Dextrose 50 % in Water (Syg) 50 ML SYRINGE IVC ONE (20:59)
[2018-02-12] MEDS ORDERED: *HR* EPINEPHrine 1 MG/10 ML SYRINGE IVP ONE ×2 (20:59)
[2018-02-12] MEDS ORDERED: *HR* Amiodarone Premix 360 MG/200 ML BAG IVC ONE (20:59)
[2018-02-12] MEDS ORDERED: *HR* Norepinephrine 4 MG/4 ML VIAL IVC ONE ×2 (20:59)
[2018-02-12] MEDS ORDERED: Calcium Gluconate 1,000 MG/10 ML VIAL IVPB ONE (20:59)
[2018-02-12] MEDS ORDERED: *HR* Amiodarone Premix 150 MG/100 ML BAG IVPB ONE (20:59)
[2018-02-12] MEDS ORDERED: *HR* Atropine Sulfate 1 MG/10 ML SYRINGE IV ONE (20:59)
[2018-02-12] MEDS ORDERED: Aminoglycoside Consult 1 EACH MC ONE (20:59)
[2018-02-12] MEDS ORDERED: Insulin LISPRO 300 UNITS/3 ML VIAL SQ SCH (21:00)
[2018-02-12] MEDS ORDERED: Chlorhexidine Rinse 15 ML MOUTHWASH MM SCH (21:00)
--- NOTE | 2018-02-12 21:01 | Death Note ---
<Klaus Calderon - Last Filed: 02/12/18 21:02> Discharge Sum: Summary - Date and Time Date of admission: 01/27/18 14:17 Date of : 02/12/18 Time of : 21:00 - Summary Details: In brief, Mr. Newman was a 67 year old male admitted for shortness of breath. He was found to be in acute renal failure and suspected CHF exacerbation with underlying hospital acquired pneumonia. He was evaluated by cardiology, nephrology and engagement lead. Dialysis was started as his renal function did not improve. He was transferred to the intensive care unit on the morning of 02/12/17 for hypotension resistant to fluids and was started on vasopressors. He did received CVVHD but has been unable to complete dialysis sessions due to hemodynamic instability. Patient did have cardiac arrest with ROSC at 1819. He was subsequently intubated but was not cooled due to continued hemodynamic instability. Arterial line was placed and additional vasopressors were added. Patient again went into PEA arrest at approximately 1900 and again achieved ROSC after 3 rounds of CPR. Family was present at bedside with attending engagement lead following code blue. Family has decided to change code status to DNR-CCA at this time. Patient on maximum rate of 3 vasopressors however despite resuscitation efforts, patient became bradycardic and had asystole on invoice machine operator. Code blue was not called. Family was present at bedside. Physician was present at bedside and was confirmed with auscultation of heart and lungs, palpation of carotid arteries, fixed and dilated pupils. Time of was 2100 on 02/12/17. Attending physician aware. - Additional Data Confirmation of as documented by pronouncing clinician: no pulse, no respirations, no heart sounds, pupils fixed and dilated Family: at bedside Attending physician: Emily Mercedes Was code activated?: No Hospice patient?: No Discharge Sum: Diag - PCOD Probable Cause of : Cardiac arrest Discharge Sum: Prov - Provider Primary care physician: Maria Antonia Friend CNP Consults: 02/11/18 07:45 Consult to Dialysis [CONS] ONCE 02/12/18 04:41 Consult to Invasive Line Access Team [CONS] Routine Reason for Consult: PICC line placement Line Type: PICC 02/12/18 07:27 Consult to Pulmonology [CONS] Routine Consulting Provider: Pulm Crit Care & Sleep Conrad Reason for Consult: critical care. Call Completed: No 01/27/18 14:58 Consult to Interventional Radiology [CONS] Routine Consulting Provider: Radiology Interventional Cols Reason for Consult: right sided pleural effusion Call Completed: No 01/27/18 15:23 Consult to Wound Care [CONS] Routine Reason for Consult: bilateral lower extremity venous stasis Call Completed: No 01/27/18 15:25 Consult to Nutrition [CONS] Routine Comment: Consulting Provider: NUTRITION Reason for Dietary Consult: PO Supplementation 01/28/18 14:55 Consult to Nephrology [CONS] Routine Consulting Provider: Kidney Colette/HAIR/ANIA/RAMANDEEP Reason for Consult: CARLOS on CKD Call Completed: Yes 01/29/18 13:38 Consult to Physical Therapy [CONS] Routine Comment: Evaluate, develop and implement POC Reason for Consult: Assess patient ability due to increased swelling. Does patient have active BEDREST order?: No Is patient medically & hemodynamically stable?: Yes 01/30/18 22:42 Consult to Pulmonology [CONS] Routine Consulting Provider: Pulm Crit Care & Sleep Colette Reason for Consult: recurrent pleural effusion x2 Call Completed: Yes 02/02/18 13:08 Consult to Boilermaker Welder [CONS] Routine Reason for SW Consult: PT rec swing bed. Kelli aware 02/02/18 15:51 Consult to Urology [CONS] Routine Consulting Provider: Urology Colette Reason for Consult: hematuria Call Completed: Yes 02/02/18 16:08 Consult to Cardiology [CONS] Routine Comment: Consulting Provider: Cardiology Conrad Reason for Consult: Severe cardiac disease with hematuria. A. fib with low blood pressure. Medical management Call Completed: Yes 02/04/18 07:23 Consult to Boilermaker Welder [CONS] Routine Reason for SW Consult: POA process 02/04/18 11:00 Consult to Interventional Radiology [CONS] Routine Consulting Provider: Radiology Interventional Cols Reason for Consult: Please evaluate for placement of a temporary HD catheter. Call Completed: Yes 02/04/18 11:15 Consult to Dialysis [CONS] ONCE 02/05/18 07:15 Consult to Dialysis [CONS] ONCE 02/05/18 11:15 Consult to Dialysis [CONS] ONCE 02/05/18 14:15 Consult to Palliative Care [CONS] Routine Comment: Consulting Provider: Palliative Care Colette Reason for Consult: Discussion about CODE STATUS and comfort care option Call Completed: Yes 02/06/18 06:45 Consult to Dialysis [CONS] ONCE 02/06/18 11:15 Consult to Dialysis [CONS] ONCE 02/07/18 07:15 Consult to Dialysis [CONS] ONCE 02/09/18 05:00 Consult to Interventional Radiology [CONS] Routine Consulting Provider: Radiology Interventional Cols Reason for Consult: Please evaluate for placement of a Permacath for ongoing dialytic needs Call Completed: No Consult to Boilermaker Welder [CONS] Routine Reason for SW Consult: Please start the outpatient Dialysis Chair admissions process for "Dialysis dependent CARLOS on CKD" 02/09/18 07:15 Consult to Dialysis [CONS] ONCE Pronouncing clinician: Klaus Calderon <Franklyn Quintanilla - Last Filed: 02/13/18 00:38> Discharge Sum: Summary - Date and Time Date of admission: 01/27/18 14:17 - Summary Details: Agree with the hospital course documented by the resident. - Additional Data Attending physician: Emily Mercedes Discharge Sum: Prov - Provider Primary care physician: Maria Antonia Friend CNP Consults: 02/11/18 07:45 Consult to Dialysis [CONS] ONCE 02/12/18 04:41 Consult to Invasive Line Access Team [CONS] Routine Reason for Consult: PICC line placement Line Type: PICC 02/12/18 07:27 Consult to Pulmonology [CONS] Routine Consulting Provider: Pulm Crit Care & Sleep Conrad Reason for Consult: critical care. Call Completed: No 01/27/18 14:58 Consult to Interventional Radiology [CONS] Routine Consulting Provider: Radiology Interventional Cols Reason for Consult: right sided pleural effusion Call Completed: No 01/27/18 15:23 Consult to Wound Care [CONS] Routine Reason for Consult: bilateral lower extremity venous stasis Call Completed: No 01/27/18 15:25 Consult to Nutrition [CONS] Routine Comment: Consulting Provider: NUTRITION Reason for Dietary Consult: PO Supplementation 01/28/18 14:55 Consult to Nephrology [CONS] Routine Consulting Provider: Kidney Conrad/HAIR/ANIA/RAMANDEEP Reason for Consult: CARLOS on CKD Call Completed: Yes 01/29/18 13:38 Consult to Physical Therapy [CONS] Routine Comment: Evaluate, develop and implement POC Reason for Consult: Assess patient ability due to increased swelling. Does patient have active BEDREST order?: No Is patient medically & hemodynamically stable?: Yes 01/30/18 22:42 Consult to Pulmonology [CONS] Routine Consulting Provider: Pulm Crit Care & Sleep Colette Reason for Consult: recurrent pleural effusion x2 Call Completed: Yes 02/02/18 13:08 Consult to Boilermaker Welder [CONS] Routine Reason for SW Consult: PT rec swing bed. Kelli aware 02/02/18 15:51 Consult to Urology [CONS] Routine Consulting Provider: Urology Colette Reason for Consult: hematuria Call Completed: Yes 02/02/18 16:08 Consult to Cardiology [CONS] Routine Comment: Consulting Provider: Cardiology Colette Reason for Consult: Severe cardiac disease with hematuria. A. fib with low blood pressure. Medical management Call Completed: Yes 02/04/18 07:23 Consult to Boilermaker Welder [CONS] Routine Reason for SW Consult: POA process 02/04/18 11:00 Consult to Interventional Radiology [CONS] Routine Consulting Provider: Radiology Interventional Cols Reason for Consult: Please evaluate for placement of a temporary HD catheter. Call Completed: Yes 02/04/18 11:15 Consult to Dialysis [CONS] ONCE 02/05/18 07:15 Consult to Dialysis [CONS] ONCE 02/05/18 11:15 Consult to Dialysis [CONS] ONCE 02/05/18 14:15 Consult to Palliative Care [CONS] Routine Comment: Consulting Provider: Palliative Care Colette Reason for Consult: Discussion about CODE STATUS and comfort care option Call Completed: Yes 02/06/18 06:45 Consult to Dialysis [CONS] ONCE 02/06/18 11:15 Consult to Dialysis [CONS] ONCE 02/07/18 07:15 Consult to Dialysis [CONS] ONCE 02/09/18 05:00 Consult to Interventional Radiology [CONS] Routine Consulting Provider: Radiology Interventional Cols Reason for Consult: Please evaluate for placement of a Permacath for ongoing dialytic needs Call Completed: No Consult to Boilermaker Welder [CONS] Routine Reason for SW Consult: Please start the outpatient Dialysis Chair admissions process for "Dialysis dependent CARLOS on CKD" 02/09/18 07:15 Consult to Dialysis [CONS] ONCE
--- NOTE | 2018-02-12 23:28 | Nephrology Progress Note ---
Date of Encounter: 02/12/18 Time of Encounter: 12:00 - Assessment and Plan (1) Acute renal failure superimposed on stage 3 chronic kidney disease Current Visit: Yes Status: Acute Will plan for CRRT if hemodynamically stable with UF as tolerated Midodrine started overnight Qualifiers: Acute renal failure type: unspecified Qualified Code(s): N17.9 - Acute kidney failure, unspecified; N18.3 - Chronic kidney disease, stage 3 (moderate) (2) Heart failure Current Visit: Yes Status: Acute Will continue to attempt UF today if CRRT possible Continue strict I/Os Continue fluid restriction Qualifiers: Heart failure type: unspecified Heart failure chronicity: unspecified Qualified Code(s): I50.9 - Heart failure, unspecified (3) Bilateral lower extremity edema Current Visit: Yes Status: Acute As above (4) Hyponatremia Current Visit: Yes Status: Acute (5) Anemia Current Visit: Yes Status: Acute stable with hgb at 12.2 Qualifiers: Anemia type: unspecified type Qualified Code(s): D64.9 - Anemia, unspecified (6) Gross hematuria Current Visit: Yes Status: Resolved (7) Hypotension Current Visit: Yes Status: Acute Qualifiers: Qualified Code(s): I95.9 - Hypotension, unspecified (8) Hyperphosphatemia Current Visit: Yes Status: Acute Subjective Principal diagnosis: sandor/ckd Interval history: Pt seen and examined transferred overnight for persistent hypotension. Pt found resting but arousable but lethargic. Objective - Vital Signs Vital signs: Vital Signs Temp Pulse Resp BP Pulse Ox Pulse Ox Pulse Ox 02/12/18 20:46 02/12/18 20:33 20 81/51 02/12/18 19:09 68 70 02/12/18 18:30 20 112/81 99 02/12/18 17:00 77 18 103/76 99 02/12/18 16:00 96.9 F L 73 18 101/56 98 02/12/18 15:00 70 16 92/62 100 02/12/18 14:00 73 18 100/70 96 02/12/18 13:00 70 14 89/56 96 02/12/18 12:00 96.4 F L 02/12/18 11:15 71 18 101/76 98 02/12/18 11:00 70 02/12/18 10:00 69 18 98/73 100 02/12/18 09:00 68 14 82/59 100 02/12/18 08:00 96.8 F L 72 18 85/62 98 02/12/18 07:30 70 02/12/18 07:00 70 14 70/49 98 02/12/18 06:00 71 14 81/65 98 02/12/18 05:13 70 14 82/55 98 02/12/18 04:00 97.7 F 73 14 75/56 100 02/12/18 02:14 70/52 02/12/18 01:45 93/59 02/12/18 01:30 70/49 02/12/18 01:15 88/60 02/12/18 00:59 70/55 02/12/18 00:43 76/56 02/12/18 00:42 99.2 F 02/12/18 00:32 65/39 02/12/18 00:15 59/43 02/12/18 00:00 97.2 F L 74 13 66/47 02/11/18 23:45 74/59 Pulse Ox Pulse Ox Pulse Ox Pulse Ox Pulse Ox Pulse Ox Pulse Ox 02/12/18 20:46 62 62 76 02/12/18 20:33 02/12/18 19:09 71 68 74 75 02/12/18 18:30 02/12/18 17:00 02/12/18 16:00 02/12/18 15:00 02/12/18 14:00 02/12/18 13:00 02/12/18 12:00 02/12/18 11:15 02/12/18 11:00 02/12/18 10:00 02/12/18 09:00 02/12/18 08:00 02/12/18 07:30 02/12/18 07:00 02/12/18 06:00 02/12/18 05:13 02/12/18 04:00 02/12/18 02:14 02/12/18 01:45 02/12/18 01:30 02/12/18 01:15 02/12/18 00:59 02/12/18 00:43 02/12/18 00:42 02/12/18 00:32 02/12/18 00:15 02/12/18 00:00 02/11/18 23:45 Pulse Ox 01/03/19 20:46 80 02/12/18 20:33 02/12/18 19:09 02/12/18 18:30 02/12/18 17:00 02/12/18 16:00 02/12/18 15:00 02/12/18 14:00 02/12/18 13:00 02/12/18 12:00 02/12/18 11:15 02/12/18 11:00 02/12/18 10:00 02/12/18 09:00 02/12/18 08:00 02/12/18 07:30 02/12/18 07:00 02/12/18 06:00 02/12/18 05:13 02/12/18 04:00 02/12/18 02:14 02/12/18 01:45 02/12/18 01:30 02/12/18 01:15 02/12/18 00:59 02/12/18 00:43 02/12/18 00:42 02/12/18 00:32 02/12/18 00:15 02/12/18 00:00 02/11/18 23:45 Intake and Output 02/12/18 02/12/18 02/12/18 07:59 15:59 23:59 Intake Total 1920 / 1920 220 / 220 100 / 100 Output Total 0 / 0 0 / 0 Balance 1920 / 1920 220 / 220 100 / 100 Intake: IV Fluids 1800 / 1800 100 / 100 100 / 100 PrismaSATE BGK 4/2.5 5,000 ML @ 0 / 0 1000 mls/hr CRRT CONT JOVI Rx#: [id number] 0.9 % Sodium Chloride 500 ML @ 1000 / 1000 500 mls/hr IVC .Q1H ONE Rx#: [id number] Flexbumin 25 gm In 100 ml @ 60 200 / 200 100 / 100 mls/hr IVPB Q8H JOVI Rx#: [id number] Zosyn 3.375 GM In 0.9 % Sodium 100 / 100 100 / 100 Chloride (Mini-Bag +) 100 ML @ 25 mls/hr IVPB Q12H JOVI Rx#: [id number] Vancocin 1,750 MG In 0.9 % 500 / 500 Sodium Chloride 500 ML @ 333.3 mls/hr IVPB ONCE ONE Rx#: [id number] Oral 120 / 120 120 / 120 0 / 0 Output: Urine 0 / 0 0 / 0 Other: Meal Breakfast Percent of Meal Consumed 5% Weight 104.1 kg Blood Glucose* 99 93 103 Patient Weight 02/12/18 23:59 Weight 104.1 kg - Lab 02/12/18 18:52 02/12/18 18:52 Most recent lab results ABG pH 7.32 pH Units (7.32-7.45) 02/12/18 19:36 ABG pCO2 35 mmHg (35-45) 02/12/18 19:36 ABG pO2 89 mmHg (85-104) D 02/12/18 19:36 ABG HCO3 18 mEq/L (21-27) L 02/12/18 19:36 ABG O2 Saturation 96 % (95-98) 02/12/18 19:36 Calcium 9.9 mg/dL (8.6-10.3) 02/12/18 18:52 Phosphorus 9.4 mg/dL (2.7-4.5) H 02/12/18 18:52 Magnesium 2.9 mg/dL (1.6-2.6) H 02/12/18 18:52 Urine Creatinine 112 mg/dL 02/02/18 08:45 Urine Sodium 18.8 mEq/L 02/02/18 08:45 Consult Discharge Plan - Plan Referrals: Maria Antonia Friend, NUTRITIONIST [Primary Care Provider] -
[2018-02-13] MEDS ORDERED: Artificial Tears SOLN 15 ML BOTTLE BOTH EYES SCH
[2018-02-13] MEDS ORDERED: Pantoprazole 40 MG VIAL IVP SCH (06:00)
[2018-02-13] MEDS ORDERED: Hydrocortisone Sodium Succ 100 MG/2 ML VIAL IVP SCH (20:07)
== END 2018-02-12 21:00 | disposition expired | DRG 673 ==
LOC: EMEROOARM 12:04 → SUATTDRO 14:17 → 2NENU 14:17 → ICNU 02-12 04:05
PROVIDERS: ADMIT Student in an Organized Health Care Education/Training Program; ATTEND Internal Medicine
PROC: IRPERMA (2018-02-09 12:00)